=== PATIENT | male | born 1930 | race Caucasian/White ===

== ENCOUNTER 2017-03-29 06:06 | Inpatient (IN) | payer OTHER ==
[2017-03-29 06:13] VITALS: BMI 29.6
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
[2017-03-29 07:35] LABS: VENOUS BLOOD GAS HCO3 25.9 meq/L (19-25); VENOUS PH 7.4 (7.32-7.42)
[2017-03-29 07:39] LABS: EOSINOPHIL 1.1 % (0-4.5); MCH 30.5 pg (25.7-33.7); MCHC 31.9 g/dl (32.0-35.9); MEAN CELL VOLUME 95.6 fl (80-96); MEAN PLT VOLUME 8.5 fl (7.5-11.1); NEUTROPHILS 78.1 % (42.8-82.8); PLATELET COUNT 201 K/MM3 (134-434); RDW 16.5 % (11.9-15.9); WHITE BLOOD COUNT 11.8 K/mm3 (4.0-10.0)
--- NOTE | 2017-03-29 07:44 | PDOC ---
*Physical Exam - Vital Signs Patient's care signed out to me at the beginning of my shift. Patient is an 86 YOM with h/o a-fib on Eliquis, DM, HTN, HLD, and CKD who presented with chest and abdominal pain since 3 am which migrated to the neck and shoulders now. Had two cups of coffee this AM and has not taken his morning medications yet. Concern for aortic dissection; will get chest abdomen pelvis CTA r/o AD. Last Vital Signs Temp Pulse Resp BP Pulse Ox 99.0 F 83 14 145/61 99 03/29/17 06:16 03/29/17 06:11 03/29/17 06:11 03/29/17 06:11 03/29/17 06:11 ED Treatment Course - LABORATORY CBC & Chemistry Diagram: 03/31/17 05:05 03/31/17 05:05 - ADDITIONAL ORDERS Additional order review: Laboratory Results 03/29/17 06:30 VBG pH 7.40 POC VBG pCO2 42.8 POC VBG pO2 28.9 Mixed VBG HCO3 25.9 H - RADIOLOGY Radiology Studies Ordered: Category Date Time Status ABDOMEN/PELVIS CTA W/WO CONTR [CT] Stat CT Scan 03/29/17 07:36 Ordered CHEST CTA [CT] Stat CT Scan 03/29/17 07:36 Ordered Medical Decision Making - Medical Decision Making 86 YO high-risk male p/w signs and symptoms concerning for aortic dissection. Chest pain, abdominal pain, migrating to neck and shoulders. On exam he is in A-fib without RVR, no distress currently, vitals wnl. Sheet Manager for Pt is Dr. Flynn. 03/29/17 08:33 Patient anemic to Hgb of 9.0, has been anemic on [facility] from 10/2016 but this was not as profound as today. Patient is on Eliquis but denies any significant bleeding (no black or bloody stool, no hematuria, no other bleeding). Denies SOB, generalized weakness, dizziness, etc. Cr is 1.3 and Radiology is called, states they can take the patient for scan in 5 minutes. 03/29/17 10:00 No e/o aortic dissection, some liver lesions concerning for hepatocellular disease, also cholelithiasis. Patient's rectal temperature is 100.3 and ordered is BNP, troponin 4 hours after initial. Patient given 4 mg SQ insulin and repeat blood glucose is ordered. He is given 1000cc IVF bolus and repeat lactate is drawn. 03/29/17 11:39 Our protocols note that as of last update, Dr. Jaime admits to hospitalist. Symphony microblogged. 03/29/17 12:25 Patient admitted to Tele. *DC/Admit/Observation/Transfer Diagnosis at time of Disposition: Chest wall pain - Discharge Dispostion Condition at time of disposition: Guarded Admit: Yes - Referrals - Patient Instructions - Post Discharge Activity
[2017-03-29 08:00] LABS: ALBUMIN 3.3 g/dl (3.4-5.0); ANION GAP 9 (8-16); CALCIUM 8.3 mg/dL (8.5-10.1); CO2 24 mmol/L (21-32); CREATININE 1.3 mg/dL (0.7-1.3); SGOT/AST 32 U/L (15-37); SGPT/ALT 34 U/L (12-78)
[2017-03-29 08:01] LABS: BILIRUBIN,TOTAL 0.8 mg/dL (0.2-1.0); TOT PROT 7.4 g/dl (6.4-8.2)
[2017-03-29 08:04] LABS: INR 1.61 (0.82-1.09); PROTHROMBIN TIME (PATIENT) 18.2 SEC (9.98-11.88)
[2017-03-29 08:06] LABS: ACTIVATED PTT 33.2 SECONDS (26.9-34.4)
[2017-03-29 08:09] LABS: ALK PHOS 113 U/L (45-117); CPK 117 IU/L (39-308); MAGNESIUM 1.8 mg/dL (1.8-2.4); PHOSPHOROUS 2.5 mg/dL (2.5-4.9); TROPONIN I < 0.02 ng/ml (0.00-0.05)
[2017-03-29 08:13] LABS: GLUCOSE,RANDOM 302 mg/dL (74-106)
[2017-03-29 09:15] LABS: URINE APPEARANCE CLEAR; URINE BILIRUBIN NEGATIVE (NEGATIVE); URINE BLOOD NEGATIVE (NEGATIVE); URINE COLOR YELLOW; URINE GLUCOSE (UA) 3+ (NEGATIVE); URINE KETONE TRACE (NEGATIVE); URINE NITRITE NEGATIVE (NEGATIVE); URINE PROTEIN NEGATIVE (NEGATIVE); URINE UROBILINOGEN NEGATIVE mg/dL (0.2-1.0)
[2017-03-29] MEDS ORDERED: SODIUM CHLORIDE 500 ML IV STA (09:42)
[2017-03-29] MEDS ORDERED: INSULIN REGULAR HUMAN 100 UNITS/ML *VIAL SQ ONE (09:43)
[2017-03-29] MEDS ORDERED: INSULIN REGULAR HUMAN 100 UNITS/ML *VIAL ONE (09:47)
--- NOTE | 2017-03-29 10:03 | EKG ---
Test Reason : Blood Pressure : / mmHG Vent. Rate : 080 BPM Atrial Rate : 080 BPM P-R Int : 174 ms QRS Dur : 126 ms QT Int : 402 ms P-R-T Axes : 035 -20 026 degrees QTc Int : 463 ms NORMAL SINUS RHYTHM RIGHT BUNDLE BRANCH BLOCK ABNORMAL ECG WHEN COMPARED WITH ECG OF 29-MAR-2017 06:09, PREMATURE SUPRAVENTRICULAR COMPLEXES ARE NO LONGER PRESENT MI INTERVAL HAS INCREASED Confirmed by IVAN PALACIOS MD ([id number]) on 03/29/2017 10:03:11 AM Referred By: Confirmed By:IVAN PALACIOS MD
[2017-03-29 11:43] LABS: TROPONIN I < 0.02 ng/ml (0.00-0.05)
[2017-03-29 12:26] LABS: URINE LEUK ESTERASE Negative (NEGATIVE)
[2017-03-29] MEDS ORDERED: SODIUM CHLORIDE 1,000 ML IV SCH ×2 (13:00→17:26)
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
[2017-03-29] MEDS ORDERED: PATIENT'S OWN MEDICATION (NON-FORMULARY) (Telmisartan [Micardis] 20 MG) PO SCH (14:00)
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
[2017-03-29] MEDS: INSULIN SLIDING SCALE (NOVOLOG) 1 VIAL SQ SCH ×3 (16:36→22:14)
[2017-03-29] MEDS: METOPROLOL SUCCINATE 100 MG TAB.SR.24H (FP) PO SCH (16:38)
[2017-03-29] MEDS: GABAPENTIN 300 MG CAPSULE (FP) PO SCH ×2 (16:38→22:14)
[2017-03-29] MEDS: VALSARTAN 80 MG TABLET (UD) PO SCH (16:38)
[2017-03-29] MEDS: amLODIPine BESYLATE 5 MG TABLET (FP) PO SCH (16:39)
[2017-03-29] MEDS: CEFTRIAXONE 1 G/50 ML PREMIX 50 ML IVPB SCH (16:39)
[2017-03-29] MEDS: METRONIDAZOLE PREMIXED IVPB 250 MG/50 ML MG IVPB SCH (17:52)
[2017-03-29 18:00] LABS: BASOPHIL 0.6 % (0-2.0); EOSINOPHIL 0.5 % (0-4.5); MCH 31.2 pg (25.7-33.7); MCHC 33.2 g/dl (32.0-35.9); MEAN CELL VOLUME 93.9 fl (80-96); MEAN PLT VOLUME 8.4 fl (7.5-11.1); NEUTROPHILS 66.7 % (42.8-82.8); PLATELET COUNT 192 K/MM3 (134-434); RDW 16.4 % (11.9-15.9); WHITE BLOOD COUNT 10.7 K/mm3 (4.0-10.0)
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
[2017-03-29 20:17] LABS: CPK 103 IU/L (39-308); TROPONIN I < 0.02 ng/ml (0.00-0.05)
[2017-03-29] MEDS ORDERED: PATIENT'S OWN MEDICATION (NON-FORMULARY) (Pravastatin Sodium 20 MG) PO SCH (22:00)
[2017-03-29] MEDS: HEPARIN NA (PORCINE) 5,000 UNITS/ML 1ML VIAL SQ SCH (22:00)
--- NOTE | 2017-03-29 22:05 | HOSP ---
Subjective - Review of Symptoms Events since last encounter: Received call from RN who states the patient fell while getting ultrasound. The patient states he was sitting on the left side of the bed voiding. He tried to adjust his body to the left to get better flow when he fell off the end of the bed and struck his face on the floor. He denies LOC. HEENT: Yes: Head Aches Pulmonary: Yes: Dyspnea Cardiovascular: Yes: Chest Pain Gastrointestinal: Yes: Nausea, Vomiting Physical Examination Vital Signs: Vital Signs Temperature 98.8 F 03/29/17 17:00 Pulse Rate 85 03/29/17 17:00 Respiratory Rate 18 03/29/17 17:00 Blood Pressure 140/66 03/29/17 17:00 O2 Sat by Pulse Oximetry (%) 97 03/29/17 13:11 Constitutional: Yes: No Distress, Calm Eyes: Yes: EOM Intact HENT: Yes: WNL Neck: Yes: WNL, Other ([place] c-spine rule low risk- deferred c-spine imaging. ) Cardiovascular: Yes: WNL Respiratory: Yes: WNL Gastrointestinal: Yes: WNL ...Rectal Exam: Yes: Deferred Neurological: Yes: Alert, Oriented, Cran Nerves II-XII Intact. No: Ataxia, Confusion, Facial Droop, Loss of Sensation, Numbness, Paresthesia, Seizure, Tingling ...Motor Strength: WNL Labs: CBC, BMP 03/29/17 17:15 03/29/17 11:10 Hospitalist Encounter Assessment: 86 yo man on Eliquis with fall from standing height. Dried blood from abrasion noted to left temporal region. P: I will obtain CTH. I will give Boostrix 0.5cc IM now. I will hold Eliquis until final results of head CT are returned. I will repeat head CT in 6 hours. Outcome: CT HEAD WITHOUT CONTRAST. INDICATION: Status post fall with head trauma. On Eliquis. TECHNIQUE: Axial noncontrast head CT with coronal and sagittal reformations. COMPARISON: 08/28/[address] FINDINGS: There is no acute intracranial hemorrhage or focal extra-axial collection. There is a chronic infarct in the posterior left cerebellum, unchanged. There is no compelling evidence of acute, territorial transcortical infarct at this time. MRI is much more sensitive in detecting acute infarction. There is generalized, age appropriate volume loss with secondary prominence of the CSF spaces, similar to the prior head CT. There is no mass effect, midline shift or hydrocephalus. There is confluent hypoattenuation in the periventricular white matter, similar to the prior head CT , most likely reflecting microvascular ischemic changes. There is dense calcific atherosclerosis along the intradural right vertebral artery and bilateral internal carotid artery siphons. Status post cataract surgery. The calvarium is intact. The visualized paranasal sinuses and mastoid air cells are clear. IMPRESSION: 1. No significant interval change from [address] No acute intracranial hemorrhage, mass effects or hydrocephalus. No evidence of acute skull fracture. 2. Generalized, age-related volume loss, chronic left cerebellar infarct and mild microvascular ischemic changes appear similar to 08/28/[address] Reported By: Abigail Price DO 03/29/17 [id number]
[2017-03-29] MEDS ORDERED: DIPHTH,PERTUSS(ACELL),TET 0.5 ML DISP.SYRIN IM ONE (22:06)
[2017-03-29] MEDS: ATORVASTATIN CA 10 MG TABLET (FP) PO SCH (22:14)
[2017-03-29] MEDS: APIXABAN 5 MG TABLET PO SCH (23:43)
[2017-03-30] MEDS ORDERED: PT OWN MED DRAWER 7, Y5N ONE (01:31)
[2017-03-30] MEDS: METRONIDAZOLE PREMIXED IVPB 250 MG/50 ML MG IVPB SCH ×2 (01:32→17:14)
[2017-03-30] MEDS: INSULIN SLIDING SCALE (NOVOLOG) 1 VIAL SQ SCH ×4 (06:37→22:03)
[2017-03-30 07:25] LABS: ALBUMIN 2.9 g/dl (3.4-5.0); ALK PHOS 91 U/L (45-117); ANION GAP 7 (8-16); BILIRUBIN,TOTAL 1.1 mg/dL (0.2-1.0); CALCIUM 7.5 mg/dL (8.5-10.1); CO2 24 mmol/L (21-32); CREATININE 1.2 mg/dL (0.7-1.3); GLUCOSE,RANDOM 207 mg/dL (74-106); MAGNESIUM 1.9 mg/dL (1.8-2.4); PHOSPHOROUS 2.1 mg/dL (2.5-4.9); SGOT/AST 14 U/L (15-37); SGPT/ALT 24 U/L (12-78); TOT PROT 6.3 g/dl (6.4-8.2)
[2017-03-30] MEDS: APIXABAN 5 MG TABLET PO SCH ×2 (09:40→22:06)
[2017-03-30] MEDS: amLODIPine BESYLATE 5 MG TABLET (FP) PO SCH (09:40)
[2017-03-30] MEDS: VALSARTAN 80 MG TABLET (UD) PO SCH (09:40)
[2017-03-30] MEDS: GABAPENTIN 300 MG CAPSULE (FP) PO SCH ×2 (09:40→22:06)
[2017-03-30] MEDS: METOPROLOL SUCCINATE 100 MG TAB.SR.24H (FP) PO SCH (09:40)
[2017-03-30] MEDS: HEPARIN NA (PORCINE) 5,000 UNITS/ML 1ML VIAL SQ SCH (09:41)
[2017-03-30] MEDS: CEFTRIAXONE 1 G/50 ML PREMIX 50 ML IVPB SCH (09:41)
[2017-03-30] MEDS ORDERED: NAPH,MB-DB/K PH,MBDB POWDER PACKET PO ONE (10:24)
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
[2017-03-30] MEDS: CALCIUM (OYSTER SHELL) 500 MG TABLET (FP) PO SCH (10:49)
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
--- NOTE | 2017-03-30 13:53 | PN ---
Progress Note, Physician History of Present Illness: S/p fall last night head CT x 2 negative. Pt is comfortable, not in distress, in chair watching TV. No abdominal pain, nausea, vomiting. Reports normal stool this am. Tolerating diet. - Current Medication List Current Medications: Active Medications Amlodipine Besylate (Norvasc -) 5 mg PO DAILY [facility] Last Admin: 03/30/17 09:40 Dose: 5 mg Apixaban (Eliquis -) 5 mg PO BID [facility] Last Admin: 03/30/17 09:40 Dose: 5 mg Atorvastatin Calcium (Lipitor -) 10 mg PO HS [facility] Last Admin: 03/29/17 22:14 Dose: 10 mg Calcium Carbonate (Os-Lorenzo 500mg -) 500 mg PO DAILY [facility] Last Admin: 03/30/17 10:49 Dose: 500 mg Gabapentin (Neurontin -) 300 mg PO BID [facility] Last Admin: 03/30/17 09:40 Dose: 300 mg Insulin Aspart (Novolog Vial Sliding Scale -) 1 vial SQ ACHS [facility] PRN Reason: Protocol Last Admin: 03/30/17 11:26 Dose: 6 units Metoprolol Succinate (Toprol Xl -) 100 mg PO DAILY [facility] Last Admin: 03/30/17 09:40 Dose: 100 mg Valsartan (Diovan -) 80 mg PO DAILY [facility] Last Admin: 03/30/17 09:40 Dose: 80 mg - Objective Vital Signs: Vital Signs Temperature 98 F 03/30/17 09:00 Pulse Rate 78 03/30/17 09:00 Respiratory Rate 18 03/30/17 09:00 Blood Pressure 128/68 03/30/17 09:00 O2 Sat by Pulse Oximetry (%) 98 03/30/17 09:00 Neurological: Yes: Alert, Oriented Labs: CBC, BMP 03/29/17 17:15 03/30/17 05:05 INR, PTT INR 1.61 (0.82-1.09) H 03/29/17 06:45 Laboratory Results - last 24 hr 03/29/17 03/29/17 03/29/17 16:36 17:15 17:45 WBC 10.7 H RBC 2.77 L Hgb 8.6 L Hct 26.0 L MCV 93.9 MCH 31.2 MCHC 33.2 RDW 16.4 H Plt Count 192 MPV 8.4 Neutrophils % 66.7 Lymphocytes % 23.3 D Monocytes % 8.9 Eosinophils % 0.5 Basophils % 0.6 Sodium Potassium Chloride Carbon Dioxide Anion Gap BUN Creatinine Creat Clearance w eGFR POC Glucometer 296 Random Glucose Lactic Acid Calcium Phosphorus Magnesium Total Bilirubin AST ALT Alkaline Phosphatase Creatine Kinase 103 Troponin I < 0.02 Total Protein Albumin 03/29/17 03/30/17 03/30/17 22:10 05:05 05:05 WBC RBC Hgb Hct MCV MCH MCHC RDW Plt Count MPV Neutrophils % Lymphocytes % Monocytes % Eosinophils % Basophils % Sodium 138 Potassium 3.7 D Chloride 107 Carbon Dioxide 24 Anion Gap 7 L BUN 21 H Creatinine 1.2 Creat Clearance w eGFR 57.41 POC Glucometer 248 Random Glucose 207 H D Lactic Acid 1.2 Calcium 7.5 L Phosphorus 2.1 L Magnesium 1.9 Total Bilirubin 1.1 H D AST 14 L D ALT 24 D Alkaline Phosphatase 91 Creatine Kinase Troponin I Total Protein 6.3 L Albumin 2.9 L 03/30/17 03/30/17 06:18 11:24 WBC RBC Hgb Hct MCV MCH MCHC RDW Plt Count MPV Neutrophils % Lymphocytes % Monocytes % Eosinophils % Basophils % Sodium Potassium Chloride Carbon Dioxide Anion Gap BUN Creatinine Creat Clearance w eGFR POC Glucometer 229 290 Random Glucose Lactic Acid Calcium Phosphorus Magnesium Total Bilirubin AST ALT Alkaline Phosphatase Creatine Kinase Troponin I Total Protein Albumin Problem List - Problems (1) Anemia Code(s): D64.9 - ANEMIA, UNSPECIFIED Qualifiers: Anemia type: unspecified type Qualified Code(s): D64.9 - Anemia, unspecified (2) Abdominal pain Code(s): R10.9 - UNSPECIFIED ABDOMINAL PAIN (3) Lactic acid acidosis Code(s): E87.2 - ACIDOSIS (4) Leukocytosis Code(s): D72.829 - ELEVATED WHITE BLOOD CELL COUNT, UNSPECIFIED Assessment/Plan Diet as tolerated OK to D/C from GI point of view Colonoscopy for anemia as an outpatient Discussed with the patient
[2017-03-30] MEDS: ATORVASTATIN CA 10 MG TABLET (FP) PO SCH (22:06)
[2017-03-31] MEDS ORDERED: POTASSIUM CHLORIDE TABS 20 MEQ TABLET.ER (FP) PO ONE (03:47)
[2017-03-31] MEDS: METOPROLOL SUCCINATE 100 MG TAB.SR.24H (FP) PO SCH ×2 (05:46→09:25)
[2017-03-31 06:56] LABS: MCHC 32.8 g/dl (32.0-35.9); MEAN CELL VOLUME 94.5 fl (80-96); MEAN PLT VOLUME 8.2 fl (7.5-11.1); PLATELET COUNT 181 K/MM3 (134-434); RDW 16.2 % (11.9-15.9)
[2017-03-31 07:04] LABS: INR 1.67 (0.82-1.09); PROTHROMBIN TIME (PATIENT) 18.9 SEC (9.98-11.88)
[2017-03-31] MEDS: INSULIN SLIDING SCALE (NOVOLOG) 1 VIAL SQ SCH ×3 (07:06→16:47)
[2017-03-31 07:20] LABS: ALBUMIN 2.9 g/dl (3.4-5.0); ANION GAP 9 (8-16); CALCIUM 7.9 mg/dL (8.5-10.1); CO2 24 mmol/L (21-32); CREATININE 1.2 mg/dL (0.7-1.3); GLUCOSE,RANDOM 190 mg/dL (74-106); PHOSPHOROUS 2.2 mg/dL (2.5-4.9); SGOT/AST 18 U/L (15-37); SGPT/ALT 24 U/L (12-78)
[2017-03-31 07:22] LABS: ALK PHOS 96 U/L (45-117); BILIRUBIN,TOTAL 1.1 mg/dL (0.2-1.0); TOT PROT 6.3 g/dl (6.4-8.2)
[2017-03-31] MEDS: GABAPENTIN 300 MG CAPSULE (FP) PO SCH (09:24)
[2017-03-31] MEDS: amLODIPine BESYLATE 5 MG TABLET (FP) PO SCH (09:25)
[2017-03-31] MEDS: CALCIUM (OYSTER SHELL) 500 MG TABLET (FP) PO SCH (09:25)
[2017-03-31] MEDS: APIXABAN 5 MG TABLET PO SCH (09:25)
[2017-03-31] MEDS: VALSARTAN 80 MG TABLET (UD) PO SCH (09:25)
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
--- NOTE | 2017-03-31 11:46 | PN ---
Progress Note (short form) - Note Progress Note: RENAL Pt is awake and alert denies complaints Last Vital Signs Temp Pulse Resp BP Pulse Ox 98 F 110 H 20 114/70 97 03/31/17 10:00 03/31/17 10:00 03/31/17 10:00 03/31/17 10:00 03/31/17 09:00 lungs clear [id number] irregularly irregular abd soft ext trace edema, DP pulses palpable neuro a+Ox3 CBC, BMP 03/31/17 05:05 03/31/17 05:05 Current Medications Generic Name Dose Route Start Last Admin Trade Name Francisco PRN Reason Stop Dose Admin Amlodipine Besylate 5 mg 03/29/17 14:00 03/31/17 09:25 Norvasc - PO 5 mg DAILY SARAH Administration Apixaban 5 mg 03/29/17 22:00 03/31/17 09:25 Eliquis - PO 5 mg BID SARAH Administration Atorvastatin Calcium 10 mg 03/29/17 22:00 03/30/17 22:06 Lipitor - PO 10 mg HS SARAH Administration Calcium Carbonate 500 mg 03/30/17 10:30 03/31/17 09:25 Os-Lorenzo 500mg - PO 500 mg DAILY SARAH Administration Gabapentin 300 mg 03/29/17 13:50 03/31/17 09:24 Neurontin - PO 300 mg BID SARAH Administration Insulin Aspart 1 vial 03/29/17 14:00 03/31/17 07:06 Novolog Vial Sliding Scale - SQ 4 units ACHS SARAH Administration Protocol Metoprolol Succinate 100 mg 03/29/17 14:00 03/31/17 09:25 Toprol Xl - PO Not Given DAILY SARAH Valsartan 80 mg 03/29/17 16:00 03/31/17 09:25 Diovan - PO 80 mg DAILY SARAH Administration IMPRESSION 1. CKD with ahigh PVR on songram 2. lactic acidosis- normalized 3. fever 4. abdominal pain 5. HTN 6. hx of polyclonal gammopathy 7. DM 8. Hyperlipidemia 9. CAD?afib on eliquis Plan - can stay off fluids now - would repat BMP as outpatient - can restart metformin - consider flomax given high PVR. Today he had a normal BM so his UO should be better MV
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
[2017-03-31] MEDS ORDERED: NAPH,MB-DB/K PH,MBDB POWDER PACKET PO ONE (12:58)
[2017-03-31] MEDS ORDERED: FUROSEMIDE 40 MG TABLET (FP) PO SCH ×2 (13:00→14:00)
--- NOTE | 2017-03-31 14:33 | DS ---
Physical Exam: SUBJECTIVE: Patient seen and examined OBJECTIVE: Vital Signs Period Temp Pulse Resp BP Sys/Shaw Pulse Ox Last 24 Hr 98 F-99.3 F 73-120 18-20 114-128/54-83 96-97 PHYSICAL EXAM GENERAL: The patient is awake, alert, and fully oriented, in no acute distress. HEAD: Normal with no signs of trauma. EYES: PERRL, extraocular movements intact, sclera anicteric, conjunctiva clear. ENT: Ears normal, nares patent, oropharynx clear without exudates, moist mucous membranes. NECK: Trachea midline, full range of motion, supple. LUNGS: Breath sounds equal, clear to auscultation bilaterally, no wheezes, no crackles, no accessory muscle use. HEART: Regular rate and rhythm, S1, S2 without murmur, rub or gallop. ABDOMEN: Soft, nontender, nondistended, normoactive bowel sounds, no guarding, no rebound, no hepatosplenomegaly, no masses. EXTREMITIES: 2+ pulses, warm, well-perfused, no edema. NEUROLOGICAL: Cranial nerves II through XII grossly intact. Normal speech, gait not observed. PSYCH: Normal mood, normal affect. SKIN: Warm, dry, normal turgor, no rashes or lesions noted. LABS Laboratory Results - last 24 hr 03/30/17 03/30/17 03/31/17 16:56 21:59 05:05 WBC 8.0 RBC 2.71 L Hgb 8.4 L Hct 25.6 L MCV 94.5 MCH 31.0 MCHC 32.8 RDW 16.2 H Plt Count 181 MPV 8.2 PT with INR INR Sodium Potassium Chloride Carbon Dioxide Anion Gap BUN Creatinine Creat Clearance w eGFR POC Glucometer 242 222 Random Glucose Calcium Phosphorus Total Bilirubin AST ALT Alkaline Phosphatase Total Protein Albumin 03/31/17 03/31/17 03/31/17 05:05 05:05 07:01 WBC RBC Hgb Hct MCV MCH MCHC RDW Plt Count MPV PT with INR 18.90 H INR 1.67 H Sodium 140 Potassium 4.1 Chloride 107 Carbon Dioxide 24 Anion Gap 9 BUN 23 H Creatinine 1.2 Creat Clearance w eGFR 57.41 POC Glucometer 207 Random Glucose 190 H Calcium 7.9 L Phosphorus 2.2 L Total Bilirubin 1.1 H AST 18 D ALT 24 Alkaline Phosphatase 96 Total Protein 6.3 L Albumin 2.9 L 03/31/17 11:58 WBC RBC Hgb Hct MCV MCH MCHC RDW Plt Count MPV PT with INR INR Sodium Potassium Chloride Carbon Dioxide Anion Gap BUN Creatinine Creat Clearance w eGFR POC Glucometer 239 Random Glucose Calcium Phosphorus Total Bilirubin AST ALT Alkaline Phosphatase Total Protein Albumin HOSPITAL COURSE: Date of Admission:03/29/17 Date of Discharge: 03/31/17 Discharge Summary Reason For Visit: ANEMIA,CHEST PAIN,LACTIC ACIDOSIS Current Active Problems Abdominal pain (Acute) Anemia (Acute) CKD (chronic kidney disease) stage 3, GFR 30-59 ml/min (Acute) Chest pain (Acute) Chest wall pain (Acute) Fever (Acute) Lactic acid acidosis (Acute) Leukocytosis (Acute) Condition: Stable - Instructions Diet, Activity, Other Instructions: Please return to the ED for any new, persistent or worsening symptoms. Follow up with your PCP in 1 week Resume home medications as directed, lasix now 40mg BID Ambulate daily with cane or walker Referrals made for ortho and urology Follow up with Dr. Flynn in 1 -2 weeks for lasix evaluation Referrals: Mireille Jaime MD [Primary Care Provider] - Jin Martines MD [Staff Physician] - Davis Hartley MD [Staff Physician] - Ap Alicea MD [Staff Physician] - Disposition: VNS/HOME HEALTH CARE - Home Medications Comprehensive Discharge Medication List: Ambulatory Orders Amlodipine Besylate [Norvasc -] 5 mg PO DAILY 03/29/17 Apixaban [Eliquis] 5 mg PO BID 03/29/17 Gabapentin [Neurontin] 300 mg PO BID 03/29/17 Metoprolol Succinate [Toprol Xl] 100 mg PO DAILY 03/29/17 Pravastatin Sodium [Pravachol -] 20 mg PO HS 03/29/17 Sitagliptin Phos/Metformin HCl [Janumet 50-1,000 mg Tablet] 1 each PO BID Telmisartan [Micardis] 20 mg PO DAILY 03/29/17 Furosemide [Lasix -] 40 mg PO BID@0600,1400 #60 tablet 03/31/17 Problem List - Problems (1) Abdominal pain Code(s): R10.9 - UNSPECIFIED ABDOMINAL PAIN (2) Fever Code(s): R50.9 - FEVER, UNSPECIFIED (3) Lactic acid acidosis Code(s): E87.2 - ACIDOSIS (4) Leukocytosis Code(s): D72.829 - ELEVATED WHITE BLOOD CELL COUNT, UNSPECIFIED
[2017-03-31 14:43] VITALS: BP 127/67; PULSE 120; TEMP 98.8
== END 2017-03-31 18:04 | disposition home health service (06) | DRG 640 ==
LOC: JER 06:06 → JERBED 12:31 → J4W 13:40
PROVIDERS: ADMIT Internal Medicine; ATTEND Nurse Practitioner Acute Care
DX: E87.2 Acidosis (principal); I50.33 Acute on chronic diastolic (congestive) heart failure; I13.0 Hypertensive heart and chronic kidney disease with heart failure and stage 1 through stage 4 chronic kidney disease, or unspecified chronic kidney disease; D62 Acute posthemorrhagic anemia; E78.00 Pure hypercholesterolemia, unspecified; Z79.01 Long term (current) use of anticoagulants; E11.22 Type 2 diabetes mellitus with diabetic chronic kidney disease; I45.10 Unspecified right bundle-branch block; I25.2 Old myocardial infarction; E11.42 Type 2 diabetes mellitus with diabetic polyneuropathy; I25.10 Atherosclerotic heart disease of native coronary artery without angina pectoris; Z95.1 Presence of aortocoronary bypass graft; I48.0 Paroxysmal atrial fibrillation; D64.9 Anemia, unspecified; N18.3 Chronic kidney disease, stage 3 (moderate); R50.9 Fever, unspecified; D72.829 Elevated white blood cell count, unspecified; R10.9 Unspecified abdominal pain; E83.51 Hypocalcemia; E83.39 Other disorders of phosphorus metabolism; S00.81XA Abrasion of other part of head, initial encounter; W06.XXXA Fall from bed, initial encounter; Y93.89 Activity, other specified; Y92.238 Other place in hospital as the place of occurrence of the external cause; Y99.8 Other external cause status
CPT/HCPCS: 36415; 70450-TC; 71010-TC; 71275-TC; 74174-TC; 76775-TC; 76856-TC; 80053; 81003; 82550; 82803; 82947; 83605; 83735; 83880; 84100; 84484; 85025; 85027; 85610; 85730; 86850; 86900; 86901; 87040; 87086; 87804; 90715; 93005; 93010; 93306-TC; 97161-GP; 99285-25; J1644

== ENCOUNTER 2018-02-17 17:57 | Emergency (ER) | payer OTHER ==
[2018-02-17 18:13] VITALS: BP 108/55; PULSE 68; TEMP 98.1; BMI 29.1
--- NOTE | 2018-02-17 18:14 | PDOC ---
Rapid Medical Evaluation Time Seen by Provider: 02/17/18 18:11 Medical Evaluation: Allergies Allergy/AdvReac Type Severity Reaction Status Date / Time No Known Allergies Allergy Verified 03/29/17 06:13 02/17/18 18:12 I have performed a brief in-person evaluation of this patient. The patient presents with a chief complaint of: Head injury s/p fall yesterday. States he has neuropathy of legs 2/2 DM wnd while placing cane in car yesterday , lost his balance and fell. Might have hit his head but no LOC, SANTANA, dizziness or visual changes. No CP or dizziness prior to fall. Denies any other injuries and ambulatory since fall Pertinent physical exam findings:Unremarkable I have ordered the following:CT head The patient will proceed to the ED for further evaluation. Discharge Disposition - Diagnosis Fall Qualifiers: Encounter type: initial encounter Qualified Code(s): W19.XXXA - Unspecified fall, initial encounter - Referrals Referrals: Jonas Flynn MD [Primary Care Provider] - - Patient Instructions - Post Discharge Activity
--- NOTE | 2018-02-17 19:04 | PDOC ---
History of Present Illness - General Chief Complaint: Injury Stated Complaint: HEAD INJURY, FALL Time Seen by Provider: 02/17/18 18:11 - History of Present Illness Initial Comments: 02/17/18 19:02 A 87-year-old male with multiple comorbidities including peripheral neuropathy and coronary artery disease he takes Eliquist, lost his balance yesterday will walking and struck his head on the pavement. He had no postinjury headache visual changes nausea or vomiting. He reports to the ER today for further evaluation Past History - Past Medical History Allergies/Adverse Reactions: Allergies Allergy/AdvReac Type Severity Reaction Status Date / Time No Known Allergies Allergy Verified 02/17/18 18:12 Home Medications: Ambulatory Orders Amlodipine Besylate [Norvasc -] 5 mg PO DAILY 03/29/17 Apixaban [Eliquis] 5 mg PO BID 03/29/17 Gabapentin [Neurontin] 300 mg PO BID 03/29/17 Metoprolol Succinate [Toprol Xl] 100 mg PO DAILY 03/29/17 Pravastatin Sodium [Pravachol -] 20 mg PO HS 03/29/17 Sitagliptin Phos/Metformin HCl [Janumet 50-1,000 mg Tablet] 1 each PO BID Furosemide [Lasix -] 80 mg PO BID@0600,1400 02/17/18 Losartan Potassium [Cozaar -] 25 mg PO DAILY 02/17/18 Cardiac Disorders: Yes (cardiac cath [id number] ago) COPD: No CHF: Yes Diabetes: Yes HTN: Yes - Surgical History Cardiac Surgery: Yes (Bypass x6) Orthopedic Surgery: Yes (Right knee replacement) - Suicide/Smoking/Psychosocial Hx Smoking History: Never smoked Have you smoked in the past 12 months: No Hx Alcohol Use: No Drug/Substance Use Hx: No Substance Use Type: None Hx Substance Use Treatment: No Review of Systems - Review of Systems All Other Systems: Reviewed and Negative *Physical Exam - Vital Signs Last Vital Signs Temp Pulse Resp BP Pulse Ox 98.1 F 68 18 108/55 L 100 02/17/18 18:12 02/17/18 18:12 02/17/18 18:12 02/17/18 18:12 02/17/18 18:12 - Physical Exam Comments: 02/17/18 19:03 HEAD: NC/ there is a superficial area of ecchymosis about a centimeter in diameter on the left parietal scalp posterior aspect EYES: Conjuntiva clear EOMI PERRL Ears: Canals and TM's normal NOSE: No d/c THROAT: Moist mucous membrances, oral pharanx clear, uvula midline NECK: Supple without adenopathy CARDIAC: S1 S2 LUNGS: CTA Full and Equal breath sounds ABDOMEN: Soft NT ND MS: Full ROM in all joints without edema NEUROLOGIC: No gross sensory or motor deficits, NVID SKIN: Normal color and temperature no lesions or rashes Medical Decision Making - Medical Decision Making 02/17/18 19:59 CT neagtive, no indication of closed head injury *DC/Admit/Observation/Transfer Diagnosis at time of Disposition: Fall Qualifiers: Encounter type: initial encounter Qualified Code(s): W19.XXXA - Unspecified fall, initial encounter - Discharge Dispostion Disposition: HOME Condition at time of disposition: Stable Decision to Admit order: No - Referrals Referrals: Jonas Flynn MD [Primary Care Provider] - - Patient Instructions Printed Discharge Instructions: DI for Abrasion Additional Instructions: Keep the area of the abrasion on his scalp clean with soap and water and left open to air. Return to the emergency room should he develop any headache nausea vomiting or visual changes otherwise follow-up your primary care physician once 2 days further evaluation and treatment options. Her CAT scan today was negative. - Post Discharge Activity
== END 2018-02-17 20:22 | disposition home or self-care (01) ==
LOC: JERFT 17:57
DX: S00.03XA Contusion of scalp, initial encounter (principal); V48.4XXA Person boarding or alighting a car injured in noncollision transport accident, initial encounter; Y92.488 Other paved roadways as the place of occurrence of the external cause; Y93.89 Activity, other specified; Y99.8 Other external cause status; I25.10 Atherosclerotic heart disease of native coronary artery without angina pectoris; I11.0 Hypertensive heart disease with heart failure; Z95.5 Presence of coronary angioplasty implant and graft; Z79.01 Long term (current) use of anticoagulants; E11.42 Type 2 diabetes mellitus with diabetic polyneuropathy; Z79.84 Long term (current) use of oral hypoglycemic drugs; R26.89 Other abnormalities of gait and mobility; Z99.89 Dependence on other enabling machines and devices
CPT/HCPCS: 70450-TC; 99281-25

== ENCOUNTER 2018-03-08 16:28 | Inpatient (IN) | payer OTHER ==
--- NOTE | 2018-03-08 17:22 | PDOC ---
Attending Attestation - HPI HPI: 03/08/18 19:45 The patient is a 87 year old male, with a significant PMH of myocardial infarction s/p CABG, type 2 diabetes mellitus, hypertension, hypercholesterolemia, CKD, and atrial fibrillation (on eliquis) who presents to the emergency department for evaluation s/p syncopal episode. The patient endorses bowel and bladder incontinence s/p syncopal episode. The patient also reports a cough for approx 10 days. The patient denies chest pain, shortness of breath, headache and dizziness. Denies fever, chills, nausea, vomit, diarrhea and constipation. Denies dysuria, frequency, urgency and hematuria. Allergies: NKA Documentation prepared by Ming De Dios, acting as medical collections specialist for Armani Self MD. <Ming De Dios - Last Filed: 03/08/18 20:24> - Resident Resident Name: Erick Cash - ED Attending Attestation I have performed the following: I have examined & evaluated the patient, The case was reviewed & discussed with the resident, I agree w/resident's findings & plan, Exceptions are as noted - Physicial Exam PE: 03/08/18 21:53 Patient is awake and alert, Well-nourished, mildly tachycardic, in no distress Normocephalic, atraumatic PERRLA, EOMI, conjunctiva are pale No JVD Diffuse inspiratory/expiratory wheezing with intermittent rhonchi; RRR +2 pitting edema lower extremity is bilaterally - Medical Decision Making 03/08/18 21:53 87-year-old male with multiple comorbidities presents to the ER after a syncopal episode with loss bowel/bladder. In the ER, patient is mildly tachycardic with oxygen saturation 100% on room air. 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 Chest x- ray reveals borderline cardiomegaly with a linear opacity to the right upper lobe. We'll obtain CBC/CMP/cardiac profile/lower extremity Doppler ultrasound. Will also obtain CT of head to rule out intracranial pathology. We'll obtain d- dimer given the patient's well score at this time is 2. Will reassess. likely admission. 03/08/18 22:55 Patient reassessed. Patient resting comfortably without evidence of acute pulmonary edema after administration of the initial bolus of normal saline. Will administer additional bolus of 500 mL. Lower extremity Doppler ultrasound shows no evidence of DVT. CT of head shows no evidence of acute intracranial pathology. Left cerebellar infarct is noted which was noted on previous CAT scan. Atrophy and small vessel ischemic disease is also noted. CT of chest reveals bilateral pleural effusions (right greater than left) with subsegmental atelectasis which is more pronounced on the right. I suspect pleural effusions related to acute infectious process. Will cover with ceftriaxone and Zithromax. We'll administer unit of packed cells given anemia in the setting of syncope. Will admit to telemetry for further evaluation and treatment. <Armani Self - Last Filed: 03/08/18 22:57>
[2018-03-08] MEDS ORDERED: ALBUTEROL SO4 2.5/IPRATROPIUM 0.5 INH SOL 3 ML VIAL.NEB. NEB ONE ×2 (17:24→17:28)
--- NOTE | 2018-03-08 17:33 | PDOC ---
History of Present Illness - General Stated Complaint: FALL/RESPIRATORY Time Seen by Provider: 03/08/18 17:00 History Source: Patient Exam Limitations: No Limitations - History of Present Illness Initial Comments: 03/08/18 17:31 The patient is an 87M with a PMH of HI s/p CABG, T2DM, HTN and hypercholesterolemia, CKD, and A-fib (on eliquis) who presents to the ER after having a syncopal episode. The patient states that he was in his normal state of health this morning when he went back to his room for a cup of water. As he was walking back into his room, he syncopized. He has never syncopized in the past. He denies CP, SOB, fevers, chills, lightheadedness, palpitations, numbness , tingling, or weakness before, during, or after the syncopal episode. He states that when he came to, he noticed that he lost bowel and bladder function and had urine and feces on him. He washed himself up and called his daughter who advised him to come to the ER. His only current complaint is swelling in his LE and a cough that he's had for 10 days. Past History - Past Medical History Allergies/Adverse Reactions: Allergies Allergy/AdvReac Type Severity Reaction Status Date / Time No Known Allergies Allergy Verified 03/08/18 16:56 Home Medications: Ambulatory Orders Amoxicillin/Potassium Clav [Amox-Clav 500-125 mg Tablet] 1 each PO DAILY Apixaban [Eliquis] 5 mg PO DAILY 03/08/18 Diltiazem [Cardizem -] 60 mg PO BID 03/08/18 Folic Acid - 800 mcg PO DAILY 03/08/18 Furosemide [Lasix] 40 mg PO DAILY 03/08/18 Gabapentin [Neurontin -] 300 mg PO BID 03/08/18 Losartan Potassium 12.5 mg PO DAILY 03/08/18 Metoprolol Succinate [K[place]sp[place] Sprinkle] 50 mg PO DAILY 03/08/18 Pravastatin Sodium [Pravachol (Nf)] 20 mg PO HS 03/08/18 Promethazine/Dextromethorphan [Promethazine-Dm Syrup] 120 ml PO BID 03/08/18 Sitagliptin Phos/Metformin HCl [Janumet 50-1,000 mg Tablet] 1 each PO DAILY 02/13 Cardiac Disorders: Yes (cardiac cath [id number] ago) COPD: No CHF: Yes Diabetes: Yes HTN: Yes - Surgical History Cardiac Surgery: Yes (Bypass x6) Orthopedic Surgery: Yes (Right knee replacement) - Suicide/Smoking/Psychosocial Hx Smoking History: Never smoked Have you smoked in the past 12 months: No Information on smoking cessation initiated: No Hx Alcohol Use: No Drug/Substance Use Hx: No Substance Use Type: None Hx Substance Use Treatment: No Review of Systems - Review of Systems Able to Perform ROS?: Yes Comments:: 03/08/18 20:08 GENERAL/CONSTITUTIONAL: No fever or chills. No weakness. HEAD, EYES, EARS, NOSE AND THROAT: No change in vision. No ear pain or discharge. No sore throat. CARDIOVASCULAR: No chest pain, palpitations, or lightheadedness. RESPIRATORY: Positive for cough. No wheezing, shortness of breath, or hemoptysis. GASTROINTESTINAL: No nausea, vomiting, diarrhea, constipation, or abdominal pain. GENITOURINARY: No dysuria, frequency, hematuria, or change in urination. MUSCULOSKELETAL: No joint or muscle swelling or pain. No neck or back pain. SKIN: No rash or lesions. NEUROLOGIC: Positive for LOC. No headache, numbness, tingling, focal weakness, or change in strength/sensation. Is the patient limited Mongolian proficient: No *Physical Exam - Vital Signs Last Vital Signs Temp Pulse Resp BP Pulse Ox 98.7 F 100 H 18 134/89 99 03/08/18 16:48 03/08/18 16:48 03/08/18 16:48 03/08/18 16:48 03/08/18 16:48 - Physical Exam Comments: 03/08/18 20:09 GENERAL: Well developed, well nourished. Awake and alert. No acute distress. HEENT: Normocephalic, atraumatic. Hearing grossly normal. Moist mucous membranes. PERRLA, EOMI. No conjunctival pallor. Sclera are non-icteric. NECK: Supple. Full ROM. CARDIOVASCULAR: Regular rate and rhythm. No murmurs, rubs, or gallops. PULMONARY: No evidence of respiratory distress. Diffuse expiratory wheezing in all lung schwartz. ABDOMINAL: Soft. Non-tender. Non-distended. No rebound or guarding. GENITOURINARY: No CVA tenderness bilaterally. RECTAL: Normal rectal tone. Yellow stool noted. MUSCULOSKELETAL: Normal range of motion at all joints. No bony deformities or tenderness. EXTREMITIES: No cyanosis. No clubbing. No edema. No calf tenderness or swelling. SKIN: Warm and dry. Normal capillary refill. No rashes. No jaundice. NEUROLOGICAL: Alert, awake, appropriate. Cranial nerves 2-12 intact. No deficits to light touch and temperature in face, upper extremities and lower extremities. 5/5 strength in deltoids, biceps, triceps, quadriceps, hamstrings, and gastrocnemius. Normoreflexic in the upper and lower extremities. Normal speech. Gait is normal without ataxia. PSYCHIATRIC: Cooperative. Good eye contact. Appropriate mood and affect. ED Treatment Course - LABORATORY CBC & Chemistry Diagram: 03/08/18 17:28 03/08/18 17:28 - RADIOLOGY Radiology Studies Ordered: Category Date Time Status HEAD CT WITHOUT CONTRAST [CT] Stat CT Scan 03/08/18 17:08 Ordered CHEST X-RAY PORTABLE* [RAD] Stat Radiology 03/08/18 17:08 Ordered Medical Decision Making - Medical Decision Making 03/08/18 20:10 The patient is an 87M with an extensive PMH who presents to the ER with cough x 10 days, lower extremity edema, and a syncopal episode, concerning for ACS, PE, symptomatic anemia, TIA, CHF exacerbation, symptomatic aortic stenosis. Pt is on eliquis making PE less likely. However, due to tachycardia and syncope, will image lower extremities. EKG showing T wave inversions. CBC notable for anemia. Stool occult negative. No WBC. Cr 1.4. Lactate of 4.4 - giving hydration gently as patient is in CHF exacerbation with BNP of 1400. Pending CTH and duplex. 03/08/18 22:52 CTH negative for acute pathology. Duplex negative for DVT. Chest CT shows subsegmental atelectasis with moderate R pleural effusion and small L pleural effusions. Will give Abx and admit to hospital. Will order PRBC. 03/08/18 23:46 I have endorsed the patient to Dr. Castillo for admission. *DC/Admit/Observation/Transfer Diagnosis at time of Disposition: Syncope and collapse - Discharge Dispostion Condition at time of disposition: Guarded Decision to Admit order: Yes - Referrals Referrals: Jonas Flynn MD [Primary Care Provider] - - Patient Instructions - Post Discharge Activity
[2018-03-08 17:39] LABS: BASO % 0.8 % (0-2.0); EOS % 0.4 % (0-4.5); HEMOGLOBIN 7.7 GM/dL (11.7-16.9); LYMPH % 13.1 % (8-40); MCH 26.4 pg (25.7-33.7); MCHC 31.8 g/dl (32.0-35.9); MEAN CELL VOLUME 82.7 fl (80-96); MEAN PLT VOLUME 7.1 fl (7.5-11.1); MONO % 11.3 % (3.8-10.2); NEUT % 74.4 % (42.8-82.8); PLATELET COUNT 306 K/MM3 (134-434); RBC 2.91 M/mm3 (4.00-5.60); RDW 18.3 % (11.9-15.9); WHITE BLOOD COUNT 7.3 K/mm3 (4.0-10.0)
[2018-03-08 17:54] LABS: VENOUS PC02 45.5 mmHg (38-52); VENOUS PH 7.36 (7.32-7.42)
[2018-03-08 18:03] LABS: ALBUMIN 3.6 g/dl (3.4-5.0); ALK PHOS 105 U/L (45-117); ANION GAP 9 MMOL/L (8-16); BILIRUBIN,TOTAL 0.9 mg/dL (0.2-1); BLOOD UREA NITROGEN 25 mg/dL (7-18); CALCIUM 8.7 mg/dL (8.5-10.1); CHLORIDE 105 mmol/L (98-107); CO2 26 mmol/L (21-32); CREATININE 1.4 mg/dL (0.55-1.3); GLUCOSE,RANDOM 219 mg/dL (74-106); MAGNESIUM 1.9 mg/dL (1.8-2.4); POTASSIUM 4.5 mmol/L (3.5-5.1); SGOT/AST 23 U/L (15-37); SGPT/ALT 21 U/L (13-61); SODIUM 140 mmol/L (136-145); TOT PROT 7.8 g/dl (6.4-8.2)
[2018-03-08 18:09] LABS: INR 3.05 (0.83-1.09); PROTHROMBIN TIME (PATIENT) 36.4 SEC (9.7-13.0)
[2018-03-08] MEDS ORDERED: SODIUM CHLORIDE 1,000 ML IV SCH (18:45)
[2018-03-08] MEDS ORDERED: AZITHROMYCIN IVPB 500 MG in DEXTROSE 5%-WATER - 250 ML IVPB ONE (22:34)
[2018-03-08] MEDS ORDERED: CEFTRIAXONE 1,000 MG in DEXTROSE 5%-WATER - 50 ML IVPB ONE (22:34)
[2018-03-08] MEDS ORDERED: AZITHROMYCIN IVPB 500 MG/250 ML BAG IVPB ONE (22:49)
[2018-03-08] MEDS ORDERED: CEFTRIAXONE 1 GM/50 ML BAG ONE (22:49)
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
[2018-03-09 00:22] LABS: URINE APPEARANCE CLEAR; URINE BILIRUBIN NEGATIVE (<2.0 mg/dL); URINE COLOR YELLOW; URINE GLUCOSE (UA) 2+ (NEGATIVE); URINE KETONE TRACE (NEGATIVE); URINE LEUK ESTERASE NEGATIVE (NEGATIVE); URINE NITRITE NEGATIVE (NEGATIVE); URINE PROTEIN 1+ (NEGATIVE); URINE UROBILINOGEN NEGATIVE mg/dL (0.2-1.0)
[2018-03-09 00:26] LABS: URINE BACTERIA RARE /hpf (NONE SEEN); URINE HYALINE CAST 1 /lpf; URINE MUCUS RARE
[2018-03-09] MEDS ORDERED: SODIUM CHLORIDE 1,000 ML IV SCH ×2 (00:45→13:42)
[2018-03-09] MEDS: guaiFENesin 600 MG TABLET.ER (FP) PO SCH ×3 (02:30→21:03)
[2018-03-09 05:43] VITALS: BMI 29.7
[2018-03-09] MEDS: INSULIN SLIDING SCALE (NOVOLOG) 1 VIAL SQ SCH ×4 (06:06→21:03)
[2018-03-09 06:47] LABS: BASO % 0.6 % (0-2.0); EOS % 0.5 % (0-4.5); HEMATOCRIT 23.9 % (35.4-49); HEMOGLOBIN 7.5 GM/dL (11.7-16.9); LYMPH % 24.5 % (8-40); MCH 25.6 pg (25.7-33.7); MCHC 31.3 g/dl (32.0-35.9); MEAN CELL VOLUME 81.7 fl (80-96); MEAN PLT VOLUME 6.8 fl (7.5-11.1); NEUT % 62.4 % (42.8-82.8); PLATELET COUNT 246 K/MM3 (134-434); RBC 2.92 M/mm3 (4.00-5.60); WHITE BLOOD COUNT 7.4 K/mm3 (4.0-10.0)
[2018-03-09 07:05] LABS: INR 1.99 (0.83-1.09); PROTHROMBIN TIME (PATIENT) 23.7 SEC (9.7-13.0)
[2018-03-09 08:13] LABS: ALBUMIN 3.3 g/dl (3.4-5.0); ALK PHOS 95 U/L (45-117); ANION GAP 7 MMOL/L (8-16); BILIRUBIN,TOTAL 1.3 mg/dL (0.2-1); BLOOD UREA NITROGEN 21 mg/dL (7-18); CALCIUM 8.2 mg/dL (8.5-10.1); CHLORIDE 107 mmol/L (98-107); CHOLESTEROL 66 mg/dL (50-200); CO2 26 mmol/L (21-32); CREATININE 1.2 mg/dL (0.55-1.3); GLUCOSE,RANDOM 164 mg/dL (74-106); HDL CHOLESTEROL 30 mg/dL (40-60); N-TERMINAL BNP 1265.8 pg/ml (5-450); PHOSPHOROUS 2.2 mg/dL (2.5-4.9); POTASSIUM 4.5 mmol/L (3.5-5.1); SGOT/AST 22 U/L (15-37); SGPT/ALT 19 U/L (13-61); SODIUM 141 mmol/L (136-145); TOT PROT 7.3 g/dl (6.4-8.2); TRIGLYCERIDES 69 mg/dL (0-150)
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
[2018-03-09] MEDS ORDERED: ENOXAPARIN NA (PORCINE) 40 MG/0.4 ML DISP.SYRIN SQ SCH (10:00)
[2018-03-09] MEDS: FOLIC ACID 1 MG TABLET (FP) PO SCH (10:28)
[2018-03-09] MEDS: LOSARTAN POTASSIUM 25 MG TABLET PO SCH (10:28)
[2018-03-09] MEDS: dilTIAZem HCL 60 MG TABLET (FP) PO SCH ×2 (10:28→21:30)
[2018-03-09] MEDS: DEXTROMETHORPHAN/PROMETHAZINE 15 MG/6.25 MG/5 ML SYRUP PO SCH ×2 (10:29→21:04)
[2018-03-09] MEDS: GABAPENTIN 300 MG CAPSULE (FP) PO SCH ×2 (10:29→21:03)
[2018-03-09] MEDS ORDERED: METOPROLOL TARTRATE 5 MG/5 ML VIAL IVPUSH PRN (11:58)
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
--- NOTE | 2018-03-09 13:41 | EKG ---
Test Reason : Blood Pressure : / mmHG Vent. Rate : 153 BPM Atrial Rate : 079 BPM P-R Int : 000 ms QRS Dur : 132 ms QT Int : 338 ms P-R-T Axes : 000 -51 -56 degrees QTc Int : 539 ms ATRIAL FIBRILLATION WITH RAPID VENTRICULAR RESPONSE LEFT AXIS DEVIATION RIGHT BUNDLE BRANCH BLOCK ABNORMAL ECG WHEN COMPARED WITH ECG OF 08-MAR-2018 17:01, ATRIAL FIBRILLATION HAS REPLACED SINUS RHYTHM VENT. RATE HAS INCREASED Confirmed by KAMALJIT RODRIGUEZ, ANAI ([id number]) on 03/09/2018 1:41:16 PM Referred By: Ruth COSME Confirmed By:ANAI MARI MD
[2018-03-09] MEDS: APIXABAN 5 MG TABLET PO SCH ×2 (15:46→21:03)
--- NOTE | 2018-03-09 19:01 | EKG ---
Test Reason : Blood Pressure : / mmHG Vent. Rate : 107 BPM Atrial Rate : 107 BPM P-R Int : 144 ms QRS Dur : 140 ms QT Int : 378 ms P-R-T Axes : 055 -47 250 degrees QTc Int : 504 ms SINUS TACHYCARDIA RIGHT BUNDLE BRANCH BLOCK LEFT ANTERIOR FASCICULAR BLOCK BIFASCICULAR BLOCK T WAVE ABNORMALITY, CONSIDER LATERAL ISCHEMIA ABNORMAL ECG WHEN COMPARED WITH ECG OF 29-MAR-2017 06:10, VENT. RATE HAS INCREASED Confirmed by ANAI MARI MD ([id number]) on 03/09/2018 7:01:13 PM Referred By: Confirmed By:ANAI MARI MD
[2018-03-09] MEDS ORDERED: PT OWN MED DRAWER 7, Y5N ONE (19:48)
[2018-03-09] MEDS ORDERED: INSULIN (NOVOLOG) ASPART 100 UNITS/ML 10ML VIAL ONE (19:50)
[2018-03-09] MEDS: ATORVASTATIN CA 10 MG TABLET (FP) PO SCH (21:30)
[2018-03-10] MEDS: INSULIN SLIDING SCALE (NOVOLOG) 1 VIAL SQ SCH ×4 (06:03→22:23)
[2018-03-10 06:56] LABS: CREATININE 0.9 mg/dL (0.55-1.3)
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
[2018-03-10] MEDS: LOSARTAN POTASSIUM 25 MG TABLET PO SCH (09:26)
[2018-03-10] MEDS: dilTIAZem HCL 60 MG TABLET (FP) PO SCH ×2 (09:26→22:08)
[2018-03-10] MEDS: guaiFENesin 600 MG TABLET.ER (FP) PO SCH ×2 (09:27→22:08)
[2018-03-10] MEDS: FOLIC ACID 1 MG TABLET (FP) PO SCH (09:27)
[2018-03-10] MEDS: GABAPENTIN 300 MG CAPSULE (FP) PO SCH ×2 (09:27→22:07)
[2018-03-10] MEDS: DEXTROMETHORPHAN/PROMETHAZINE 15 MG/6.25 MG/5 ML SYRUP PO SCH ×2 (09:28→22:07)
[2018-03-10] MEDS: APIXABAN 5 MG TABLET PO SCH ×2 (09:30→22:08)
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
[2018-03-10 10:27] LABS: HEMATOCRIT 25.1 % (35.4-49); MCH 26.2 pg (25.7-33.7); MEAN CELL VOLUME 81.9 fl (80-96); MEAN PLT VOLUME 7.2 fl (7.5-11.1); PLATELET COUNT 267 K/MM3 (134-434); RBC 3.06 M/mm3 (4.00-5.60); RDW 17.8 % (11.9-15.9)
[2018-03-10 10:30] LABS: ANION GAP 8 MMOL/L (8-16); BLOOD UREA NITROGEN 17 mg/dL (7-18); CALCIUM 7.9 mg/dL (8.5-10.1); CHLORIDE 108 mmol/L (98-107); CO2 23 mmol/L (21-32); GLUCOSE,RANDOM 147 mg/dL (74-106); SODIUM 140 mmol/L (136-145)
--- NOTE | 2018-03-10 10:43 | EKG ---
Test Reason : Blood Pressure : / mmHG Vent. Rate : 115 BPM Atrial Rate : 115 BPM P-R Int : 000 ms QRS Dur : 130 ms QT Int : 362 ms P-R-T Axes : 000 -44 265 degrees QTc Int : 500 ms SINUS TACHYCARDIA VS. ATRIAL FLUTTER WITH RAPID VENTRICULAR RESPONSE LEFT AXIS DEVIATION RIGHT BUNDLE BRANCH BLOCK T WAVE ABNORMALITY, CONSIDER LATERAL ISCHEMIA ABNORMAL ECG WHEN COMPARED WITH ECG OF 09-MAR-2018 09:46, POSSIBLE RHYTHM CHANGE Confirmed by KAMALJIT RODRIGUEZ, ANAI ([id number]) on 03/10/2018 10:42:57 AM Referred By: Confirmed By:ANAI MARI MD
--- NOTE | 2018-03-10 12:39 | ECHO ---
Name: CATHERINE PABLO Exam:Adult Echocardiogram Study Date: 03/10/2018 11:36 AM Age: 87 yrs Reason For Study: SYNCOPE ATRIAL FIBRILLATION Height: 65 in Weight: 160 lb BSA: 1.8 m2 MMode/2D Measurements & Calculations IVSd: 0.93 cm Ao root diam: 3.2 cm LVIDd: 4.7 cm LA dimension: 4.0 cm LVIDs: 3.0 cm LVPWd: 0.88 cm EDV(Teich): 104.9 ml TAPSE: 1.8 cm ESV(Teich): 35.3 ml RV S Jose G: 8.1 cm/sec Doppler Measurements & Calculations MV E max jose g: 83.9 cm/sec MR max jose g: 295.7 cm/sec MV A max jose g: 22.2 cm/sec MR max P.0 mmHg MV E/A: 3.8 MV dec time: 0.15 sec TR max jose g: 207.2 cm/sec PI end-d jose g: 118.1 cm/sec TR max P.2 mmHg Med Peak E' Jose G: 9.0 cm/sec Med E/e': 9.4 Lat Peak E' Jose G: 13.5 cm/sec Lat E/e': 6.2 Procedure The study was technically adequate with some images being suboptimal in quality. Left Ventricle The left ventricular size, thickness and function are normal. Ejection Fraction = 60-65%. Right Ventricle The right ventricle is mildly dilated. The right ventricular systolic function is grossly normal. Atria The left atrium is mildly dilated. A dilated inferior vena cava suggests increased right atrial press ure. Mitral Valve The mitral valve is grossly normal. There is mild mitral regurgitation. Tricuspid Valve The tricuspid valve is not well visualized. There is Trace to mild tricuspid regurgitation. There was insufficient TR detected to calculate RV systolic pressure. Aortic Valve There is moderate aortic sclerosis.;. Trace aortic regurgitation. Pulmonic Valve The pulmonic valve is not well visualized. Trace pulmonic valvular regurgitation. Great Vessels The aortic root is normal size. Interpretation Summary Compared to the prior echo report on October 2016, there is no significant change. Trace aortic regurgit ation. The left atrium is mildly dilated. The left ventricular size, thickness and function are normal Ejection Fraction = 60-65%. Trace pulmonic valvular regurgitation. There is mild mitral regurgitation. The right ventricle is mildly dilated. The right ventricular systolic function is grossly normal. A dilated inferior vena cava suggests increased right atrial pressure. There is Trace to mild tricuspid regurgitation. Erick Soler MD 03/10/2018 12:38 PM
[2018-03-10] MEDS: FUROSEMIDE 40 MG/4 ML INJECTABLE VIAL IVPUSH SCH (13:09)
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
[2018-03-10] MEDS: LACTOBACILLUS ACIDOPHILUS 1 TABLET PO SCH (16:30)
[2018-03-10] MEDS: BANATROL PLUS POWDER PACKET PO SCH ×2 (17:13→22:08)
[2018-03-10] MEDS ORDERED: PT OWN MED DRAWER 7, Y5N ONE (22:03)
[2018-03-10] MEDS: ATORVASTATIN CA 10 MG TABLET (FP) PO SCH (22:08)
[2018-03-10] MEDS ORDERED: INSULIN (NOVOLOG) ASPART 100 UNITS/ML 10ML VIAL ONE (22:22)
[2018-03-11 06:05] LABS: SERUM IRON SATURATION 16 % (15-55); TOTAL IRON BINDING CAPACITY 429 ug/dL (250-450); UIBC 361 ug/dL (111-343)
[2018-03-11] MEDS: BANATROL PLUS POWDER PACKET PO SCH ×3 (06:38→22:06)
[2018-03-11] MEDS: INSULIN SLIDING SCALE (NOVOLOG) 1 VIAL SQ SCH ×4 (06:38→22:02)
[2018-03-11 06:58] LABS: ANION GAP 6 MMOL/L (8-16); BLOOD UREA NITROGEN 14 mg/dL (7-18); CALCIUM 8.2 mg/dL (8.5-10.1); CHLORIDE 107 mmol/L (98-107); CO2 28 mmol/L (21-32); CREATININE 0.9 mg/dL (0.55-1.3); GLUCOSE,RANDOM 132 mg/dL (74-106); POTASSIUM 3.7 mmol/L (3.5-5.1); SODIUM 141 mmol/L (136-145)
[2018-03-11] MEDS ORDERED: PT OWN MED DRAWER 7, Y5N ONE (08:58)
[2018-03-11] MEDS: FOLIC ACID 1 MG TABLET (FP) PO SCH (09:49)
[2018-03-11] MEDS: LACTOBACILLUS ACIDOPHILUS 1 TABLET PO SCH (09:49)
[2018-03-11] MEDS: guaiFENesin 600 MG TABLET.ER (FP) PO SCH ×2 (09:49→22:06)
[2018-03-11] MEDS: LOSARTAN POTASSIUM 25 MG TABLET PO SCH (09:49)
[2018-03-11] MEDS: GABAPENTIN 300 MG CAPSULE (FP) PO SCH ×2 (09:49→22:05)
[2018-03-11] MEDS: APIXABAN 5 MG TABLET PO SCH ×2 (09:49→22:06)
[2018-03-11] MEDS: FUROSEMIDE 40 MG/4 ML INJECTABLE VIAL IVPUSH SCH (09:50)
[2018-03-11] MEDS: dilTIAZem HCL 60 MG TABLET (FP) PO SCH ×2 (09:50→22:05)
[2018-03-11] MEDS: DEXTROMETHORPHAN/PROMETHAZINE 15 MG/6.25 MG/5 ML SYRUP PO SCH ×2 (09:50→22:00)
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
[2018-03-11] MEDS: ALBUTEROL SO4 2.5/IPRATROPIUM 0.5 INH SOL 3 ML VIAL.NEB. NEB PRN (13:40)
[2018-03-11] MEDS: ATORVASTATIN CA 10 MG TABLET (FP) PO SCH (22:06)
[2018-03-12] MEDS: BANATROL PLUS POWDER PACKET PO SCH ×3 (06:23→22:39)
[2018-03-12] MEDS: INSULIN SLIDING SCALE (NOVOLOG) 1 VIAL SQ SCH ×4 (06:27→22:49)
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
[2018-03-12 08:39] LABS: ANION GAP 9 MMOL/L (8-16); BLOOD UREA NITROGEN 13 mg/dL (7-18); CHLORIDE 105 mmol/L (98-107); CO2 27 mmol/L (21-32); CREATININE 0.8 mg/dL (0.55-1.3); GLUCOSE,RANDOM 133 mg/dL (74-106); POTASSIUM 4.1 mmol/L (3.5-5.1); SODIUM 141 mmol/L (136-145)
[2018-03-12] MEDS ORDERED: PT OWN MED DRAWER 7, Y5N ONE ×3 (09:38→15:39)
[2018-03-12] MEDS: FOLIC ACID 1 MG TABLET (FP) PO SCH (09:44)
[2018-03-12] MEDS: dilTIAZem HCL 60 MG TABLET (FP) PO SCH ×2 (09:44→22:44)
[2018-03-12] MEDS: GABAPENTIN 300 MG CAPSULE (FP) PO SCH ×2 (09:44→22:45)
[2018-03-12] MEDS: guaiFENesin 600 MG TABLET.ER (FP) PO SCH ×2 (09:44→22:45)
[2018-03-12] MEDS: LACTOBACILLUS ACIDOPHILUS 1 TABLET PO SCH (09:44)
[2018-03-12] MEDS: APIXABAN 5 MG TABLET PO SCH ×2 (09:44→22:44)
[2018-03-12] MEDS: LOSARTAN POTASSIUM 25 MG TABLET PO SCH (09:45)
[2018-03-12] MEDS: FUROSEMIDE 40 MG/4 ML INJECTABLE VIAL IVPUSH SCH (09:45)
[2018-03-12] MEDS: DEXTROMETHORPHAN/PROMETHAZINE 15 MG/6.25 MG/5 ML SYRUP PO SCH ×2 (09:46→22:49)
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
[2018-03-12] MEDS: ACETAMINOPHEN 325 MG TABLET (FP) PO PRN ×2 (10:49→19:47)
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
[2018-03-12] MEDS: ALBUTEROL SO4 2.5/IPRATROPIUM 0.5 INH SOL 3 ML VIAL.NEB. NEB PRN (21:49)
[2018-03-12] MEDS: ATORVASTATIN CA 10 MG TABLET (FP) PO SCH (22:44)
[2018-03-13] MEDS: BANATROL PLUS POWDER PACKET PO SCH ×3 (07:00→22:26)
[2018-03-13] MEDS ORDERED: INSULIN (NOVOLOG) ASPART 100 UNITS/ML 10ML VIAL ONE (07:02)
[2018-03-13] MEDS: INSULIN SLIDING SCALE (NOVOLOG) 1 VIAL SQ SCH ×4 (07:06→22:36)
[2018-03-13 08:22] LABS: ANION GAP 8 MMOL/L (8-16); BLOOD UREA NITROGEN 13 mg/dL (7-18); CALCIUM 8.2 mg/dL (8.5-10.1); CHLORIDE 102 mmol/L (98-107); CO2 27 mmol/L (21-32); CREATININE 0.8 mg/dL (0.55-1.3); GLUCOSE,RANDOM 164 mg/dL (74-106); POTASSIUM 3.7 mmol/L (3.5-5.1); SODIUM 137 mmol/L (136-145)
[2018-03-13] MEDS: LACTOBACILLUS ACIDOPHILUS 1 TABLET PO SCH (09:29)
[2018-03-13] MEDS: FOLIC ACID 1 MG TABLET (FP) PO SCH (09:29)
[2018-03-13] MEDS: GABAPENTIN 300 MG CAPSULE (FP) PO SCH ×2 (09:29→22:31)
[2018-03-13] MEDS: FUROSEMIDE 40 MG/4 ML INJECTABLE VIAL IVPUSH SCH (09:29)
[2018-03-13] MEDS: APIXABAN 5 MG TABLET PO SCH ×2 (09:29→22:31)
[2018-03-13] MEDS: LOSARTAN POTASSIUM 25 MG TABLET PO SCH (09:29)
[2018-03-13] MEDS: dilTIAZem HCL 60 MG TABLET (FP) PO SCH ×2 (09:29→22:31)
[2018-03-13] MEDS: guaiFENesin 600 MG TABLET.ER (FP) PO SCH ×2 (09:29→22:31)
[2018-03-13] MEDS ORDERED: FUROSEMIDE 40 MG TABLET (FP) PO SCH (10:00)
[2018-03-13] MEDS: DEXTROMETHORPHAN/PROMETHAZINE 15 MG/6.25 MG/5 ML SYRUP PO SCH ×3 (10:22→23:45)
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
[2018-03-13] MEDS: ALBUTEROL SO4 2.5/IPRATROPIUM 0.5 INH SOL 3 ML VIAL.NEB. NEB PRN (12:05)
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
[2018-03-13] MEDS: ACETAMINOPHEN 325 MG TABLET (FP) PO PRN (17:41)
[2018-03-13 21:05] LABS: URINE APPEARANCE CLEAR; URINE BILIRUBIN NEGATIVE (<2.0 mg/dL); URINE COLOR YELLOW; URINE GLUCOSE (UA) 2+ (NEGATIVE); URINE KETONE NEGATIVE (NEGATIVE); URINE LEUK ESTERASE NEGATIVE (NEGATIVE); URINE NITRITE NEGATIVE (NEGATIVE); URINE PROTEIN NEGATIVE (NEGATIVE)
[2018-03-13] MEDS ORDERED: PT OWN MED DRAWER 7, Y5N ONE (22:29)
[2018-03-13] MEDS: ATORVASTATIN CA 10 MG TABLET (FP) PO SCH (22:31)
[2018-03-14] MEDS: BANATROL PLUS POWDER PACKET PO SCH ×3 (06:27→21:10)
[2018-03-14] MEDS: INSULIN SLIDING SCALE (NOVOLOG) 1 VIAL SQ SCH ×4 (06:34→21:16)
[2018-03-14 07:01] LABS: HEMATOCRIT 26.8 % (35.4-49); HEMOGLOBIN 8.2 GM/dL (11.7-16.9); MCH 25.1 pg (25.7-33.7); MCHC 30.4 g/dl (32.0-35.9); MEAN CELL VOLUME 82.5 fl (80-96); MEAN PLT VOLUME 7.2 fl (7.5-11.1); PLATELET COUNT 264 K/MM3 (134-434); RBC 3.25 M/mm3 (4.00-5.60); RDW 18.1 % (11.9-15.9); WHITE BLOOD COUNT 6.6 K/mm3 (4.0-10.0)
[2018-03-14 07:29] LABS: ANION GAP 7 MMOL/L (8-16); BLOOD UREA NITROGEN 12 mg/dL (7-18); CALCIUM 8.2 mg/dL (8.5-10.1); CHLORIDE 103 mmol/L (98-107); CO2 27 mmol/L (21-32); CREATININE 0.9 mg/dL (0.55-1.3); GLUCOSE,RANDOM 186 mg/dL (74-106); POTASSIUM 3.8 mmol/L (3.5-5.1); SODIUM 138 mmol/L (136-145)
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
[2018-03-14] MEDS: FUROSEMIDE 40 MG/4 ML INJECTABLE VIAL IVPUSH SCH (10:02)
[2018-03-14] MEDS: GABAPENTIN 300 MG CAPSULE (FP) PO SCH ×2 (10:02→21:11)
[2018-03-14] MEDS: LOSARTAN POTASSIUM 25 MG TABLET PO SCH (10:02)
[2018-03-14] MEDS: DEXTROMETHORPHAN/PROMETHAZINE 15 MG/6.25 MG/5 ML SYRUP PO SCH ×2 (10:03→21:19)
[2018-03-14] MEDS: FOLIC ACID 1 MG TABLET (FP) PO SCH (10:03)
[2018-03-14] MEDS: guaiFENesin 600 MG TABLET.ER (FP) PO SCH ×2 (10:03→21:11)
[2018-03-14] MEDS: dilTIAZem HCL 60 MG TABLET (FP) PO SCH ×2 (10:03→21:10)
[2018-03-14] MEDS: LACTOBACILLUS ACIDOPHILUS 1 TABLET PO SCH (10:03)
[2018-03-14] MEDS: APIXABAN 5 MG TABLET PO SCH ×2 (10:03→21:10)
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
[2018-03-14] MEDS: ACETAMINOPHEN 325 MG TABLET (FP) PO PRN (16:19)
[2018-03-14] MEDS: ATORVASTATIN CA 10 MG TABLET (FP) PO SCH (21:10)
[2018-03-15] MEDS: BANATROL PLUS POWDER PACKET PO SCH (06:26)
[2018-03-15] MEDS: INSULIN SLIDING SCALE (NOVOLOG) 1 VIAL SQ SCH ×4 (06:27→22:36)
[2018-03-15 07:48] LABS: ANION GAP 7 MMOL/L (8-16); BLOOD UREA NITROGEN 12 mg/dL (7-18); CALCIUM 8.3 mg/dL (8.5-10.1); CHLORIDE 104 mmol/L (98-107); CO2 27 mmol/L (21-32); CREATININE 0.9 mg/dL (0.55-1.3); GLUCOSE,RANDOM 176 mg/dL (74-106); POTASSIUM 3.9 mmol/L (3.5-5.1); SODIUM 138 mmol/L (136-145)
[2018-03-15] MEDS: dilTIAZem HCL 60 MG TABLET (FP) PO SCH ×2 (09:31→22:35)
[2018-03-15] MEDS: LOSARTAN POTASSIUM 25 MG TABLET PO SCH (09:31)
[2018-03-15] MEDS: APIXABAN 5 MG TABLET PO SCH ×2 (09:33→22:35)
[2018-03-15] MEDS: GABAPENTIN 300 MG CAPSULE (FP) PO SCH ×2 (09:38→22:35)
[2018-03-15] MEDS: guaiFENesin 600 MG TABLET.ER (FP) PO SCH ×2 (09:38→22:35)
[2018-03-15] MEDS: LACTOBACILLUS ACIDOPHILUS 1 TABLET PO SCH (09:38)
[2018-03-15] MEDS: FOLIC ACID 1 MG TABLET (FP) PO SCH (09:38)
[2018-03-15] MEDS: FUROSEMIDE 40 MG/4 ML INJECTABLE VIAL IVPUSH SCH (10:08)
[2018-03-15] MEDS: DEXTROMETHORPHAN/PROMETHAZINE 15 MG/6.25 MG/5 ML SYRUP PO SCH ×2 (10:09→22:36)
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
[2018-03-15] MEDS: ATORVASTATIN CA 10 MG TABLET (FP) PO SCH (22:35)
[2018-03-16] MEDS: INSULIN SLIDING SCALE (NOVOLOG) 1 VIAL SQ SCH ×3 (06:44→16:28)
[2018-03-16 07:42] LABS: ANION GAP 6 MMOL/L (8-16); BLOOD UREA NITROGEN 12 mg/dL (7-18); CALCIUM 8.4 mg/dL (8.5-10.1); CHLORIDE 104 mmol/L (98-107); CO2 29 mmol/L (21-32); CREATININE 0.8 mg/dL (0.55-1.3); GLUCOSE,RANDOM 155 mg/dL (74-106); POTASSIUM 3.8 mmol/L (3.5-5.1); SODIUM 139 mmol/L (136-145)
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
[2018-03-16] MEDS ORDERED: PT OWN MED DRAWER 7, Y5N ONE (09:04)
[2018-03-16] MEDS: LOSARTAN POTASSIUM 25 MG TABLET PO SCH (09:16)
[2018-03-16] MEDS: dilTIAZem HCL 60 MG TABLET (FP) PO SCH (09:16)
[2018-03-16] MEDS: LACTOBACILLUS ACIDOPHILUS 1 TABLET PO SCH (09:16)
[2018-03-16] MEDS: guaiFENesin 600 MG TABLET.ER (FP) PO SCH (09:17)
[2018-03-16] MEDS: FUROSEMIDE 40 MG/4 ML INJECTABLE VIAL IVPUSH SCH (09:17)
[2018-03-16] MEDS: FOLIC ACID 1 MG TABLET (FP) PO SCH (09:17)
[2018-03-16] MEDS: GABAPENTIN 300 MG CAPSULE (FP) PO SCH (09:17)
[2018-03-16] MEDS: APIXABAN 5 MG TABLET PO SCH (09:17)
[2018-03-16] MEDS: DEXTROMETHORPHAN/PROMETHAZINE 15 MG/6.25 MG/5 ML SYRUP PO SCH (09:17)
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
[2018-03-16 20:22] VITALS: BP 135/72; PULSE 90; TEMP 97.4
== END 2018-03-16 20:26 | disposition home health service (06) | DRG 291 ==
LOC: JER 16:28 → JERBED 18:58 → J4W 03-09 03:12
PROVIDERS: ADMIT Internal Medicine; ATTEND Internal Medicine
DX: I13.0 Hypertensive heart and chronic kidney disease with heart failure and stage 1 through stage 4 chronic kidney disease, or unspecified chronic kidney disease (principal); I50.33 Acute on chronic diastolic (congestive) heart failure; J96.01 Acute respiratory failure with hypoxia; I45.2 Bifascicular block; N17.9 Acute kidney failure, unspecified; E87.2 Acidosis; I48.1 Persistent atrial fibrillation; J98.11 Atelectasis; D62 Acute posthemorrhagic anemia; E11.22 Type 2 diabetes mellitus with diabetic chronic kidney disease; N18.9 Chronic kidney disease, unspecified; E86.0 Dehydration; I25.10 Atherosclerotic heart disease of native coronary artery without angina pectoris; J20.9 Acute bronchitis, unspecified; I25.2 Old myocardial infarction; Z95.1 Presence of aortocoronary bypass graft; E78.00 Pure hypercholesterolemia, unspecified; Z79.01 Long term (current) use of anticoagulants; Z96.651 Presence of right artificial knee joint; I45.81 Long QT syndrome; E11.42 Type 2 diabetes mellitus with diabetic polyneuropathy; I95.1 Orthostatic hypotension; R19.7 Diarrhea, unspecified
CPT/HCPCS: 36415; 36430; 70450-TC; 71045-TC-FY; 71046-TC-FY; 71250-TC; 74230-TC-FY; 80048; 80053; 80061; 81003; 81015; 82272; 82550; 82553; 82570; 82607; 82728; 82746; 82803; 82962; 83036; 83540; 83550; 83605; 83721; 83735; 83880; 84100; 84300; 84443; 84484; 84540; 85025; 85027; 85044; 85379; 85610; 85651; 85730; 86850; 86900; 86901; 86922; 87040; 87177; 87209; 87324; 87449; 92611-GN; 93005; 93010; 93306-TC; 93880-TC; 93970-TC; 94010; 94640; 94761; 97116-GP; 97161-GP; 99285-25; J7030; P9038; P9058

== ENCOUNTER 2018-07-14 18:03 | Inpatient (IN) | payer OTHER ==
--- NOTE | 2018-07-14 18:13 | PDOC ---
Rapid Medical Evaluation Time Seen by Provider: 07/14/18 18:09 Medical Evaluation: Allergies Allergy/AdvReac Type Severity Reaction Status Date / Time No Known Allergies Allergy Verified 07/14/18 18:09 07/14/18 18:09 I have performed a brief in-person evaluation of this patient. The patient presents with chief complaint of slurred speech this am, seen without slurred speech at 8pm yesterday. Patient also fell twice, once last night and once today. Patient states weakness worse since yesterday in both legs and both hands. Pertinent physical exam findings NAD clear lungs bilaterally heart s1s2 alert and oriented x 3, slurred speech I have ordered the following ekg, labs, iv access ordered The patient will proceed to the Ed for further evaluation Discharge Disposition - Diagnosis Slurred speech - Referrals - Patient Instructions - Post Discharge Activity
--- NOTE | 2018-07-14 18:38 | PDOC ---
Attending Attestation - HPI HPI: 07/14/18 19:48 The patient is a 88 year old male, with a significant PMH of cardiac cath ( 10years ago, [place], CABG), cerebellar infarct, CHF, DM, and HTN who presents to the emergency department with slurred speech. As per family, the patient was at baseline at 8pm yesterday, and was found today with changes to his speech. The patient reports he fell in his bedroom on the way to the bathroom, was able to crawl to the bathroom and get up. The patient denies LOC. As per family, they deny any facial droop, arm or leg weakness, and aphasia. The patient denies chest pain, shortness of breath, headache, dizziness, fever , chills, nausea, vomit, diarrhea or constipation. Allergies: NKDA Past surgical history: Bypass x6, Right knee replacement Social history: None reported PCP: Mireille Donahue Dr. was paged at 12:17am and spoke to him. Dr. Carvalho wanted an MRI of the brain without contrast, urine, and carotid doppler. - Physicial Exam PE: 07/14/18 19:49 GENERAL: Awake, alert, and fully oriented, in no acute distress HEAD: normocephalic, atraumatic, no scalp lacerations or forehead hematomas noted EYES: PERRLA, EOMI, sclera anicteric, conjunctiva clear ENT: Auricles normal inspection, hearing grossly normal, nares patent, oropharynx clear without exudates. Moist mucosa NECK: Normal ROM, supple, no lymphadenopathy, JVD, or masses. no midline cervical vertebral tenderness LUNGS: Breath sounds equal, clear to auscultation bilaterally. No wheezes, and no crackles HEART: (+) irregularly irregular rhythm. no murmurs, rubs or gallops ABDOMEN: Soft, nontender, normoactive bowel sounds. No guarding, no rebound. No masses EXTREMITIES:(+) +1 pitting edema. Normal range of motion. No clubbing or cyanosis. No cords, erythema, or tenderness NEUROLOGICAL:(+) alert and oriented 3. (+)motor strength 5 over 5 bilaterally, slurred speech and a very mild flattening of the nasolabial fold SKIN: Warm, Dry, normal turgor, no rashes or lesions noted. <Corraj,Xhesika - Last Filed: 07/15/18 00:45> - Resident Resident Name: Davis Reyna - ED Attending Attestation I have performed the following: I have examined & evaluated the patient, The case was reviewed & discussed with the resident, I agree w/resident's findings & plan, Exceptions are as noted - HPI HPI: 07/14/18 19:26 This 88-year-old male presents with mild slurred speech and reports falling this morning and having difficulty opening his pill bottles. He said after he fell he had to crawl to the bathroom and it took some 20 minutes to go 10 feet. His daughter reports he was last seen at baseline Saturday evening at 8pm Patient reports chills, tremulous hands and slurred speech. He does have a history of frequent falls according to his daughter because of his peripheral neuropathies. His history of diabetes 07/14/18 19:33 - Physicial Exam PE: 07/14/18 19:27 Well-nourished, well-developed 88-year-old male in no acute distress. Head normocephalic, atraumatic, no scalp lacerations or forehead hematomas noted. Neck no midline cervical vertebral tenderness Lungs clear to auscultation bilaterally CVS irregularly irregular rhythm. Abdomen soft, nontender, no guarding. Extremities +1 pitting edema. Skin warm and dry. no cva tenderness Neuro alert and oriented 3, motor strength 5 over 5 bilaterally, slurred speech and a very mild flattening of the nasolabial fold - Medical Decision Making 07/14/18 19:38 IMP: CVA, he is out to the window for tpa and also he is already on eliquis for afib, NIHSS =2,stable VS 07/15/18 00:23 ct scan head : chronic left cerebellar infarct posteriorly cr=1.8,bun=32 glucose 235 07/16/18 02:54 pt admitted ,cva <Dianna Cannon - Last Filed: 07/16/18 02:54> Attestations - Attestations 07/14/18 19:50 Documentation prepared by Dulce Miller, acting as medical billing and coding specialist for Dianna Cannon MD <Dulce Miller - Last Filed: 07/15/18 00:45>
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
[2018-07-14 19:09] LABS: BASO % 1.2 % (0-2.0); EOS % 7.3 % (0-4.5); HEMATOCRIT 29.2 % (35.4-49); HEMOGLOBIN 9.7 GM/dL (11.7-16.9); LYMPH % 29.5 % (8-40); MCH 29.7 pg (25.7-33.7); MCHC 33.4 g/dl (32.0-35.9); MEAN CELL VOLUME 88.9 fl (80-96); MONO % 6.2 % (3.8-10.2); NEUT % 55.8 % (42.8-82.8); PLATELET COUNT 282 K/MM3 (134-434); RBC 3.28 M/mm3 (4.00-5.60); RDW 18.3 % (11.9-15.9); WHITE BLOOD COUNT 7.9 K/mm3 (4.0-10.0)
[2018-07-14 19:10] LABS: VENOUS PC02 41.7 mmHg (41-51); VENOUS PH 7.46 (7.31-7.41); VENOUS PO2 35.1 mmHg (30-40)
[2018-07-14 19:34] LABS: ALBUMIN 3.5 g/dl (3.4-5.0); ALK PHOS 124 U/L (45-117); ANION GAP 11 MMOL/L (8-16); BILIRUBIN,TOTAL 0.7 mg/dL (0.2-1); BLOOD UREA NITROGEN 32 mg/dL (7-18); CALCIUM 8.6 mg/dL (8.5-10.1); CHLORIDE 101 mmol/L (98-107); CO2 28 mmol/L (21-32); CREATININE 1.8 mg/dL (0.55-1.3); GLUCOSE,RANDOM 247 mg/dL (74-106); POTASSIUM 4.1 mmol/L (3.5-5.1); SGOT/AST 36 U/L (15-37); SGPT/ALT 27 U/L (13-61); SODIUM 141 mmol/L (136-145)
[2018-07-14] MEDS ORDERED: SODIUM CHLORIDE 1,000 ML IV STA (19:36)
[2018-07-14] MEDS ORDERED: ASPIRIN 81 MG CHEWABLE TABLETS PO ONE (22:01)
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
[2018-07-14] MEDS ORDERED: ASPIRIN 81 MG CHEWABLE TABLETS ONE (23:17)
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
[2018-07-15] MEDS ORDERED: SODIUM CHLORIDE 1,000 ML IV SCH ×3 (00:15→05:19)
[2018-07-15 02:44] LABS: URINE APPEARANCE CLEAR; URINE BILIRUBIN NEGATIVE (<2.0 mg/dL); URINE COLOR LTYELLOW; URINE GLUCOSE (UA) 2+ (NEGATIVE); URINE KETONE NEGATIVE (NEGATIVE); URINE LEUK ESTERASE NEGATIVE (NEGATIVE); URINE NITRITE NEGATIVE (NEGATIVE); URINE PROTEIN NEGATIVE (NEGATIVE); URINE UROBILINOGEN NEGATIVE mg/dL (0.2-1.0)
[2018-07-15 05:13] LABS: INR 1.64 (0.83-1.09); PROTHROMBIN TIME (PATIENT) 19.4 SEC (9.7-13.0)
[2018-07-15] MEDS: INSULIN SLIDING SCALE (NOVOLOG) 1 VIAL SQ SCH ×4 (06:18→21:37)
[2018-07-15 07:45] LABS: BASO % 0.7 % (0-2.0); EOS % 8.3 % (0-4.5); HEMATOCRIT 24.8 % (35.4-49); HEMOGLOBIN 8.3 GM/dL (11.7-16.9); LYMPH % 30.2 % (8-40); MCH 29.8 pg (25.7-33.7); MCHC 33.6 g/dl (32.0-35.9); MEAN CELL VOLUME 88.7 fl (80-96); MEAN PLT VOLUME 6.9 fl (7.5-11.1); MONO % 8.4 % (3.8-10.2); NEUT % 52.4 % (42.8-82.8); PLATELET COUNT 197 K/MM3 (134-434); WHITE BLOOD COUNT 5.7 K/mm3 (4.0-10.0)
[2018-07-15 09:11] LABS: ALBUMIN 2.9 g/dl (3.4-5.0); ALK PHOS 97 U/L (45-117); ANION GAP 7 MMOL/L (8-16); BILIRUBIN,TOTAL 0.7 mg/dL (0.2-1); BLOOD UREA NITROGEN 25 mg/dL (7-18); CALCIUM 7.8 mg/dL (8.5-10.1); CHLORIDE 107 mmol/L (98-107); CHOLESTEROL 90 mg/dL (50-200); CO2 30 mmol/L (21-32); CREATININE 1.2 mg/dL (0.55-1.3); GLUCOSE,RANDOM 195 mg/dL (74-106); HDL CHOLESTEROL 39 mg/dL (40-60); MAGNESIUM 1.3 mg/dL (1.8-2.4); PHOSPHOROUS 2.4 mg/dL (2.5-4.9); POTASSIUM 3.1 mmol/L (3.5-5.1); SGOT/AST 17 U/L (15-37); SGPT/ALT 21 U/L (13-61); SODIUM 143 mmol/L (136-145); TOT PROT 6.5 g/dl (6.4-8.2); TRIGLYCERIDES 58 mg/dL (0-150)
[2018-07-15 09:13] LABS: ACTIVATED PTT 30.4 SECONDS (25.2-36.5)
[2018-07-15] MEDS: GABAPENTIN 300 MG CAPSULE (FP) PO SCH ×2 (09:13→21:35)
[2018-07-15] MEDS: ASPIRIN COATED 81 MG TABLET.EC PO SCH (09:13)
[2018-07-15] MEDS: APIXABAN 5 MG TABLET PO SCH ×2 (09:13→21:35)
[2018-07-15] MEDS ORDERED: dilTIAZem HCL 60 MG TABLET (FP) PO SCH (10:00)
[2018-07-15] MEDS ORDERED: FUROSEMIDE 40 MG TABLET (FP) PO SCH (10:00)
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
[2018-07-15] MEDS ORDERED: MAGNESIUM SULF 50% (8.12 MEQ/2 ML-1 GM VIAL) IVPB ONE (10:35)
[2018-07-15] MEDS ORDERED: POTASSIUM CHLORIDE TABS 20 MEQ TABLET.ER (FP) PO ONE (10:35)
--- NOTE | 2018-07-15 10:42 | EKG ---
Test Reason : Blood Pressure : / mmHG Vent. Rate : 107 BPM Atrial Rate : 107 BPM P-R Int : 000 ms QRS Dur : 148 ms QT Int : 386 ms P-R-T Axes : 000 -30 -41 degrees QTc Int : 515 ms SINUS TACHYCARDIA LEFT AXIS DEVIATION RIGHT BUNDLE BRANCH BLOCK ABNORMAL ECG Confirmed by Javy Byrne MD ([id number]) on 07/15/2018 10:41:55 AM Referred By: Confirmed By:Javy Byrne MD
[2018-07-15] MEDS: KCL 10 MEQ IVPB 10 MEQ/100 ML INFUS.BAG IVPB SCH ×2 (11:52→14:58)
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
--- NOTE | 2018-07-15 13:34 | EKG ---
Test Reason : Blood Pressure : / mmHG Vent. Rate : 107 BPM Atrial Rate : 108 BPM P-R Int : 000 ms QRS Dur : 152 ms QT Int : 382 ms P-R-T Axes : 000 -26 -37 degrees QTc Int : 509 ms ATRIAL FIBRILLATION WITH RAPID VENTRICULAR RESPONSE RIGHT BUNDLE BRANCH BLOCK ABNORMAL ECG Confirmed by Javy Byrne MD ([id number]) on 07/15/2018 1:34:22 PM Referred By: Confirmed By:Javy Byrne MD
[2018-07-15] MEDS ORDERED: LOSARTAN POTASSIUM 25 MG TABLET PO SCH (13:45)
--- NOTE | 2018-07-15 13:57 | CONSULT ---
Consult - text type - Consultation Consultation Note: NEUROLOGY CONSULT APPRECIATED: Events reviewed and discussed with staff. This 88 yo RH male is a retired [employer] with pmhx HTN, HLD, CAD s/p stents, DM x 8 years, A. fib and former ETOH abuse who lives alone. Maintained on apixaban, diltiazem, furosemide, gabapentin, metoprolol, pravastatin, sitagliptin/metformin. He receives Meals on Wheels 5 days/week. He is s/p known cerebella CVA about 3 years ago with residual gait dysfunction requiring use of walker especially within the past 3 months with increasing falls. He reports he can no longer participate in bowling or tennis like he used to. He reports multiple falls starting on 07/13/18 x 2 despite use of walker, falling forward hitting his chest and elbow and increasing "wobbling of knees." He denies prodromal symptoms, head trauma, or LOC. PSHx: R TRK 2001, Anterior discetomy C spine 2004 after "tingling" down the arm Brain MRI 06/21/17 (reviewed): mild atrophy, chronic microvascular changes, Old L cerebellar hemispheric CVA and a new right brainstem lacunar infarct. Head CT (reviewed): chronic L cerebellar infarct MRAngio show Left CVA and Right M2 (MCA) stenoses which would not be involved in the pontine lacunar infarct. H/H 8.3/24.8 MCV 88 Mg 1.3 K 3.2 Albumin 2.9 B12 295 TSH 0.76 UA neg. DILLON: BP 150/90 without orthostatic changes. Cor reg. No bruit. Well healed ACD. S/P R TKR. No evidence of head trauma. Scattered keratoses to trunk. NEURO: Mentation/Speech: sl dysarthric. OX [facility]. July 15, 2018. TRUMP -> PMURT 2/3 recall at 3. CNII-CNXII: EOM intact with full schwartz appreciated. Reduced rapid tongue. Gag ok. No facial. Motor: Nild left drift. Myoclonis/asterixis Strength nl. Reduced SARATH' s L>R. Reflexes brisk. Toes downgoing. Coordination: No FTN dystaxia Sensation: Decreased vibration up to shins B/L. Romberg +/- Gait: Flexed, wide-based, shuffling. Retropulsive. Impression: 1. 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 Old left cerebellar CVA 3. 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 4.. Myoclonic jerks/asterixis (R/O occult infection vs. nutritional) 5.. Peripheral Neuropathy (c/w diabetes) Suggest: Order Iron studies, Ammonia level Monitor lytes including Magnesium, Potassium and supplement as needed Dual antiplatelet Rx with Clopidogrel and ASA (81). Await carotid duplex doppler PT evaluation and out patient Rx PT may require higher level of care (home health services) Neuro f/u as outpatient. Thank you very much, Jin Carvalho MD
[2018-07-15 13:58] VITALS: BMI 28.3
--- NOTE | 2018-07-15 14:54 | ECHO ---
Name: CATHERINE PABLO Exam:Adult Echocardiogram Study Date: 07/15/2018 11:58 AM Age: 88 yrs Reason For Study: afib frequent stroke Height: 65 in Weight: 170 lb BSA: 1.8 m2 MMode/2D Measurements & Calculations IVSd: 1.0 cm Ao root diam: 3.8 cm LVIDd: 4.6 cm LA dimension: 5.1 cm LVIDs: 3.2 cm ACS: 1.5 cm LVPWd: 0.91 cm IVSs: 1.2 cm LVPWs: 1.1 cm EDV(Teich): 98.1 ml ESV(Teich): 40.4 ml Doppler Measurements & Calculations Ao V2 max: 149.9 cm/sec MR max jose g: 475.6 cm/sec Ao max P.0 mmHg MR max P.5 mmHg Ao V2 mean: 114.0 cm/sec Ao mean P.6 mmHg Ao V2 VTI: 29.7 cm TR max jose g: 223.4 cm/sec Med Peak E' Jose G: 7.1 cm/sec TR max P.0 mmHg Lat Peak E' Jose G: 11.0 cm/sec Procedure A complete two-dimensional transthoracic echocardiogram was performed (2D, M-mode, Doppler and color flow Doppler). Left Ventricle The left ventricular size, thickness and function are normal. Ejection Fraction = 60%. The transmitra l spectral Doppler flow pattern is suggestive of impaired LV relaxation. The left ventricular wall eloina on is normal. Right Ventricle The right ventricle is normal in size and function. Atria The left atrium is moderately dilated. Right atrial size is normal. Mitral Valve The mitral valve is normal in structure and function. There is mild mitral regurgitation. Tricuspid Valve The tricuspid valve is normal in structure and function. There is trace tricuspid regurgitation. Righ t ventricular systolic pressure is 25 mmhg. Aortic Valve There is mild to moderate aortic valve thickening. Trace to mild aortic regurgitation. Pulmonic Valve The pulmonic valve is not well visualized. Great Vessels The aortic root is normal size. Pericardium/Pleura There is no pericardial effusion. There is no pleural effusion. Interpretation Summary Compared to the prior echo report on 03/10/18, there is no significant change. The left ventricular s ize, thickness and function are normal Ejection Fraction = 60%. The left ventricular wall motion is normal. The right ventricle is normal in size and function. The left atrium is moderately dilated. There is mild mitral regurgitation. Trace to mild aortic regurgitation. There is trace tricuspid regurgitation. Right ventricular systolic pressure is 25 mmhg. MD Javy Byrne 07/15/2018 02:53 PM
--- NOTE | 2018-07-15 15:27 | PN ---
Teaching Attending Note Name of Resident: Hardy Bolaños ATTENDING PHYSICIAN STATEMENT I saw and evaluated the patient. I reviewed the resident's note and discussed the case with the resident. I agree with the resident's findings and plan as documented. SUBJECTIVE: Still has left facial droop and slurred speech. No SANTANA/visual disturbance/new limb numbness/weakness. OBJECTIVE: Afebrile, Hemodynamically Stable. Last Vital Signs Temp Pulse Resp BP Pulse Ox 97.8 F 78 18 151/99 96 07/15/18 10:00 07/15/18 10:00 07/15/18 10:00 07/15/18 10:00 07/15/18 07:40 HEENT - Left facial droop, slurred speech, atraumtic, no pharyngeal erythema/ exudate Heart - S1, S2, irregular Lungs - clear to auscultation Abdomen - soft, non-tender. Bowel Sounds normal. Extremities - no calf swelling/tenderness. Neuro - AAO x 3. Mild decrease in Tone/Power LUE. L facial droop. Laboratory Results - last 24 hr 07/14/18 07/14/18 07/14/18 18:42 18:42 18:46 WBC 7.9 RBC 3.28 L Hgb 9.7 L Hct 29.2 L MCV 88.9 MCH 29.7 D MCHC 33.4 RDW 18.3 H Plt Count 282 MPV 8.0 D Absolute Neuts (auto) 4.4 Neutrophils % 55.8 Lymphocytes % 29.5 D Monocytes % 6.2 Eosinophils % 7.3 H D Basophils % 1.2 Nucleated RBC % 0 PT with INR Cancelled INR Cancelled PTT (Actin FS) VBG pH POC VBG pCO2 POC VBG pO2 VBG HCO3 VBG O2 Sat (Binh) VBG Base Excess Sodium Potassium Chloride Carbon Dioxide Anion Gap BUN Creatinine Creat Clearance w eGFR POC Glucometer 235 Random Glucose Lactic Acid Calcium Phosphorus Magnesium Total Bilirubin AST ALT Alkaline Phosphatase Creatine Kinase Troponin I Total Protein Albumin Triglycerides Cholesterol Total LDL Cholesterol HDL Cholesterol Vitamin B12 TSH Urine Color Urine Appearance Urine pH Ur Specific [place] Urine Protein Urine Glucose (UA) Urine Ketones Urine Blood Urine Nitrite Urine Bilirubin Urine Urobilinogen Ur Leukocyte Esterase 07/14/18 07/14/18 07/15/18 19:00 19:00 02:35 WBC RBC Hgb Hct MCV MCH MCHC RDW Plt Count MPV Absolute Neuts (auto) Neutrophils % Lymphocytes % Monocytes % Eosinophils % Basophils % Nucleated RBC % PT with INR INR PTT (Actin FS) VBG pH 7.46 H POC VBG pCO2 41.7 POC VBG pO2 35.1 VBG HCO3 29.5 H VBG O2 Sat (Binh) 60.6 L VBG Base Excess 5.6 H Sodium 141 Potassium 4.1 Chloride 101 Carbon Dioxide 28 Anion Gap 11 BUN 32 H Creatinine 1.8 H Creat Clearance w eGFR 35.79 POC Glucometer Random Glucose 247 H Lactic Acid Calcium 8.6 Phosphorus Magnesium Total Bilirubin 0.7 AST 36 ALT 27 Alkaline Phosphatase 124 H Creatine Kinase Troponin I 0.03 Total Protein 8.0 Albumin 3.5 Triglycerides Cholesterol Total LDL Cholesterol HDL Cholesterol Vitamin B12 TSH Urine Color Ltyellow Urine Appearance Clear Urine pH 6.0 Ur Specific [place] 1.011 Urine Protein Negative Urine Glucose (UA) 2+ H Urine Ketones Negative Urine Blood Negative Urine Nitrite Negative Urine Bilirubin Negative Urine Urobilinogen Negative Ur Leukocyte Esterase Negative 07/15/18 07/15/18 07/15/18 04:50 06:10 07:25 WBC RBC Hgb Hct MCV MCH MCHC RDW Plt Count MPV Absolute Neuts (auto) Neutrophils % Lymphocytes % Monocytes % Eosinophils % Basophils % Nucleated RBC % PT with INR 19.40 H INR 1.64 H PTT (Actin FS) 30.4 VBG pH POC VBG pCO2 POC VBG pO2 VBG HCO3 VBG O2 Sat (Binh) VBG Base Excess Sodium 143 Potassium 3.1 L Chloride 107 Carbon Dioxide 30 Anion Gap 7 L BUN 25 H Creatinine 1.2 Creat Clearance w eGFR 57.14 POC Glucometer 192 Random Glucose 195 H Lactic Acid Calcium 7.8 L Phosphorus 2.4 L Magnesium 1.3 L Total Bilirubin 0.7 AST 17 ALT 21 Alkaline Phosphatase 97 Creatine Kinase 98 Troponin I < 0.02 Total Protein 6.5 Albumin 2.9 L Triglycerides 58 Cholesterol 90 Total LDL Cholesterol 47 HDL Cholesterol 39 L Vitamin B12 295 TSH 0.76 D Urine Color Urine Appearance Urine pH Ur Specific [place] Urine Protein Urine Glucose (UA) Urine Ketones Urine Blood Urine Nitrite Urine Bilirubin Urine Urobilinogen Ur Leukocyte Esterase 07/15/18 07/15/18 07/15/18 07:25 07:25 11:36 WBC 5.7 RBC 2.80 L Hgb 8.3 L Hct 24.8 L D MCV 88.7 MCH 29.8 MCHC 33.6 RDW 18.0 H Plt Count 197 D MPV 6.9 L D Absolute Neuts (auto) 3.0 Neutrophils % 52.4 Lymphocytes % 30.2 Monocytes % 8.4 Eosinophils % 8.3 H Basophils % 0.7 Nucleated RBC % 0 PT with INR INR PTT (Actin FS) VBG pH POC VBG pCO2 POC VBG pO2 VBG HCO3 VBG O2 Sat (Binh) VBG Base Excess Sodium Potassium Chloride Carbon Dioxide Anion Gap BUN Creatinine Creat Clearance w eGFR POC Glucometer 248 Random Glucose Lactic Acid 1.2 Calcium Phosphorus Magnesium Total Bilirubin AST ALT Alkaline Phosphatase Creatine Kinase Troponin I Total Protein Albumin Triglycerides Cholesterol Total LDL Cholesterol HDL Cholesterol Vitamin B12 TSH Urine Color Urine Appearance Urine pH Ur Specific [place] Urine Protein Urine Glucose (UA) Urine Ketones Urine Blood Urine Nitrite Urine Bilirubin Urine Urobilinogen Ur Leukocyte Esterase Current Medications Generic Name Dose Route Start Last Admin Trade Name Freq PRN Reason Stop Dose Admin Apixaban 5 mg 07/15/18 10:00 07/15/18 09:13 Eliquis - PO 5 mg BID SARAH Administration Aspirin 81 mg 07/15/18 10:00 07/15/18 09:13 Ecotrin - PO 81 mg DAILY SARAH Administration Atorvastatin Calcium 80 mg 07/15/18 22:00 Lipitor - PO HS SARAH Gabapentin 300 mg 07/15/18 10:00 07/15/18 09:13 Neurontin - PO 300 mg BID SARAH Administration Sodium Chloride 1,000 mls @ 50 mls/hr 07/15/18 05:19 07/15/18 06:18 Normal Saline - IV 50 mls/hr ASDIR SARAH Administration Insulin Aspart 1 vial 07/15/18 07:00 07/15/18 11:48 Novolog Vial Sliding Scale - SQ 6 unit ACHS SARAH Administration Protocol Losartan Potassium 12.5 mg 07/15/18 13:45 Cozaar - PO DAILY SARAH Metoprolol Succinate 150 mg 07/15/18 13:33 Toprol Xl - PO DAILY [facility] Home Medications Medication Instructions Recorded Apixaban [Eliquis -] 5 mg PO BID 07/14/18 Diltiazem [Cardizem -] 150 mg PO DAILY 07/14/18 Furosemide [Lasix] 80 mg PO DAILY 07/14/18 Gabapentin [Neurontin -] 300 mg PO BID 07/14/18 Metoprolol Succinate [Toprol Xl] 150 mg PO DAILY 07/14/18 Pravastatin Sodium [Pravachol (Nf)] 20 mg PO HS 07/14/18 Sitagliptin Phos/Metformin HCl 1 each PO BID 07/14/18 [Janumet 50-1,000 mg Tablet] Losartan Potassium 12.5 mg PO DAILY 07/15/18 Torsemide 50 mg PO DAILY 07/15/18 ASSESSMENT AND PLAN: 87 year old male with history of CAD s/p [place] s/p CABG, DM 2 with peripheral neuropathy, HTN, HLD, CKD 3, Atrial Fibrillation (on Eliquis), presents with unsteady gait, fall, slurred speech, found to have left sided facial droop. No preceding chest pain/palpitations/lightheadedness. He denies HI or LOC. Head CT: no acute intracranial pathology, Chronic left cerebellar infarct. CXR no acute pathology 1. Acute CVA with L facial droop, dysarthria and LUE weakness CT Head negative MRI/MRA, Carotid Duplex and Echo requested. Neurochecks On Aspirin and Eliquis. Neuro consult pending PT 2. Atrial Fibrillation HR in 110s Continue Metoprolol and Diltiazem as well as Lasix and Torsemide. Continue AC with Eliquis 3. ANGELO on CKD - improved with hydration 4. Hypomagnesemia/Hypophosphatemia/Hypokalemia - repleted 5. Chronic Diastolic CHF - Stable. will resume Lasix and continue to hold Torsemide. Echo pending 6. ANGELO on CKD 3 - resolved with IV hydration. 7. Normocytic Anemia, likely secondary to Chronic Disease and B12 deficiency B12 level borderline at 295. Will send MMA and replete. 8. CAD s/p CABG x6 Echo requested Continue Aspirin, BB, ARB, Statin 9. HTN - Continue Metoprolol and Diltiazem 10. DM 2 with Neuropathy - normally on Janumet. Maintained on sliding scale during hospitalization. Continue Gabapentin DVT Px - on Eliquis.
[2018-07-15] MEDS ORDERED: POTASSIUM PHOSPHATE 15 MM in SODIUM CHLORIDE 250 ML IVPB ONE (15:35)
[2018-07-15] MEDS: CYANOCOBALAMIN 1,000 MCG TABLET (FP) PO SCH (16:36)
[2018-07-15] MEDS ORDERED: ATORVASTATIN CA 80 MG TABLET (FP) PO SCH (22:00)
[2018-07-16 06:31] LABS: EOS % 9.1 % (0-4.5); HEMOGLOBIN 8.2 GM/dL (11.7-16.9); LYMPH % 33.7 % (8-40); MCH 29.5 pg (25.7-33.7); MCHC 32.9 g/dl (32.0-35.9); MEAN CELL VOLUME 89.4 fl (80-96); MEAN PLT VOLUME 7.1 fl (7.5-11.1); MONO % 8.8 % (3.8-10.2); NEUT % 47.4 % (42.8-82.8); PLATELET COUNT 189 K/MM3 (134-434); RBC 2.79 M/mm3 (4.00-5.60); RDW 18.3 % (11.9-15.9)
[2018-07-16] MEDS: INSULIN SLIDING SCALE (NOVOLOG) 1 VIAL SQ SCH ×2 (06:33→11:17)
[2018-07-16 07:35] LABS: ANION GAP 5 MMOL/L (8-16); BLOOD UREA NITROGEN 17 mg/dL (7-18); CALCIUM 8.6 mg/dL (8.5-10.1); CHLORIDE 110 mmol/L (98-107); CO2 26 mmol/L (21-32); CREATININE 0.9 mg/dL (0.55-1.3); GLUCOSE,RANDOM 180 mg/dL (74-106); MAGNESIUM 2.2 mg/dL (1.8-2.4); PHOSPHOROUS 2.6 mg/dL (2.5-4.9); SODIUM 140 mmol/L (136-145)
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
[2018-07-16] MEDS: CYANOCOBALAMIN 1,000 MCG TABLET (FP) PO SCH (09:47)
[2018-07-16] MEDS: GABAPENTIN 300 MG CAPSULE (FP) PO SCH (09:48)
[2018-07-16] MEDS: ASPIRIN COATED 81 MG TABLET.EC PO SCH (09:48)
[2018-07-16] MEDS: APIXABAN 5 MG TABLET PO SCH (09:48)
[2018-07-16] MEDS ORDERED: dilTIAZem HCL 60 MG TABLET (FP) PO SCH ×2 (10:00)
[2018-07-16] MEDS ORDERED: FUROSEMIDE 40 MG TABLET (FP) PO SCH (10:00)
[2018-07-16] MEDS ORDERED: CLOPIDOGREL BISULFATE 75 MG TABLET (FP) PO SCH (10:30)
--- NOTE | 2018-07-16 11:14 | PN ---
Progress Note, TRANSFORMATION ARCHITECT - Note Progress Note: Selected Entries 07/15/18 07/15/18 07/15/18 04:31 05:00 10:00 Supper Temperature 97.2 F L 97.7 F 97.8 F 07/15/18 07/15/18 07/15/18 14:05 17:00 19:44 Supper 50% Temperature 98 F 97.7 F 07/15/18 07/15/18 07/16/18 22:00 22:54 06:00 Supper Temperature 97.8 F 97.7 F 97.5 F L Laboratory Tests 07/16/18 05:30 WBC 5.0 On dys whole diet/thin liquids. Tolerating diet well. MRI- Acute right Pontine infarct Speech more precise than during initial assessment and left facial improving.
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
--- NOTE | 2018-07-16 14:05 | PN ---
Teaching Attending Note Name of Resident: Hardy Bolaños ATTENDING PHYSICIAN STATEMENT I saw and evaluated the patient. I reviewed the resident's note and discussed the case with the resident. I agree with the resident's findings and plan as documented. SUBJECTIVE:asymptomatic. states hes feeling stronger today. denies CP, SOB, fever, chills, N/V/C/D OBJECTIVE: Last Vital Signs Temp Pulse Resp BP Pulse Ox 98.1 F 83 18 142/87 97 07/16/18 10:00 07/16/18 10:00 07/16/18 10:00 07/16/18 10:00 07/16/18 09:00 General NAD CV S1 S2 irregular Lungs CTA B/L no wheezing/rales/rhonchi Neuro slight facial asymmetry. strength and sensation grossly equal in all 4 extremities ASSESSMENT AND PLAN: 87 year old male with history of CAD s/p PR s/p CABG, DM 2 with peripheral neuropathy, HTN, HLD, CKD 3, Atrial Fibrillation (on Eliquis), presents with unsteady gait, fall, slurred speech, found to have left sided facial droop. No preceding chest pain/palpitations/lightheadedness. He denies HI or LOC. 1. Acute R pontine CVA- some facial droop but reports as improved. MRA showing R M2 segment of MCA and L P2 segment of PICA does not correlate with stroke. started on asa and plavix. pt is aware of increased risk of bleeding while being on NOAC. refusing JOSE at this time. agreeable to outpatient PT. statin increased to high intensity (lipitor 80mg). will need outpatient neuro f/u 2. Afib- rate uncontrolled. increase diltiazem to 90mg BID to optimize control. cont metoprolol. on eliquis. cardio on baord 3. Acute on CKD stage III- due to dehydration. now resolved 4. Hypomagnesemia- resolved 5. Hypokalemia- resolved 6. Chronic diastolic CHF- stable. will resume diuretics on discharge 7. Normocytic anemia- due to chronic disease. monitor hgb while on dual antiplatelet 8. CAD s/p CABG- on asa/statin/betablocker 9. DM- re-start medications on discharge 10. d/c home today with follow up. discuss with patient on medication changes and need for follow up. VNS on discharge.
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
[2018-07-16 15:49] VITALS: BP 148/67; PULSE 61; TEMP 97.9
[2018-07-17 04:15] LABS: SERUM IRON SATURATION 16 % (15-55); TOTAL IRON BINDING CAPACITY 370 ug/dL (250-450); UIBC 312 ug/dL (111-343)
[2018-07-17] MEDS ORDERED: LEVOTHYROXINE NA 25 MCG TABLET (FP) NGT SCH (07:00)
[2018-07-19 07:20] LABS: METHYLMALONIC ACID- 429 nmol/L (0-378)
== END 2018-07-16 15:54 | disposition home health service (06) | DRG 65 ==
LOC: SUPCPDRO 18:03 → JER 18:03 → JERBED 22:08 → J4W 07-15 05:06
PROVIDERS: ADMIT Internal Medicine; ATTEND Internal Medicine
DX: I63.89 Other cerebral infarction (principal); I13.0 Hypertensive heart and chronic kidney disease with heart failure and stage 1 through stage 4 chronic kidney disease, or unspecified chronic kidney disease; I50.32 Chronic diastolic (congestive) heart failure; N17.9 Acute kidney failure, unspecified; E11.22 Type 2 diabetes mellitus with diabetic chronic kidney disease; N18.3 Chronic kidney disease, stage 3 (moderate); E86.0 Dehydration; E83.42 Hypomagnesemia; E87.6 Hypokalemia; I48.0 Paroxysmal atrial fibrillation; E11.42 Type 2 diabetes mellitus with diabetic polyneuropathy; I25.2 Old myocardial infarction; R26.81 Unsteadiness on feet; D63.8 Anemia in other chronic diseases classified elsewhere; I45.10 Unspecified right bundle-branch block; I45.81 Long QT syndrome; R00.0 Tachycardia, unspecified; R62.7 Adult failure to thrive; Z68.28 Body mass index [BMI] 28.0-28.9, adult; I25.10 Atherosclerotic heart disease of native coronary artery without angina pectoris; E83.39 Other disorders of phosphorus metabolism; E53.8 Deficiency of other specified B group vitamins; R47.1 Dysarthria and anarthria; G83.24 Monoplegia of upper limb affecting left nondominant side; R29.702 NIHSS score 2; Z95.5 Presence of coronary angioplasty implant and graft; Z95.1 Presence of aortocoronary bypass graft; Z96.651 Presence of right artificial knee joint
CPT/HCPCS: 36415; 70450-TC; 70544-TC; 70551-TC; 71045-TC-FY; 80048; 80053; 80061; 81003; 82140; 82550; 82607; 82803; 82962; 83540; 83550; 83605; 83721; 83735; 83921; 84100; 84443; 84484; 85025; 85610; 85730; 93005; 93010; 93306-TC; 93880-TC; 97116-GP; 97161-GP; 99285-25; J7030

== ENCOUNTER 2018-09-01 15:45 | Inpatient (IN) | payer OTHER ==
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
--- NOTE | 2018-09-01 16:43 | PDOC ---
Documentation entered by Hardy Schuler SCRIBE, acting as scribe for Rachel Matos MD. Rachel Matos MD: This documentation has been prepared by the asimeGanga Daniel, SCRIBE, under my direction and personally reviewed by me in its entirety. I confirm that the documentation accurately reflects all work, treatment, procedures, and medical decision making performed by me. Attending Attestation - Resident Resident Name: ArianNadine - ED Attending Attestation I have performed the following: I have examined & evaluated the patient, The case was reviewed & discussed with the resident, I agree w/resident's findings & plan, Exceptions are as noted - HPI HPI: 09/01/18 16:16 The patient is a 88 year old male with a past medical history of diabetes, diabetic neuropathy, [place] s/p CABG, HTN, HLD, and afib (eliquis) here today for evaluation of falling. The patient reports that he has fallen 4 times. He reports that all [address] He was walking with his walker when he felt his knees give out and he fell backwards. He denies headstrike and loss of consciousness. Patient denies headache, lightheadedness. Denies fever, chills. Denies chest pain, shortness of breath. Denies nausea, vomiting, diarrhea, abdominal pain. Allergies: NKA PCP: Mireille Jaime Geothermal Operations Engineer: Jonas Flynn - Physicial Exam PE: GENERAL: Awake, alert, and fully oriented, in no acute distress HEAD: No signs of trauma EYES: PERRLA, EOMI, sclera anicteric, conjunctiva clear ENT: Auricles normal inspection, hearing grossly normal, nares patent, oropharynx clear without exudates. Moist mucosa NECK: Normal ROM, supple, no lymphadenopathy, JVD, or masses LUNGS: Breath sounds equal, clear to auscultation bilaterally. No wheezes, and no crackles HEART: Regular rate and rhythm, normal S1 and S2, no murmurs, rubs or gallops ABDOMEN: Soft, nontender, normoactive bowel sounds. No guarding, no rebound. No masses EXTREMITIES: Normal range of motion, 3+ pitting edema BLE to level of knees. No clubbing or cyanosis. No cords, erythema, or tenderness NEUROLOGICAL: Cranial nerves II through XII grossly intact. Normal speech. Motor and sensation intact SKIN: Warm, Dry, normal turgor, no rashes. Multiple lesions to the arms in various states of healing. - Medical Decision Making Pt presents s/p multiple falls at home. Unreliable historian, but as per the daughter, she is concerned he is falling more than he says he does. He has multiple skin abrasions in various states of healing on his arms. Also noted to have significant swelling in the lower legs. Will obtain CTH to r/o any recent strokes that may have led to the falls. Medical workup. Will require admission as it is unsafe to discharge him home.
[2018-09-01 17:52] LABS: BASO % 1.1 % (0-2.0); EOS % 3.4 % (0-4.5); HEMATOCRIT 18.6 % (35.4-49); LYMPH % 29.1 % (8-40); MCH 26.8 pg (25.7-33.7); MCHC 30.7 g/dl (32.0-35.9); MEAN CELL VOLUME 87.4 fl (80-96); MEAN PLT VOLUME 7.7 fl (7.5-11.1); MONO % 9.8 % (3.8-10.2); NEUT % 56.6 % (42.8-82.8); PLATELET COUNT 215 K/MM3 (134-434); RBC 2.13 M/mm3 (4.00-5.60); RDW 18.8 % (11.9-15.9); WHITE BLOOD COUNT 7.1 K/mm3 (4.0-10.0)
[2018-09-01 18:02] LABS: HEMOGLOBIN 5.7 GM/dL (11.7-16.9)
[2018-09-01 18:24] LABS: ALBUMIN 3.2 g/dl (3.4-5.0); ALK PHOS 92 U/L (45-117); ANION GAP 11 MMOL/L (8-16); BILIRUBIN,TOTAL 0.7 mg/dL (0.2-1); BLOOD UREA NITROGEN 39 mg/dL (7-18); CALCIUM 8.9 mg/dL (8.5-10.1); CHLORIDE 95 mmol/L (98-107); CO2 32 mmol/L (21-32); MAGNESIUM 1.8 mg/dL (1.8-2.4); PHOSPHOROUS 2.3 mg/dL (2.5-4.9); POTASSIUM 3.7 mmol/L (3.5-5.1); SGOT/AST 35 U/L (15-37); SGPT/ALT 26 U/L (13-61); SODIUM 137 mmol/L (136-145); TOT PROT 6.9 g/dl (6.4-8.2)
[2018-09-01 18:26] LABS: GLUCOSE,RANDOM 373 mg/dL (74-106)
[2018-09-01] MEDS ORDERED: SODIUM CHLORIDE 0.9% 500 ML INFUS.BAG IV ONE (18:51)
[2018-09-01 19:19] LABS: PH,URINE 5.5 (5.0-8.0); URINE APPEARANCE CLEAR; URINE BILIRUBIN NEGATIVE (NEGATIVE); URINE COLOR YELLOW; URINE GLUCOSE (UA) 3+ (NEGATIVE); URINE KETONE NEGATIVE (NEGATIVE); URINE LEUK ESTERASE NEGATIVE (NEGATIVE); URINE NITRITE NEGATIVE (NEGATIVE); URINE PROTEIN NEGATIVE (NEGATIVE); URINE UROBILINOGEN 0.2 mg/dL (0.2-1.0)
--- NOTE | 2018-09-01 21:06 | PN ---
Teaching Attending Note Name of Resident: Eduard Lo ATTENDING PHYSICIAN STATEMENT I saw and evaluated the patient. I reviewed the resident's note and discussed the case with the resident. I agree with the resident's findings and plan as documented. SUBJECTIVE: Seen and examined; please refer to resident note for further historical information. Briefly, this is a 88 y/o male with a PMH Presents after being sent in by his PCP for low blood counts and multiple mechanical falls; no complaints today. Orthostatic VS pending. Hemodynamically stable and afebrile. He denies melena, hematochezia, etc. He attributes his falls to his peripheral neuropathy. He is documented as being on eliquis, aspirin, and plavix though told me he was not on any blood thinners. . He has been on lasix and was also taking torsemide prior to his CVA. This was temporarily discontinued at his discharge home, but he reports that it was restarted as 1/2 pill per day and then increased to a whole pill daily. There has been no change in the edema. His marketing producer is Dr. Flynn. ER ordered 2 units PRBC so will monitor for fluid overload. Didn't take PM meds so will need his cardizem at least (mild tachy in ER) 10 sys ROS done and negative aside from HPI PMH, PSH, FH, SH reviewed Home Medications Medication Instructions Recorded Apixaban [Eliquis -] 5 mg PO BID 07/14/18 Furosemide [Lasix] 80 mg PO DAILY 07/14/18 Gabapentin [Neurontin -] 300 mg PO BID 07/14/18 Metoprolol Succinate [Toprol Xl] 150 mg PO DAILY 07/14/18 Sitagliptin Phos/Metformin HCl 1 each PO BID 07/14/18 [Janumet 50-1,000 mg Tablet] Losartan Potassium 12.5 mg PO DAILY 07/15/18 Aspirin Coated [Ecotrin -] 81 mg PO DAILY tablet.ec 07/16/18 Atorvastatin Ca [Lipitor] 80 mg PO HS #30 tablet 07/16/18 Clopidogrel Bisulfate [Plavix -] 75 mg PO DAILY #30 tablet 07/16/18 Diltiazem [Cardizem -] 90 mg PO BID #60 tablet 07/16/18 OBJECTIVE: VS, labs, imaging reviewed NAD, AAO, resting comfortably in bed NC AT EOMI PERRLA RRR s1/2 no mgr Lungs CTAB, w/ sym exp NT ND +BS CN2-12 wnl, no fnd Normal mood, appropriate behavior CT head reviewed; no acute disease and mild acute atrophy EKG reviewed ASSESSMENT AND PLAN Patient presents with multiple mechanical falls at home ('knees gave out') found to have Hb 5-range with no s/s active bleeding 1) Anemia -Prior to XF check iron studies, reticulocyte count, b12, folate -Check FOBT; he states he was scopd ~7 years ago but forgets what it showed -Will trend post transfusion; consider nonurgent hematology referral. 2) ANGELO on CKD-3 -Cr 2.0 now, 0.9 at DC. Has been taking home torsemide due to concerns for fluid overload. Likely is due to nephrotoxic agent. BNP is elevated likely due to this. Will get volume with the blood so will followup after transfusion and if worsens will consider renal consultation. 3) Falls -Appear to be mechanical relating to peripheral neuropathy; cannot rule out contribution from #1. -PT consult and fall precuations inpatient 4) Peripheral neuropathy -Increasing gabapentin to TID 5) Afib on eliquis -Continue home toprol xl, dilt, eliquis (providing no bleed); didn't get PM meds and slight tachy as day went on so will administer his dilt. Check OS VS and FOBT to ensure no active bleed 6) Hx CAD s/p CABG 7) DM with hyperglycemia -Give insulin now and recheck fsg; continue SSI. Hold PO antihyperglycemics. Checking A1c. 8) Hx CVA -See DCS from last admit; reviewed. Continuing home meds. 9) Hx HLD -Continue statin
[2018-09-01] MEDS ORDERED: LACTATED RINGERS SOLUTION 1,000 ML IV SCH (22:00)
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
[2018-09-01] MEDS ORDERED: dilTIAZem HCL 60 MG TABLET (FP) PO ONE (22:42)
[2018-09-01] MEDS ORDERED: INSULIN (NOVOLOG) ASPART 100 UNITS/ML 10ML VIAL ONE (22:43)
[2018-09-01] MEDS: INSULIN SLIDING SCALE (NOVOLOG) 1 VIAL SQ SCH (22:51)
[2018-09-02] MEDS ORDERED: dilTIAZem HCL 60 MG TABLET (FP) ONE (01:23)
[2018-09-02] MEDS: INSULIN SLIDING SCALE (NOVOLOG) 1 VIAL SQ SCH ×4 (06:33→21:49)
[2018-09-02 09:41] LABS: HEMATOCRIT 25.1 % (35.4-49); HEMOGLOBIN 8.1 GM/dL (11.7-16.9); MCH 27.5 pg (25.7-33.7); MCHC 32.3 g/dl (32.0-35.9); MEAN CELL VOLUME 85.1 fl (80-96); MEAN PLT VOLUME 7.5 fl (7.5-11.1); PLATELET COUNT 215 K/MM3 (134-434); RBC 2.94 M/mm3 (4.00-5.60); RDW 17.3 % (11.9-15.9); WHITE BLOOD COUNT 6.7 K/mm3 (4.0-10.0)
[2018-09-02] MEDS ORDERED: TORSEMIDE 100 MG TABLET PO SCH (10:00)
[2018-09-02] MEDS ORDERED: FUROSEMIDE 40 MG TABLET (FP) PO SCH (10:00)
[2018-09-02 10:02] LABS: INR 1.66 (0.83-1.09); PROTHROMBIN TIME (PATIENT) 19.7 SEC (9.7-13.0)
[2018-09-02 10:03] LABS: HEMATOCRIT 24.4 % (35.4-49); MCH 27.9 pg (25.7-33.7); MCHC 32.8 g/dl (32.0-35.9); MEAN CELL VOLUME 84.8 fl (80-96); MEAN PLT VOLUME 7.2 fl (7.5-11.1); PLATELET COUNT 204 K/MM3 (134-434); RBC 2.87 M/mm3 (4.00-5.60); RDW 17.1 % (11.9-15.9); WHITE BLOOD COUNT 6.4 K/mm3 (4.0-10.0)
[2018-09-02] MEDS: GABAPENTIN 300 MG CAPSULE (FP) PO SCH ×2 (10:04→21:35)
[2018-09-02 10:27] LABS: ANION GAP 8 MMOL/L (8-16); BLOOD UREA NITROGEN 30 mg/dL (7-18); CALCIUM 8.9 mg/dL (8.5-10.1); CHLORIDE 98 mmol/L (98-107); CO2 34 mmol/L (21-32); CREATININE 1.6 mg/dL (0.55-1.3); GLUCOSE,RANDOM 207 mg/dL (74-106); MAGNESIUM 1.7 mg/dL (1.8-2.4); PHOSPHOROUS 2.1 mg/dL (2.5-4.9); SODIUM 140 mmol/L (136-145)
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
[2018-09-02] MEDS ORDERED: NAPH,MB-DB/K PH,MBDB POWDER PACKET PO ONE (13:05)
[2018-09-02] MEDS ORDERED: PT OWN MED DRAWER 7, Y5N ONE ×2 (13:12→20:57)
[2018-09-02] MEDS: PANTOPRAZOLE 40 MG TABLET (FP) PO SCH (13:14)
[2018-09-02] MEDS: dilTIAZem HCL 60 MG TABLET (FP) PO SCH ×2 (13:14→21:32)
[2018-09-02] MEDS ORDERED: MAGNESIUM SULF 50% (8.12 MEQ/2 ML-1 GM VIAL) IVPB ONE (13:30)
[2018-09-02 13:57] LABS: HEMOGLOBIN 7.9 GM/dL (11.7-16.9); MCH 27.9 pg (25.7-33.7); MCHC 32.9 g/dl (32.0-35.9); MEAN CELL VOLUME 84.7 fl (80-96); MEAN PLT VOLUME 7.3 fl (7.5-11.1); PLATELET COUNT 207 K/MM3 (134-434); RBC 2.83 M/mm3 (4.00-5.60); RDW 17.4 % (11.9-15.9); WHITE BLOOD COUNT 6.1 K/mm3 (4.0-10.0)
[2018-09-02 14:07] LABS: LDH 193 U/L (87-246)
--- NOTE | 2018-09-02 15:12 | PN ---
Teaching Attending Note Name of Resident: José Antonio Stanley ATTENDING PHYSICIAN STATEMENT I saw and evaluated the patient. I reviewed the resident's note and discussed the case with the resident. I agree with the resident's findings and plan as documented. SUBJECTIVE: no fever or chills. denies any melena, or hematochezia. no SANTANA . no dizziness. no abd pain. denies constipation . last colo was > 10 yrs ago. No EGD in past. OBJECTIVE: NAD ,MMM CV: RRR, no MRG Lungs: CTAB Abd: soft , obese, NT, ND, NL BS Ext: no edema or erythema. ASSESSMENT AND PLAN: 88 y/o man with h/o Afib, recent stroke 07/15, Diastolic heart failure, CAD, neuropathy, CABG, HLP, and other medical problems who presented with frequent falls. he was found to have severe anemia 1- Worsening chronic normocytic anemia: not clear of source but suspect slow GI bleed in the setting of being on eliquis, asa, and plavix ( asa and plavix started in 07/15). rectal exam in ER with no bleeding and Neg OB. other possibility is BM disorder, MM, doubt hemolysis - GI consult - follow iron studies - check B12 - check UPEP and SPEP - PPI - hold eliquis, ASA ( plavix was d/c'd 3 weeks after ast discharge ) . patient is t high risk for a stroke without eliquis. He and his daughter understand this. - will try to resume eliquis as soon as possible. if EGD/Racine indicated, it depends on finding a lesion - retic count, hapro and LDH - repeat OB 2- ANGELO , ? CKD: suspect prerenal etiology - hold toresemide. - dc IVF . an monitor 3- Recurrent falls: mechanical. worse probably due to anemia . -HEad CT reviewed. - PT eval 4- Recent CVA : due to A fib. - Eliquis on hold. high risk for stroke , patient and family understand and agree 5- H/O Diastolic heart failure. looks a little volume depleted. - hold torsemide. monitor off IVF - was d/c on 80 mg of lasix in 07/15, now on torsemide 50 mg daily . 6- DVT PX : Scds.
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
[2018-09-02] MEDS ORDERED: POTASSIUM CHLORIDE TABS 20 MEQ TABLET.ER (FP) PO ONE (18:00)
[2018-09-02] MEDS ORDERED: INSULIN (NOVOLOG) ASPART 100 UNITS/ML 10ML VIAL ONE (19:05)
[2018-09-02] MEDS: ATORVASTATIN CA 80 MG TABLET (FP) PO SCH (21:35)
[2018-09-03 04:10] LABS: SERUM IRON SATURATION 14 % (15-55); TOTAL IRON BINDING CAPACITY 423 ug/dL (250-450); UIBC 365 ug/dL (111-343)
[2018-09-03] MEDS: INSULIN SLIDING SCALE (NOVOLOG) 1 VIAL SQ SCH ×4 (06:14→21:49)
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
[2018-09-03 08:27] LABS: HEMATOCRIT 25.9 % (35.4-49); HEMOGLOBIN 8.4 GM/dL (11.7-16.9); MCH 27.6 pg (25.7-33.7); MCHC 32.3 g/dl (32.0-35.9); MEAN CELL VOLUME 85.5 fl (80-96); MEAN PLT VOLUME 7.4 fl (7.5-11.1); PLATELET COUNT 241 K/MM3 (134-434); RBC 3.03 M/mm3 (4.00-5.60); RDW 17.4 % (11.9-15.9); WHITE BLOOD COUNT 7.7 K/mm3 (4.0-10.0)
[2018-09-03 08:59] LABS: CALCIUM 8.3 mg/dL (8.5-10.1); MAGNESIUM 2.4 mg/dL (1.8-2.4); PHOSPHOROUS 2.9 mg/dL (2.5-4.9); POTASSIUM 3.1 mmol/L (3.5-5.1)
--- NOTE | 2018-09-03 09:17 | PN ---
Teaching Attending Note Name of Resident: Matt Georges ATTENDING PHYSICIAN STATEMENT I saw and evaluated the patient. I reviewed the resident's note and discussed the case with the resident. I agree with the resident's findings and plan as documented. SUBJECTIVE: Patient is feeling better , no further bleed. OBJECTIVE: Vital Signs Temperature 98 F 09/03/18 06:38 Pulse Rate 83 09/03/18 06:38 Respiratory Rate 20 09/03/18 06:38 Blood Pressure 123/67 09/03/18 06:38 O2 Sat by Pulse Oximetry (%) 99 09/02/18 01:41 GENERAL: A&Ox3, no acute distress EYES: PERRLA, EOMI ENT: Moist mucus membranes NECK: No JVD, supple LUNGS: CTA, no wheezes HEART: Rate of 83, regular, S1S2 positive ABDOMEN: Soft, nontender, BS present MUSCULOSKELETAL: No CVA Tenderness EXTREMITIES: 2+ pulses, 2+ pitting edema noted bilaterally. NEUROLOGICAL: Cranial nerves II-XII intact. No focal deficits WBC 7.7 K/mm3 (4.0-10.0) 09/03/18 07:18 RBC 3.03 M/mm3 (4.00-5.60) L 09/03/18 07:18 Hgb 8.4 GM/dL (11.7-16.9) L 09/03/18 07:18 Hct 25.9 % (35.4-49) L 09/03/18 07:18 MCV 85.5 fl (80-96) 09/03/18 07:18 MCHC 32.3 g/dl (32.0-35.9) 09/03/18 07:18 RDW 17.4 % (11.9-15.9) H 09/03/18 07:18 Plt Count 241 K/MM3 (134-434) 09/03/18 07:18 MPV 7.4 fl (7.5-11.1) L 09/03/18 07:18 CMP Sodium 144 mmol/L (136-145) 09/03/18 07:18 Potassium 3.1 mmol/L (3.5-5.1) L 09/03/18 07:18 Chloride 105 mmol/L (98-107) 09/03/18 07:18 Carbon Dioxide 31 mmol/L (21-32) 09/03/18 07:18 Anion Gap 8 MMOL/L (8-16) 09/03/18 07:18 BUN 24 mg/dL (7-18) H 09/03/18 07:18 Creatinine 1.6 mg/dL (0.55-1.3) H 09/03/18 07:18 Creat Clearance w eGFR 41.00 (>60) 09/02/18 08:45 Random Glucose 170 mg/dL (74-106) H 09/03/18 07:18 Calcium 8.3 mg/dL (8.5-10.1) L 09/03/18 07:18 Total Bilirubin 0.7 mg/dL (0.2-1) 09/01/18 17:35 AST 35 U/L (15-37) 09/01/18 17:35 ALT 26 U/L (13-61) 09/01/18 17:35 Alkaline Phosphatase 92 U/L (45-117) 09/01/18 17:35 Total Protein 6.9 g/dl (6.4-8.2) 09/01/18 17:35 Albumin 3.2 g/dl (3.4-5.0) L 09/01/18 17:35 CARDIAC ENZYMES Creatine Kinase 259 U/L (26-308) 09/01/18 17:35 Troponin I 0.02 ng/ml (0.00-0.05) 09/01/18 17:35 Current Medications Generic Name Dose Route Start Last Admin Trade Name Freq PRN Reason Stop Dose Admin Atorvastatin Calcium 80 mg 09/02/18 22:00 09/02/18 21:35 Lipitor - PO 80 mg HS SARAH Administration Diltiazem HCl 60 mg 09/02/18 10:00 09/02/18 21:32 Cardizem - PO 60 mg BID ASRAH Administration Gabapentin 300 mg 09/02/18 10:00 09/02/18 21:35 Neurontin - PO 300 mg BID SARAH Administration Insulin Aspart 1 vial 09/01/18 22:00 09/03/18 06:14 Novolog Vial Sliding Scale - SQ 4 units ACHS SARAH Administration Protocol Metoprolol Succinate 100 mg 09/02/18 10:00 09/02/18 21:35 Toprol Xl - PO 100 mg BID SARAH Administration Pantoprazole Sodium 40 mg 09/02/18 13:15 09/02/18 13:14 Protonix - PO 40 mg DAILY SARAH Administration Potassium Chloride 40 meq 09/03/18 10:00 K-Dur - PO 09/03/18 22:01 BID SARAH Potassium Phos/Sodium Phos 1 packet 09/03/18 09:09 Phos-Nak Packet - PO 09/03/18 09:10 ONCE ONE Home Medications Medication Instructions Recorded Apixaban [Eliquis -] 5 mg PO BID 07/14/18 Gabapentin [Neurontin -] 300 mg PO BID 07/14/18 Sitagliptin Phos/Metformin HCl 1 each PO BID 07/14/18 [Janumet 50-1,000 mg Tablet] Atorvastatin Ca [Lipitor] 80 mg PO HS #30 tablet 07/16/18 Diltiazem [Cardizem -] 60 mg PO BID 09/01/18 Metoprolol Succinate 100 mg PO BID 09/01/18 Torsemide 50 mg PO DAILY 09/01/18 ASSESSMENT AND PLAN: Patient is a 88y/o man with PMHx of Afib, recent stroke 07/15, Diastolic heart failure, CAD, neuropathy, CABG, HLP, who presented with frequent falls. he was found to have severe anemia # Worsening of chronic normocytic anemia: source is unclear, most likely due to possible slow GI bleed since the patient is on eliquis, asa, and plavix ( asa and plavix started in 07/15). rectal exam in ER with no bleeding and Neg OB. GI is on the case, patient will go for further testing EGD/colonoscopy on Saturday, as per GI, requesting cardiac clearance. r/o GI malignancy , eliquis is on hold for now. follow iron studies, check B12 , check UPEP and SPEP, on PPI Hold eliquis, ASA ( plavix was d/c'd 3 weeks after the discharge ) . patient is at high risk for a stroke without eliquis. He and his daughter understand this. will try to resume eliquis as soon as possible, once cleared by Gi .retic count , hapro and LDH # ANGELO over CKD: suspect prerenal etiology , hold toresemide. s/p IVF, will trend. will hold metformin as well. Cardio Dr. cuba for am for cardiac clearance as per GI request. # Acute Hypokalemia will replete, will follow. # Recurrent falls: mechanical. worse probably due to anemia . s/p Head CT, PT eval # Recent CVA : due to A fib. on Eliquis on hold since presneted with low hemoglobin, patient is a high risk stroke patient , patient and family understand and agree to hold for now, until further evaluation by GI. # H/O Diastolic heart failure. hold torsemide. monitor off IVF was d/c on 80 mg of lasix in 07/15, now on torsemide 50 mg daily . DVT PX : Scds.
[2018-09-03] MEDS ORDERED: NAPH,MB-DB/K PH,MBDB POWDER PACKET PO ONE (09:30)
[2018-09-03] MEDS ORDERED: TORSEMIDE 20 MG TABLET (FP) PO SCH (10:00)
[2018-09-03 10:05] LABS: CREATININE 1.6 mg/dL (0.55-1.3)
[2018-09-03] MEDS ORDERED: PT OWN MED DRAWER 7, Y5N ONE ×2 (10:17→21:39)
[2018-09-03] MEDS: dilTIAZem HCL 60 MG TABLET (FP) PO SCH ×2 (10:19→21:47)
[2018-09-03] MEDS: POTASSIUM CHLORIDE TABS 20 MEQ TABLET.ER (FP) PO SCH ×2 (10:19→21:45)
[2018-09-03] MEDS: PANTOPRAZOLE 40 MG TABLET (FP) PO SCH (10:19)
[2018-09-03] MEDS: GABAPENTIN 300 MG CAPSULE (FP) PO SCH ×2 (10:19→21:45)
[2018-09-03] MEDS: KCL 10 MEQ IVPB 10 MEQ/100 ML INFUS.BAG IVPB SCH ×2 (12:10→13:18)
--- NOTE | 2018-09-03 15:00 | PN.GI ---
GI Progress Note Subjective: Pt seen/examined at bedside, feeling better, denies abdominal pain, n/v, melena or hematochezia. Denies chest pain, sob. Still tachycardic (A fib). - Objective Vital Signs: Vital Signs Temperature 97.8 F 09/03/18 10:00 Pulse Rate 105 H 09/03/18 10:00 Respiratory Rate 20 09/03/18 10:00 Blood Pressure 128/72 09/03/18 10:00 O2 Sat by Pulse Oximetry (%) 99 09/02/18 01:41 Constitutional: Well Nourished, No Distress, Calm Cardiovascular: Yes: WNL, Tachycardia, Pulse Irregular Respiratory: Yes: WNL, Regular, CTA Bilaterally Gastrointestinal Inspection: Yes: WNL ...Palpate: Yes: Other (Abd soft, nt, nd) Labs: CBC, BMP 09/03/18 07:18 09/03/18 07:18 INR, PTT INR 1.66 (0.83-1.09) H 09/02/18 08:45 Problem List - Problems (1) Anemia Assessment/Plan: 88yo male h/o CVA on eliquis presents with increased weakness and frequent falls. Normocytic anemia noted, though with component of iron deficiency ( ferritin 25). No overt GI bleeding though change in stool caliber reported. Remote prior colonoscopy (>10 years ago), no prior EGD. -Continue to monitor Hb trend -Would recommend EGD/colonoscopy for further evaluation particularly as pt is to resume antithrombotic therapy, once pt is further optimized from a cardiac standpoint -Please obtain cardiac evaluation/clearance -Continue to monitor and replete electrolytes (still hypokalemic today) -Pending above, would plan for EGD/colonoscopy accordingly, possibly Saturday. Discussed with medicine resident. Code(s): D64.9 - ANEMIA, UNSPECIFIED Qualifiers:
[2018-09-03] MEDS ORDERED: INSULIN (NOVOLOG) ASPART 100 UNITS/ML 10ML VIAL ONE (17:43)
[2018-09-03] MEDS: ATORVASTATIN CA 80 MG TABLET (FP) PO SCH (21:45)
[2018-09-04] MEDS: INSULIN SLIDING SCALE (NOVOLOG) 1 VIAL SQ SCH ×4 (06:46→21:05)
[2018-09-04] MEDS ORDERED: INSULIN (NOVOLOG) ASPART 100 UNITS/ML 10ML VIAL ONE ×3 (06:50→16:53)
[2018-09-04 08:21] LABS: HEMATOCRIT 24.5 % (35.4-49); HEMOGLOBIN 7.7 GM/dL (11.7-16.9); MCH 27.3 pg (25.7-33.7); MCHC 31.3 g/dl (32.0-35.9); MEAN CELL VOLUME 87.3 fl (80-96); MEAN PLT VOLUME 7.5 fl (7.5-11.1); PLATELET COUNT 186 K/MM3 (134-434); RDW 17.3 % (11.9-15.9); WHITE BLOOD COUNT 6.4 K/mm3 (4.0-10.0)
[2018-09-04 08:50] LABS: CALCIUM 8.7 mg/dL (8.5-10.1); CREATININE 1.2 mg/dL (0.55-1.3); MAGNESIUM 2.2 mg/dL (1.8-2.4); PHOSPHOROUS 2.7 mg/dL (2.5-4.9)
[2018-09-04] MEDS: GABAPENTIN 300 MG CAPSULE (FP) PO SCH ×2 (09:45→21:05)
[2018-09-04] MEDS: dilTIAZem HCL 60 MG TABLET (FP) PO SCH ×2 (09:45→21:05)
[2018-09-04] MEDS: PANTOPRAZOLE 40 MG TABLET (FP) PO SCH (09:45)
--- NOTE | 2018-09-04 13:03 | PN.GI ---
GI Progress Note Subjective: No acute events No overt bleeding Patient given breakfast and lunch today Awaiting cardiology input - Objective Vital Signs: Vital Signs Temperature 98.2 F 09/04/18 10:00 Pulse Rate 96 H 09/04/18 10:00 Respiratory Rate 18 09/04/18 10:00 Blood Pressure 114/65 09/04/18 10:00 O2 Sat by Pulse Oximetry (%) 99 09/04/18 09:00 Constitutional: Calm Eyes: No: Sclera Icterus Cardiovascular: Yes: Pulse Irregular (regular rate) Gastrointestinal Inspection: No: Distention ...Auscultate: Yes: Normoactive Bowel Sounds Edema: Yes Neurological: Yes: Alert Labs: CBC, BMP 09/04/18 07:40 09/04/18 07:40 INR, PTT INR 1.66 (0.83-1.09) H 09/02/18 08:45 Problem List - Problems (1) Anemia Assessment/Plan: No overt bleeding and guaic negative x 2. Plan was for possible EGD/ Colonoscopy tomorrow pending cardiology evluation however he ate both a full breakfast and lunch. Plan would be as follows: No objection to starting bridging anticoagulation if it is necessary at this point Cardiology Clear liquids on saturday for EGD/Colonoscopy on Saturday (prep and diet order placed) Discussed plan with primary team, patient and his daughter via telephone. Code(s): D64.9 - ANEMIA, UNSPECIFIED Qualifiers:
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
--- NOTE | 2018-09-04 18:40 | PN ---
Teaching Attending Note Name of Resident: Matt Georges ATTENDING PHYSICIAN STATEMENT I saw and evaluated the patient. I reviewed the resident's note and discussed the case with the resident. I agree with the resident's findings and plan as documented. SUBJECTIVE: Patient has no new complains. No further bleed. OBJECTIVE: Vital Signs Temperature 98.6 F 09/04/18 14:58 Pulse Rate 75 09/04/18 14:58 Respiratory Rate 18 09/04/18 14:58 Blood Pressure 92/53 L 09/04/18 14:58 O2 Sat by Pulse Oximetry (%) 99 09/04/18 09:00 GENERAL: A&Ox3, no acute distress EYES: PERRLA, EOMI ENT: Moist mucus membranes NECK: No JVD, supple LUNGS: CTA, no wheezes HEART: Rate of 83, regular, S1S2 positive ABDOMEN: Soft, nontender, BS present MUSCULOSKELETAL: No CVA Tenderness EXTREMITIES: 2+ pulses, 2+ pitting edema noted bilaterally. NEUROLOGICAL: Cranial nerves II-XII intact. No focal deficits CBCD WBC 6.4 K/mm3 (4.0-10.0) 09/04/18 07:40 RBC 2.80 M/mm3 (4.00-5.60) L 09/04/18 07:40 Hgb 7.7 GM/dL (11.7-16.9) L 09/04/18 07:40 Hct 24.5 % (35.4-49) L 09/04/18 07:40 MCV 87.3 fl (80-96) 09/04/18 07:40 MCHC 31.3 g/dl (32.0-35.9) L 09/04/18 07:40 RDW 17.3 % (11.9-15.9) H 09/04/18 07:40 Plt Count 186 K/MM3 (134-434) D 09/04/18 07:40 MPV 7.5 fl (7.5-11.1) 09/04/18 07:40 CMP Sodium 140 mmol/L (136-145) 09/04/18 07:40 Potassium 4.0 mmol/L (3.5-5.1) 09/04/18 07:40 Chloride 108 mmol/L (98-107) H 09/04/18 07:40 Carbon Dioxide 28 mmol/L (21-32) 09/04/18 07:40 Anion Gap 4 MMOL/L (8-16) L 09/04/18 07:40 BUN 21 mg/dL (7-18) H 09/04/18 07:40 Creatinine 1.2 mg/dL (0.55-1.3) 09/04/18 07:40 Creat Clearance w eGFR 41.00 (>60) 09/02/18 08:45 Random Glucose 188 mg/dL (74-106) H 09/04/18 07:40 Calcium 8.7 mg/dL (8.5-10.1) 09/04/18 07:40 Total Bilirubin 0.7 mg/dL (0.2-1) 09/01/18 17:35 AST 35 U/L (15-37) 09/01/18 17:35 ALT 26 U/L (13-61) 09/01/18 17:35 Alkaline Phosphatase 92 U/L (45-117) 09/01/18 17:35 Total Protein 6.9 g/dl (6.4-8.2) 09/01/18 17:35 Albumin 3.2 g/dl (3.4-5.0) L 09/01/18 17:35 CARDIAC ENZYMES Creatine Kinase 259 U/L (26-308) 09/01/18 17:35 Troponin I 0.02 ng/ml (0.00-0.05) 09/01/18 17:35 Current Medications Generic Name Dose Route Start Last Admin Trade Name Freq PRN Reason Stop Dose Admin Atorvastatin Calcium 80 mg 09/02/18 22:00 09/03/18 21:45 Lipitor - PO 80 mg HS SARAH Administration Bisacodyl 20 mg 09/07/18 12:00 Dulcolax - PO 09/07/18 12:01 ONCE ONE Diltiazem HCl 60 mg 09/02/18 10:00 09/04/18 09:45 Cardizem - PO 60 mg BID SARAH Administration Gabapentin 300 mg 09/02/18 10:00 09/04/18 09:45 Neurontin - PO 300 mg BID SARAH Administration Insulin Aspart 1 vial 09/01/18 22:00 09/04/18 16:58 Novolog Vial Sliding Scale - SQ 6 units ACHS SARAH Administration Protocol Metoprolol Succinate 100 mg 09/02/18 10:00 09/04/18 09:45 Toprol Xl - PO 100 mg BID SARAH Administration Pantoprazole Sodium 40 mg 09/02/18 13:15 09/04/18 09:45 Protonix - PO 40 mg DAILY SARAH Administration Polyethylene Glycol/Electrolytes 4,000 ml 09/07/18 13:10 Golytely Solution - PO 09/07/18 13:11 ONCE ONE Torsemide 100 mg 09/05/18 10:00 Demadex - PO DAILY [facility] Home Medications Medication Instructions Recorded Apixaban [Eliquis -] 5 mg PO BID 07/14/18 Gabapentin [Neurontin -] 300 mg PO BID 07/14/18 Sitagliptin Phos/Metformin HCl 1 each PO BID 07/14/18 [Janumet 50-1,000 mg Tablet] Atorvastatin Ca [Lipitor] 80 mg PO HS #30 tablet 07/16/18 Diltiazem [Cardizem -] 60 mg PO BID 09/01/18 Metoprolol Succinate 100 mg PO BID 09/01/18 Torsemide 50 mg PO DAILY 09/01/18 ASSESSMENT AND PLAN: Patient is a 88y/o man with PMHx of Afib, recent stroke 07/15, Diastolic heart failure, CAD, neuropathy, CABG, HLP, who presented with frequent falls. he was found to have severe anemia # Acute chronic normocytic anemia: source is unclear, most likely due to possible slow GI bleed since the patient is on eliquis, asa, and plavix ( asa and plavix started in 07/15). rectal exam in ER with no bleeding and Neg OB. continue clear liquid, EGD/Colonoscopy on Saturday npo after midnight on saturday night (prep and diet order placed), GI consult appreciated. # ANGELO over CKD: suspect prerenal etiology , hold toresemide. s/p IVF, will trend. will hold metformin as well. Cardio Dr. cuba for am for cardiac clearance as per GI request. As per Dr. Polo; cardio, can hold off on ac by heparin since patient is a high risk for bleed until EGD/Colonoscopy is done. # Acute Hypokalemia repleted, will follow. # Recurrent falls: mechanical. worse probably due to anemia . s/p Head CT, PT eval # Recent CVA : due to A fib. on Eliquis on hold since presented with low hemoglobin, patient is a high risk stroke patient , patient and family understand and agree to hold for now, until further evaluation by GI. # H/O Diastolic heart failure. hold torsemide. monitor off IVF was d/c on 80 mg of lasix in 07/15, now on torsemide 50 mg daily . DVT PX : Scds. per cardio. to continue to hold off on AC; heparin drip.for now, since patient has low hemoglobin.
[2018-09-04] MEDS ORDERED: LACTATED RINGERS SOLUTION 1,000 ML/1,000 ML INFUS.BAG IV SCH (19:00)
[2018-09-04] MEDS ORDERED: PT OWN MED DRAWER 7, Y5N ONE ×2 (20:25→20:26)
[2018-09-04] MEDS: ATORVASTATIN CA 80 MG TABLET (FP) PO SCH (21:05)
[2018-09-05] MEDS: INSULIN SLIDING SCALE (NOVOLOG) 1 VIAL SQ SCH ×4 (06:10→21:53)
[2018-09-05 06:43] LABS: HEMATOCRIT 24.4 % (35.4-49); HEMOGLOBIN 7.7 GM/dL (11.7-16.9); MCH 27.6 pg (25.7-33.7); MCHC 31.5 g/dl (32.0-35.9); MEAN CELL VOLUME 87.6 fl (80-96); MEAN PLT VOLUME 7.6 fl (7.5-11.1); PLATELET COUNT 182 K/MM3 (134-434); RBC 2.78 M/mm3 (4.00-5.60); RDW 17.8 % (11.9-15.9); WHITE BLOOD COUNT 6.8 K/mm3 (4.0-10.0)
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
[2018-09-05 07:27] LABS: CALCIUM 8.4 mg/dL (8.5-10.1); CREATININE 1.2 mg/dL (0.55-1.3); PHOSPHOROUS 2.9 mg/dL (2.5-4.9); POTASSIUM 4.6 mmol/L (3.5-5.1)
[2018-09-05] MEDS ORDERED: PT OWN MED DRAWER 7, Y5N ONE ×5 (09:44→10:35)
[2018-09-05] MEDS: dilTIAZem HCL 60 MG TABLET (FP) PO SCH ×2 (09:46→21:37)
[2018-09-05] MEDS: GABAPENTIN 300 MG CAPSULE (FP) PO SCH ×2 (09:46→21:37)
[2018-09-05] MEDS: PANTOPRAZOLE 40 MG TABLET (FP) PO SCH (09:47)
[2018-09-05] MEDS: TORSEMIDE 100 MG TABLET PO SCH (10:37)
[2018-09-05] MEDS ORDERED: INSULIN (NOVOLOG) ASPART 100 UNITS/ML 10ML VIAL ONE ×2 (11:51→20:50)
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
--- NOTE | 2018-09-05 16:08 | PN ---
Teaching Attending Note Name of Resident: Matt Georges ATTENDING PHYSICIAN STATEMENT I saw and evaluated the patient. I reviewed the resident's note and discussed the case with the resident. I agree with the resident's findings and plan as documented. SUBJECTIVE: Patient is comfortable with no acute distress. OBJECTIVE: Vital Signs Temperature 98.1 F 09/05/18 14:23 Pulse Rate 70 09/05/18 14:23 Respiratory Rate 18 09/05/18 14:23 Blood Pressure 105/57 L 09/05/18 14:23 O2 Sat by Pulse Oximetry (%) 96 09/05/18 09:00 GENERAL: A&Ox3, no acute distress EYES: PERRLA, EOMI ENT: Moist mucus membranes NECK: No JVD, supple LUNGS: CTA, no wheezes HEART: Rate of 83, regular, S1S2 positive ABDOMEN: Soft, nontender, BS present MUSCULOSKELETAL: No CVA Tenderness EXTREMITIES: 2+ pulses, 2+ pitting edema noted bilaterally. NEUROLOGICAL: Cranial nerves II-XII intact. No focal deficits CBCD WBC 6.8 K/mm3 (4.0-10.0) 09/05/18 05:30 RBC 2.78 M/mm3 (4.00-5.60) L 09/05/18 05:30 Hgb 7.7 GM/dL (11.7-16.9) L 09/05/18 05:30 Hct 24.4 % (35.4-49) L 09/05/18 05:30 MCV 87.6 fl (80-96) 09/05/18 05:30 MCHC 31.5 g/dl (32.0-35.9) L 09/05/18 05:30 RDW 17.8 % (11.9-15.9) H 09/05/18 05:30 Plt Count 182 K/MM3 (134-434) 09/05/18 05:30 MPV 7.6 fl (7.5-11.1) 09/05/18 05:30 CMP Sodium 142 mmol/L (136-145) 09/05/18 05:30 Potassium 4.6 mmol/L (3.5-5.1) 09/05/18 05:30 Chloride 110 mmol/L (98-107) H 09/05/18 05:30 Carbon Dioxide 26 mmol/L (21-32) 09/05/18 05:30 Anion Gap 5 MMOL/L (8-16) L 09/05/18 05:30 BUN 21 mg/dL (7-18) H 09/05/18 05:30 Creatinine 1.2 mg/dL (0.55-1.3) 09/05/18 05:30 Creat Clearance w eGFR 41.00 (>60) 09/02/18 08:45 Random Glucose 171 mg/dL (74-106) H 09/05/18 05:30 Calcium 8.4 mg/dL (8.5-10.1) L 09/05/18 05:30 Total Bilirubin 0.7 mg/dL (0.2-1) 09/01/18 17:35 AST 35 U/L (15-37) 09/01/18 17:35 ALT 26 U/L (13-61) 09/01/18 17:35 Alkaline Phosphatase 92 U/L (45-117) 09/01/18 17:35 Total Protein 6.9 g/dl (6.4-8.2) 09/01/18 17:35 Albumin 3.2 g/dl (3.4-5.0) L 09/01/18 17:35 CARDIAC ENZYMES Creatine Kinase 259 U/L (26-308) 09/01/18 17:35 Troponin I 0.02 ng/ml (0.00-0.05) 09/01/18 17:35 Current Medications Generic Name Dose Route Start Last Admin Trade Name Freq PRN Reason Stop Dose Admin Atorvastatin Calcium 80 mg 09/02/18 22:00 09/04/18 21:05 Lipitor - PO 80 mg HS SARAH Administration Bisacodyl 20 mg 09/07/18 12:00 Dulcolax - PO 09/07/18 12:01 ONCE ONE Diltiazem HCl 60 mg 09/02/18 10:00 09/05/18 09:46 Cardizem - PO 60 mg BID SARAH Administration Gabapentin 300 mg 09/02/18 10:00 09/05/18 09:46 Neurontin - PO 300 mg BID SARAH Administration Insulin Aspart 1 vial 09/01/18 22:00 09/05/18 11:47 Novolog Vial Sliding Scale - SQ 4 units ACHS SARAH Administration Protocol Metoprolol Succinate 100 mg 09/02/18 10:00 09/05/18 09:47 Toprol Xl - PO 100 mg BID SARAH Administration Pantoprazole Sodium 40 mg 09/02/18 13:15 09/05/18 09:47 Protonix - PO 40 mg DAILY SARAH Administration Polyethylene Glycol/Electrolytes 4,000 ml 09/07/18 13:10 Golytely Solution - PO 09/07/18 13:11 ONCE ONE Torsemide 100 mg 09/05/18 10:00 09/05/18 10:37 Demadex - PO 100 mg DAILY SARAH Administration Home Medications Medication Instructions Recorded Apixaban [Eliquis -] 5 mg PO BID 07/14/18 Gabapentin [Neurontin -] 300 mg PO BID 07/14/18 Sitagliptin Phos/Metformin HCl 1 each PO BID 07/14/18 [Janumet 50-1,000 mg Tablet] Atorvastatin Ca [Lipitor] 80 mg PO HS #30 tablet 07/16/18 Diltiazem [Cardizem -] 60 mg PO BID 09/01/18 Metoprolol Succinate 100 mg PO BID 09/01/18 Torsemide 50 mg PO DAILY 09/01/18 ASSESSMENT AND PLAN: Patient is a 88y/o man with PMHx of Afib, recent stroke 07/15, Diastolic heart failure, CAD, neuropathy, CABG, HLP, who presented with frequent falls. he was found to have severe anemia No new events noted. continue the current care. # Acute chronic normocytic anemia: source is unclear, most likely due to possible slow GI bleed since the patient is on eliquis, asa, and plavix ( asa and plavix started in 07/15). rectal exam in ER with no bleeding and Neg OB. continue clear liquid, EGD/Colonoscopy on Saturday npo after midnight on saturday night (prep and diet order placed), GI consult appreciated. # ANGELO over CKD: suspect prerenal etiology , hold toresemide. s/p IVF, will trend. will hold metformin as well. cardiac clearance as per GI request. As per Dr. Polo; cardio, can hold off on ac since patient is a high risk for bleed until EGD/Colonoscopy is done. # Acute Hypokalemia repleted, will follow. # Recurrent falls: mechanical. worse probably due to anemia . s/p Head CT, PT eval # Recent CVA : due to A fib. on Eliquis on hold since presented with low hemoglobin, patient is a high risk stroke patient , patient and family understand and agree to hold for now, until further evaluation by GI. # H/O Diastolic heart failure. monitor off IVF , lasix 80 mg discontinued on , now on torsemide 50 mg increased to 100mg daily . DVT PX : Scds. per cardio. to continue to hold off on AC; heparin drip.for now, since patient has low hemoglobin.
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
--- NOTE | 2018-09-05 17:55 | PN ---
Teaching Attending Note Name of Resident: Ivy Vega ATTENDING PHYSICIAN STATEMENT I saw and evaluated the patient. I reviewed the resident's note and discussed the case with the resident. I agree with the resident's findings and plan as documented. SUBJECTIVE: Patient seen and examined 88 year old with chronic anemia and recent fall in HB/Hct over last 5 weeks. Normal haptoglobin and low retic count against hemolysis , such that blood loss anemia likeliest etiology. Last Vital Signs Temp Pulse Resp BP Pulse Ox 98.1 F 70 18 105/57 L 96 09/05/18 14:23 09/05/18 14:23 09/05/18 14:23 09/05/18 14:23 09/05/18 09:00 HEENT: HALLIE, EOM Intact Oropharynx: No thrush, No mucositis Neck: Supple Cor: RSR, No murmurs, No gallops Lungs: Clear to P&A Abd: Soft, Normal bowel sounds, No organomegaly Ttestes descended, uncircumcised Ext:No significant edema Skin: No rashes, Integument intact Current Medications Generic Name Dose Route Start Last Admin Trade Name Freq PRN Reason Stop Dose Admin Atorvastatin Calcium 80 mg 09/02/18 22:00 09/04/18 21:05 Lipitor - PO 80 mg HS SARAH Administration Bisacodyl 20 mg 09/07/18 12:00 Dulcolax - PO 09/07/18 12:01 ONCE ONE Diltiazem HCl 60 mg 09/02/18 10:00 09/05/18 09:46 Cardizem - PO 60 mg BID SARAH Administration Gabapentin 300 mg 09/02/18 10:00 09/05/18 09:46 Neurontin - PO 300 mg BID SARAH Administration Insulin Aspart 1 vial 09/01/18 22:00 09/05/18 11:47 Novolog Vial Sliding Scale - SQ 4 units ACHS SARAH Administration Protocol Metoprolol Succinate 100 mg 09/02/18 10:00 09/05/18 09:47 Toprol Xl - PO 100 mg BID SARAH Administration Pantoprazole Sodium 40 mg 09/02/18 13:15 09/05/18 09:47 Protonix - PO 40 mg DAILY SARAH Administration Polyethylene Glycol/Electrolytes 4,000 ml 09/07/18 13:10 Golytely Solution - PO 09/07/18 13:11 ONCE ONE Torsemide 100 mg 09/05/18 10:00 09/05/18 10:37 Demadex - PO 100 mg DAILY SARAH Administration OBJECTIVE: Impression: Chronic anemia superimposed on acute fall in Hb/Hct without evidence of hemolysis suggestive of blood loss picture. GI work up planned. Etiology of chronic anemia unclear with normal B-12 TFT's, and no "M" component. Will need flow cytometry. Sono of liver /spleen. To follow up. ASSESSMENT AND PLAN:
[2018-09-05] MEDS: ATORVASTATIN CA 80 MG TABLET (FP) PO SCH (21:37)
[2018-09-06] MEDS: INSULIN SLIDING SCALE (NOVOLOG) 1 VIAL SQ SCH ×4 (06:20→22:20)
[2018-09-06 08:18] LABS: HEMATOCRIT 24.3 % (35.4-49); HEMOGLOBIN 7.9 GM/dL (11.7-16.9); MCH 27.8 pg (25.7-33.7); MCHC 32.5 g/dl (32.0-35.9); MEAN CELL VOLUME 85.3 fl (80-96); MEAN PLT VOLUME 7.4 fl (7.5-11.1); PLATELET COUNT 194 K/MM3 (134-434); RBC 2.85 M/mm3 (4.00-5.60); RDW 16.9 % (11.9-15.9); WHITE BLOOD COUNT 8.1 K/mm3 (4.0-10.0)
--- NOTE | 2018-09-06 08:44 | PN ---
Progress Note (short form) - Note Progress Note: Patient has no new complain but abdomen is slightly distended. Vital Signs Temperature 98.1 F 09/06/18 06:16 Pulse Rate 106 H 09/06/18 06:16 Respiratory Rate 20 09/06/18 06:16 Blood Pressure 116/63 09/06/18 06:16 O2 Sat by Pulse Oximetry (%) 96 09/05/18 09:00 Initial Vital Signs Temp Pulse Resp BP Pulse Ox 97.6 F 99 H 16 115/76 100 09/01/18 15:46 09/01/18 15:46 09/01/18 15:46 09/01/18 15:46 09/01/18 15:46 GENERAL: A&Ox3, no acute distress EYES: PERRLA, EOMI ENT: Moist mucus membranes NECK: No JVD, supple LUNGS: CTA, no wheezes HEART: Rate of 83, regular, S1S2 positive ABDOMEN: Soft, nontender, BS present MUSCULOSKELETAL: No CVA Tenderness EXTREMITIES: 2+ pulses, 2+ pitting edema noted bilaterally. NEUROLOGICAL: Cranial nerves II-XII intact. No focal deficits : distended lower abdomen, bladder scan: 600ml CBCD WBC 8.1 K/mm3 (4.0-10.0) 09/06/18 07:15 RBC 2.85 M/mm3 (4.00-5.60) L 09/06/18 07:15 Hgb 7.9 GM/dL (11.7-16.9) L 09/06/18 07:15 Hct 24.3 % (35.4-49) L 09/06/18 07:15 MCV 85.3 fl (80-96) 09/06/18 07:15 MCHC 32.5 g/dl (32.0-35.9) 09/06/18 07:15 RDW 16.9 % (11.9-15.9) H 09/06/18 07:15 Plt Count 194 K/MM3 (134-434) 09/06/18 07:15 MPV 7.4 fl (7.5-11.1) L 09/06/18 07:15 CMP Sodium 142 mmol/L (136-145) 09/05/18 05:30 Potassium 4.6 mmol/L (3.5-5.1) 09/05/18 05:30 Chloride 110 mmol/L (98-107) H 09/05/18 05:30 Carbon Dioxide 26 mmol/L (21-32) 09/05/18 05:30 Anion Gap 5 MMOL/L (8-16) L 09/05/18 05:30 BUN 21 mg/dL (7-18) H 09/05/18 05:30 Creatinine 1.2 mg/dL (0.55-1.3) 09/05/18 05:30 Creat Clearance w eGFR 41.00 (>60) 09/02/18 08:45 Random Glucose 171 mg/dL (74-106) H 09/05/18 05:30 Calcium 8.4 mg/dL (8.5-10.1) L 09/05/18 05:30 Total Bilirubin 0.7 mg/dL (0.2-1) 09/01/18 17:35 AST 35 U/L (15-37) 09/01/18 17:35 ALT 26 U/L (13-61) 09/01/18 17:35 Alkaline Phosphatase 92 U/L (45-117) 09/01/18 17:35 Total Protein 6.9 g/dl (6.4-8.2) 09/01/18 17:35 Albumin 3.2 g/dl (3.4-5.0) L 09/01/18 17:35 CARDIAC ENZYMES Creatine Kinase 259 U/L (26-308) 09/01/18 17:35 Troponin I 0.02 ng/ml (0.00-0.05) 09/01/18 17:35 Current Medications Generic Name Dose Route Start Last Admin Trade Name Francisco PRN Reason Stop Dose Admin Atorvastatin Calcium 80 mg 09/02/18 22:00 09/05/18 21:37 Lipitor - PO 80 mg HS SARAH Administration Bisacodyl 20 mg 09/07/18 12:00 Dulcolax - PO 09/07/18 12:01 ONCE ONE Diltiazem HCl 60 mg 09/02/18 10:00 09/05/18 21:37 Cardizem - PO 60 mg BID SARAH Administration Gabapentin 300 mg 09/02/18 10:00 09/05/18 21:37 Neurontin - PO 300 mg BID SARAH Administration Insulin Aspart 1 vial 09/01/18 22:00 09/06/18 06:20 Novolog Vial Sliding Scale - SQ 2 units ACHS SARAH Administration Protocol Metoprolol Succinate 100 mg 09/02/18 10:00 09/05/18 21:38 Toprol Xl - PO 100 mg BID SARAH Administration Pantoprazole Sodium 40 mg 09/02/18 13:15 09/05/18 09:47 Protonix - PO 40 mg DAILY SARAH Administration Polyethylene Glycol/Electrolytes 4,000 ml 09/07/18 13:10 Golytely Solution - PO 09/07/18 13:11 ONCE ONE Torsemide 100 mg 09/05/18 10:00 09/05/18 10:37 Demadex - PO 100 mg DAILY SARAH Administration Home Medications Medication Instructions Recorded Apixaban [Eliquis -] 5 mg PO BID 07/14/18 Gabapentin [Neurontin -] 300 mg PO BID 07/14/18 Sitagliptin Phos/Metformin HCl 1 each PO BID 07/14/18 [Janumet 50-1,000 mg Tablet] Atorvastatin Ca [Lipitor] 80 mg PO HS #30 tablet 07/16/18 Diltiazem [Cardizem -] 60 mg PO BID 09/01/18 Metoprolol Succinate 100 mg PO BID 09/01/18 Torsemide 50 mg PO DAILY 09/01/18 US of abdomen and pelvis: S/ABDOMEN US HISTORY PROVIDED: Rule out malignancy. Real time examination of the abdomen demonstrates the following: The study is limited. There is a trace amount of left pleural effusion. The gallbladder is poorly visualized. No calculi are identified. There is no evidence of intra or extrahepatic biliary duct dilatation. The liver is normal in size. It is heterogeneous in texture suspicious for advanced hepatocellular disease. Clinical correlation is recommended. No discrete intrahepatic masses are identified. The pancreas is normal in size and texture with no pancreatic masses identified. The spleen is not enlarged. There is no evidence of right- sided hydronephrosis or acute renal abnormalities. There is the suggestion of a solid mass adjacent to the right kidney. This could represent bowel loops. A follow- up CT scan may be warranted. There is a mild degree of left-sided hydronephrosis and a distal obstruction cannot be excluded. Again, CT follow-up is recommended. There is no evidence of AAA. The IVC is patent. IMPRESSION: 1. Trace left pleural effusion. 2. Heterogeneous liver suspicious for advanced hepatocellular disease. 3. Possible right perinephric mass. 4. Mild left hydronephrosis. Clinical correlation and CT follow-up recommended. Please see above discussion. Reported By: Marky Floyd MD 09/06/18950 Technologist: Kathryn Dickerson Transcribed Date/Time: 09/06/18950 Zinc Plate Grainer: Marky Floyd Assessment/plan: Patient is a 88y/o man with PMHx of Afib, recent stroke 07/15, Diastolic heart failure, CAD, neuropathy, CABG, HLP, who presented with frequent falls. he was found to have severe anemia # Acute chronic normocytic anemia: source is unclear, Us of abdomen ordered the result as above ; possible, advanced hepatocellular dz, on Hold eliquis, asa, and plavix ( asa and plavix started in 07/15). EGD/Colonoscopy on Saturday npo after midnight on saturday night (prep and diet order placed), GI consult appreciated. # ANGELO over CKD: suspect prerenal etiology , will place foly catheter since patient is retaining urine 600ml per urinary bladder scan . metformin is on hold. cardiac clearance as per GI request. As per Dr. Polo; cardio, can hold off on ac since patient is a high risk for bleed until EGD/Colonoscopy is done. #Possible right perinephric mass on US with Mild left hydronephrosis ; most likely due to urinary retention, willget nephro and urology involve. # Acute Hypokalemia repleted, will follow. # Recurrent falls: mechanical. worse probably due to anemia . s/p Head CT, PT eval # Recent CVA : due to A fib. on Eliquis on hold since presented with low hemoglobin, patient is a high risk stroke patient , patient and family understand and agree to hold for now, until further evaluation by GI. # H/O Diastolic heart failure. On 100mg torsemide now, was d/c on 80 mg of lasix in 07/15, now on torsemide 50 mg daily . DVT PX : Scds. As per cardio. to continue to hold off on AC; heparin drip.for now, since patient has low hemoglobin. Visit type - Emergency Visit Emergency Visit: Yes ED Registration Date: 09/01/18 Care time: The patient presented to the Emergency Department on the above date and was hospitalized for further evaluation of their emergent condition. - New Patient This patient is new to me today: No - Critical Care Critical Care patient: No - Discharge Referral Referred to [facility] No
[2018-09-06 08:50] LABS: CALCIUM 7.6 mg/dL (8.5-10.1); CREATININE 1.3 mg/dL (0.55-1.3); MAGNESIUM 1.9 mg/dL (1.8-2.4); PHOSPHOROUS 2.5 mg/dL (2.5-4.9); POTASSIUM 3.2 mmol/L (3.5-5.1)
[2018-09-06] MEDS ORDERED: PT OWN MED DRAWER 7, Y5N ONE (09:34)
[2018-09-06] MEDS: dilTIAZem HCL 60 MG TABLET (FP) PO SCH ×2 (09:52→22:20)
[2018-09-06] MEDS: GABAPENTIN 300 MG CAPSULE (FP) PO SCH ×2 (09:53→22:19)
[2018-09-06] MEDS: TORSEMIDE 100 MG TABLET PO SCH (09:53)
[2018-09-06] MEDS: PANTOPRAZOLE 40 MG TABLET (FP) PO SCH (09:53)
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
--- NOTE | 2018-09-06 12:23 | PN ---
Progress Note (short form) - Note Progress Note: Pt denies any abdominal pain at this time. On exam his bladder appears markedly distended. This may be a cause of the hydronephrosis seen on today's sono. Will discuss with Dr Peng.
[2018-09-06] MEDS: ATORVASTATIN CA 80 MG TABLET (FP) PO SCH (22:19)
[2018-09-07] MEDS: INSULIN SLIDING SCALE (NOVOLOG) 1 VIAL SQ SCH ×4 (06:30→21:30)
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
[2018-09-07] MEDS ORDERED: PT OWN MED DRAWER 7, Y5N ONE (09:16)
[2018-09-07] MEDS: TORSEMIDE 100 MG TABLET PO SCH (09:22)
[2018-09-07] MEDS: dilTIAZem HCL 60 MG TABLET (FP) PO SCH ×2 (09:22→21:30)
[2018-09-07] MEDS: GABAPENTIN 300 MG CAPSULE (FP) PO SCH ×2 (09:23→21:30)
[2018-09-07] MEDS: PANTOPRAZOLE 40 MG TABLET (FP) PO SCH (09:23)
[2018-09-07 09:38] LABS: BASO % 0.5 % (0-2.0); EOS % 3.6 % (0-4.5); HEMATOCRIT 25.4 % (35.4-49); HEMOGLOBIN 8.2 GM/dL (11.7-16.9); MCHC 32.4 g/dl (32.0-35.9); MEAN CELL VOLUME 86.6 fl (80-96); MEAN PLT VOLUME 7.4 fl (7.5-11.1); MONO % 9.8 % (3.8-10.2); NEUT % 64.1 % (42.8-82.8); PLATELET COUNT 198 K/MM3 (134-434); RBC 2.94 M/mm3 (4.00-5.60); RDW 17.2 % (11.9-15.9); WHITE BLOOD COUNT 8.6 K/mm3 (4.0-10.0)
[2018-09-07 09:57] LABS: CALCIUM 8.2 mg/dL (8.5-10.1); CREATININE 1.3 mg/dL (0.55-1.3); MAGNESIUM 2.1 mg/dL (1.8-2.4); PHOSPHOROUS 2.3 mg/dL (2.5-4.9); POTASSIUM 3.5 mmol/L (3.5-5.1)
[2018-09-07] MEDS ORDERED: NAPH,MB-DB/K PH,MBDB POWDER PACKET PO ONE (10:15)
[2018-09-07] MEDS ORDERED: POTASSIUM CHLORIDE TABS 20 MEQ TABLET.ER (FP) PO ONE (10:16)
--- NOTE | 2018-09-07 10:16 | PN ---
Teaching Attending Note Name of Resident: Marlon Chaney ATTENDING PHYSICIAN STATEMENT I saw and evaluated the patient. I reviewed the resident's note and discussed the case with the resident. I agree with the resident's findings and plan as documented. SUBJECTIVE: Patient is comfortable with no acute distress, no fever or chills, no shortness of breath. OBJECTIVE: Vital Signs Temperature 100.1 F H 09/07/18 06:41 Pulse Rate 104 H 09/07/18 06:41 Respiratory Rate 20 09/07/18 06:41 Blood Pressure 114/65 09/07/18 06:41 O2 Sat by Pulse Oximetry (%) 96 09/05/18 09:00 GENERAL: A&Ox3, no acute distress EYES: PERRLA, EOMI ENT: Moist mucus membranes NECK: No JVD, supple LUNGS: CTA, no wheezes HEART: Rate of 83, regular, S1S2 positive ABDOMEN: Soft, nontender, BS present MUSCULOSKELETAL: No CVA Tenderness EXTREMITIES: 2+ pulses, 2+ pitting edema noted bilaterally. NEUROLOGICAL: Cranial nerves II-XII intact. No focal deficits : mayers in place for distended abdomen (placed 09/06/2018) SINCE bladder scan: 600ml CBCD WBC 8.6 K/mm3 (4.0-10.0) 09/07/18 08:28 RBC 2.94 M/mm3 (4.00-5.60) L 09/07/18 08:28 Hgb 8.2 GM/dL (11.7-16.9) L 09/07/18 08:28 Hct 25.4 % (35.4-49) L 09/07/18 08:28 MCV 86.6 fl (80-96) 09/07/18 08:28 MCHC 32.4 g/dl (32.0-35.9) 09/07/18 08:28 RDW 17.2 % (11.9-15.9) H 09/07/18 08:28 Plt Count 198 K/MM3 (134-434) 09/07/18 08:28 MPV 7.4 fl (7.5-11.1) L 09/07/18 08:28 CMP Sodium 140 mmol/L (136-145) 09/07/18 08:28 Potassium 3.5 mmol/L (3.5-5.1) 09/07/18 08:28 Chloride 103 mmol/L (98-107) 09/07/18 08:28 Carbon Dioxide 32 mmol/L (21-32) 09/07/18 08:28 Anion Gap 4 MMOL/L (8-16) L 09/07/18 08:28 BUN 19 mg/dL (7-18) H 09/07/18 08:28 Creatinine 1.3 mg/dL (0.55-1.3) 09/07/18 08:28 Creat Clearance w eGFR 41.00 (>60) 09/02/18 08:45 Random Glucose 174 mg/dL (74-106) H 09/07/18 08:28 Calcium 8.2 mg/dL (8.5-10.1) L 09/07/18 08:28 Total Bilirubin 0.7 mg/dL (0.2-1) 09/01/18 17:35 AST 35 U/L (15-37) 09/01/18 17:35 ALT 26 U/L (13-61) 09/01/18 17:35 Alkaline Phosphatase 92 U/L (45-117) 09/01/18 17:35 Total Protein 6.9 g/dl (6.4-8.2) 09/01/18 17:35 Albumin 3.2 g/dl (3.4-5.0) L 09/01/18 17:35 CARDIAC ENZYMES Creatine Kinase 259 U/L (26-308) 09/01/18 17:35 Troponin I 0.02 ng/ml (0.00-0.05) 09/01/18 17:35 Current Medications Generic Name Dose Route Start Last Admin Trade Name Francisco PRN Reason Stop Dose Admin Atorvastatin Calcium 80 mg 09/02/18 22:00 09/06/18 22:19 Lipitor - PO 80 mg HS SARAH Administration Bisacodyl 20 mg 09/07/18 12:00 Dulcolax - PO 09/07/18 12:01 ONCE ONE Diltiazem HCl 60 mg 09/02/18 10:00 09/07/18 09:22 Cardizem - PO 60 mg BID SARAH Administration Gabapentin 300 mg 09/02/18 10:00 09/07/18 09:23 Neurontin - PO 300 mg BID SARAH Administration Insulin Aspart 1 vial 09/01/18 22:00 09/07/18 06:30 Novolog Vial Sliding Scale - SQ 4 units ACHS SARAH Administration Protocol Metoprolol Succinate 100 mg 09/02/18 10:00 09/07/18 09:23 Toprol Xl - PO 100 mg BID SARAH Administration Pantoprazole Sodium 40 mg 09/02/18 13:15 09/07/18 09:23 Protonix - PO 40 mg DAILY SARAH Administration Polyethylene Glycol/Electrolytes 4,000 ml 09/07/18 13:10 Golytely Solution - PO 09/07/18 13:11 ONCE ONE Torsemide 100 mg 09/05/18 10:00 09/07/18 09:22 Demadex - PO 100 mg DAILY SARAH Administration Home Medications Medication Instructions Recorded Apixaban [Eliquis -] 5 mg PO BID 07/14/18 Gabapentin [Neurontin -] 300 mg PO BID 07/14/18 Sitagliptin Phos/Metformin HCl 1 each PO BID 07/14/18 [Janumet 50-1,000 mg Tablet] Atorvastatin Ca [Lipitor] 80 mg PO HS #30 tablet 07/16/18 Diltiazem [Cardizem -] 60 mg PO BID 09/01/18 Metoprolol Succinate 100 mg PO BID 09/01/18 Torsemide 50 mg PO DAILY 09/01/18 US of abdomen and pelvis: Rule out malignancy. Real time examination of the abdomen demonstrates the following: The study is limited. There is a trace amount of left pleural effusion. The gallbladder is poorly visualized. No calculi are identified. There is no evidence of intra or extrahepatic biliary duct dilatation. The liver is normal in size. It is heterogeneous in texture suspicious for advanced hepatocellular disease. Clinical correlation is recommended. No discrete intrahepatic masses are identified. The pancreas is normal in size and texture with no pancreatic masses identified. The spleen is not enlarged. There is no evidence of right-sided hydronephrosis or acute renal abnormalities. There is the suggestion of a solid mass adjacent to the right kidney. This could represent bowel loops. A follow- up CT scan may be warranted. There is a mild degree of left-sided hydronephrosis and a distal obstruction cannot be excluded. Again, CT follow-up is recommended. There is no evidence of AAA. The IVC is patent. IMPRESSION: 1. Trace left pleural effusion. 2. Heterogeneous liver suspicious for advanced hepatocellular disease. 3. Possible right perinephric mass. 4. Mild left hydronephrosis. Clinical correlation and CT follow-up recommended. Please see above discussion. Reported By: Marky Floyd MD 09/06/18950 Technologist: Kathryn Dickerson Transcribed Date/Time: 09/06/18950 Operator Command Support Systems: Marky Floyd Assessment/plan: Patient is a 88y/o man with PMHx of Afib, recent stroke 07/15, Diastolic heart failure, CAD, neuropathy, CABG, HLP, who presented with frequent falls. he was found to have severe anemia. # Acute chronic normocytic anemia: US of abdomen: advanced hepatocellular dz, on Hold eliquis, asa, and plavix ( asa and plavix started in 07/15). going for EGD/Colonoscopy in am, npo after midnight on saturday night (prep and diet order placed), GI consult appreciated. # ANGELO over CKD: suspect prerenal etiology ,foly in place draining well. metformin is on hold. cardiac clearance as per GI request. As per Dr. Polo; cardio, can hold off on ac since patient is a high risk for bleed until EGD/ Colonoscopy is done. #Possible right perinephric mass on US with Mild left hydronephrosis ; most likely due to urinary retention, appreciate nephro consult, also uro is consulted. # Acute Hypokalemia repleted, will follow. # Recurrent falls: mechanical. worse probably due to anemia . PT eval , head CT : moderate atrophy , no bleed # Recent CVA : due to A fib. on Eliquis on hold since presented with low hemoglobin, patient is a high risk stroke patient , patient and family understand and agree to hold for now, until further evaluation by GI. As per cardio. to continue to hold off on AC; heparin drip.for now, since patient has low hemoglobin. # H/O Diastolic heart failure. On 100mg torsemide now, was d/c on 80 mg of lasix in 07/15, was on torsemide 50 mg daily . DVT PX : Scds. going for EGD/colonoscopy in am
[2018-09-07] MEDS ORDERED: INSULIN (NOVOLOG) ASPART 100 UNITS/ML 10ML VIAL ONE ×2 (11:26→21:27)
[2018-09-07] MEDS ORDERED: BISACODYL 5 MG TABLET.DR (FP) PO ONE (12:00)
[2018-09-07] MEDS ORDERED: PEG 3350/NA SULF BICARB CL/KCL 4000 ML SOLN.RECON PO ONE (13:10)
--- NOTE | 2018-09-07 16:02 | PN ---
Teaching Attending Note Name of Resident: Marlon Chaney ATTENDING PHYSICIAN STATEMENT I saw and evaluated the patient. I reviewed the resident's note and discussed the case with the resident. I agree with the resident's findings and plan as documented. SUBJECTIVE: OBJECTIVE: Vital Signs Temperature 97.8 F 09/07/18 14:54 Pulse Rate 81 09/07/18 14:54 Respiratory Rate 18 09/07/18 14:54 Blood Pressure 107/54 L 09/07/18 14:54 O2 Sat by Pulse Oximetry (%) 96 09/05/18 09:00 CBCD WBC 8.6 K/mm3 (4.0-10.0) 09/07/18 08:28 RBC 2.94 M/mm3 (4.00-5.60) L 09/07/18 08:28 Hgb 8.2 GM/dL (11.7-16.9) L 09/07/18 08:28 Hct 25.4 % (35.4-49) L 09/07/18 08:28 MCV 86.6 fl (80-96) 09/07/18 08:28 MCHC 32.4 g/dl (32.0-35.9) 09/07/18 08:28 RDW 17.2 % (11.9-15.9) H 09/07/18 08:28 Plt Count 198 K/MM3 (134-434) 09/07/18 08:28 MPV 7.4 fl (7.5-11.1) L 09/07/18 08:28 CMP Sodium 140 mmol/L (136-145) 09/07/18 08:28 Potassium 3.5 mmol/L (3.5-5.1) 09/07/18 08:28 Chloride 103 mmol/L (98-107) 09/07/18 08:28 Carbon Dioxide 32 mmol/L (21-32) 09/07/18 08:28 Anion Gap 4 MMOL/L (8-16) L 09/07/18 08:28 BUN 19 mg/dL (7-18) H 09/07/18 08:28 Creatinine 1.3 mg/dL (0.55-1.3) 09/07/18 08:28 Creat Clearance w eGFR 41.00 (>60) 09/02/18 08:45 Random Glucose 174 mg/dL (74-106) H 09/07/18 08:28 Calcium 8.2 mg/dL (8.5-10.1) L 09/07/18 08:28 Total Bilirubin 0.7 mg/dL (0.2-1) 09/01/18 17:35 AST 35 U/L (15-37) 09/01/18 17:35 ALT 26 U/L (13-61) 09/01/18 17:35 Alkaline Phosphatase 92 U/L (45-117) 09/01/18 17:35 Total Protein 6.9 g/dl (6.4-8.2) 09/01/18 17:35 Albumin 3.2 g/dl (3.4-5.0) L 09/01/18 17:35 CARDIAC ENZYMES Creatine Kinase 259 U/L (26-308) 09/01/18 17:35 Troponin I 0.02 ng/ml (0.00-0.05) 09/01/18 17:35 Current Medications Generic Name Dose Route Start Last Admin Trade Name Francisco PRN Reason Stop Dose Admin Atorvastatin Calcium 80 mg 09/02/18 22:00 09/06/18 22:19 Lipitor - PO 80 mg HS SARAH Administration Diltiazem HCl 60 mg 09/02/18 10:00 09/07/18 09:22 Cardizem - PO 60 mg BID SARAH Administration Gabapentin 300 mg 09/02/18 10:00 09/07/18 09:23 Neurontin - PO 300 mg BID SARAH Administration Insulin Aspart 1 vial 09/01/18 22:00 09/07/18 11:37 Novolog Vial Sliding Scale - SQ 8 units ACHS SARAH Administration Protocol Metoprolol Succinate 100 mg 09/02/18 10:00 09/07/18 09:23 Toprol Xl - PO 100 mg BID SARAH Administration Pantoprazole Sodium 40 mg 09/02/18 13:15 09/07/18 09:23 Protonix - PO 40 mg DAILY SARAH Administration Torsemide 100 mg 09/05/18 10:00 09/07/18 09:22 Demadex - PO 100 mg DAILY SARAH Administration Home Medications Medication Instructions Recorded Apixaban [Eliquis -] 5 mg PO BID 07/14/18 Gabapentin [Neurontin -] 300 mg PO BID 07/14/18 Sitagliptin Phos/Metformin HCl 1 each PO BID 07/14/18 [Janumet 50-1,000 mg Tablet] Atorvastatin Ca [Lipitor] 80 mg PO HS #30 tablet 07/16/18 Diltiazem [Cardizem -] 60 mg PO BID 09/01/18 Metoprolol Succinate 100 mg PO BID 09/01/18 Torsemide 50 mg PO DAILY 09/01/18 ASSESSMENT AND PLAN:
[2018-09-07] MEDS: ATORVASTATIN CA 80 MG TABLET (FP) PO SCH (21:30)
[2018-09-08 06:43] LABS: BASO % 0.9 % (0-2.0); EOS % 3.5 % (0-4.5); HEMATOCRIT 29.3 % (35.4-49); HEMOGLOBIN 9.4 GM/dL (11.7-16.9); LYMPH % 20.8 % (8-40); MCH 27.8 pg (25.7-33.7); MCHC 32.1 g/dl (32.0-35.9); MEAN CELL VOLUME 86.5 fl (80-96); MEAN PLT VOLUME 7.3 fl (7.5-11.1); MONO % 11.7 % (3.8-10.2); NEUT % 63.1 % (42.8-82.8); PLATELET COUNT 238 K/MM3 (134-434); RBC 3.39 M/mm3 (4.00-5.60); RDW 17.7 % (11.9-15.9)
[2018-09-08] MEDS: INSULIN SLIDING SCALE (NOVOLOG) 1 VIAL SQ SCH ×4 (06:51→21:33)
[2018-09-08 07:27] LABS: INR 1.29 (0.83-1.09); PROTHROMBIN TIME (PATIENT) 15.3 SEC (9.7-13.0)
[2018-09-08 08:36] LABS: BILIRUBIN,TOTAL 1.6 mg/dL (0.2-1); CALCIUM 8.7 mg/dL (8.5-10.1); CREATININE 1.2 mg/dL (0.55-1.3); MAGNESIUM 2.1 mg/dL (1.8-2.4); PHOSPHOROUS 2.6 mg/dL (2.5-4.9); POTASSIUM 3.5 mmol/L (3.5-5.1)
[2018-09-08] MEDS: TORSEMIDE 100 MG TABLET PO SCH (09:35)
[2018-09-08] MEDS: dilTIAZem HCL 60 MG TABLET (FP) PO SCH ×2 (09:35→21:29)
[2018-09-08] MEDS: PANTOPRAZOLE 40 MG TABLET (FP) PO SCH (09:35)
[2018-09-08] MEDS: GABAPENTIN 300 MG CAPSULE (FP) PO SCH ×2 (09:35→21:29)
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
--- NOTE | 2018-09-08 13:39 | PN ---
Progress Note, Physician History of Present Illness: Pt seen and examined at bedside. He is awake and alert. He denies shortness of breath. - Current Medication List Current Medications: Active Medications Atorvastatin Calcium (Lipitor -) 80 mg PO HS [facility] Last Admin: 09/07/18 21:30 Dose: 80 mg Diltiazem HCl (Cardizem -) 60 mg PO BID [facility] Last Admin: 09/08/18 09:35 Dose: 60 mg Gabapentin (Neurontin -) 300 mg PO BID [facility] Last Admin: 09/08/18 09:35 Dose: 300 mg Insulin Aspart (Novolog Vial Sliding Scale -) 1 vial SQ ACHS [facility]; Protocol Last Admin: 09/08/18 11:26 Dose: Not Given Metoprolol Succinate (Toprol Xl -) 100 mg PO BID [facility] Last Admin: 09/08/18 09:36 Dose: 100 mg Pantoprazole Sodium (Protonix -) 40 mg PO DAILY [facility] Last Admin: 09/08/18 09:35 Dose: 40 mg Torsemide (Demadex -) 100 mg PO DAILY [facility] Last Admin: 09/08/18 09:35 Dose: 100 mg - Objective Vital Signs: Vital Signs Temperature 98.8 F 09/08/18 08:55 Pulse Rate 110 H 09/08/18 08:55 Respiratory Rate 18 09/08/18 08:55 Blood Pressure 130/78 09/08/18 08:55 O2 Sat by Pulse Oximetry (%) 97 09/07/18 21:00 Constitutional: Yes: Calm Eyes: Yes: Conjunctiva Clear HENT: Yes: Atraumatic Neck: Yes: Supple Cardiovascular: Yes: S1, S2 Respiratory: Yes: CTA Bilaterally Gastrointestinal: Yes: WNL Genitourinary: Yes: WNL Musculoskeletal: Yes: WNL Edema: No Neurological: Yes: Oriented Psychiatric: Yes: Oriented Labs: CBC, BMP 09/08/18 05:30 09/08/18 05:30 INR, PTT INR 1.29 (0.83-1.09) H 09/08/18 05:30 Assessment/Plan Current Medications Generic Name Dose Route Start Last Admin Trade Name Freq PRN Reason Stop Dose Admin Atorvastatin Calcium 80 mg 09/02/18 22:00 09/07/18 21:30 Lipitor - PO 80 mg HS [facility] Administration Diltiazem HCl 60 mg 09/02/18 10:00 09/08/18 09:35 Cardizem - PO 60 mg BID SARAH Administration Gabapentin 300 mg 09/02/18 10:00 09/08/18 09:35 Neurontin - PO 300 mg BID [facility] Administration Insulin Aspart 1 vial 09/01/18 22:00 09/08/18 11:26 Novolog Vial Sliding Scale - SQ Not Given ACHS [facility] Protocol Metoprolol Succinate 100 mg 09/02/18 10:00 09/08/18 09:36 Toprol Xl - PO 100 mg BID [facility]AH Administration Pantoprazole Sodium 40 mg 09/02/18 13:15 09/08/18 09:35 Protonix - PO 40 mg DAILY [facility] Administration Torsemide 100 mg 09/05/18 10:00 09/08/18 09:35 Demadex - PO 100 mg DAILY [facility] Administration Laboratory Tests 09/01/18 09/01/18 09/02/18 17:35 18:30 08:45 Hgb Creatinine 2.0 H 1.6 H Urine Protein Negative Urine Blood Negative Urine Total Protein Urine PEP Interpret YULIYA M-Bimal 09/02/18 09/02/18 09/03/18 13:57 13:57 07:18 Hgb Creatinine 1.6 H Urine Protein Urine Blood Urine Total Protein Pending Urine PEP Interpret Pending YULIYA M-Bimal Not observed 09/06/18 09/07/18 09/08/18 07:15 08:28 05:30 Hgb 9.4 L Creatinine 1.3 1.3 Urine Protein Urine Blood Urine Total Protein Urine PEP Interpret YULIYA M-Bimal 09/08/18 05:30 Hgb Creatinine 1.2 Urine Protein Urine Blood Urine Total Protein Urine PEP Interpret YULIYA M-Bimal Impression 1. ANGELO 2. left hydro 3. perinephric mass 4. anemia Plan - renal function is improving - possible renal mass, will need more imaging once mroe stable - follow upep - ua reviewed
--- NOTE | 2018-09-08 15:51 | PN ---
Teaching Attending Note Name of Resident: Matt Georges ATTENDING PHYSICIAN STATEMENT I saw and evaluated the patient. I reviewed the resident's note and discussed the case with the resident. I agree with the resident's findings and plan as documented. SUBJECTIVE: Patient went for colonoscopy but bowel was not prep'd completely. otherwise has no new complains. OBJECTIVE: Vital Signs Temperature 97.8 F 09/08/18 14:57 Pulse Rate 102 H 09/08/18 14:57 Respiratory Rate 18 09/08/18 14:57 Blood Pressure 135/78 09/08/18 14:57 O2 Sat by Pulse Oximetry (%) 98 09/08/18 14:57 GENERAL: A&Ox3, no acute distress EYES: PERRLA, EOMI ENT: Moist mucus membranes NECK: No JVD, supple LUNGS: CTA, no wheezes HEART: RRR, , S1S2 positive ABDOMEN: Soft, nontender, BS present MUSCULOSKELETAL: No CVA Tenderness EXTREMITIES: 2+ pulses, 2+ pitting edema noted bilaterally. NEUROLOGICAL: Cranial nerves II-XII intact. No focal deficits : mayers in place for distended abdomen (placed 09/06/2018) CBCD WBC 9.0 K/mm3 (4.0-10.0) 09/08/18 05:30 RBC 3.39 M/mm3 (4.00-5.60) L 09/08/18 05:30 Hgb 9.4 GM/dL (11.7-16.9) L 09/08/18 05:30 Hct 29.3 % (35.4-49) L D 09/08/18 05:30 MCV 86.5 fl (80-96) 09/08/18 05:30 MCHC 32.1 g/dl (32.0-35.9) 09/08/18 05:30 RDW 17.7 % (11.9-15.9) H 09/08/18 05:30 Plt Count 238 K/MM3 (134-434) D 09/08/18 05:30 MPV 7.3 fl (7.5-11.1) L 09/08/18 05:30 CMP Sodium 140 mmol/L (136-145) 09/08/18 05:30 Potassium 3.5 mmol/L (3.5-5.1) 09/08/18 05:30 Chloride 101 mmol/L (98-107) 09/08/18 05:30 Carbon Dioxide 32 mmol/L (21-32) 09/08/18 05:30 Anion Gap 7 MMOL/L (8-16) L 09/08/18 05:30 BUN 14 mg/dL (7-18) 09/08/18 05:30 Creatinine 1.2 mg/dL (0.55-1.3) 09/08/18 05:30 Creat Clearance w eGFR 41.00 (>60) 09/02/18 08:45 Random Glucose 187 mg/dL (74-106) H 09/08/18 05:30 Calcium 8.7 mg/dL (8.5-10.1) 09/08/18 05:30 Total Bilirubin 1.6 mg/dL (0.2-1) H 09/08/18 05:30 AST 20 U/L (15-37) 09/08/18 05:30 ALT 20 U/L (13-61) 09/08/18 05:30 Alkaline Phosphatase 123 U/L (45-117) H 09/08/18 05:30 Total Protein 7.0 g/dl (6.4-8.2) 09/08/18 05:30 Albumin 3.0 g/dl (3.4-5.0) L 09/08/18 05:30 CARDIAC ENZYMES Creatine Kinase 259 U/L (26-308) 09/01/18 17:35 Troponin I 0.02 ng/ml (0.00-0.05) 09/01/18 17:35 Current Medications Generic Name Dose Route Start Last Admin Trade Name Francisco PRN Reason Stop Dose Admin Atorvastatin Calcium 80 mg 09/02/18 22:00 09/07/18 21:30 Lipitor - PO 80 mg HS [facility] Administration Diltiazem HCl 60 mg 09/02/18 10:00 09/08/18 09:35 Cardizem - PO 60 mg BID [facility] Administration Gabapentin 300 mg 09/02/18 10:00 09/08/18 09:35 Neurontin - PO 300 mg BID [facility] Administration Insulin Aspart 1 vial 09/01/18 22:00 09/08/18 11:26 Novolog Vial Sliding Scale - SQ Not Given ACHS [facility] Protocol Metoprolol Succinate 100 mg 09/02/18 10:00 09/08/18 09:36 Toprol Xl - PO 100 mg BID [facility] Administration Pantoprazole Sodium 40 mg 09/02/18 13:15 09/08/18 09:35 Protonix - PO 40 mg DAILY [facility] Administration Torsemide 100 mg 09/05/18 10:00 09/08/18 09:35 Demadex - PO 100 mg DAILY [facility] Administration Home Medications Medication Instructions Recorded Apixaban [Eliquis -] 5 mg PO BID 07/14/18 Gabapentin [Neurontin -] 300 mg PO BID 07/14/18 Sitagliptin Phos/Metformin HCl 1 each PO BID 07/14/18 [Janumet 50-1,000 mg Tablet] Atorvastatin Ca [Lipitor] 80 mg PO HS #30 tablet 07/16/18 Diltiazem [Cardizem -] 60 mg PO BID 09/01/18 Metoprolol Succinate 100 mg PO BID 09/01/18 Torsemide 50 mg PO DAILY 09/01/18 US of abdomen and pelvis: Rule out malignancy. Real time examination of the abdomen demonstrates the following: The study is limited. There is a trace amount of left pleural effusion. The gallbladder is poorly visualized. No calculi are identified. There is no evidence of intra or extrahepatic biliary duct dilatation. The liver is normal in size. It is heterogeneous in texture suspicious for advanced hepatocellular disease. Clinical correlation is recommended. No discrete intrahepatic masses are identified. The pancreas is normal in size and texture with no pancreatic masses identified. The spleen is not enlarged. There is no evidence of right-sided hydronephrosis or acute renal abnormalities. There is the suggestion of a solid mass adjacent to the right kidney. This could represent bowel loops. A follow- up CT scan may be warranted. There is a mild degree of left-sided hydronephrosis and a distal obstruction cannot be excluded. Again, CT follow-up is recommended. There is no evidence of AAA. The IVC is patent. IMPRESSION: 1. Trace left pleural effusion. 2. Heterogeneous liver suspicious for advanced hepatocellular disease. 3. Possible right perinephric mass. 4. Mild left hydronephrosis. Clinical correlation and CT follow-up recommended. Please see above discussion. Reported By: Marky Floyd MD 09/06/18950 Technologist: Kathryn Dickerson Transcribed Date/Time: 09/06/18950 [employer] Attendant: Marky Floyd Assessment/plan: Patient is a 88y/o man with PMHx of Afib, recent stroke 07/15, Diastolic heart failure, CAD, neuropathy, CABG, HLP, who presented with frequent falls. he was found to have severe anemia. # Acute chronic normocytic anemia: US of abdomen: advanced hepatocellular dz, on Hold eliquis, asa, and plavix ( asa and plavix started in 07/15). going for EGD/Colonoscopy to be repeated on Saturday, npo after midnight, GI on the case. # ANGELO over CKD: suspect prerenal etiology ,foly in place draining well. metformin is on hold. As per Dr. Pool; cardio, can hold off on ac since patient is a high risk for bleed until EGD/Colonoscopy is done. #Possible right perinephric mass on US with Mild left hydronephrosis ; most likely due to urinary retention, appreciate nephro consult, also uro is consulted. # Acute Hypokalemia repleted, will follow. # Recurrent falls: mechanical. worse probably due to anemia . PT eval , head CT : moderate atrophy , no bleed # Recent CVA : due to A fib. on Eliquis on hold since presented with low hemoglobin, patient is a high risk stroke patient , patient and family understand and agree to hold AC for now, until further evaluation by GI. As per cardio. to continue to hold off on AC; heparin drip.for now, since patient has low hemoglobin. # H/O Diastolic heart failure. On 100mg torsemide now, was on 80 mg of lasix in 07/15 snd was discontinued, on torsemide 50 mg daily now. DVT PX : Scds. going for EGD/colonoscopy on Saturday
--- NOTE | 2018-09-08 15:53 | PN ---
Progress Note (short form) - Note Progress Note: Brief colonoscopy report - poor prep Patient refused to re-prep for tomorrow, tentatively agreed to prep Saturday and Saturday for colonoscopy on Would keep on clears tomorrow () and readdress with patient if he is ok with the above plan
--- NOTE | 2018-09-08 16:54 | PN ---
Progress Note (short form) - Note Progress Note: spoke with Mr. kilgore's nurse. Agreeable to reprep tomorrow for colonoscopy wed 5/ Problem List - Problems (1) Anemia Code(s): D64.9 - ANEMIA, UNSPECIFIED Qualifiers:
[2018-09-08] MEDS ORDERED: PEG 3350/NA SULF BICARB CL/KCL 4000 ML SOLN.RECON PO ONE (17:00)
[2018-09-08] MEDS ORDERED: INSULIN (NOVOLOG) ASPART 100 UNITS/ML 10ML VIAL ONE (17:33)
[2018-09-08] MEDS: ATORVASTATIN CA 80 MG TABLET (FP) PO SCH (21:29)
[2018-09-09] MEDS: INSULIN SLIDING SCALE (NOVOLOG) 1 VIAL SQ SCH ×4 (06:14→22:12)
[2018-09-09 06:23] LABS: HEMATOCRIT 26.4 % (35.4-49); HEMOGLOBIN 8.6 GM/dL (11.7-16.9); MCH 28.1 pg (25.7-33.7); MCHC 32.8 g/dl (32.0-35.9); MEAN CELL VOLUME 85.6 fl (80-96); MEAN PLT VOLUME 7.4 fl (7.5-11.1); PLATELET COUNT 220 K/MM3 (134-434); RBC 3.08 M/mm3 (4.00-5.60); RDW 17.7 % (11.9-15.9); WHITE BLOOD COUNT 8.3 K/mm3 (4.0-10.0)
[2018-09-09 07:05] LABS: CALCIUM 7.7 mg/dL (8.5-10.1); CREATININE 1.4 mg/dL (0.55-1.3); MAGNESIUM 2.1 mg/dL (1.8-2.4)
[2018-09-09 07:26] LABS: POTASSIUM 2.8 mmol/L (3.5-5.1)
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
[2018-09-09] MEDS: KCL 10 MEQ IVPB 10 MEQ/100 ML INFUS.BAG IVPB SCH ×2 (08:22→09:20)
[2018-09-09] MEDS: POTASSIUM CHLORIDE TABS 20 MEQ TABLET.ER (FP) PO SCH ×2 (09:20→22:11)
[2018-09-09] MEDS: GABAPENTIN 300 MG CAPSULE (FP) PO SCH ×2 (09:21→22:11)
[2018-09-09] MEDS: TORSEMIDE 100 MG TABLET PO SCH (09:21)
[2018-09-09] MEDS: dilTIAZem HCL 60 MG TABLET (FP) PO SCH ×2 (09:21→22:11)
[2018-09-09] MEDS: PANTOPRAZOLE 40 MG TABLET (FP) PO SCH (09:21)
[2018-09-09] MEDS ORDERED: POTASSIUM CHLORIDE ORAL LIQUID 20 MEQ/15 ML PO ONE (10:44)
[2018-09-09] MEDS ORDERED: PEG 3350/NA SULF BICARB CL/KCL 4000 ML SOLN.RECON PO ONE ×2 (13:00→13:45)
[2018-09-09 13:06] LABS: CALCIUM 8.1 mg/dL (8.5-10.1); CREATININE 1.4 mg/dL (0.55-1.3); POTASSIUM 3.8 mmol/L (3.5-5.1)
--- NOTE | 2018-09-09 14:15 | PN ---
Progress Note, Physician History of Present Illness: Pt seen and examined at bedside. He is awake and alert. He denies shortness of breath. - Current Medication List Current Medications: Active Medications Atorvastatin Calcium (Lipitor -) 80 mg PO HS [facility] Last Admin: 09/08/18 21:29 Dose: 80 mg Diltiazem HCl (Cardizem -) 60 mg PO BID [facility] Last Admin: 09/09/18 09:21 Dose: 60 mg Gabapentin (Neurontin -) 300 mg PO BID [facility] Last Admin: 09/09/18 09:21 Dose: 300 mg Insulin Aspart (Novolog Vial Sliding Scale -) 1 vial SQ ACHS [facility]; Protocol Last Admin: 09/09/18 11:29 Dose: 6 units Metoprolol Succinate (Toprol Xl -) 100 mg PO BID [facility] Last Admin: 09/09/18 09:20 Dose: 100 mg Pantoprazole Sodium (Protonix -) 40 mg PO DAILY [facility] Last Admin: 09/09/18 09:21 Dose: 40 mg Potassium Chloride (K-Dur -) 40 meq PO BID [facility] Stop: 09/09/18 22:01 Last Admin: 09/09/18 09:20 Dose: 40 meq Torsemide (Demadex -) 100 mg PO DAILY [facility] Last Admin: 09/09/18 09:21 Dose: 100 mg - Objective Vital Signs: Vital Signs Temperature 98.5 F 09/09/18 08:28 Pulse Rate 104 H 09/09/18 08:28 Respiratory Rate 18 09/09/18 08:28 Blood Pressure 113/65 09/09/18 08:28 O2 Sat by Pulse Oximetry (%) 96 09/08/18 21:00 Constitutional: Yes: Calm Eyes: Yes: Conjunctiva Clear HENT: Yes: Atraumatic Cardiovascular: Yes: S1, S2 Respiratory: Yes: CTA Bilaterally Gastrointestinal: Yes: Soft Genitourinary: Yes: WNL Musculoskeletal: Yes: WNL Edema: Yes Edema: LLE: Trace, RLE: Trace Neurological: Yes: Oriented Psychiatric: Yes: Oriented Labs: CBC, BMP 09/09/18 05:20 09/09/18 12:03 INR, PTT INR 1.29 (0.83-1.09) H 09/08/18 05:30 Assessment/Plan Current Medications Generic Name Dose Route Start Last Admin Trade Name Freq PRN Reason Stop Dose Admin Atorvastatin Calcium 80 mg 09/02/18 22:00 09/08/18 21:29 Lipitor - PO 80 mg HS [facility] Administration Diltiazem HCl 60 mg 09/02/18 10:00 09/09/18 09:21 Cardizem - PO 60 mg BID [facility]AH Administration Gabapentin 300 mg 09/02/18 10:00 09/09/18 09:21 Neurontin - PO 300 mg BID [facility]AH Administration Insulin Aspart 1 vial 09/01/18 22:00 09/09/18 11:29 Novolog Vial Sliding Scale - SQ 6 units ACHS [facility]AH Administration Protocol Metoprolol Succinate 100 mg 09/02/18 10:00 09/09/18 09:20 Toprol Xl - PO 100 mg BID [facility]AH Administration Pantoprazole Sodium 40 mg 09/02/18 13:15 09/09/18 09:21 Protonix - PO 40 mg DAILY [facility] Administration Potassium Chloride 40 meq 09/09/18 10:00 09/09/18 09:20 K-Dur - PO 09/09/18 22:01 40 meq BID SARAH Administration Torsemide 100 mg 09/05/18 10:00 09/09/18 09:21 Demadex - PO 100 mg DAILY [facility]AH Administration Impression 1. ANGELO 2. left hydro 3. perinephric mass 4. anemia Plan - cont to monitor renal function - may need a lower dose of demadex - check mag level - replace potassium - possible renal mass, will need more imaging once mroe stable - follow upep
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
--- NOTE | 2018-09-09 15:24 | PN ---
Teaching Attending Note Name of Resident: Matt Georges ATTENDING PHYSICIAN STATEMENT I saw and evaluated the patient. I reviewed the resident's note and discussed the case with the resident. I agree with the resident's findings and plan as documented. SUBJECTIVE: Patient is feeling better with no acute distress. OBJECTIVE: Vital Signs Temperature 98.5 F 09/09/18 08:28 Pulse Rate 104 H 09/09/18 08:28 Respiratory Rate 18 09/09/18 08:28 Blood Pressure 113/65 09/09/18 08:28 O2 Sat by Pulse Oximetry (%) 96 09/08/18 21:00 GENERAL: A&Ox3, no acute distress EYES: PERRLA, EOMI, ENT: Moist mucus membranes NECK: No JVD, supple, LUNGS: CTA, no wheezes HEART: mild tachycardia, S1S2 positive ABDOMEN: Soft, nontender, BS present MUSCULOSKELETAL: No CVA Tenderness EXTREMITIES: 2+ pulses, 2+ pitting edema noted bilaterally. NEUROLOGICAL: Cranial nerves II-XII intact. No focal deficits : mayers in place for distended abdomen (placed 09/06/2018) CBCD WBC 8.3 K/mm3 (4.0-10.0) 09/09/18 05:20 RBC 3.08 M/mm3 (4.00-5.60) L 09/09/18 05:20 Hgb 8.6 GM/dL (11.7-16.9) L 09/09/18 05:20 Hct 26.4 % (35.4-49) L 09/09/18 05:20 MCV 85.6 fl (80-96) 09/09/18 05:20 MCHC 32.8 g/dl (32.0-35.9) 09/09/18 05:20 RDW 17.7 % (11.9-15.9) H 09/09/18 05:20 Plt Count 220 K/MM3 (134-434) 09/09/18 05:20 MPV 7.4 fl (7.5-11.1) L 09/09/18 05:20 CMP Sodium 134 mmol/L (136-145) L 09/09/18 12:03 Potassium 3.8 mmol/L (3.5-5.1) 09/09/18 12:03 Chloride 98 mmol/L (98-107) 09/09/18 12:03 Carbon Dioxide 32 mmol/L (21-32) 09/09/18 12:03 Anion Gap 4 MMOL/L (8-16) L 09/09/18 12:03 BUN 20 mg/dL (7-18) H 09/09/18 12:03 Creatinine 1.4 mg/dL (0.55-1.3) H 09/09/18 12:03 Creat Clearance w eGFR 41.00 (>60) 09/02/18 08:45 Random Glucose 248 mg/dL (74-106) H 09/09/18 12:03 Calcium 8.1 mg/dL (8.5-10.1) L 09/09/18 12:03 Total Bilirubin 1.6 mg/dL (0.2-1) H 09/08/18 05:30 AST 20 U/L (15-37) 09/08/18 05:30 ALT 20 U/L (13-61) 09/08/18 05:30 Alkaline Phosphatase 123 U/L (45-117) H 09/08/18 05:30 Total Protein 7.0 g/dl (6.4-8.2) 09/08/18 05:30 Albumin 3.0 g/dl (3.4-5.0) L 09/08/18 05:30 CARDIAC ENZYMES Creatine Kinase 259 U/L (26-308) 09/01/18 17:35 Troponin I 0.02 ng/ml (0.00-0.05) 09/01/18 17:35 Current Medications Generic Name Dose Route Start Last Admin Trade Name Freq PRN Reason Stop Dose Admin Atorvastatin Calcium 80 mg 09/02/18 22:00 09/08/18 21:29 Lipitor - PO 80 mg HS SARAH Administration Diltiazem HCl 60 mg 09/02/18 10:00 09/09/18 09:21 Cardizem - PO 60 mg BID SARAH Administration Gabapentin 300 mg 09/02/18 10:00 09/09/18 09:21 Neurontin - PO 300 mg BID SARAH Administration Insulin Aspart 1 vial 09/01/18 22:00 09/09/18 11:29 Novolog Vial Sliding Scale - SQ 6 units ACHS SARAH Administration Protocol Metoprolol Succinate 100 mg 09/02/18 10:00 09/09/18 09:20 Toprol Xl - PO 100 mg BID SARAH Administration Pantoprazole Sodium 40 mg 09/02/18 13:15 09/09/18 09:21 Protonix - PO 40 mg DAILY SARAH Administration Potassium Chloride 40 meq 09/09/18 10:00 09/09/18 09:20 K-Dur - PO 09/09/18 22:01 40 meq BID SARAH Administration Torsemide 100 mg 09/05/18 10:00 09/09/18 09:21 Demadex - PO 100 mg DAILY SARAH Administration Home Medications Medication Instructions Recorded Apixaban [Eliquis -] 5 mg PO BID 07/14/18 Gabapentin [Neurontin -] 300 mg PO BID 07/14/18 Sitagliptin Phos/Metformin HCl 1 each PO BID 07/14/18 [Janumet 50-1,000 mg Tablet] Atorvastatin Ca [Lipitor] 80 mg PO HS #30 tablet 07/16/18 Diltiazem [Cardizem -] 60 mg PO BID 09/01/18 Metoprolol Succinate 100 mg PO BID 09/01/18 Torsemide 50 mg PO DAILY 09/01/18 US of abdomen and pelvis: Rule out malignancy. Real time examination of the abdomen demonstrates the following: The study is limited. There is a trace amount of left pleural effusion. The gallbladder is poorly visualized. No calculi are identified. There is no evidence of intra or extrahepatic biliary duct dilatation. The liver is normal in size. It is heterogeneous in texture suspicious for advanced hepatocellular disease. Clinical correlation is recommended. No discrete intrahepatic masses are identified. The pancreas is normal in size and texture with no pancreatic masses identified. The spleen is not enlarged. There is no evidence of right-sided hydronephrosis or acute renal abnormalities. There is the suggestion of a solid mass adjacent to the right kidney. This could represent bowel loops. A follow- up CT scan may be warranted. There is a mild degree of left-sided hydronephrosis and a distal obstruction cannot be excluded. Again, CT follow-up is recommended. There is no evidence of AAA. The IVC is patent. IMPRESSION: 1. Trace left pleural effusion. 2. Heterogeneous liver suspicious for advanced hepatocellular disease. 3. Possible right perinephric mass. 4. Mild left hydronephrosis. Clinical correlation and CT follow-up recommended. Please see above discussion. Reported By: Marky Floyd MD 09/06/18 0951 Technologist: Kathryn Dickerson Transcribed Date/Time: 09/06/18 [id number] Loan Associate: Marky Floyd Assessment/plan: Patient is a 88y/o man with PMHx of Afib, recent stroke 07/15, Diastolic heart failure, CAD, neuropathy, CABG, HLP, who presented with frequent falls. he was found to have severe anemia. # Acute chronic normocytic anemia: US of abdomen: advanced hepatocellular dz, on Hold eliquis, asa, and plavix ( asa and plavix started in 07/15). going for EGD/Colonoscopy in am since was not successful yesterday . npo after midnight, GI on the case. # ANGELO over CKD: suspect prerenal etiology ,foly in place draining well. metformin is on hold. As per Dr. Polo; cardio, can hold off on ac since patient is a high risk for bleed until EGD/Colonoscopy is done. #Possible right perinephric mass , once stable will need further w/u to r/o kidney mass. mild hydro due to urinary retention ( mayers in place now) , appreciate nephro consult, also uro is consulted. # Acute Hypokalemia repleted, on Kdur monitor. # Recurrent falls: mechanical. worse probably due to anemia . PT eval , head CT : moderate atrophy , no bleed # Recent CVA : due to A fib. on Eliquis on hold since presented with low hemoglobin, patient is a high risk stroke patient , patient and family understand and agree to hold AC for now, until further evaluation by GI. As per cardio. to continue to hold off on AC; heparin drip.for now, since patient has low hemoglobin. # H/O Diastolic heart failure. On 100mg torsemide now, was on 80 mg of lasix in 07/15 snd was discontinued, on torsemide 50 mg daily now. DVT PX : Scds. going for EGD/colonoscopy in am , getting prep'd now.
[2018-09-09] MEDS ORDERED: INSULIN (NOVOLOG) ASPART 100 UNITS/ML 10ML VIAL ONE ×2 (18:11→21:21)
[2018-09-09] MEDS: ATORVASTATIN CA 80 MG TABLET (FP) PO SCH (22:11)
[2018-09-09 23:55] VITALS: BMI 24.1
[2018-09-10] MEDS: INSULIN SLIDING SCALE (NOVOLOG) 1 VIAL SQ SCH ×4 (06:47→21:46)
[2018-09-10 06:54] LABS: BASO % 0.8 % (0-2.0); EOS % 2.7 % (0-4.5); HEMOGLOBIN 8.8 GM/dL (11.7-16.9); LYMPH % 31.5 % (8-40); MCH 28.1 pg (25.7-33.7); MCHC 32.6 g/dl (32.0-35.9); MEAN CELL VOLUME 86.1 fl (80-96); MEAN PLT VOLUME 7.3 fl (7.5-11.1); PLATELET COUNT 225 K/MM3 (134-434); RBC 3.14 M/mm3 (4.00-5.60); RDW 17.8 % (11.9-15.9)
[2018-09-10 07:24] LABS: CALCIUM 8.1 mg/dL (8.5-10.1); CREATININE 1.3 mg/dL (0.55-1.3); MAGNESIUM 2.2 mg/dL (1.8-2.4); PHOSPHOROUS 2.2 mg/dL (2.5-4.9); POTASSIUM 3.5 mmol/L (3.5-5.1)
[2018-09-10] MEDS ORDERED: POTASSIUM PHOSPHATE 30 MM in SODIUM CHLORIDE 500 ML IVPB ONE (08:36)
[2018-09-10] MEDS: dilTIAZem HCL 60 MG TABLET (FP) PO SCH ×2 (09:39→21:40)
[2018-09-10] MEDS: TORSEMIDE 100 MG TABLET PO SCH (09:39)
[2018-09-10] MEDS: GABAPENTIN 300 MG CAPSULE (FP) PO SCH ×2 (09:39→21:40)
[2018-09-10] MEDS: PANTOPRAZOLE 40 MG TABLET (FP) PO SCH (09:39)
[2018-09-10] MEDS ORDERED: PT OWN MED DRAWER 7, Y5N ONE (10:09)
--- NOTE | 2018-09-10 12:21 | PN ---
Progress Note, Physician History of Present Illness: Pt seen and examined at bedside. He is awake and alert. He denies shortness of breath. He denies edema. - Current Medication List Current Medications: Active Medications Atorvastatin Calcium (Lipitor -) 80 mg PO HS [facility] Last Admin: 09/09/18 22:11 Dose: 80 mg Diltiazem HCl (Cardizem -) 60 mg PO BID [facility] Last Admin: 09/10/18 09:39 Dose: 60 mg Gabapentin (Neurontin -) 300 mg PO BID [facility] Last Admin: 09/10/18 09:39 Dose: 300 mg Potassium Phosphate 30 mm/ (Sodium Chloride) 510 mls @ 62.5 mls/hr IVPB ONCE ONE Stop: 09/10/18 16:45 Last Admin: 09/10/18 10:12 Dose: 62.5 mls/hr Insulin Aspart (Novolog Vial Sliding Scale -) 1 vial SQ ACHS [facility]; Protocol Last Admin: 09/10/18 06:47 Dose: Not Given Metoprolol Succinate (Toprol Xl -) 100 mg PO BID [facility] Last Admin: 09/10/18 09:39 Dose: 100 mg Pantoprazole Sodium (Protonix -) 40 mg PO DAILY [facility] Last Admin: 09/10/18 09:39 Dose: 40 mg Torsemide (Demadex -) 100 mg PO DAILY [facility] Last Admin: 09/10/18 09:39 Dose: 100 mg - Objective Vital Signs: Vital Signs Temperature 98.7 F 09/10/18 06:00 Pulse Rate 106 H 09/10/18 06:00 Respiratory Rate 18 09/10/18 06:00 Blood Pressure 107/68 09/10/18 06:00 O2 Sat by Pulse Oximetry (%) 95 09/09/18 21:00 Constitutional: Yes: Calm Eyes: Yes: Conjunctiva Clear HENT: Yes: Atraumatic Neck: Yes: Supple Cardiovascular: Yes: S1, S2 Respiratory: Yes: CTA Bilaterally Gastrointestinal: Yes: Normal Bowel Sounds, Soft Genitourinary: Yes: WNL Musculoskeletal: Yes: WNL Edema: No Neurological: Yes: Oriented Psychiatric: Yes: Oriented Labs: CBC, BMP 09/10/18 06:00 09/10/18 06:00 INR, PTT INR 1.29 (0.83-1.09) H 09/08/18 05:30 Assessment/Plan Current Medications Generic Name Dose Route Start Last Admin Trade Name Francisco PRN Reason Stop Dose Admin Atorvastatin Calcium 80 mg 09/02/18 22:00 09/09/18 22:11 Lipitor - PO 80 mg HS SARAH Administration Diltiazem HCl 60 mg 09/02/18 10:00 09/10/18 09:39 Cardizem - PO 60 mg BID SARAH Administration Gabapentin 300 mg 09/02/18 10:00 09/10/18 09:39 Neurontin - PO 300 mg BID SARAH Administration Potassium Phosphate 30 mm/ 510 mls @ 62.5 mls/hr 09/10/18 08:36 09/10/18 10: 12 Sodium Chloride IVPB 09/10/18 16:45 62.5 mls/hr ONCE ONE Administration Insulin Aspart 1 vial 09/01/18 22:00 09/10/18 06:47 Novolog Vial Sliding Scale - SQ Not Given ACHS [facility] Protocol Metoprolol Succinate 100 mg 09/02/18 10:00 09/10/18 09:39 Toprol Xl - PO 100 mg BID SARAH Administration Pantoprazole Sodium 40 mg 09/02/18 13:15 09/10/18 09:39 Protonix - PO 40 mg DAILY SARAH Administration Torsemide 100 mg 09/05/18 10:00 09/10/18 09:39 Demadex - PO 100 mg DAILY SARAH Administration Impression 1. ANGELO 2. left hydro 3. perinephric mass 4. anemia Plan - decrease dose of torsemide - monitor volume status - GI follow up - monitor lytes - possible renal mass, will need more imaging once mroe stable - follow upep
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
[2018-09-10] MEDS ORDERED: INSULIN (NOVOLOG) ASPART 100 UNITS/ML 10ML VIAL ONE (17:47)
--- NOTE | 2018-09-10 18:02 | PN ---
Progress Note (short form) - Note Progress Note: EGD performed today revealing gastric erythema and few diminutive gastric polyps (likely fundic gland), biopsied. Colonoscopy revealing multiple diminutive colon polyps. No mass lesions seen. No evidence of bleeding. See scanned endoscopy report for complete details. Recommendations: -Continue to monitor Hb -PPI daily -Follow up endoscopy pathology results -No obvious contraindication to resume eliquis from GI standpoint based on endoscopic findings, could be restarted tomorrow if deemed necessary from a cardiac standpoint -In setting of iron deficiency (ferritin 25), capsule endoscopy could be considered for complete evaluation pending path results and clinical course, and based on discussion with pt/pts family at that time. Will require outpt follow up. Problem List - Problems (1) Anemia Code(s): D64.9 - ANEMIA, UNSPECIFIED Qualifiers:
--- NOTE | 2018-09-10 19:07 | PN ---
Teaching Attending Note Name of Resident: José Antonio Stanley ATTENDING PHYSICIAN STATEMENT I saw and evaluated the patient. I reviewed the resident's note and discussed the case with the resident. I agree with the resident's findings and plan as documented. SUBJECTIVE: no pain, no fever . OBJECTIVE: NAD ,MMM CV: RRR, no MRG Lungs: CTAB Abd: soft , obese, NT, ND, NL BS Ext: no edema or erythema. ASSESSMENT AND PLAN: 88 y/o man with h/o Afib, recent stroke 07/15, Diastolic heart failure, CAD, neuropathy, CABG, HLP, and other medical problems who presented with frequent falls. he was found to have severe anemia 1- Worsening chronic anemia: Iron def anemia. - EGD and colo reports reviewed. GI Rec appreciated - will need capsule endoscopy as out p t - will resume eliquis tomorrow - star iron supplements . iron studies reviwed. - Po PPI 2- ANGELO ,resolved 3- H/O Diastolic heart failure. -cont torsemide 4- Recent CVA : due to A fib. - resume Eliquis 5-CAD : stable - will d/w card , resuming asa . 6- DM : cont SSI 6- DVT PX : Scds. add eliquis
[2018-09-10] MEDS: ATORVASTATIN CA 80 MG TABLET (FP) PO SCH (21:40)
[2018-09-11] MEDS: INSULIN SLIDING SCALE (NOVOLOG) 1 VIAL SQ SCH ×4 (07:18→21:21)
[2018-09-11 07:47] LABS: HEMATOCRIT 27.7 % (35.4-49); HEMOGLOBIN 8.8 GM/dL (11.7-16.9); MCH 27.4 pg (25.7-33.7); MCHC 31.8 g/dl (32.0-35.9); MEAN CELL VOLUME 86.4 fl (80-96); MEAN PLT VOLUME 7.4 fl (7.5-11.1); PLATELET COUNT 236 K/MM3 (134-434); RBC 3.21 M/mm3 (4.00-5.60); RDW 17.6 % (11.9-15.9); WHITE BLOOD COUNT 7.2 K/mm3 (4.0-10.0)
[2018-09-11 08:41] LABS: CALCIUM 8.3 mg/dL (8.5-10.1); CREATININE 1.3 mg/dL (0.55-1.3); PHOSPHOROUS 3.5 mg/dL (2.5-4.9); POTASSIUM 3.5 mmol/L (3.5-5.1)
[2018-09-11] MEDS: FERROUS SO4 325 MG TABLET (FP) PO SCH ×2 (09:37→17:22)
[2018-09-11] MEDS: GABAPENTIN 300 MG CAPSULE (FP) PO SCH ×2 (09:38→21:20)
[2018-09-11] MEDS: PANTOPRAZOLE 40 MG TABLET (FP) PO SCH (09:39)
[2018-09-11] MEDS: TORSEMIDE 100 MG TABLET PO SCH (09:39)
[2018-09-11] MEDS: dilTIAZem HCL 60 MG TABLET (FP) PO SCH ×2 (09:39→21:20)
[2018-09-11] MEDS: APIXABAN 5 MG TABLET PO SCH ×2 (09:41→21:20)
[2018-09-11] MEDS: TAMSULOSIN HCL 0.4 MG CAP PO SCH (09:52)
--- NOTE | 2018-09-11 10:26 | PN.GI ---
GI Progress Note Subjective: No acute events No abdominal pain No overt bleeding S/P EGD/Colonoscopy with findings as outlined in [facility] 09/11 - Objective Vital Signs: Vital Signs Temperature 98.5 F 09/11/18 06:34 Pulse Rate 103 H 09/11/18 06:34 Respiratory Rate 20 09/11/18 06:34 Blood Pressure 104/62 09/11/18 06:34 O2 Sat by Pulse Oximetry (%) 100 09/10/18 21:00 Constitutional: Calm Eyes: No: Sclera Icterus Cardiovascular: Yes: Tachycardia, Pulse Irregular Respiratory: Yes: CTA Bilaterally Gastrointestinal Inspection: No: Distention ...Auscultate: Yes: Normoactive Bowel Sounds ...Palpate: Yes: Soft. No: Hepatomegaly, Splenomegaly, Tenderness Edema: No (No LE edema) Neurological: Yes: Alert Labs: CBC, BMP 09/11/18 07:00 09/11/18 07:00 INR, PTT INR 1.29 (0.83-1.09) H 09/08/18 05:30 Hepatic Panel Total Bilirubin 1.6 mg/dL (0.2-1) H 09/08/18 05:30 AST 20 U/L (15-37) 09/08/18 05:30 ALT 20 U/L (13-61) 09/08/18 05:30 Alkaline Phosphatase 123 U/L (45-117) H 09/08/18 05:30 Albumin 3.0 g/dl (3.4-5.0) L 09/08/18 05:30 Problem List - Problems (1) Anemia Assessment/Plan: Component of iron deficiency Iron supplementation Capsule endoscopy as outpatient Hematology evaluation to exclude contomitant etiologies of anemia Code(s): D64.9 - ANEMIA, UNSPECIFIED Qualifiers: (2) Abnormal liver function tests Assessment/Plan: US describes changes c/w advanced hepatocellular disease. No varices noted on EGD. Advise Q 6 month hepatic US to screen for HCC Screening hepatitis serologies Code(s): R94.5 - ABNORMAL RESULTS OF LIVER FUNCTION STUDIES
--- NOTE | 2018-09-11 13:01 | PN ---
Teaching Attending Note Name of Resident: Matt Georges ATTENDING PHYSICIAN STATEMENT I saw and evaluated the patient. I reviewed the resident's note and discussed the case with the resident. I agree with the resident's findings and plan as documented. SUBJECTIVE: No fever or chills. No SANTANA . No cp or SOB. No abd pain. OBJECTIVE: NAD ,MMM CV: RRR, no MRG Lungs: CTAB Abd: soft, obese, NT, ND, NL BS Ext: no edema or erythema. ASSESSMENT AND PLAN: 88 y/o man with h/o Afib, recent stroke 07/15, Diastolic heart failure, CAD, neuropathy, CABG, HLP, and other medical problems who presented with frequent falls. he was found to have severe anemia 1- Worsening chronic anemia: Iron def anemia. - cont iron supplementation - will refer to GI for capsule endoscopy - CBC in 1 week - po PPI as out pt 2- ANGELO ,resolved 3- H/O Diastolic heart failure. -cont torsemide at 50 mg daily 4- Recent CVA : due to A fib. - cont Eliquis 5-CAD s/p CABG: stable - will d/w card the need for Aspirin and resume if strongly indicated 6- DM : cont oral agents at dc 7- abnormal liver echo-texture: Hepatitis serology sent by GI. f/u as out pt with q 6 months imaging 8- R perinephric mass, and L hydro seen on US o n 09/06. urinary retention was treated with mayers. cont flomax. will need out pt follow up with urology and with CT of abd/pelvis to further identify mass and confirm resolution of L hydro Possible dc today . pending PT Recs
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
--- NOTE | 2018-09-11 17:09 | PN ---
Progress Note, Physician History of Present Illness: Pt seen and examined at bedside. He is awake and alert. - Current Medication List Current Medications: Active Medications Apixaban (Eliquis -) 5 mg PO BID [facility] Last Admin: 09/11/18 09:41 Dose: 5 mg Atorvastatin Calcium (Lipitor -) 80 mg PO HS [facility] Last Admin: 09/10/18 21:40 Dose: 80 mg Diltiazem HCl (Cardizem -) 60 mg PO BID [facility] Last Admin: 09/11/18 09:39 Dose: 60 mg Ferrous Sulfate (Feosol -) 325 mg PO BIDWM [facility] Last Admin: 09/11/18 09:37 Dose: 325 mg Gabapentin (Neurontin -) 300 mg PO BID [facility] Last Admin: 09/11/18 09:38 Dose: 300 mg Insulin Aspart (Novolog Vial Sliding Scale -) 1 vial SQ [facility]; Protocol Last Admin: 09/11/18 11:41 Dose: 4 units Metoprolol Succinate (Toprol Xl -) 100 mg PO BID [facility] Last Admin: 09/11/18 09:39 Dose: 100 mg Pantoprazole Sodium (Protonix -) 40 mg PO DAILY [facility] Last Admin: 09/11/18 09:39 Dose: 40 mg Tamsulosin HCl (Flomax -) 0.4 mg PO DAILY@0830 [facility] Last Admin: 09/11/18 09:52 Dose: 0.4 mg Torsemide (Demadex -) 50 mg PO DAILY [facility] Last Admin: 09/11/18 09:39 Dose: 50 mg - Objective Vital Signs: Vital Signs Temperature 98.7 F 09/11/18 15:00 Pulse Rate 80 09/11/18 15:00 Respiratory Rate 18 09/11/18 15:00 Blood Pressure 102/59 L 09/11/18 15:00 O2 Sat by Pulse Oximetry (%) 100 09/10/18 21:00 Constitutional: Yes: Calm Eyes: Yes: Conjunctiva Clear HENT: Yes: Atraumatic Cardiovascular: Yes: S1, S2 Respiratory: Yes: CTA Bilaterally Gastrointestinal: Yes: Soft Genitourinary: Yes: WNL Musculoskeletal: Yes: WNL Edema: No Neurological: Yes: Oriented Psychiatric: Yes: Oriented Labs: CBC, BMP 09/11/18 07:00 09/11/18 07:00 INR, PTT INR 1.29 (0.83-1.09) H 09/08/18 05:30 Assessment/Plan Current Medications Generic Name Dose Route Start Last Admin Trade Name Francisco PRN Reason Stop Dose Admin Apixaban 5 mg 09/11/18 10:00 09/11/18 09:41 Eliquis - PO 5 mg BID SARAH Administration Atorvastatin Calcium 80 mg 09/02/18 22:00 09/10/18 21:40 Lipitor - PO 80 mg HS SARAH Administration Diltiazem HCl 60 mg 09/02/18 10:00 09/11/18 09:39 Cardizem - PO 60 mg BID SARAH Administration Ferrous Sulfate 325 mg 09/11/18 08:00 09/11/18 09:37 Feosol - PO 325 mg BIDWM SARAH Administration Gabapentin 300 mg 09/02/18 10:00 09/11/18 09:38 Neurontin - PO 300 mg BID SARAH Administration Insulin Aspart 1 vial 09/01/18 22:00 09/11/18 11:41 Novolog Vial Sliding Scale - SQ 4 units ACHS SARAH Administration Protocol Metoprolol Succinate 100 mg 09/02/18 10:00 09/11/18 09:39 Toprol Xl - PO 100 mg BID SARAH Administration Pantoprazole Sodium 40 mg 09/02/18 13:15 09/11/18 09:39 Protonix - PO 40 mg DAILY SARAH Administration Tamsulosin HCl 0.4 mg 09/11/18 08:30 09/11/18 09:52 Flomax - PO 0.4 mg DAILY@0830 SARAH Administration Torsemide 50 mg 09/10/18 12:21 09/11/18 09:39 Demadex - PO 50 mg DAILY SARAH Administration Impression 1. ANGELO 2. left hydro 3. perinephric mass 4. anemia Plan - cont to monitor renal function - monitor volume status on torsemide 50 mg - possible renal mass, will need further imaging and urology eval - follow upep
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
[2018-09-11] MEDS: ATORVASTATIN CA 80 MG TABLET (FP) PO SCH (21:20)
[2018-09-12] MEDS: INSULIN SLIDING SCALE (NOVOLOG) 1 VIAL SQ SCH ×3 (07:25→16:10)
[2018-09-12] MEDS: FERROUS SO4 325 MG TABLET (FP) PO SCH ×2 (08:45→17:00)
[2018-09-12] MEDS: TAMSULOSIN HCL 0.4 MG CAP PO SCH (08:45)
[2018-09-12] MEDS ORDERED: PT OWN MED DRAWER 7, Y5N ONE (09:41)
[2018-09-12] MEDS: TORSEMIDE 100 MG TABLET PO SCH (09:47)
[2018-09-12] MEDS: dilTIAZem HCL 60 MG TABLET (FP) PO SCH (09:47)
[2018-09-12] MEDS: GABAPENTIN 300 MG CAPSULE (FP) PO SCH (09:48)
[2018-09-12] MEDS: APIXABAN 5 MG TABLET PO SCH (09:48)
[2018-09-12] MEDS: PANTOPRAZOLE 40 MG TABLET (FP) PO SCH (09:49)
[2018-09-12] MEDS ORDERED: INSULIN (NOVOLOG) ASPART 100 UNITS/ML 10ML VIAL ONE (11:48)
[2018-09-12] MEDS ORDERED: TAMSULOSIN HCL 0.4 MG CAP PO ONE (12:36)
[2018-09-12] MEDS ORDERED: TAMSULOSIN HCL 0.4 MG CAP PO SCH (12:36)
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
--- NOTE | 2018-09-12 14:05 | PATH ---
Surgical Pathology Report Patient Name: CATHERINE PABLO [facility]. Rec. #: [id number] /Age/Gender: 1930 (Age: 88) / M Account: [id number] Location: [facility] MED/SURG Taken: 09/10/2018 Received: 09/11/2018 Reported: 09/12/2018 Physicians: MD Madyson Arango M.D. Specimen(s) Received A: SMALL BOWEL, BIOPSY B: ANTRUM C: GASTRIC POLYP D: CECUM E: ILEOCECAL VALVE F: RIGHT COLON G: LEFT COLON Clinical History Anemia Postoperative diagnosis: Gastric polyp, gastritis, colon, polyps, diverticulosis Final Diagnosis A. SMALL BOWEL, BIOPSY: SMALL INTESTINAL MUCOSA WITH NO SIGNIFICANT PATHOLOGIC CHANGE. NO HISTOLOGIC EVIDENCE OF INTRAEPITHELIAL LYMPHOCYTOSIS. B. ANTRUM, BIOPSY: GASTRIC MUCOSA WITH CHRONIC GASTRITIS. REACTIVE GASTROPATHY PRESENT. IMMUNOSTAIN FOR H. PYLORI IS NEGATIVE. NEGATIVE FOR INTESTINAL METAPLASIA. C. GASTRIC POLYP, BIOPSY: GASTRIC MUCOSA WITH MILD ACTIVE CHRONIC GASTRITIS, REACTIVE LYMPHOID AGGREGATE, AND INTESTINAL METAPLASIA. IMMUNOSTAIN FOR H. PYLORI IS NEGATIVE. D. CECUM POLYPS X 4, POLYPECTOMY: TUBULAR ADENOMA, MULTIPLE FRAGMENTS. SEPARATE ONE FRAGMENT OF HYPERPLASTIC POLYP. E. ILEOCECAL VALVE POLYP, POLYPECTOMY: TUBULAR ADENOMA. F. RIGHT COLON POLYP, POLYPECTOMY: TUBULAR ADENOMA. G. LEFT COLON POLYPS X 2, POLYPECTOMY: TUBULAR ADENOMA, MULTIPLE FRAGMENTS. Electronically Signed Clover Frias M.D. Gross Description A. Received in formalin, labeled "small bowel" are two pieces of johnson tissue each up to 0.3 cm in greatest dimension. Entirely submitted in one cassette. B. Received in formalin, labeled "antrum" are two pieces of johnson tissue each up to 0.2 cm in greatest dimension. Entirely submitted in one cassette. C. Received in formalin, labeled, "polyp gastric" are two pieces of johnson tissue each up to 0.3 cm in greatest dimension. Entirely submitted in one cassette. D. Residual formalin, labeled, "polyps cecum x4" are five pieces of johnson tissue ranging from 0.2-0.3 cm in dimension. Entirely submitted in one cassette. E. Received in formalin, labeled, "polyp ileocecal valve" is one piece of johnson tissue measuring 0.3 cm in greatest dimension. Entirely submitted in one cassette. F. Received in formalin, labeled, "polyp right colon"" is one piece of johnson tissue measuring 0.3 cm in greatest dimension. Entirely submitted in one cassette. G. Received in formalin, labeled, "polyps left colon x2" are five pieces of johnson tissue ranging from 0.2-0.3 cm in dimension. Entirely submitted in one cassette. AE/09/11/2018 ebram/09/11/2018
[2018-09-12 14:15] VITALS: BP 104/52; PULSE 78; TEMP 97.9
--- NOTE | 2018-09-12 14:56 | PN ---
Teaching Attending Note Name of Resident: José Antonio Stanley ATTENDING PHYSICIAN STATEMENT I saw and evaluated the patient. I reviewed the resident's note and discussed the case with the resident. I agree with the resident's findings and plan as documented. SUBJECTIVE: No fever or chills . No abd pain , no SOB. OBJECTIVE: NAD, MMM CV: RRR, no MRG Lungs: CTAB Abd: soft, obese, NT, ND, NL BS Ext: no edema or erythema. ASSESSMENT AND PLAN: 88 y/o man with h/o Afib, recent stroke 07/15, Diastolic heart failure, CAD, neuropathy, CABG, HLP, and other medical problems who presented with frequent falls. he was found to have severe anemia 1- Worsening chronic anemia: Iron def anemia. - cont iron supplementation - will refer to GI for capsule endoscopy - CBC in 1 week - po PPI as out pt 2- ANGELO ,resolved 3- H/O Diastolic heart failure. -cont torsemide at 50 mg daily 4- Recent CVA : due to A fib. - cont Eliquis 5-CAD s/p CABG: stable - cont ASA 6- DM : cont oral agents at dc 7- abnormal liver echo-texture: Hepatitis serology sent by GI. f/u as out pt with q 6 months imaging 8- CT scan with no renal mass. 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 patient informed of need for out pt repeat imaging every 6 months 9- urinary retention . Ct reviewed. Bladder scan showed PVR of 600. reinsert mayers and f/u with uro in 1 week. he and his family understand dispo : dc to rehab today
--- NOTE | 2018-09-12 15:10 | PN ---
Progress Note, Physician History of Present Illness: Pt seen and examined at bedside. He had a mayers placed for retention. - Current Medication List Current Medications: Active Medications Apixaban (Eliquis -) 5 mg PO BID [facility] Last Admin: 09/12/18 09:48 Dose: 5 mg Atorvastatin Calcium (Lipitor -) 80 mg PO HS [facility] Last Admin: 09/11/18 21:20 Dose: 80 mg Diltiazem HCl (Cardizem -) 60 mg PO BID [facility] Last Admin: 09/12/18 09:47 Dose: 60 mg Ferrous Sulfate (Feosol -) 325 mg PO BIDWM [facility] Last Admin: 09/12/18 08:45 Dose: 325 mg Gabapentin (Neurontin -) 300 mg PO BID [facility] Last Admin: 09/12/18 09:48 Dose: 300 mg Insulin Aspart (Novolog Vial Sliding Scale -) 1 vial SQ [facility]; Protocol Last Admin: 09/12/18 12:05 Dose: 6 units Metoprolol Succinate (Toprol Xl -) 100 mg PO BID [facility] Last Admin: 09/12/18 09:49 Dose: 100 mg Pantoprazole Sodium (Protonix -) 40 mg PO DAILY [facility] Last Admin: 09/12/18 09:49 Dose: 40 mg Tamsulosin HCl (Flomax -) 0.8 mg PO DAILY@0830 [facility] Torsemide (Demadex -) 50 mg PO DAILY [facility] Last Admin: 09/12/18 09:47 Dose: 50 mg - Objective Vital Signs: Vital Signs Temperature 97.9 F 09/12/18 14:14 Pulse Rate 78 09/12/18 14:14 Respiratory Rate 20 09/12/18 14:14 Blood Pressure 104/52 L 09/12/18 14:14 O2 Sat by Pulse Oximetry (%) 100 09/11/18 21:00 Constitutional: Yes: Calm Eyes: Yes: Conjunctiva Clear HENT: Yes: Atraumatic Neck: Yes: Supple Cardiovascular: Yes: S1, S2 Respiratory: Yes: CTA Bilaterally Gastrointestinal: Yes: Normal Bowel Sounds, Soft Genitourinary: Yes: Mayers Present Musculoskeletal: Yes: WNL Edema: No Neurological: Yes: Oriented Psychiatric: Yes: Oriented Labs: CBC, BMP 09/11/18 07:00 09/11/18 07:00 INR, PTT INR 1.29 (0.83-1.09) H 09/08/18 05:30 Assessment/Plan Current Medications Generic Name Dose Route Start Last Admin Trade Name Francisco PRN Reason Stop Dose Admin Apixaban 5 mg 09/11/18 10:00 09/12/18 09:48 Eliquis - PO 5 mg BID SARAH Administration Atorvastatin Calcium 80 mg 09/02/18 22:00 09/11/18 21:20 Lipitor - PO 80 mg HS SARAH Administration Diltiazem HCl 60 mg 09/02/18 10:00 09/12/18 09:47 Cardizem - PO 60 mg BID SARAH Administration Ferrous Sulfate 325 mg 09/11/18 08:00 09/12/18 08:45 Feosol - PO 325 mg BIDWM SARAH Administration Gabapentin 300 mg 09/02/18 10:00 09/12/18 09:48 Neurontin - PO 300 mg BID SARAH Administration Insulin Aspart 1 vial 09/01/18 22:00 09/12/18 12:05 Novolog Vial Sliding Scale - SQ 6 units ACHS SARAH Administration Protocol Metoprolol Succinate 100 mg 09/02/18 10:00 09/12/18 09:49 Toprol Xl - PO 100 mg BID SARAH Administration Pantoprazole Sodium 40 mg 09/02/18 13:15 09/12/18 09:49 Protonix - PO 40 mg DAILY SARAH Administration Tamsulosin HCl 0.8 mg 09/12/18 12:36 Flomax - PO DAILY@0830 SARAH Torsemide 50 mg 09/10/18 12:21 09/12/18 09:47 Demadex - PO 50 mg DAILY SARAH Administration Laboratory Tests 09/02/18 13:57 Urine Total Protein Pending Urine PEP Interpret Pending Impression 1. ANGELO 2. left hydro 3. perinephric mass 4. anemia Plan - volume status stable with 50 of torsemide - will need to monitor volume status in [place] - possible renal mass, will need further imaging and urology eval - plan explained to his son - follow upep
[2018-09-13 11:13] LABS: HBSAG SCREEN Negative (Negative); HEP A AB, IGM Negative (Negative); HEP B CORE AB, TOT Negative (Negative)
== END 2018-09-12 18:41 | disposition home or self-care (01) | DRG 988 ==
LOC: JER 15:45 → JERBED 20:37 → J8W 09-02 02:40
PROVIDERS: ADMIT Internal Medicine; ATTEND Internal Medicine
PROC: 30233N1 Transfusion of Nonautologous Red Blood Cells into Peripheral Vein, Percutaneous Approach (ICD-10-PCS; 2018-09-01)
PROC: 0DJD8ZZ Inspection of Lower Intestinal Tract, Via Natural or Artificial Opening Endoscopic (ICD-10-PCS; 2018-09-08)
PROC: 0DB88ZX Excision of Small Intestine, Via Natural or Artificial Opening Endoscopic, Diagnostic (ICD-10-PCS; 2018-09-10)
PROC: 0DBH8ZZ Excision of Cecum, Via Natural or Artificial Opening Endoscopic (ICD-10-PCS; 2018-09-10)
PROC: 0DBE8ZZ Excision of Large Intestine, Via Natural or Artificial Opening Endoscopic (ICD-10-PCS; 2018-09-10)
PROC: 0DB68ZX Excision of Stomach, Via Natural or Artificial Opening Endoscopic, Diagnostic (ICD-10-PCS; 2018-09-10)
PROC: 0DBC8ZZ Excision of Ileocecal Valve, Via Natural or Artificial Opening Endoscopic (ICD-10-PCS; principal; 2018-09-10 12:00)
DX: D50.9 Iron deficiency anemia, unspecified (principal); N17.9 Acute kidney failure, unspecified; I50.32 Chronic diastolic (congestive) heart failure; I13.0 Hypertensive heart and chronic kidney disease with heart failure and stage 1 through stage 4 chronic kidney disease, or unspecified chronic kidney disease; N13.30 Unspecified hydronephrosis; I25.10 Atherosclerotic heart disease of native coronary artery without angina pectoris; Z95.1 Presence of aortocoronary bypass graft; E78.5 Hyperlipidemia, unspecified; N18.3 Chronic kidney disease, stage 3 (moderate); R33.9 Retention of urine, unspecified; I48.0 Paroxysmal atrial fibrillation; E11.22 Type 2 diabetes mellitus with diabetic chronic kidney disease; E87.6 Hypokalemia; K29.50 Unspecified chronic gastritis without bleeding; D12.0 Benign neoplasm of cecum; E11.42 Type 2 diabetes mellitus with diabetic polyneuropathy
CPT/HCPCS: 36415; 36430; 70450-TC; 71045-TC-FY; 74176-TC; 76700-TC; 80048; 80053; 81003; 82272; 82550; 82553; 82607; 82728; 82746; 82962; 83010; 83036; 83540; 83550; 83615; 83735; 83880; 84100; 84155; 84156; 84157; 84165; 84443; 84466; 84484; 85025; 85027; 85044; 85610; 86704; 86706; 86708; 86803; 86850; 86900; 86901; 86922; 87340; 88305-TC; 97116-GP; 97162-GP; 99285-25; P9038; P9058

== ENCOUNTER 2018-09-14 12:37 | Emergency (ER) | payer OTHER ==
[2018-09-14 12:42] VITALS: BMI 25.0
--- NOTE | 2018-09-14 12:45 | PDOC ---
History of Present Illness - General Chief Complaint: Seizure Stated Complaint: seizure Time Seen by Provider: 09/14/18 12:44 - History of Present Illness Initial Comments: 09/14/18 13:14 The patient is an 88 year old male with a history of HTN, DM, CAD, PA, CVA who presents for evaluation of shaking. Per the patient's residential, the patient had a witnessed episode of shaking lasting 5 minutes earlier this morning when getting ready for breakfast. He was noted to be alert and interactive through the whole episode and there was no reported LOC, tongue, biting, or incontinence. The patient denied any complaints at that time besides some weakness. He states on arrival to the ED that he is asymptomatic and denies any symptoms currently. He states that he did not lose consciousness. He otherwise denies fevers, chills, SOB, headache, chest pain, nausea, vomiting, abdominal pain, numbness, tingling, weakness, or changes with urination or bowel movements. Past History - Past Medical History Allergies/Adverse Reactions: Allergies Allergy/AdvReac Type Severity Reaction Status Date / Time No Known Allergies Allergy Verified 09/14/18 12:37 Home Medications: Ambulatory Orders Apixaban [Eliquis -] 5 mg PO BID 07/14/18 Gabapentin [Neurontin -] 300 mg PO BID 07/14/18 Sitagliptin Phos/Metformin HCl [Janumet 50-1,000 mg Tablet] 1 each PO BID Atorvastatin Ca [Lipitor] 80 mg PO HS #30 tablet 07/16/18 Diltiazem [Cardizem -] 60 mg PO BID 09/01/18 Metoprolol Succinate 100 mg PO BID 09/01/18 Aspirin [ASA -] 81 mg PO DAILY 09/11/18 Docusate Sodium [Colace -] 100 mg PO BID #60 capsule 09/11/18 Ferrous Sulfate [Feosol] 325 mg PO BIDWM ud 09/11/18 Pantoprazole Sodium [Protonix -] 40 mg PO DAILY tablet.ec 09/11/18 Torsemide [Demadex -] 50 mg PO DAILY tablet 09/11/18 Tamsulosin HCl [Flomax] 0.8 mg PO DAILY #60 capsule 09/12/18 Acetaminophen [Tylenol] 325 mg PO Q6H PRN 09/14/18 Cardiac Disorders: Yes (cardiac cath [id number] ago, PA, CABG) CVA: Yes (cerebellar infarct) COPD: No CHF: Yes Diabetes: Yes HTN: Yes - Surgical History Cardiac Surgery: Yes (Bypass x6) Orthopedic Surgery: Yes (Right knee replacement) - Immunization History Immunization Up to Date: Yes - Suicide/Smoking/Psychosocial Hx Smoking History: Former smoker Have you smoked in the past 12 months: No Information on smoking cessation initiated: No Hx Alcohol Use: No Drug/Substance Use Hx: No Substance Use Type: None Hx Substance Use Treatment: No Review of Systems - Review of Systems Comments:: 09/14/18 13:20 Constitutional: Generalized weakness. No fevers, chills, malaise HEENT: No Rhinorrhea, nasal congestion, visual changes Cardiovascular: No chest pain, syncope, palpitations, lightheadedness Respiratory: No Cough, SOB, Hemoptysis, Gastrointestinal: No Abdominal pain, Nausea, Vomiting, Constipation, Diarrhea, Melena Genitourinary: No Dysuria, Frequency, Urgency, Hesitancy, Hematuria, Flank pain Musculoskeletal: No Myalgia, arthralgia Skin: No rashes, itching, bruising, pallor Neurologic: Tremors. No Headache, Dizziness, Numbness, or Tingling Psychiatric: No Hallucinations. No SI or HI *Physical Exam - Vital Signs Last Vital Signs Temp Pulse Resp BP Pulse Ox 97.4 F L 109 H 18 122/80 100 09/14/18 12:38 09/14/18 12:38 09/14/18 12:38 09/14/18 12:38 09/14/18 12:38 - Physical Exam Comments: 09/14/18 13:20 General Appearance: Nourished. No Apparent Distress HEENT: EOMI, YASMIN. No Pharyngeal Erythema, Tonsillar Exudate, Tonsillar Erythema Neck: No Cervical Lymphadenopathy Respiratory/Chest: Lungs Clear, Normal Breath Sounds. No Crackles, Rales, Rhonchi, Wheezing Cardiovascular: Regular Rhythm, Tachycardic Rate. No Murmur, Gallops, Rubs Gastrointestinal/Abdominal: Normal Bowel Sounds, Soft. No Guarding, Rebound, Tenderness Musculoskeletal: No CVA Tenderness Extremity: Normal Capillary Refill Integumentary: Normal Color, Dry, Warm Neurologic: evp II-XII NML intact, Fully Oriented, Alert, Normal Mood/Affect, Normal Response, Motor Strength 5/5. Normal Finger to Nose and Heel to Rosen Heart Score/ECG Review #1 ECG reviewed & interpreted by me at: 13:21 09/14/18 13:21 Sinus Tachycardic Right Bundle Branch Block Left Anterior Fascicular Block No Acute ST Changes HR 110 QRS 146 QTc 557 ED Treatment Course - LABORATORY CBC & Chemistry Diagram: 09/14/18 12:57 09/14/18 12:57 Medical Decision Making - Medical Decision Making 09/14/18 13:22 The patient is an 88 year old male with a history of HTN, DM, CAD, PA, CVA who presents for evaluation of shaking. Given the patient's history and physical exam, it does not appear that the patient had seizure activity with this episode this morning. However, we will obtain a cbc, cmp, troponin, ua, ekg, chest plain film to evaluate further. We will continue to monitor and reassess while here in the ED. 09/14/18 14:09 CBC is unremarkable. UA is unremarkable. Troponin is unremarkable. CMP demonstrates a sodium of 134, potassium 3.2, glucose of 362, creatinine of 1.6. Chest plain film is unremarkable as read by our radiologist. We will treat with iv fluids and K-dur. 09/14/18 14:41 The patient was reassessed and reports improvement in their symptoms. We are comfortable discharging the patient home in stable condition. Patient and family made aware of impression and plan, return precautions discussed including but not limited to worsening pain or symptoms, fevers, or signs of infection, chest pain, respiratory distress, inability to tolerate oral intake, dehydration, syncope, or neurologic changes. The patient is to follow up with PMD as recommended within 1 week, follow up information provided and the patient will call for an appointment. The patient is to take medications as instructed for duration of time and continue with supportive care, avoid triggers and precipitants. Patient is safe for outpatient follow-up. *DC/Admit/Observation/Transfer Diagnosis at time of Disposition: Weakness - Discharge Dispostion Disposition: HOME Condition at time of disposition: Stable - Referrals Referrals: Mireille Jaime MD [Primary Care Provider] - - Patient Instructions Printed Discharge Instructions: DI for Muscle Weakness Additional Instructions: 1) Please follow-up with your primary care doctor in the next 2-3 days. Please call tomorrow to schedule a follow up appointment. If you cannot follow up with your doctor within 1 week please return to the Emergency Department for any urgent issues. 2) Your laboratory / imaging results were normal here in the ER. 3) If you have any worsening of symptoms or any other concerns please return to the ER immediately. Return if worsening symptoms including fevers, headache, vomiting, visual or hearing disturbances, abdominal pain, chest pain, shortness of breath, syncope, dehydration, inability to take things by mouth/vomiting, altered mental status, or worsening concerning symptoms. 4) Please continue taking your home medications as directed. Side effects may include upset stomach, abdominal pain, vomiting, or diarrhea. - Post Discharge Activity
[2018-09-14 13:36] LABS: BASO % 0.7 % (0-2.0); EOS % 0.6 % (0-4.5); HEMATOCRIT 28.1 % (35.4-49); LYMPH % 24.7 % (8-40); MCH 27.9 pg (25.7-33.7); MEAN CELL VOLUME 87.1 fl (80-96); MEAN PLT VOLUME 7.5 fl (7.5-11.1); PLATELET COUNT 279 K/MM3 (134-434); RBC 3.23 M/mm3 (4.00-5.60); RDW 18.1 % (11.9-15.9); WHITE BLOOD COUNT 5.2 K/mm3 (4.0-10.0)
[2018-09-14 13:46] LABS: EPI CELLS 0.1 /HPF (0-5/HPF); URINE APPEARANCE CLEAR; URINE BACTERIA 0.5 /hpf (NEGATIVE); URINE BILIRUBIN NEGATIVE (NEGATIVE); URINE CASTS 2 /lpf (0-8); URINE COLOR YELLOW; URINE GLUCOSE (UA) 2+ (NEGATIVE); URINE KETONE NEGATIVE (NEGATIVE); URINE LEUK ESTERASE TRACE (NEGATIVE); URINE NITRITE NEGATIVE (NEGATIVE); URINE PROTEIN NEGATIVE (NEGATIVE); URINE RBC 2 /hpf (0-4); URINE UROBILINOGEN 0.2 mg/dL (0.2-1.0); URINE WBC 2 /hpf (0-5)
[2018-09-14 13:58] LABS: ALBUMIN 2.8 g/dl (3.4-5.0); ALK PHOS 176 U/L (45-117); ANION GAP 9 MMOL/L (8-16); BILIRUBIN,TOTAL 0.8 mg/dL (0.2-1); BLOOD UREA NITROGEN 18 mg/dL (7-18); CALCIUM 8.1 mg/dL (8.5-10.1); CHLORIDE 94 mmol/L (98-107); CO2 31 mmol/L (21-32); CREATININE 1.6 mg/dL (0.55-1.3); POTASSIUM 3.2 mmol/L (3.5-5.1); SGOT/AST 24 U/L (15-37); SGPT/ALT 23 U/L (13-61); SODIUM 134 mmol/L (136-145); TOT PROT 7.2 g/dl (6.4-8.2)
--- NOTE | 2018-09-14 13:59 | PDOC ---
Documentation entered by Hardy Schuler SCRIBE, acting as scribe for Amber Rizvi MD. Amber Rizvi MD: This documentation has been prepared by the Ganga vaca Daniel, SCRIBE, under my direction and personally reviewed by me in its entirety. I confirm that the documentation accurately reflects all work, treatment, procedures, and medical decision making performed by me. Attending Attestation - Resident Resident Name: Hardy Gardiner - HPI HPI: 09/14/18 13:09 The patient is an 88 year old male with a past medical history of diabetes, diabetic neuropathy, [place] s/p CABG, HTN, HLD, and afib (eliquis) here today from [place] for evaluation of tremors. As per the [facility] staff, the SILVERER was getting the patient ready for breakfast when she noticed him having tremors but states that the patient was alert the whole. Staff reports this happened 2 times in 5 minute episodes. Patient currently denies any complaints and states that he feels fine. Patient denies headache, lightheadedness. Denies fever, chills. Denies chest pain, shortness of breath. Denies nausea, vomiting, diarrhea, abdominal pain. Allergies: NKA PCP: Mireille Jaime - Physicial Exam PE: 09/14/18 13:40 Pt presents to the ED after sent in from [facility] for "shaking episode". Patient was alert and awake during the entire episode--no suspicion for seizure. Will check basic labs and discharge back to [facility] if labs are within normal limits.
[2018-09-14 14:00] LABS: GLUCOSE,RANDOM 362 mg/dL (74-106)
[2018-09-14] MEDS ORDERED: SODIUM CHLORIDE 1,000 ML IV STA (14:05)
[2018-09-14] MEDS ORDERED: POTASSIUM CHLORIDE TABS 20 MEQ TABLET.ER (FP) PO ONE (14:05)
[2018-09-14] MEDS ORDERED: POTASSIUM CHLORIDE ORAL LIQUID 20 MEQ/15 ML ONE (14:08)
[2018-09-14 14:41] VITALS: BP 134/86; PULSE 108; TEMP 98
--- NOTE | 2018-09-15 11:04 | EKG ---
Test Reason : Blood Pressure : / mmHG Vent. Rate : 110 BPM Atrial Rate : 110 BPM P-R Int : 128 ms QRS Dur : 146 ms QT Int : 412 ms P-R-T Axes : 078 -48 -34 degrees QTc Int : 557 ms SINUS TACHYCARDIA RIGHT BUNDLE BRANCH BLOCK LEFT ANTERIOR FASCICULAR BLOCK BIFASCICULAR BLOCK CANNOT RULE OUT INFERIOR INFARCT (MASKED BY FASCICULAR BLOCK?) , AGE UNDETERMINED ABNORMAL ECG WHEN COMPARED WITH ECG OF 01-SEP-2018 16:40, NO SIGNIFICANT CHANGE WAS FOUND Confirmed by KAMALJIT RODRIGUEZ, ANAI ([id number]) on 09/15/2018 11:04:07 AM Referred By: Confirmed By:ANAI MARI MD
== END 2018-09-14 15:51 | disposition home or self-care (01) ==
LOC: JER 12:37
PROC: 3E0337Z Introduction of Electrolytic and Water Balance Substance into Peripheral Vein, Percutaneous Approach (ICD-10-PCS; principal; 2018-09-14)
DX: R53.1 Weakness (principal); I25.10 Atherosclerotic heart disease of native coronary artery without angina pectoris; I48.91 Unspecified atrial fibrillation; Z79.01 Long term (current) use of anticoagulants; I11.0 Hypertensive heart disease with heart failure; Z95.1 Presence of aortocoronary bypass graft; Z95.5 Presence of coronary angioplasty implant and graft; I50.9 Heart failure, unspecified; E11.40 Type 2 diabetes mellitus with diabetic neuropathy, unspecified; Z79.84 Long term (current) use of oral hypoglycemic drugs; Z86.73 Personal history of transient ischemic attack (TIA), and cerebral infarction without residual deficits
CPT/HCPCS: 36415; 71045-TC-FY; 80053; 81003; 82550; 84484; 85025; 87086; 93005; 93010; 96360; 99284-25; J7030

== ENCOUNTER 2018-10-14 15:50 | Inpatient (IN) | payer OTHER ==
[2018-10-14 16:25] VITALS: BMI 24.1
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
[2018-10-14 18:02] LABS: BASO % 0.4 % (0-2.0); EOS % 0.2 % (0-4.5); HEMATOCRIT 31.9 % (35.4-49); HEMOGLOBIN 10.4 GM/dL (11.7-16.9); LYMPH % 12.8 % (8-40); MCH 30.5 pg (25.7-33.7); MCHC 32.7 g/dl (32.0-35.9); MEAN CELL VOLUME 93.2 fl (80-96); MEAN PLT VOLUME 7.1 fl (7.5-11.1); MONO % 6.9 % (3.8-10.2); NEUT % 79.7 % (42.8-82.8); PLATELET COUNT 283 K/MM3 (134-434); RBC 3.43 M/mm3 (4.00-5.60); RDW 24.1 % (11.9-15.9); WHITE BLOOD COUNT 11.5 K/mm3 (4.0-10.0)
[2018-10-14 18:31] LABS: ALBUMIN 3.1 g/dl (3.4-5.0); BILIRUBIN,TOTAL 0.6 mg/dL (0.2-1); BLOOD UREA NITROGEN 22.6 mg/dL (7-18); CALCIUM 9.1 mg/dL (8.5-10.1); CREATININE 1.6 mg/dL (0.55-1.3); TOT PROT 7.8 g/dl (6.4-8.2)
[2018-10-14 19:40] LABS: ANISOCYTOSIS 2+
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
[2018-10-14] MEDS ORDERED: ACETAMINOPHEN 325 MG TABLET (FP) PO ONE (21:52)
[2018-10-14] MEDS ORDERED: ACETAMINOPHEN 325 MG TABLET (FP) ONE (22:01)
[2018-10-14] MEDS ORDERED: ACETAMINOPHEN 325 MG TABLET (FP) PO PRN (22:16)
[2018-10-14] MEDS ORDERED: morphine CARPU-JECT 2 MG/1 ML DISP.SYRIN IVPUSH ONE (22:26)
[2018-10-14] MEDS ORDERED: MORPHINE SULFATE 2 MG/ML VIAL IVPUSH ONE (22:26)
[2018-10-14] MEDS ORDERED: MORPHINE SULFATE 2 MG/ML VIAL ONE (22:30)
[2018-10-14] MEDS: INSULIN SLIDING SCALE (NOVOLOG) 1 VIAL SQ SCH (23:51)
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
[2018-10-15] MEDS ORDERED: HEPARIN NA (PORCINE) 5,000 UNITS/ML 1ML VIAL SQ SCH (06:00)
[2018-10-15] MEDS ORDERED: INSULIN (LEVEMIR) 100 UNITS/ML UNITS SQ SCH ×2 (07:00)
[2018-10-15] MEDS: INSULIN SLIDING SCALE (NOVOLOG) 1 VIAL SQ SCH ×3 (07:12→10:25)
[2018-10-15 07:13] VITALS: BP 115/71; PULSE 88; TEMP 98
[2018-10-15] MEDS ORDERED: INSULIN (LEVEMIR) 100 UNITS/ML UNITS SQ ONE (07:32)
--- NOTE | 2018-10-15 08:07 | EKG ---
Test Reason : Blood Pressure : / mmHG Vent. Rate : 116 BPM Atrial Rate : 111 BPM P-R Int : 000 ms QRS Dur : 144 ms QT Int : 368 ms P-R-T Axes : 000 -27 010 degrees QTc Int : 511 ms UNDETERMINED RHYTHM RIGHT BUNDLE BRANCH BLOCK ABNORMAL ECG WHEN COMPARED WITH ECG OF 14-SEP-2018 12:41, CURRENT UNDETERMINED RHYTHM PRECLUDES RHYTHM COMPARISON, NEEDS REVIEW Confirmed by ESTER ARAUJO MD ([id number]) on 10/15/2018 8:06:47 AM Referred By: Confirmed By:ESTER ARAUJO MD
[2018-10-15 08:23] LABS: BASO % 0.8 % (0-2.0); HEMATOCRIT 31.6 % (35.4-49); HEMOGLOBIN 10.7 GM/dL (11.7-16.9); LYMPH % 27.4 % (8-40); MCH 31.4 pg (25.7-33.7); MEAN CELL VOLUME 92.4 fl (80-96); MEAN PLT VOLUME 7.2 fl (7.5-11.1); MONO % 8.9 % (3.8-10.2); NEUT % 60.9 % (42.8-82.8); PLATELET COUNT 238 K/MM3 (134-434); RBC 3.42 M/mm3 (4.00-5.60); RDW 24.3 % (11.9-15.9); WHITE BLOOD COUNT 6.8 K/mm3 (4.0-10.0)
[2018-10-15 08:28] LABS: INR 1.25 (0.83-1.09); PROTHROMBIN TIME (PATIENT) 14.8 SEC (9.7-13.0)
[2018-10-15] MEDS ORDERED: TAMSULOSIN HCL 0.4 MG CAP PO SCH (08:30)
[2018-10-15 08:31] LABS: ACTIVATED PTT 34.4 SECONDS (25.2-36.5)
[2018-10-15 08:46] LABS: BILIRUBIN,TOTAL 1.2 mg/dL (0.2-1); BLOOD UREA NITROGEN 24.7 mg/dL (7-18); CALCIUM 8.8 mg/dL (8.5-10.1); CREATININE 1.5 mg/dL (0.55-1.3); MAGNESIUM 2.1 mg/dL (1.8-2.4); PHOSPHOROUS 4.1 mg/dL (2.5-4.9); POTASSIUM 3.6 mmol/L (3.5-5.1); TOT PROT 7.3 g/dl (6.4-8.2)
[2018-10-15] MEDS ORDERED: TORSEMIDE 100 MG TABLET PO SCH (10:00)
[2018-10-15] MEDS ORDERED: FERROUS SO4 325 MG TABLET (FP) PO SCH (10:00)
[2018-10-15] MEDS ORDERED: PANTOPRAZOLE 40 MG TABLET (FP) PO SCH (10:00)
[2018-10-15] MEDS ORDERED: INSULIN SLIDING SCALE (NOVOLOG) 1 VIAL SQ SCH (11:00)
--- NOTE | 2018-10-15 11:16 | EKG ---
Test Reason : Blood Pressure : / mmHG Vent. Rate : 095 BPM Atrial Rate : 095 BPM P-R Int : 168 ms QRS Dur : 142 ms QT Int : 452 ms P-R-T Axes : 063 -24 023 degrees QTc Int : 568 ms SINUS RHYTHM WITH PREMATURE SUPRAVENTRICULAR COMPLEXES AND WITH OCCASIONAL PREMATURE VENTRICULAR COMPLEXES RIGHT BUNDLE BRANCH BLOCK ABNORMAL ECG WHEN COMPARED WITH ECG OF 14-OCT-2018 15:56, PREVIOUS ECG HAS UNDETERMINED RHYTHM, NEEDS REVIEW NONSPECIFIC T WAVE ABNORMALITY HAS REPLACED INVERTED T WAVES IN INFERIOR LEADS Confirmed by VAN RODRIGUEZ, ESTER ([id number]) on 10/15/2018 11:16:03 AM Referred By: Confirmed By:ESTER ARAUJO MD
--- NOTE | 2018-10-15 12:35 | DS ---
Physical Examination Vital Signs: Vital Signs Temperature 36.7 C 10/15/18 07:00 Pulse Rate 88 10/15/18 07:00 Respiratory Rate 16 10/15/18 07:00 Blood Pressure 115/71 10/15/18 07:00 O2 Sat by Pulse Oximetry (%) 99 10/15/18 07:00 Constitutional: Yes: Well Nourished, No Distress, Calm Cardiovascular: Yes: Pulse Irregular. No: Tachycardia, Gallop, Murmur, Rub Respiratory: Yes: Regular, CTA Bilaterally. No: Rales, Rhonchi, Wheezes Gastrointestinal: Yes: Normal Bowel Sounds, Soft. No: Distention, Tenderness Extremities: Yes: WNL Edema: No Labs: CBC, BMP 10/15/18 07:58 10/15/18 07:58 Discharge Summary Reason For Visit: FALL IN ELDERLY PATIENT,SYNCOPE Current Active Problems Anticoagulated by anticoagulation treatment (Acute) Facial abrasion (Acute) Fall in elderly patient (Acute) Leg abrasion (Acute) Syncope (Acute) Hospital Course: Mr Buck is a pleasant 88 year old male who comes in with a mechanical fall. He was recently discharged from rehabilitation and while at home tripped and fell. He did not hit his head, he did not have lightheadedness or pass out, he did not seize. He was adamant that this was mechanical. He had a head CT which was unchanged. Hip x-ray was negative. He was seen by PT and ambulated with a walker. He states that he will not consider returning to rehab at this time. He will be discharged home with home VNS/PT. He will need to follow up with his PCP about medication clarification. 32 minutes spent in preparation for this discharge Condition: Stable - Instructions Diet, Activity, Other Instructions: Walk with rolling walker. Resume previous diet. Continue home medication regimen without change. Follow up with your PCP about further medication clarification. Referrals: Jonas Flynn MD [Staff Physician] - Disposition: VNS/HOME HEALTH CARE - Home Medications Comprehensive Discharge Medication List: Ambulatory Orders Apixaban [Eliquis -] 5 mg PO BID 07/14/18 Gabapentin [Neurontin -] 300 mg PO BID 07/14/18 Sitagliptin Phos/Metformin HCl [Janumet 50-1,000 mg Tablet] 1 each PO BID Atorvastatin Ca [Lipitor] 80 mg PO HS #30 tablet 07/16/18 Diltiazem [Cardizem -] 60 mg PO BID 09/01/18 Metoprolol Succinate 100 mg PO BID 09/01/18 Aspirin [ASA -] 81 mg PO DAILY 09/11/18 Docusate Sodium [Colace -] 100 mg PO BID #60 capsule 09/11/18 Pantoprazole Sodium [Protonix -] 40 mg PO DAILY tablet.ec 09/11/18 Torsemide [Demadex -] 50 mg PO DAILY tablet 09/11/18 Tamsulosin HCl [Flomax -] 0.8 mg PO DAILY #60 capsule 09/12/18 Acetaminophen [Tylenol] 650 mg PO Q6H PRN 09/14/18 Ferrous Sulfate [Feosol] 325 mg PO BID 10/14/18
[2018-10-16 04:09] LABS: HEP.C VIRUS AB <0.1 s/co ratio (0.0-0.9)
== END 2018-10-15 13:45 | disposition home or self-care (01) | DRG 91 ==
LOC: JER 15:50 → SUPCPDRO 15:50 → JERBED 20:51 → OBSVTOIN 22:01
PROVIDERS: ADMIT Internal Medicine; ATTEND Internal Medicine
DX: R29.6 Repeated falls (principal); I63.89 Other cerebral infarction; I50.32 Chronic diastolic (congestive) heart failure; K50.90 Crohn's disease, unspecified, without complications; R55 Syncope and collapse; I48.91 Unspecified atrial fibrillation; I25.10 Atherosclerotic heart disease of native coronary artery without angina pectoris; D89.0 Polyclonal hypergammaglobulinemia; I11.0 Hypertensive heart disease with heart failure; E11.40 Type 2 diabetes mellitus with diabetic neuropathy, unspecified; S00.81XA Abrasion of other part of head, initial encounter; S80.812A Abrasion, left lower leg, initial encounter; S50.312A Abrasion of left elbow, initial encounter; S00.31XA Abrasion of nose, initial encounter; N28.9 Disorder of kidney and ureter, unspecified; I45.81 Long QT syndrome; D72.829 Elevated white blood cell count, unspecified; D64.9 Anemia, unspecified; R00.0 Tachycardia, unspecified; K76.0 Fatty (change of) liver, not elsewhere classified; Z87.891 Personal history of nicotine dependence; Z95.1 Presence of aortocoronary bypass graft; Z96.651 Presence of right artificial knee joint; Y92.098 Other place in other non-institutional residence as the place of occurrence of the external cause; W01.0XXA Fall on same level from slipping, tripping and stumbling without subsequent striking against object, initial encounter
CPT/HCPCS: 36415; 70450-TC; 71045-TC-FY; 72125-TC; 73523-TC-FY; 76705-TC; 80053; 80074; 82550; 82553; 82962; 82977; 83735; 84100; 84484; 85025; 85610; 85730; 93005; 93010; 97116-GP; 97161-GP; 99285-25; G0378; J1644

== ENCOUNTER 2018-12-09 10:43 | Inpatient (IN) | payer OTHER, BC ==
[2018-12-09] MEDS ORDERED: PANTOPRAZOLE SODIUM 40 MG VIAL IVPUSH ONE (11:14)
[2018-12-09] MEDS ORDERED: PANTOPRAZOLE SODIUM 40 MG VIAL ONE (11:35)
[2018-12-09 11:42] LABS: BASO % 0.8 % (0-2.0); EOS % 3.9 % (0-4.5); HEMATOCRIT 30.3 % (35.4-49); HEMOGLOBIN 10.4 GM/dL (11.7-16.9); LYMPH % 25.6 % (8-40); MCH 35.4 pg (25.7-33.7); MCHC 34.5 g/dl (32.0-35.9); MEAN CELL VOLUME 102.8 fl (80-96); MONO % 9.3 % (3.8-10.2); NEUT % 60.4 % (42.8-82.8); PLATELET COUNT 260 K/MM3 (134-434); RBC 2.95 M/mm3 (4.00-5.60); RDW 15.3 % (11.9-15.9); WHITE BLOOD COUNT 8.7 K/mm3 (4.0-10.0)
[2018-12-09 11:56] LABS: INR 1.58 (0.83-1.09); PROTHROMBIN TIME (PATIENT) 18.7 SEC (9.7-13.0)
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
[2018-12-09 12:07] LABS: ALBUMIN 3.1 g/dl (3.4-5.0); BILIRUBIN,TOTAL 0.5 mg/dL (0.2-1); BLOOD UREA NITROGEN 22.7 mg/dL (7-18); CALCIUM 9.4 mg/dL (8.5-10.1); CREATININE 1.3 mg/dL (0.55-1.3); POTASSIUM 4.2 mmol/L (3.5-5.1); TOT PROT 7.7 g/dl (6.4-8.2)
--- NOTE | 2018-12-09 12:55 | EKG ---
Test Reason : Blood Pressure : / mmHG Vent. Rate : 064 BPM Atrial Rate : 064 BPM P-R Int : 170 ms QRS Dur : 142 ms QT Int : 458 ms P-R-T Axes : -11 -27 -09 degrees QTc Int : 472 ms SINUS RHYTHM WITH PREMATURE ATRIAL COMPLEXES RIGHT BUNDLE BRANCH BLOCK ABNORMAL ECG NONSPECIFIC T WAVE ABNORMALITY WHEN COMPARED WITH ECG OF 15-OCT-2018 03:00, PREMATURE VENTRICULAR COMPLEXES ARE NO LONGER PRESENT VENT. RATE HAS DECREASED BY 31 BPM Confirmed by MD Jose, Ford ([id number]) on 12/09/2018 12:54:58 PM Referred By: Confirmed By:Ford Garcia MD
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
--- NOTE | 2018-12-09 14:43 | CON.CARD ---
Consult Consult Specialty:: Cardiology Referred by:: Dr. Cooley Reason for Consultation:: AF/ CAD - History of Present Illness Chief Complaint: Advised to come to ER for GI bleed History of Present Illness: 88M with complex PMH includes: CAD s/p CABG 2002 at [facility] [place] H/o CVA HTN CKD DM w/ neuropathy Anemia with occult GI bleeding He was instructed to come to ER by GI at [facility] Dr. Garcia after capsule study showed bleeding in duodenum and gastric AVM. Patient has had multiple prior strokes including earlier this year on eliquis, ASA was then added. Currently not on ASA as this occult GIB was being evaluated and Eliquis was reduced to 2.5mg BID H/H has remained stable. He was seen and examine in ER, alert. Denies CP, SOB, palps, PND, orthopnea. Denies melena. Was also seen by GI and reccs were noted. - History Source History Provided By: Patient, Medical Record - Past Medical History Cardio/Vascular: Yes: AFIB, CAD (6 vessel CABG 05/2002), CHF (diastolic), HTN Gastrointestinal: Yes: Crohn's Disease, GI Bleed Renal/: Yes: Renal Inusuff, Other (polyclonal gammopathy) Heme/Onc: Yes: Anemia Infectious Disease: No: AIDS, C-Diff, Herpes Zoster, HIV, MRSA, STD's, Tuberculosis, VREF, Other Psych: No: Addictions, Anxiety, Bipolar, Depression, Panic, Psychosis, Schizophrenia, Other Musculoskeletal: No: Bursitis, Chronic low back pain, Hemiparesis, Hemiplegia, Osteoarthritis, Paraplegia, Other Rheumatology: No: Fibromyalgia, Gout, Lupus, Rheumatoid Arthritis, Sarcoidosis, Vasculitis, Other ENT: No: Allergic Rhinitis, Sinusitis, Other Endocrine: Yes: Diabetes Mellitus - Past Surgical History Past Surgical History: Yes: CABG (x6), Joint Replacement ( R knee replacement 2004) - Alcohol/Substance Use Hx Alcohol Use: No History of Substance Use: reports: None - Smoking History Smoking history: Never smoked Have you smoked in the past 12 months: No - Social History Usual Living Arrangement: Alone () ADL: Support Services (Daughter visits daily) History of Recent Travel: No Home Medications - Allergies Allergies/Adverse Reactions: Allergies Allergy/AdvReac Type Severity Reaction Status Date / Time No Known Allergies Allergy Verified 12/09/18 10:48 - Home Medications Home Medications: Ambulatory Orders Apixaban [Eliquis -] 5 mg PO BID 07/14/18 Gabapentin [Neurontin -] 300 mg PO BID 07/14/18 Sitagliptin Phos/Metformin HCl [Janumet 50-1,000 mg Tablet] 1 each PO BID Atorvastatin Ca [Lipitor] 80 mg PO HS #30 tablet 07/16/18 Diltiazem [Cardizem -] 60 mg PO BID 09/01/18 Metoprolol Succinate 100 mg PO BID 09/01/18 Aspirin [ASA -] 81 mg PO DAILY 09/11/18 Docusate Sodium [Colace -] 100 mg PO BID #60 capsule 09/11/18 Pantoprazole Sodium [Protonix -] 40 mg PO DAILY tablet.ec 09/11/18 Torsemide [Demadex -] 50 mg PO DAILY tablet 09/11/18 Tamsulosin HCl [Flomax -] 0.8 mg PO DAILY #60 capsule 09/12/18 Acetaminophen [Tylenol] 650 mg PO Q6H PRN 09/14/18 Ferrous Sulfate [Feosol] 325 mg PO BID 10/14/18 Family Disease History - Family Disease History Family Disease History: Other: Father (: 74: liver cancer: heavy drinker), Mother (: 70's: complications of hepatitis s/p transfusion), Sister (2, 1 of lung cancer), Son (1, healthy), Daughter (1 : CHF, 1 healthy) Other Family History: No family history of colorectal cancer Review of Systems Findings/Remarks: see HPI - Review of Systems Constitutional: reports: No Symptoms Eyes: reports: No Symptoms HENT: reports: No Symptoms Neck: reports: No Symptoms Cardiovascular: reports: No Symptoms Respiratory: reports: No Symptoms Gastrointestinal: reports: No Symptoms Genitourinary: reports: No Symptoms Breasts: reports: No Symptoms Reported Musculoskeletal: reports: No Symptoms Integumentary: reports: No Symptoms Neurological: reports: No Symptoms Endocrine: reports: No Symptoms Hematology/Lymphatic: reports: No Symptoms Psychiatric: reports: No Symptoms - Risk Factors Known Risk Factors: Yes: Other (Known CAD) Vital Signs: Vital Signs Temperature 97.9 F 12/09/18 10:44 Pulse Rate 83 12/09/18 14:36 Respiratory Rate 18 12/09/18 14:36 Blood Pressure 112/62 12/09/18 14:36 O2 Sat by Pulse Oximetry (%) 98 12/09/18 14:36 Constitutional: Yes: No Distress, Calm Eyes: Yes: Conjunctiva Clear, EOM Intact Respiratory: Yes: CTA Bilaterally Gastrointestinal: Yes: Soft (NT, no rebound or guarding) Cardiovascular: Yes: Regular Rate and Rhythm JVD: No Carotid Bruit: No Heart Sounds: Yes: S1, S2 (RRR, no M/R/G) Edema: No Peripheral Pulses WNL: Yes Neurological: Yes: Alert ...Motor Strength: WNL - Other Data Labs, Other Data: CBC, BMP 12/09/18 11:10 12/09/18 11:10 INR, PTT INR 1.58 (0.83-1.09) H 12/09/18 11:10 Laboratory Tests 12/09/18 12/09/18 12/09/18 11:10 11:10 11:10 WBC 8.7 Hgb 10.4 L Plt Count 260 INR 1.58 H Sodium 140 Potassium 4.2 Creatinine 1.3 Calcium 9.4 Total Bilirubin 0.5 AST 32 ALT 31 Stool Occult Blood 12/09/18 11:17 WBC Hgb Plt Count INR Sodium Potassium Creatinine Calcium Total Bilirubin AST ALT Stool Occult Blood Positive NSR 64bpm, APC, RBBB Echo: Report Reviewed (Echo 06/2018: Nl LV/RV, mod LAE, mild MR, AI, no PHTN) Stress Echo: Other (MPI: 11/2015: No ischemic ST changes. Small region ischemia inferoseptum, apical inferolateral wall, no TID, Normal EF) Imaging - Results X-ray: Report Reviewed, Image Reviewed EKG: Image Reviewed Assessment/Plan IMP: 1. Anemia secondary to occult GI bleed due to gastric AVM with duodenal blood on capsule study 2. PAF, with prior strokes, on low dose Eliquis (last dose this AM per patient) 3. CAD s/p CABG w/ normal LVEF 4. Chronic diastolic CHF, now euvolemic 5. CKD w/ baseline creat around 1.5 REC: 1. Follow H/H, GI following. Cont PPI. 2. In this setting, no choice but to hold Eliquis until EGD can be done to better visualize and address source bleeding. Last dose of Eliquis this AM, will now be held. Given h/o of prior CVAs on AC, he is at high risk for recurrent stroke/ embolization. If Eliquis needs to be held for > 24 hours, then would strongly consider bridge w/ UFH gtts (without bolusing) and targeting PTT 50-60 until endoscopy. 3. Continue home rate control meds: last outpatient note by Dr. Flynn has him on Cardizem 60mg BID and Toprol XL 50mg daily. 4. Too high risk to continue ASA, has been discontinued. 5. Continue home dose Torsemide: 50mg daily. Daily BMP to follow renal fx. Euvolemic now. Will follow.
[2018-12-09] MEDS: SODIUM CHLORIDE 1,000 ML IV SCH (16:49)
[2018-12-09 17:13] VITALS: BMI 25.4
[2018-12-09] MEDS: INSULIN SLIDING SCALE (NOVOLOG) 1 VIAL SQ SCH ×2 (17:34→21:43)
[2018-12-09] MEDS: ACETAMINOPHEN 325 MG TABLET (FP) PO PRN (19:10)
--- NOTE | 2018-12-09 19:56 | PN ---
Progress Note (short form) - Note Progress Note: Patient seen and examined Consult dictated Multiple medical problems CAD- s/p CABG x 6, CHF, PAF,H/O CVA, DM, Neuropathy, ANEMIA with recent capsule endoscopy revealing gastric AVM and bleeding presumably in duodenum. Previously on ASA and eliquis. Reduced dose of eliquis taken last today --12/09. ASA has been discontinued. History of GI bleeding in past and has required transfusion in past. Review reveals that patient has had elevated PT/INR dating back to 2010. At that time mixing PT studies were performed, but no patient PT in chart recorded , so they are not interpretable. Continues to have elevated PT/INR. Some component may be related to eliquis, ? component of CHF or ? circulating inhibitor of lupus anticoagulant . Recent macrocytosis noted . Prior lab values all NC/NC. Will do usual screening for megalobastosis, , check reticulocyte count. 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 Records currently date back several years when patient had polyclonal gammopathy , , normal immunofixation. Currently no "M" spike reported . Plan Initial screening tests. Hold on mixing studies as patient has eliquis on board.
--- NOTE | 2018-12-09 20:05 | CONS ---
DATE OF CONSULTATION: 12/09/2018 HISTORY OF PRESENT ILLNESS: This is an 88-year-old who is being evaluated for anemia. Patient has an anemia dating back several years at least. He has undergone GI workup in the past. He is admitted now for capsule endoscopy which revealed fresh blood in the duodenum as well as a gastric AVN. The patient has been on previously aspirin, Plavix, and Eliquis. Aspirin has been discontinued due to recent bleeding. Eliquis, the patient last took on the day of admission. Plavix likewise has been discontinued in view of Hematest positive stools. PAST MEDICAL HISTORY: Includes hypertension, CHF, paroxysmal atrial fibrillation. Patient has a history of a polyclonal gammopathy which dates back several years. Patient has history of diabetes with right knee replacement. Patient has a history of a coronary artery bypass graft with 6-vessel disease. PAST SURGICAL HISTORY: CABG x6. SOCIAL HISTORY: The patient is , nonsmoker. 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 No industrial exposures or intoxicants. Patient has 3 siblings, all of whom have of lung cancer, all of whom were smokers. ALLERGIES: There are no known allergies. HOME MEDICATIONS: Included Eliquis, Neurontin, metformin, sitagliptin, atorvastatin, Cardizem, metoprolol, aspirin, Colace, Protonix, Demadex, Flomax, Tylenol, and iron. FAMILY HISTORY: In addition to 3 siblings, who of lung cancer, all of whom were smokers, father of a liver cancer, and mother of complications of hepatitis. REVIEW OF SYSTEMS: No headaches, no diplopia, no epistaxis. Occasional cough, sputum production clear. No chest pain, palpitations. No nausea, vomiting, diarrhea, constipation. No dysuria, hematuria, nocturia x3. Some lower extremity numbness. CURRENT PHYSICAL EXAMINATION: VITAL SIGNS: Blood pressure 143/66, pulse 62 regular, respiratory rate 18, temperature 98.4. HEENT: HALLIE, EOM intact. Tongue papillated. NECK: No cervical supraclavicular nodes. LUNGS: Clear. CARDIAC: RSR. ABDOMEN: Soft. EXTREMITIES: No significant edema. LABORATORY: WBC 8.7, hematocrit 40.3, MCV 102.8, platelets 260, 60.4 polycytes , 25.6 lymphocytes, 9.3 monocytes, 4 eosinophils. INR 1.58. Chemistries: 140 sodium, potassium 4.2, chloride 100, CO2 of 34, BUN 22, creatinine 1.3, calcium 9.4, bilirubin 0.5, AST 32, ALT 31, alkaline phosphatase 232, protein 7.7, albumin 3.1. Stool reported Hemoccult positive. IMPRESSION: Anemia, component of blood loss anemia. Current macrocytosis needs to be evaluated. Routine screening test with B12 ,folate, reticulocyte count will be obtained. Alkaline phosphatase will be evaluated with GGTP. Coagulopathy dates back to 2010 when mixing study was done, but no baseline PT was obtained at the time of the mixing study. Currently on Eliquis, at which time mixing studies cannot be performed. May have an underlying inhibitor or circulating __ ___ anticoagulant. Will do initial screening tests and comment further. MADELINE JACINTO M.D. GENTRY/[id number] MTDD
[2018-12-09] MEDS ORDERED: INSULIN (NOVOLOG) ASPART 100 UNITS/ML 10ML VIAL ONE (21:32)
[2018-12-09] MEDS: FERROUS SO4 325 MG TABLET (FP) PO SCH (21:42)
[2018-12-09] MEDS: ATORVASTATIN CA 80 MG TABLET (FP) PO SCH (21:42)
[2018-12-09] MEDS: HEPARIN NA (PORCINE) 5,000 UNITS/ML 1ML VIAL SQ SCH (21:42)
[2018-12-09] MEDS: GABAPENTIN 300 MG CAPSULE (FP) PO SCH (21:42)
[2018-12-09] MEDS: dilTIAZem HCL 60 MG TABLET (FP) PO SCH (21:42)
[2018-12-10 03:29] LABS: EPI CELLS 0.6 /HPF (0-5/HPF); HYALINE CASTS 44 /lpf (0-8); URINE APPEARANCE TURBID; URINE BACTERIA 730.5 /hpf (NEGATIVE); URINE BILIRUBIN NEGATIVE (NEGATIVE); URINE COLOR YELLOW; URINE GLUCOSE (UA) NEGATIVE (NEGATIVE); URINE KETONE NEGATIVE (NEGATIVE); URINE LEUK ESTERASE 3+ (NEGATIVE); URINE NITRITE NEGATIVE (NEGATIVE); URINE PROTEIN NEGATIVE (NEGATIVE); URINE RBC 8 /hpf (0-4); URINE WBC 974 /hpf (0-5)
[2018-12-10] MEDS: INSULIN SLIDING SCALE (NOVOLOG) 1 VIAL SQ SCH ×4 (06:52→21:47)
[2018-12-10 07:24] LABS: BASO % 0.7 % (0-2.0); EOS % 4.6 % (0-4.5); HEMATOCRIT 29.1 % (35.4-49); HEMOGLOBIN 10.1 GM/dL (11.7-16.9); LYMPH % 36.2 % (8-40); MCH 35.7 pg (25.7-33.7); MCHC 34.6 g/dl (32.0-35.9); MEAN CELL VOLUME 102.9 fl (80-96); MONO % 7.2 % (3.8-10.2); NEUT % 51.3 % (42.8-82.8); PLATELET COUNT 241 K/MM3 (134-434); RBC 2.83 M/mm3 (4.00-5.60); RDW 15.2 % (11.9-15.9); WHITE BLOOD COUNT 8.7 K/mm3 (4.0-10.0)
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
[2018-12-10 08:26] LABS: INR 1.27 (0.83-1.09)
[2018-12-10 08:44] LABS: ALBUMIN 2.8 g/dl (3.4-5.0); BILIRUBIN,TOTAL 0.6 mg/dL (0.2-1); BLOOD UREA NITROGEN 19.2 mg/dL (7-18); CALCIUM 8.9 mg/dL (8.5-10.1); CREATININE 1.3 mg/dL (0.55-1.3); MAGNESIUM 2.3 mg/dL (1.8-2.4); POTASSIUM 3.8 mmol/L (3.5-5.1)
[2018-12-10] MEDS: FERROUS SO4 325 MG TABLET (FP) PO SCH ×2 (09:12→21:42)
[2018-12-10] MEDS: PANTOPRAZOLE 40 MG TABLET (FP) PO SCH (09:13)
[2018-12-10] MEDS: dilTIAZem HCL 60 MG TABLET (FP) PO SCH ×2 (09:13→21:42)
[2018-12-10] MEDS: GABAPENTIN 300 MG CAPSULE (FP) PO SCH ×2 (09:13→21:42)
[2018-12-10] MEDS: TAMSULOSIN HCL 0.4 MG CAP PO SCH (09:16)
[2018-12-10] MEDS: TORSEMIDE 100 MG TABLET PO SCH (09:16)
[2018-12-10] MEDS: HEPARIN NA (PORCINE) 5,000 UNITS/ML 1ML VIAL SQ SCH ×3 (09:17→21:43)
--- NOTE | 2018-12-10 11:45 | PN ---
Progress Note (short form) - Note Progress Note: no chest pain, palps, dizziness, dyspnea Current Medications Acetaminophen (Tylenol -) 650 mg PO Q6H PRN PRN Reason: Fever Or Pain Last Admin: 12/09/18 19:10 Dose: 650 mg Atorvastatin Calcium (Lipitor -) 80 mg PO HS [facility] Last Admin: 12/09/18 21:42 Dose: 80 mg Diltiazem HCl (Cardizem -) 60 mg PO BID [facility] Last Admin: 12/10/18 09:13 Dose: 60 mg Ferrous Sulfate (Feosol -) 325 mg PO BID [facility] Last Admin: 12/10/18 09:12 Dose: 325 mg Gabapentin (Neurontin -) 300 mg PO BID [facility] Last Admin: 12/10/18 09:13 Dose: 300 mg Heparin Sodium (Porcine) (Heparin -) 5,000 unit SQ BID [facility] Last Admin: 12/10/18 09:24 Dose: Not Given Sodium Chloride (Normal Saline -) 1,000 mls @ 42 mls/hr IV ASDIR [facility] Last Admin: 12/09/18 16:49 Dose: 42 mls/hr Insulin Aspart (Novolog Vial Sliding Scale -) 1 vial SQ [facility]; Protocol Last Admin: 12/10/18 11:22 Dose: 4 units Metoprolol Succinate (Toprol Xl -) 50 mg PO DAILY [facility] Last Admin: 12/10/18 09:13 Dose: 50 mg Pantoprazole Sodium (Protonix -) 40 mg PO DAILY [facility] Last Admin: 12/10/18 09:13 Dose: 40 mg Tamsulosin HCl (Flomax -) 0.8 mg PO DAILY@0830 [facility] Last Admin: 12/10/18 09:16 Dose: 0.8 mg Torsemide (Demadex -) 50 mg PO DAILY [facility] Last Admin: 12/10/18 09:16 Dose: 50 mg Vital Signs Period Temp Pulse Resp BP Sys/Shaw Pulse Ox Last 24 Hr 97.6 F-98.4 F 60-83 17-65 112-144/57-66 98-100 Constitutional: Yes: No Distress, Calm Eyes: Yes: Conjunctiva Clear, EOM Intact Respiratory: Yes: CTA Bilaterally Gastrointestinal: Yes: Soft (NT, no rebound or guarding) Cardiovascular: Yes: Regular Rate and Rhythm JVD: No Carotid Bruit: No Heart Sounds: Yes: S1, S2 (RRR, no M/R/G) Edema: No Peripheral Pulses WNL: Yes Neurological: Yes: Alert no jaundice, diaphoresis no edema NSR 64bpm, APC, RBBB Echo: Report Reviewed (Echo 06/2018: Nl LV/RV, mod LAE, mild MR, AI, no PHTN) Stress Echo: Other (MPI: 11/2015: No ischemic ST changes. Small region ischemia inferoseptum, apical inferolateral wall, no TID, Normal EF) Imaging - Results X-ray: Report Reviewed, Image Reviewed EKG: Image Reviewed Assessment/Plan IMP: 1. Anemia secondary to occult GI bleed due to gastric AVM with duodenal blood on capsule study 2. PAF, with prior strokes, on low dose Eliquis (last dose this AM per patient) 3. CAD s/p CABG w/ normal LVEF 4. Chronic diastolic CHF, now euvolemic 5. CKD w/ baseline creat around 1.5 REC: 1. Follow H/H, GI following. Cont PPI. 2. Hold eliquis prior to EGD - planned for tomorrow If Eliquis needs to be held for > 24 hours, then would consider bridge w/ UFH gtts (without bolusing) and targeting PTT 50-60 until endoscopy. 3. Continue home rate control meds, cardizem 60 mg BID and toprol xl 50 mg daily 4. Too high risk to continue ASA, has been discontinued. 5. Continue home dose Torsemide: 50mg daily. Daily BMP to follow renal fx. Euvolemic now. 6. No cardiac contraindication to EGD
[2018-12-10] MEDS: SODIUM CHLORIDE 1,000 ML IV SCH (16:57)
--- NOTE | 2018-12-10 18:11 | PN ---
Progress Note (short form) - Note Progress Note: Pt seen/examined, denies abdominal pain, n/v. Tolerated diet today. Brown bm today per nursing staff. On examination: Pt sitting up, appears comfortable Abd soft, nt, nd Labs reviewed. CBC, BMP 12/10/18 06:50 12/10/18 06:50 Assessment/plan: 88yo male with anemia, likely multifactorial without obvious etiology on recent EGD though recent capsule endoscopy revealing blood in the proximal duodenum at outside facility. No overt bleeding and Hb stable. Cardiology evaluation noted. Eliquis on hold, heparin not started per primary team. Keep NPOpMN for EGD with possible push enteroscopy tomorrow.
[2018-12-10] MEDS: ATORVASTATIN CA 80 MG TABLET (FP) PO SCH (21:42)
[2018-12-11] MEDS: INSULIN SLIDING SCALE (NOVOLOG) 1 VIAL SQ SCH ×4 (06:42→21:55)
[2018-12-11 08:03] LABS: BASO % 0.8 % (0-2.0); EOS % 4.2 % (0-4.5); HEMATOCRIT 30.2 % (35.4-49); HEMOGLOBIN 10.4 GM/dL (11.7-16.9); LYMPH % 29.7 % (8-40); MCH 35.8 pg (25.7-33.7); MCHC 34.6 g/dl (32.0-35.9); MEAN CELL VOLUME 103.4 fl (80-96); MEAN PLT VOLUME 7.4 fl (7.5-11.1); MONO % 6.7 % (3.8-10.2); NEUT % 58.6 % (42.8-82.8); PLATELET COUNT 203 K/MM3 (134-434); RBC 2.91 M/mm3 (4.00-5.60); RDW 15.4 % (11.9-15.9); WHITE BLOOD COUNT 7.4 K/mm3 (4.0-10.0)
[2018-12-11 08:30] LABS: ALBUMIN 2.8 g/dl (3.4-5.0); BILIRUBIN,TOTAL 0.6 mg/dL (0.2-1); BLOOD UREA NITROGEN 16.6 mg/dL (7-18); CALCIUM 8.6 mg/dL (8.5-10.1); CREATININE 1.3 mg/dL (0.55-1.3); MAGNESIUM 2.2 mg/dL (1.8-2.4); POTASSIUM 3.4 mmol/L (3.5-5.1); TOT PROT 6.6 g/dl (6.4-8.2)
[2018-12-11] MEDS ORDERED: POTASSIUM CHLORIDE 10 MEQ PREMIX IVPB (POTASSIUM RIDER) IVPB SCH (08:33)
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
[2018-12-11] MEDS: KCL 10 MEQ IVPB 10 MEQ/100 ML INFUS.BAG IVPB SCH ×2 (09:03→10:26)
[2018-12-11] MEDS: TAMSULOSIN HCL 0.4 MG CAP PO SCH (09:05)
[2018-12-11] MEDS: dilTIAZem HCL 60 MG TABLET (FP) PO SCH ×3 (09:43→21:58)
[2018-12-11] MEDS: FERROUS SO4 325 MG TABLET (FP) PO SCH ×2 (09:43→21:58)
[2018-12-11] MEDS: GABAPENTIN 300 MG CAPSULE (FP) PO SCH ×2 (09:43→21:58)
[2018-12-11] MEDS: TORSEMIDE 100 MG TABLET PO SCH (09:43)
[2018-12-11] MEDS: HEPARIN NA (PORCINE) 5,000 UNITS/ML 1ML VIAL SQ SCH ×2 (09:43→21:56)
[2018-12-11] MEDS: PANTOPRAZOLE 40 MG TABLET (FP) PO SCH (09:44)
--- NOTE | 2018-12-11 11:55 | PN ---
Progress Note, Physician Chief Complaint: seen and examined No CP or SOB - Current Medication List Current Medications: Active Medications Acetaminophen (Tylenol -) 650 mg PO Q6H PRN PRN Reason: Fever Or Pain Last Admin: 12/09/18 19:10 Dose: 650 mg Atorvastatin Calcium (Lipitor -) 80 mg PO HS [facility] Last Admin: 12/10/18 21:42 Dose: 80 mg Diltiazem HCl (Cardizem -) 60 mg PO BID [facility] Last Admin: 12/11/18 11:11 Dose: 60 mg Ferrous Sulfate (Feosol -) 325 mg PO BID [facility] Last Admin: 12/11/18 09:43 Dose: Not Given Gabapentin (Neurontin -) 300 mg PO BID [facility] Last Admin: 12/11/18 09:43 Dose: Not Given Heparin Sodium (Porcine) (Heparin -) 5,000 unit SQ BID [facility] Last Admin: 12/11/18 09:43 Dose: Not Given Sodium Chloride (Normal Saline -) 1,000 mls @ 42 mls/hr IV ASDIR [facility] Last Admin: 12/10/18 16:57 Dose: 42 mls/hr Insulin Aspart (Novolog Vial Sliding Scale -) 1 vial SQ [facility]; Protocol Last Admin: 12/11/18 11:10 Dose: Not Given Metoprolol Succinate (Toprol Xl -) 50 mg PO DAILY [facility] Last Admin: 12/11/18 11:11 Dose: 50 mg Pantoprazole Sodium (Protonix -) 40 mg PO DAILY [facility] Last Admin: 12/11/18 09:44 Dose: Not Given Tamsulosin HCl (Flomax -) 0.8 mg PO DAILY@0830 [facility] Last Admin: 12/11/18 09:05 Dose: Not Given Torsemide (Demadex -) 50 mg PO DAILY [facility] Last Admin: 12/11/18 09:43 Dose: Not Given - Objective Vital Signs: Vital Signs Temperature 98.2 F 12/11/18 07:53 Pulse Rate 62 12/11/18 07:53 Respiratory Rate 18 12/11/18 09:00 Blood Pressure 135/88 12/11/18 07:53 O2 Sat by Pulse Oximetry (%) 98 12/11/18 09:00 Constitutional: Yes: No Distress Cardiovascular: Yes: Pulse Irregular Respiratory: Yes: CTA Bilaterally (no wheezing or rales) Gastrointestinal: Yes: Soft Edema: No Neurological: Yes: Alert, Oriented Labs: CBC, BMP 12/11/18 06:46 12/11/18 06:46 INR, PTT INR 1.27 (0.83-1.09) H 12/10/18 06:50 Assessment/Plan IMP: 1. Anemia secondary to occult GI bleed due to gastric AVM with duodenal blood on capsule study 2. PAF, with prior strokes, on low dose Eliquis (last dose this AM per patient) 3. CAD s/p CABG w/ normal LVEF 4. Chronic diastolic CHF, now euvolemic 5. CKD w/ baseline creat around 1.5 REC: 1. Follow H/H, GI following. Cont PPI. 2. Hold eliquis prior to EGD - planned for today If Eliquis needs to be held for > 24 hours, then would consider bridge w/ UFH gtts (without bolusing) and targeting PTT 50-60 until endoscopy. 3. Continue home rate control meds, cardizem 60 mg BID and toprol xl 50 mg daily 4. Too high risk to continue ASA, has been discontinued. 5. Continue home dose Torsemide: 50mg daily. Daily BMP to follow renal fx. Euvolemic now. 6. No cardiac contraindication to EGD
[2018-12-11] MEDS ORDERED: EPINEPHrine 1:10,000 (P-F SYR) 1 MG/10 ML DISP.SYRIN SQ ONE (14:04)
--- NOTE | 2018-12-11 14:23 | PN ---
Progress Note (short form) - Note Progress Note: EGD complete. Report left in procedural section of physical chart and will be scanned into [employer]. Problem List - Problems (1) Anemia Code(s): D64.9 - ANEMIA, UNSPECIFIED Qualifiers: Anemia type: unspecified type Qualified Code(s): D64.9 - Anemia, unspecified
[2018-12-11] MEDS ORDERED: EPINEPHrine 1:10,000 (P-F SYR) 1 MG/10 ML DISP.SYRIN ONE (14:34)
[2018-12-11] MEDS: SODIUM CHLORIDE 1,000 ML IV SCH (16:07)
[2018-12-11] MEDS ORDERED: INSULIN (NOVOLOG) ASPART 100 UNITS/ML 10ML VIAL ONE (21:44)
[2018-12-11] MEDS: ATORVASTATIN CA 80 MG TABLET (FP) PO SCH (21:58)
[2018-12-12 05:08] LABS: FREE KAP CHN UR 15.2 mg/L (1.35-24.19); KAPPA LAMBDA RATIO URIN 11.88 (2.04-10.37)
[2018-12-12] MEDS: INSULIN SLIDING SCALE (NOVOLOG) 1 VIAL SQ SCH ×4 (06:19→21:43)
[2018-12-12 07:43] LABS: BASO % 0.7 % (0-2.0); EOS % 3.2 % (0-4.5); HEMATOCRIT 28.1 % (35.4-49); HEMOGLOBIN 9.8 GM/dL (11.7-16.9); LYMPH % 26.1 % (8-40); MCHC 34.8 g/dl (32.0-35.9); MEAN CELL VOLUME 103.5 fl (80-96); MONO % 6.8 % (3.8-10.2); NEUT % 63.2 % (42.8-82.8); PLATELET COUNT 192 K/MM3 (134-434); RBC 2.72 M/mm3 (4.00-5.60); RDW 15.7 % (11.9-15.9); WHITE BLOOD COUNT 8.5 K/mm3 (4.0-10.0)
[2018-12-12 07:50] LABS: INR 1.22 (0.83-1.09); PROTHROMBIN TIME (PATIENT) 14.4 SEC (9.7-13.0)
[2018-12-12 07:57] LABS: ALBUMIN 2.6 g/dl (3.4-5.0); BILIRUBIN,TOTAL 0.9 mg/dL (0.2-1); BLOOD UREA NITROGEN 14.2 mg/dL (7-18); CALCIUM 8.6 mg/dL (8.5-10.1); CREATININE 1.1 mg/dL (0.55-1.3); TOT PROT 6.5 g/dl (6.4-8.2)
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
[2018-12-12] MEDS ORDERED: APIXABAN 5 MG TABLET PO SCH (10:00)
[2018-12-12] MEDS: TAMSULOSIN HCL 0.4 MG CAP PO SCH (10:47)
[2018-12-12] MEDS: TORSEMIDE 100 MG TABLET PO SCH (10:47)
[2018-12-12] MEDS: PANTOPRAZOLE 40 MG TABLET (FP) PO SCH (10:48)
[2018-12-12] MEDS: GABAPENTIN 300 MG CAPSULE (FP) PO SCH ×2 (10:48→21:43)
[2018-12-12] MEDS: dilTIAZem HCL 60 MG TABLET (FP) PO SCH ×2 (10:48→21:43)
[2018-12-12] MEDS: FERROUS SO4 325 MG TABLET (FP) PO SCH ×2 (10:48→21:43)
--- NOTE | 2018-12-12 10:54 | PN ---
Progress Note, Physician Chief Complaint: s/p EGD w/ cautery Denies CP, SOB History of Present Illness: Wants to eat - Current Medication List Current Medications: Active Medications Acetaminophen (Tylenol -) 650 mg PO Q6H PRN PRN Reason: Fever Or Pain Last Admin: 12/09/18 19:10 Dose: 650 mg Apixaban (Eliquis -) 5 mg PO BID [facility] Last Admin: 12/12/18 10:48 Dose: 5 mg Atorvastatin Calcium (Lipitor -) 80 mg PO HS [facility] Last Admin: 12/11/18 21:58 Dose: 80 mg Diltiazem HCl (Cardizem -) 60 mg PO BID [facility] Last Admin: 12/12/18 10:48 Dose: 60 mg Ferrous Sulfate (Feosol -) 325 mg PO BID [facility] Last Admin: 12/12/18 10:48 Dose: 325 mg Gabapentin (Neurontin -) 300 mg PO BID [facility] Last Admin: 12/12/18 10:48 Dose: 300 mg Sodium Chloride (Normal Saline -) 1,000 mls @ 42 mls/hr IV ASDIR [facility] Last Admin: 12/11/18 16:07 Dose: 42 mls/hr Insulin Aspart (Novolog Vial Sliding Scale -) 1 vial SQ [facility]; Protocol Last Admin: 12/12/18 06:19 Dose: 2 units Metoprolol Succinate (Toprol Xl -) 50 mg PO DAILY [facility] Last Admin: 12/12/18 10:48 Dose: 50 mg Pantoprazole Sodium (Protonix -) 40 mg PO DAILY [facility] Last Admin: 12/12/18 10:48 Dose: 40 mg Tamsulosin HCl (Flomax -) 0.8 mg PO DAILY@0830 [facility] Last Admin: 12/12/18 10:47 Dose: 0.8 mg Torsemide (Demadex -) 50 mg PO DAILY [facility] Last Admin: 12/12/18 10:47 Dose: 50 mg - Objective Vital Signs: Vital Signs Temperature 98.1 F 12/12/18 04:54 Pulse Rate 68 12/12/18 04:54 Respiratory Rate 17 12/12/18 04:54 Blood Pressure 103/50 L 12/12/18 04:54 O2 Sat by Pulse Oximetry (%) 100 12/11/18 21:00 Constitutional: Yes: No Distress Cardiovascular: Yes: Pulse Irregular Respiratory: Yes: CTA Bilaterally (clear) Gastrointestinal: Yes: Soft Edema: No Neurological: Yes: Alert Labs: CBC, BMP 12/12/18 07:04 12/12/18 07:04 INR, PTT INR 1.22 (0.83-1.09) H 12/12/18 07:04 Laboratory Tests 12/12/18 12/12/18 12/12/18 07:04 07:04 07:04 WBC 8.5 Hgb 9.8 L Plt Count 192 INR 1.22 H Sodium 143 Potassium 4.0 Creatinine 1.1 AST 23 ALT 22 Assessment/Plan IMP: 1. Anemia secondary to occult GI bleed due to gastric AVM with duodenal blood on capsule study, s/p EGD and cautery 12/11 2. PAF, with prior strokes, on low dose Eliquis (last dose this AM per patient) 3. CAD s/p CABG w/ normal LVEF 4. Chronic diastolic CHF, now euvolemic 5. CKD w/ baseline creat around 1.5 REC: 1. Follow H/H, GI following. Cont PPI. 2. Resume Eliquis when ok by GI 3. Continue home rate control meds, cardizem 60 mg BID and toprol xl 50 mg daily 4. Too high risk to continue ASA, has been discontinued. 5. Continue home dose Torsemide: 50mg daily. Daily BMP to follow renal fx. Euvolemic now.
[2018-12-12] MEDS ORDERED: SULFAMETHOXAZOLE/TRIMETHOPRIM 800MG/160MG D.S. TABLET PO SCH (13:30)
--- NOTE | 2018-12-12 14:41 | PN ---
Progress Note (short form) - Note Progress Note: Patient seen and examined No specific complaints Last Vital Signs Temp Pulse Resp BP Pulse Ox 97.4 F L 60 20 104/51 L 98 12/12/18 13:46 12/12/18 13:46 12/12/18 13:46 12/12/18 13:46 12/12/18 09:00 Mild left ptosis Tongue papillated Lungs relatively clear Cor - seems regular Abd- soft Ext- no edema CBC, BMP 12/12/18 07:04 12/12/18 07:04 INR, PTT INR 1.22 (0.83-1.09) H 12/12/18 07:04 Current Medications Generic Name Dose Route Start Last Admin Trade Name Freq PRN Reason Stop Dose Admin Acetaminophen 650 mg 12/09/18 18:53 12/09/18 19:10 Tylenol - PO 650 mg Q6H PRN Administration Fever Or Pain Apixaban 5 mg 12/12/18 22:00 Eliquis - PO BID SARAH Atorvastatin Calcium 80 mg 12/09/18 22:00 12/11/18 21:58 Lipitor - PO 80 mg HS SARAH Administration Diltiazem HCl 60 mg 12/09/18 22:00 12/12/18 10:48 Cardizem - PO 60 mg BID SARAH Administration Ferrous Sulfate 325 mg 12/09/18 22:00 12/12/18 10:48 Feosol - PO 325 mg BID SARAH Administration Gabapentin 300 mg 12/09/18 22:00 12/12/18 10:48 Neurontin - PO 300 mg BID SARAH Administration Sodium Chloride 1,000 mls @ 42 mls/hr 12/09/18 14:45 12/11/18 16:07 Normal Saline - IV 42 mls/hr ASDIR SARAH Administration Insulin Aspart 1 vial 12/10/18 17:23 12/12/18 12:13 Novolog Vial Sliding Scale - SQ 6 units ACHS SARAH Administration Protocol Metoprolol Succinate 50 mg 12/10/18 10:00 12/12/18 10:48 Toprol Xl - PO 50 mg DAILY SARAH Administration Pantoprazole Sodium 40 mg 12/10/18 10:00 12/12/18 10:48 Protonix - PO 40 mg DAILY SARAH Administration Tamsulosin HCl 0.8 mg 12/10/18 08:30 12/12/18 10:47 Flomax - PO 0.8 mg DAILY@0830 SARAH Administration Torsemide 50 mg 12/10/18 10:00 12/12/18 10:47 Demadex - PO 50 mg DAILY SARAH Administration Trimethoprim/Sulfamethoxazole 1 each 12/12/18 13:30 Bactrim Ds - PO 12/19/18 13:29 DAILY SARAH Impression: Anemia - positive duodenal site for bleeding on capsule endoscopy Macrocytosis- normal B-12, folate, Retic, LFT's. TSH-- for Flow cytometry for MDS Prolonged PT/PTT of several years duration--->eliquis resumed - Mixing studies cannot be performed Obtain Lupus anticoagulant
--- NOTE | 2018-12-12 14:44 | PN.GI ---
GI Progress Note Subjective: No acute events No melena/rectal bleeding States that he had a large formed bowel movements yesterday - Objective Vital Signs: Vital Signs Temperature 97.4 F L 12/12/18 13:46 Pulse Rate 60 12/12/18 13:46 Respiratory Rate 20 12/12/18 13:46 Blood Pressure 104/51 L 12/12/18 13:46 O2 Sat by Pulse Oximetry (%) 98 12/12/18 09:00 Constitutional: Calm Eyes: No: Sclera Icterus Cardiovascular: Yes: Regular Rate and Rhythm Respiratory: Yes: CTA Bilaterally Gastrointestinal Inspection: No: Distention ...Auscultate: Yes: Normoactive Bowel Sounds ...Palpate: Yes: Soft. No: Hepatomegaly, Splenomegaly, Tenderness Edema: No (No LE edema) Neurological: Yes: Alert Labs: CBC, BMP 12/12/18 07:04 12/12/18 07:04 INR, PTT INR 1.22 (0.83-1.09) H 12/12/18 07:04 Hepatic Panel Total Bilirubin 0.9 mg/dL (0.2-1) 12/12/18 07:04 AST 23 U/L (15-37) 12/12/18 07:04 ALT 22 U/L (13-61) 12/12/18 07:04 Alkaline Phosphatase 193 U/L (45-117) H 12/12/18 07:04 Albumin 2.6 g/dl (3.4-5.0) L 12/12/18 07:04 Problem List - Problems (1) Anemia Assessment/Plan: Multifactorial: being evaluated for MDS Gastric ectasia noted s/p APC therapy Advance diet to chopped Monitor H/H with Elquis having been restarted Correct coagulopathy Protonix 40mg daily Code(s): D64.9 - ANEMIA, UNSPECIFIED Qualifiers: Qualified Code(s): D64.9 - Anemia, unspecified
[2018-12-12] MEDS: SODIUM CHLORIDE 1,000 ML IV SCH (14:48)
[2018-12-12 19:59] LABS: HEMATOCRIT 28.4 % (35.4-49); HEMOGLOBIN 9.6 GM/dL (11.7-16.9); MCH 35.7 pg (25.7-33.7); MEAN CELL VOLUME 105.1 fl (80-96); MEAN PLT VOLUME 7.3 fl (7.5-11.1); PLATELET COUNT 175 K/MM3 (134-434); RDW 15.3 % (11.9-15.9); WHITE BLOOD COUNT 7.1 K/mm3 (4.0-10.0)
[2018-12-12] MEDS: INSULIN (LEVEMIR) 100 UNITS/ML UNITS SQ SCH (21:43)
[2018-12-12] MEDS: ATORVASTATIN CA 80 MG TABLET (FP) PO SCH (21:43)
[2018-12-13] MEDS: INSULIN SLIDING SCALE (NOVOLOG) 1 VIAL SQ SCH ×4 (06:50→21:20)
--- NOTE | 2018-12-13 07:42 | PN.GI ---
GI Progress Note Subjective: NO NEW COMPLAINTS STATES HE IS DOING BETTER DENIES MELENA/ BRBR / ABDOMINAL PAIN / N/V - Objective Vital Signs: Vital Signs Temperature 98.3 F 12/13/18 06:00 Pulse Rate 69 12/13/18 06:00 Respiratory Rate 18 12/13/18 06:00 Blood Pressure 111/61 12/13/18 06:00 O2 Sat by Pulse Oximetry (%) 96 12/12/18 21:00 Constitutional: Well Nourished, No Distress, Calm Eyes: Yes: WNL HENT: Yes: WNL Neck: Yes: WNL Cardiovascular: Yes: WNL Respiratory: Yes: Regular, CTA Bilaterally Gastrointestinal Inspection: Yes: WNL ...Auscultate: Yes: Normoactive Bowel Sounds Musculoskeletal: Yes: WNL Extremities: Yes: WNL Edema: No Labs: CBC, BMP 12/12/18 19:00 12/12/18 07:04 INR, PTT INR 1.22 (0.83-1.09) H 12/12/18 07:04 Problem List - Problems (1) UGIB (upper gastrointestinal bleed) Assessment/Plan: H/H STABLE CONTINUE TO MONITOR QD WHILE HOSPITALIZED DIET TOLERATED C/W A/C PPI THERAPY Code(s): K92.2 - GASTROINTESTINAL HEMORRHAGE, UNSPECIFIED
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
[2018-12-13] MEDS: TAMSULOSIN HCL 0.4 MG CAP PO SCH (08:30)
[2018-12-13] MEDS: dilTIAZem HCL 60 MG TABLET (FP) PO SCH ×2 (09:30→21:19)
[2018-12-13] MEDS: TORSEMIDE 100 MG TABLET PO SCH (09:30)
[2018-12-13] MEDS: GABAPENTIN 300 MG CAPSULE (FP) PO SCH ×2 (09:31→21:19)
[2018-12-13] MEDS: PANTOPRAZOLE 40 MG TABLET (FP) PO SCH (09:33)
[2018-12-13] MEDS: APIXABAN 5 MG TABLET PO SCH ×2 (09:33→21:19)
[2018-12-13] MEDS: FERROUS SO4 325 MG TABLET (FP) PO SCH ×2 (10:00→21:19)
--- NOTE | 2018-12-13 13:05 | PN ---
Progress Note, Physician Chief Complaint: GIB History of Present Illness: BM yest formed and soft mixed--no melena. no blood. denies sob, orthopnea. no cp, palpit - Current Medication List Current Medications: Active Medications Acetaminophen (Tylenol -) 650 mg PO Q6H PRN PRN Reason: Fever Or Pain Last Admin: 12/09/18 19:10 Dose: 650 mg Apixaban (Eliquis -) 5 mg PO BID [facility] Last Admin: 12/13/18 09:33 Dose: 5 mg Atorvastatin Calcium (Lipitor -) 80 mg PO HS [facility] Last Admin: 12/12/18 21:43 Dose: 80 mg Diltiazem HCl (Cardizem -) 60 mg PO BID [facility] Last Admin: 12/13/18 09:30 Dose: 60 mg Ferrous Sulfate (Feosol -) 325 mg PO BID [facility] Last Admin: 12/13/18 10:00 Dose: 325 mg Gabapentin (Neurontin -) 300 mg PO BID [facility] Last Admin: 12/13/18 09:31 Dose: 300 mg Sodium Chloride (Normal Saline -) 1,000 mls @ 42 mls/hr IV ASDIR [facility] Last Admin: 12/12/18 14:48 Dose: 42 mls/hr Insulin Aspart (Novolog Vial Sliding Scale -) 1 vial SQ [facility]; Protocol Last Admin: 12/13/18 11:22 Dose: 8 units Insulin Detemir (Levemir Vial) 10 units SQ [facility] Last Admin: 12/12/18 21:43 Dose: 10 units Metoprolol Succinate (Toprol Xl -) 50 mg PO DAILY [facility] Last Admin: 12/13/18 09:31 Dose: 50 mg Pantoprazole Sodium (Protonix -) 40 mg PO DAILY [facility] Last Admin: 12/13/18 09:33 Dose: 40 mg Tamsulosin HCl (Flomax -) 0.8 mg PO DAILY@0830 [facility] Last Admin: 12/13/18 08:30 Dose: 0.8 mg Torsemide (Demadex -) 50 mg PO DAILY [facility] Last Admin: 12/13/18 09:30 Dose: 50 mg - Objective Vital Signs: Vital Signs Temperature 98.1 F 12/13/18 10:00 Pulse Rate 67 12/13/18 10:00 Respiratory Rate 18 12/13/18 10:00 Blood Pressure 116/64 12/13/18 10:00 O2 Sat by Pulse Oximetry (%) 97 12/13/18 09:00 Constitutional: Yes: Well Nourished, No Distress, Calm Cardiovascular: Yes: Pulse Irregular, JVD (6 cm). No: Gallop, Murmur Respiratory: Yes: Regular, CTA Bilaterally, Accessory Muscle Use. No: Rales, Wheezes Extremities: No: Cold Edema: No Neurological: Yes: Alert, Oriented Psychiatric: No: Agitated Labs: CBC, BMP 12/12/18 19:00 12/12/18 07:04 INR, PTT INR 1.22 (0.83-1.09) H 12/12/18 07:04 Assessment/Plan IMP: 1. Anemia secondary to occult GI bleed due to gastric AVM with duodenal blood on capsule study, s/p EGD and cautery 12/11. Small intestine was normal with no AVMs on capsule study. 2. 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 3. CAD s/p CABG w/ normal LVEF--no angina. 4. Chronic diastolic CHF, with chronic JVD despite no sx's. Cardiac TTR amyloid w/u deferred as outpt due to mult intercurrent medical problems. 5. CKD w/ baseline creat around 1.5 REC: 1. resumed Eliquis 2.5 bid (started few weeks ago as outpt) per GI--H/H stable, no melena. continue same, with plans to increase to 5 bid (if creat remains <1.6 ) if no bleeding. 2. consider add back ASA later if no bleeding for 3-6 months (prior breakthrough CVA/TIA on Eliquis 5 bid) 3. AF rates good--cont home meds meds, cardizem 60 mg BID and toprol xl 50 mg daily 4. HF is well compensated with persistent JVD at his baseline--cont torsemide 50 qd ok for d/c from cv point of view
[2018-12-13] MEDS: SODIUM CHLORIDE 1,000 ML IV SCH (16:39)
--- NOTE | 2018-12-13 19:34 | PN ---
Progress Note (short form) - Note Progress Note: Immunofixation pending IgG and IgM both increased; IgA -normal Serum and urine free kappa/ free lambda light chain ratio - both increased Progress Note (short form) - Note Progress Note: Patient seen and examined No specific complaints Last Vital Signs Temp Pulse Resp BP Pulse Ox 98.4 F 63 18 109/51 L 97 12/13/18 14:03 12/13/18 14:03 12/13/18 14:03 12/13/18 14:03 12/13/18 09:00 Mild left ptosis Tongue papillated Lungs relatively clear Cor - seems regular Abd- soft Ext- no edema Laboratory Last Values WBC 7.1 K/mm3 (4.0-10.0) 12/12/18 19:00 RBC 2.70 M/mm3 (4.00-5.60) L 12/12/18 19:00 Hgb 9.6 GM/dL (11.7-16.9) L 12/12/18 19:00 Hct 28.4 % (35.4-49) L 12/12/18 19:00 MCV 105.1 fl (80-96) H 12/12/18 19:00 MCH 35.7 pg (25.7-33.7) H 12/12/18 19:00 MCHC 34.0 g/dl (32.0-35.9) 12/12/18 19:00 RDW 15.3 % (11.9-15.9) 12/12/18 19:00 Plt Count 175 K/MM3 (134-434) 12/12/18 19:00 MPV 7.3 fl (7.5-11.1) L 12/12/18 19:00 Absolute Neuts (auto) 5.4 K/mm3 (1.5-8.0) 12/12/18 07:04 Neutrophils % 63.2 % (42.8-82.8) 12/12/18 07:04 Lymphocytes % 26.1 % (8-40) 12/12/18 07:04 Monocytes % 6.8 % (3.8-10.2) 12/12/18 07:04 Eosinophils % 3.2 % (0-4.5) 12/12/18 07:04 Basophils % 0.7 % (0-2.0) 12/12/18 07:04 Nucleated RBC % 0 % (0-0) 12/12/18 07:04 Retic Count 1.59 % (0.5-1.5) H 12/10/18 06:50 PT with INR 14.40 SEC (9.7-13.0) H 12/12/18 07:04 INR 1.22 (0.83-1.09) H 12/12/18 07:04 Sodium 143 mmol/L (136-145) 12/12/18 07:04 Potassium 4.0 mmol/L (3.5-5.1) 12/12/18 07:04 Chloride 110 mmol/L (98-107) H 12/12/18 07:04 Carbon Dioxide 28 mmol/L (21-32) 12/12/18 07:04 Anion Gap 5 MMOL/L (8-16) L 12/12/18 07:04 BUN 14.2 mg/dL (7-18) 12/12/18 07:04 Creatinine 1.1 mg/dL (0.55-1.3) 12/12/18 07:04 Est GFR (CKD-EPI)AfAm 69.10 12/12/18 07:04 Est GFR (CKD-EPI)NonAf 59.62 12/12/18 07:04 POC Glucometer 233 UNITS (80-120) 12/13/18 16:35 Random Glucose 145 mg/dL (74-106) H 12/12/18 07:04 Hemoglobin A1c % 8.5 % (4.2-6.3) H 12/10/18 06:50 Calcium 8.6 mg/dL (8.5-10.1) 12/12/18 07:04 Magnesium 2.0 mg/dL (1.8-2.4) 12/12/18 07:04 Total Bilirubin 0.9 mg/dL (0.2-1) 12/12/18 07:04 AST 23 U/L (15-37) 12/12/18 07:04 ALT 22 U/L (13-61) 12/12/18 07:04 Alkaline Phosphatase 193 U/L (45-117) H 12/12/18 07:04 LD Total 140 U/L (87-246) 12/10/18 06:50 Total Protein 6.5 g/dl (6.4-8.2) 12/12/18 07:04 Albumin 2.6 g/dl (3.4-5.0) L 12/12/18 07:04 Vitamin B12 490 pg/ml (193-986) 12/10/18 06:50 Serum Folate 22 ng/mL (3.1-17.5) H 12/10/18 06:50 TSH 2.07 uIU/ml (0.358-3.74) D 12/10/18 06:50 Urine Color Yellow 12/10/18 02:40 Urine Appearance Turbid 12/10/18 02:40 Urine pH 7.0 (5.0-8.0) 12/10/18 02:40 Ur Specific [place] 1.014 (1.010-1.035) 12/10/18 02:40 Urine Protein Negative (NEGATIVE) 12/10/18 02:40 Urine Glucose (UA) Negative (NEGATIVE) 12/10/18 02:40 Urine Ketones Negative (NEGATIVE) 12/10/18 02:40 Urine Blood 1+ (NEGATIVE) H 12/10/18 02:40 Urine Nitrite Negative (NEGATIVE) 12/10/18 02:40 Urine Bilirubin Negative (NEGATIVE) 12/10/18 02:40 Urine Urobilinogen 1.0 mg/dL (0.2-1.0) 12/10/18 02:40 Ur Leukocyte Esterase 3+ (NEGATIVE) H 12/10/18 02:40 Urine WBC (Auto) 974 /hpf (0-5) 12/10/18 02:40 Urine RBC (Auto) 8 /hpf (0-4) 12/10/18 02:40 Urine Casts (Auto) 44 /lpf (0-8) 12/10/18 02:40 U Pathogenic Cast Auto None /lpf (NEGATIVE) 12/10/18 02:40 U Epithel Cells (Auto) 0.6 /HPF (0-5/HPF) 12/10/18 02:40 Urine Bacteria (Auto) 730.5 /hpf (NEGATIVE) 12/10/18 02:40 U Free [place] Light Ch 15.20 mg/L (1.35-24.19) 12/10/18 02:40 U Free Lambda Light Ch 1.28 mg/L (0.24-6.66) 12/10/18 02:40 U Free [place]/Lambda 24 11.88 (2.04-10.37) H 12/10/18 02:40 Stool Occult Blood Positive (NEGATIVE) 12/09/18 11:17 Serum YULIYA Interpret (.) 12/09/18 20:55 IEP IgG 1836 mg/dL (700-1600) H 12/09/18 20:55 IEP IgA 425 mg/dL (61-437) 12/09/18 20:55 IEP IgM 194 mg/dL (15-143) H 12/09/18 20:55 Free [place] LC, Quant 74.0 mg/L (3.3-19.4) H 12/10/18 06:50 Free Lambda LC, Quant 38.1 mg/L (5.7-26.3) H 12/10/18 06:50 Free [place]/Lambda Ratio 1.94 (0.26-1.65) H 12/10/18 06:50 Blood Type A POSITIVE 12/09/18 11:10 Antibody Screen Negative 12/09/18 11:10 Current Medications Acetaminophen (Tylenol -) 650 mg PO Q6H PRN PRN Reason: Fever Or Pain Last Admin: 12/09/18 19:10 Dose: 650 mg Apixaban (Eliquis -) 5 mg PO BID [facility] Last Admin: 12/13/18 09:33 Dose: 5 mg Atorvastatin Calcium (Lipitor -) 80 mg PO [facility] Last Admin: 12/12/18 21:43 Dose: 80 mg Diltiazem HCl (Cardizem -) 60 mg PO BID [facility] Last Admin: 12/13/18 09:30 Dose: 60 mg Ferrous Sulfate (Feosol -) 325 mg PO BID [facility] Last Admin: 12/13/18 10:00 Dose: 325 mg Gabapentin (Neurontin -) 300 mg PO BID [facility] Last Admin: 12/13/18 09:31 Dose: 300 mg Sodium Chloride (Normal Saline -) 1,000 mls @ 42 mls/hr IV ASDIR [facility] Last Admin: 12/13/18 16:39 Dose: 42 mls/hr Insulin Aspart (Novolog Vial Sliding Scale -) 1 vial SQ [facility]; Protocol Last Admin: 12/13/18 16:37 Dose: 6 units Insulin Detemir (Levemir Vial) 10 units SQ [facility] Last Admin: 12/12/18 21:43 Dose: 10 units Metoprolol Succinate (Toprol Xl -) 50 mg PO DAILY [facility] Last Admin: 12/13/18 09:31 Dose: 50 mg Pantoprazole Sodium (Protonix -) 40 mg PO DAILY [facility] Last Admin: 12/13/18 09:33 Dose: 40 mg Tamsulosin HCl (Flomax -) 0.8 mg PO DAILY@0830 [facility] Last Admin: 12/13/18 08:30 Dose: 0.8 mg Torsemide (Demadex -) 50 mg PO DAILY [facility] Last Admin: 12/13/18 09:30 Dose: 50 mg Impression: Anemia - positive duodenal site for bleeding on capsule endoscopy Macrocytosis- normal B-12, folate, Retic, LFT's. TSH-- for Flow cytometry for MDS Prolonged PT/PTT of several years duration--->eliquis resumed - Mixing studies cannot be performed Obtain Lupus anticoagulant Will need outpatient follow-up
[2018-12-13] MEDS ORDERED: INSULIN (NOVOLOG) ASPART 100 UNITS/ML 10ML VIAL ONE (20:04)
[2018-12-13] MEDS: ATORVASTATIN CA 80 MG TABLET (FP) PO SCH (21:19)
[2018-12-13] MEDS: INSULIN (LEVEMIR) 100 UNITS/ML UNITS SQ SCH (21:21)
[2018-12-13] MEDS: ACETAMINOPHEN 325 MG TABLET (FP) PO PRN (23:45)
[2018-12-14] MEDS: INSULIN SLIDING SCALE (NOVOLOG) 1 VIAL SQ SCH ×4 (06:29→22:06)
[2018-12-14 07:57] LABS: BASO % 0.8 % (0-2.0); EOS % 5.1 % (0-4.5); HEMATOCRIT 27.9 % (35.4-49); HEMOGLOBIN 9.5 GM/dL (11.7-16.9); LYMPH % 36.3 % (8-40); MCH 35.5 pg (25.7-33.7); MCHC 34.1 g/dl (32.0-35.9); MEAN CELL VOLUME 104.2 fl (80-96); MEAN PLT VOLUME 7.5 fl (7.5-11.1); MONO % 8.4 % (3.8-10.2); NEUT % 49.4 % (42.8-82.8); PLATELET COUNT 168 K/MM3 (134-434); RBC 2.67 M/mm3 (4.00-5.60); WHITE BLOOD COUNT 5.9 K/mm3 (4.0-10.0)
--- NOTE | 2018-12-14 08:17 | PN.GI ---
GI Progress Note Subjective: NO NEW COMPLAINTS STATES HE IS FEELING WELL - Objective Vital Signs: Vital Signs Temperature 98.2 F 12/14/18 06:00 Pulse Rate 63 12/14/18 06:00 Respiratory Rate 18 12/14/18 06:00 Blood Pressure 144/70 12/14/18 06:00 O2 Sat by Pulse Oximetry (%) 97 12/13/18 21:00 Constitutional: Well Nourished, No Distress, Calm Eyes: Yes: WNL HENT: Yes: WNL Neck: Yes: WNL Cardiovascular: Yes: WNL, Regular Rate and Rhythm Respiratory: Yes: WNL, Regular, CTA Bilaterally Gastrointestinal Inspection: Yes: WNL ...Auscultate: Yes: Normoactive Bowel Sounds Extremities: Yes: WNL Edema: No Labs: INR, PTT INR 1.22 (0.83-1.09) H 12/12/18 07:04 Problem List - Problems (1) UGIB (upper gastrointestinal bleed) Assessment/Plan: H/H STABLE CONTINUE TO MONITOR QD WHILE HOSPITALIZED DIET TOLERATED C/W A/C PPI THERAPY DC PLANNING PER PRIMARY MEDICAL TEAM Code(s): K92.2 - GASTROINTESTINAL HEMORRHAGE, UNSPECIFIED
[2018-12-14 08:42] LABS: ALBUMIN 2.6 g/dl (3.4-5.0); BILIRUBIN,TOTAL 0.8 mg/dL (0.2-1); BLOOD UREA NITROGEN 16.2 mg/dL (7-18); CALCIUM 8.2 mg/dL (8.5-10.1); CREATININE 1.4 mg/dL (0.55-1.3); MAGNESIUM 1.9 mg/dL (1.8-2.4); POTASSIUM 3.3 mmol/L (3.5-5.1); TOT PROT 6.4 g/dl (6.4-8.2)
[2018-12-14] MEDS: TAMSULOSIN HCL 0.4 MG CAP PO SCH (09:29)
[2018-12-14] MEDS: FERROUS SO4 325 MG TABLET (FP) PO SCH ×2 (09:30→22:06)
[2018-12-14] MEDS: GABAPENTIN 300 MG CAPSULE (FP) PO SCH ×2 (09:30→22:06)
[2018-12-14] MEDS: APIXABAN 5 MG TABLET PO SCH ×2 (09:30→22:06)
[2018-12-14] MEDS: dilTIAZem HCL 60 MG TABLET (FP) PO SCH ×2 (09:31→22:06)
[2018-12-14] MEDS: TORSEMIDE 100 MG TABLET PO SCH (09:32)
[2018-12-14] MEDS: PANTOPRAZOLE 40 MG TABLET (FP) PO SCH (09:36)
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
[2018-12-14] MEDS: SODIUM CHLORIDE 1,000 ML IV SCH (16:50)
[2018-12-14] MEDS: INSULIN (LEVEMIR) 100 UNITS/ML UNITS SQ SCH (22:05)
[2018-12-14] MEDS: ATORVASTATIN CA 80 MG TABLET (FP) PO SCH (22:06)
[2018-12-15] MEDS ORDERED: MELATONIN 5 MG TABLETS PO ONE (01:23)
[2018-12-15] MEDS: INSULIN SLIDING SCALE (NOVOLOG) 1 VIAL SQ SCH ×2 (06:33→11:13)
[2018-12-15 07:19] LABS: BASO % 0.9 % (0-2.0); EOS % 5.3 % (0-4.5); HEMATOCRIT 29.1 % (35.4-49); LYMPH % 37.5 % (8-40); MCH 35.7 pg (25.7-33.7); MCHC 34.4 g/dl (32.0-35.9); MEAN PLT VOLUME 7.4 fl (7.5-11.1); MONO % 9.3 % (3.8-10.2); PLATELET COUNT 173 K/MM3 (134-434); RDW 15.4 % (11.9-15.9); WHITE BLOOD COUNT 7.2 K/mm3 (4.0-10.0)
[2018-12-15 07:41] LABS: ALBUMIN 2.7 g/dl (3.4-5.0); BILIRUBIN,TOTAL 0.6 mg/dL (0.2-1); BLOOD UREA NITROGEN 17.6 mg/dL (7-18); CALCIUM 8.8 mg/dL (8.5-10.1); CREATININE 1.5 mg/dL (0.55-1.3); MAGNESIUM 1.9 mg/dL (1.8-2.4); POTASSIUM 3.5 mmol/L (3.5-5.1); TOT PROT 6.6 g/dl (6.4-8.2)
[2018-12-15] MEDS ORDERED: POTASSIUM CHLORIDE TABS 20 MEQ TABLET.ER (FP) PO ONE (08:15)
[2018-12-15 08:57] VITALS: BP 116/57; PULSE 65; TEMP 98
[2018-12-15] MEDS: TAMSULOSIN HCL 0.4 MG CAP PO SCH (09:20)
[2018-12-15] MEDS: TORSEMIDE 100 MG TABLET PO SCH (09:21)
[2018-12-15] MEDS: dilTIAZem HCL 60 MG TABLET (FP) PO SCH (09:21)
[2018-12-15] MEDS: GABAPENTIN 300 MG CAPSULE (FP) PO SCH (09:21)
[2018-12-15] MEDS: FERROUS SO4 325 MG TABLET (FP) PO SCH (09:21)
[2018-12-15] MEDS: APIXABAN 5 MG TABLET PO SCH (09:22)
[2018-12-15] MEDS: PANTOPRAZOLE 40 MG TABLET (FP) PO SCH (09:22)
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
--- NOTE | 2018-12-15 18:07 | PATH ---
Surgical Pathology Report Patient Name: CATHERINE PABLO Med. Rec. #: [id number] /Age/Gender: 1930 (Age: 88) / M Account: [id number] Location: [facility] MED/SURG Taken: 12/11/2018 Received: 12/12/2018 Reported: 12/15/2018 Physicians: Valentín Silveira D.O. Specimen(s) Received STOMACH, BODY, NODULE Clinical History Anemia, abnormal capsule endoscopy Postoperative diagnosis: Gastritis, AVM body of stomach Final Diagnosis STOMACH, BODY, NODULE, BIOPSY: POLYPOID GASTRIC BODY MUCOSA WITH MILD CHRONIC GASTRITIS AND MILD FOVEOLAR HYPERPLASIA. IMMUNOHISTOCHEMICAL STAIN FOR H. PYLORI IS NEGATIVE. Electronically Signed Ankita Noble M.D. Gross Description Received in formalin, labeled "body of stomach nodule" are 2 johnson, irregular portions of soft tissue averaging 0.2 cm. in greatest dimension. The specimens are submitted in toto in one cassette. 12/12/2018 [facility]12/12/2018
[2018-12-16 08:11] LABS: DRVVT - 48.8 sec (0.0-47.0); dRVVT MIX 39.4 sec (0.0-47.0)
== END 2018-12-15 11:54 | disposition home health service (06) | DRG 378 ==
LOC: JER 10:43 → JERBED 12:27 → J7W 15:32
PROVIDERS: ATTEND Nurse Practitioner Acute Care
PROC: 0DB68ZX Excision of Stomach, Via Natural or Artificial Opening Endoscopic, Diagnostic (ICD-10-PCS; 2018-12-11)
PROC: 0W3P8ZZ Control Bleeding in Gastrointestinal Tract, Via Natural or Artificial Opening Endoscopic (ICD-10-PCS; principal; 2018-12-11 12:45)
DX: K31.811 Angiodysplasia of stomach and duodenum with bleeding (principal); I50.32 Chronic diastolic (congestive) heart failure; I13.0 Hypertensive heart and chronic kidney disease with heart failure and stage 1 through stage 4 chronic kidney disease, or unspecified chronic kidney disease; N18.3 Chronic kidney disease, stage 3 (moderate); D89.0 Polyclonal hypergammaglobulinemia; G62.9 Polyneuropathy, unspecified; E11.40 Type 2 diabetes mellitus with diabetic neuropathy, unspecified; D50.0 Iron deficiency anemia secondary to blood loss (chronic); I25.10 Atherosclerotic heart disease of native coronary artery without angina pectoris; Z95.1 Presence of aortocoronary bypass graft; I48.2 Chronic atrial fibrillation; K29.50 Unspecified chronic gastritis without bleeding; R79.1 Abnormal coagulation profile
CPT/HCPCS: 36415; 71045-TC-FY; 80053; 81003; 82272; 82607; 82746; 82784; 82962; 83036; 83615; 83735; 83883; 84155; 84165; 84443; 85025; 85027; 85044; 85610; 85613; 85732; 86850; 86900; 86901; 87086; 87186; 88305-TC; 93005; 93010; 97116-GP; 97161-GP; 99284-25; J1644; J7030

== ENCOUNTER 2019-03-04 09:56 | Inpatient (IN) | payer OTHER, BC ==
[2019-03-04] MEDS ORDERED: LACTATED RINGERS SOLUTION 1000 ML INFUS.BAG IV ONE ×2 (10:39→12:03)
[2019-03-04 11:03] LABS: BASO % 0.4 % (0-2.0); LYMPH % 6.1 % (8-40); MCH 36.4 pg (25.7-33.7); MCHC 34.4 g/dl (32.0-35.9); MEAN CELL VOLUME 105.8 fl (80-96); MEAN PLT VOLUME 8.2 fl (7.5-11.1); MONO % 6.3 % (3.8-10.2); NEUT % 87.2 % (42.8-82.8); PLATELET COUNT 196 K/MM3 (134-434); RBC 3.31 M/mm3 (4.00-5.60); RDW 14.5 % (11.9-15.9)
[2019-03-04 11:04] LABS: EPI CELLS 0.4 /HPF (0-5/HPF); HYALINE CASTS 3 /lpf (0-8); URINE APPEARANCE TURBID; URINE BACTERIA 893.4 /hpf (NEGATIVE); URINE BILIRUBIN NEGATIVE (NEGATIVE); URINE COLOR YELLOW; URINE GLUCOSE (UA) NEGATIVE (NEGATIVE); URINE KETONE NEGATIVE (NEGATIVE); URINE LEUK ESTERASE 3+ (NEGATIVE); URINE NITRITE NEGATIVE (NEGATIVE); URINE PROTEIN TRACE (NEGATIVE); URINE RBC 7 /hpf (0-4); URINE WBC 202 /hpf (0-5)
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
[2019-03-04] MEDS ORDERED: CEFTRIAXONE 1,000 MG in DEXTROSE 5%-WATER - 50 ML IVPB ONE (11:10)
[2019-03-04 11:17] LABS: INR 1.27 (0.83-1.09)
[2019-03-04 11:19] LABS: ACTIVATED PTT 36.6 SECONDS (25.2-36.5)
[2019-03-04 11:24] LABS: YEAST NONE SEEN (NEGATIVE)
[2019-03-04 11:42] LABS: ANISOCYTOSIS 1+; MACROCYTOSIS 1+; PLATELET ESTIMATE NORMAL; TOXIC GRANULATION 1+
[2019-03-04 11:45] LABS: ALBUMIN 3.3 g/dl (3.4-5.0); BILIRUBIN,TOTAL 1.2 mg/dL (0.2-1); BLOOD UREA NITROGEN 33.7 mg/dL (7-18); CALCIUM 9.5 mg/dL (8.5-10.1); CREATININE 2.5 mg/dL (0.55-1.3); MAGNESIUM 2.3 mg/dL (1.8-2.4); POTASSIUM 4.6 mmol/L (3.5-5.1); TOT PROT 7.6 g/dl (6.4-8.2)
[2019-03-04] MEDS ORDERED: CEFTRIAXONE 1 GM/50 ML BAG ONE (11:47)
[2019-03-04] MEDS ORDERED: SODIUM CHLORIDE 0.9% 500 ML INFUS.BAG IV ONE (12:09)
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
--- NOTE | 2019-03-04 15:09 | EKG ---
Test Reason : Blood Pressure : / mmHG Vent. Rate : 106 BPM Atrial Rate : 106 BPM P-R Int : 182 ms QRS Dur : 136 ms QT Int : 340 ms P-R-T Axes : 000 -49 -53 degrees QTc Int : 451 ms POOR DATA QUALITY, INTERPRETATION MAY BE ADVERSELY AFFECTED SINUS TACHYCARDIA RIGHT BUNDLE BRANCH BLOCK LEFT ANTERIOR FASCICULAR BLOCK BIFASCICULAR BLOCK ABNORMAL ECG WHEN COMPARED WITH ECG OF 09-DEC-2018 11:11, PREMATURE ATRIAL COMPLEXES ARE NO LONGER PRESENT VENT. RATE HAS INCREASED BY 42 BPM T WAVE INVERSION NOW EVIDENT IN ANTERIOR LEADS Confirmed by VAN RODRIGUEZ, ESTER ([id number]) on 03/04/2019 3:09:24 PM Referred By: Confirmed By:ESTER ARAUJO MD
--- NOTE | 2019-03-04 16:02 | ECHO ---
Name: CATHERINE PABLO Exam:Adult Echocardiogram Study Date: 03/04/2019 02:50 PM Age: 88 yrs Reason For Study: syncope cad cabg Height: 67 in Weight: 165 lb BSA: 1.9 m2 MMode/2D Measurements & Calculations IVSd: 1.3 cm Ao root diam: 2.6 cm LVIDd: 3.9 cm LA dimension: 4.0 cm LVIDs: 2.9 cm ACS: 1.7 cm LVPWd: 1.2 cm EDV(Teich): 65.2 ml LVOT diam: 2.0 cm ESV(Teich): 31.6 ml Doppler Measurements & Calculations MV E max jose g: 99.2 cm/sec MVA(VTI): 2.6 cm2 MV A max jose g: 63.7 cm/sec MV V2 max: 100.7 cm/sec MV E/A: 1.6 MV max P.1 mmHg MV dec time: 0.14 sec MV V2 mean: 54.0 cm/sec MV mean P.5 mmHg MV V2 VTI: 22.3 cm Ao V2 max: 161.7 cm/sec LV V1 max P.2 mmHg Ao max P.5 mmHg LV V1 mean P.4 mmHg Ao V2 mean: 88.8 cm/sec LV V1 max: 89.3 cm/sec Ao mean P.0 mmHg LV V1 mean: 54.8 cm/sec Ao V2 VTI: 30.7 cm LV V1 VTI: 19.3 cm REYNOLD(I,D): 1.9 cm2 REYNOLD(V,D): 1.7 cm2 MR max jose g: 319.0 cm/sec SV(LVOT): 58.3 ml MR max P.7 mmHg TR max jose g: 200.9 cm/sec Med Peak E' Jose G: 10.7 cm/sec TR max P.5 mmHg Med E/e': 9.2 RVSP(TR): 26.5 mmHg Lat Peak E' Jose G: 14.7 cm/sec Lat E/e': 6.8 RAP systole: 10.0 mmHg Procedure A two-dimensional transthoracic echocardiogram with color flow and Doppler was performed. The study w as technically difficult with many images being suboptimal in quality. Left Ventricle The left ventricular size, thickness and function are normal. The left ventricle is not well visualiz ed. The left ventricular ejection fraction is normal. Regional wall motion abnormalities cannot be excluded d ue to limited visualization. Right Ventricle The right ventricle is not well visualized. Atria The left atrium is mildly dilated. The right atrium is mildly dilated. Mitral Valve The mitral valve is not well visualized. There is no mitral valve stenosis. There is mild mitral regurgitation. Tricuspid Valve The tricuspid valve is not well visualized. There is no tricuspid stenosis. There is mild tricuspid regurgitation. Right ventricular systolic pressure is normal. Aortic Valve The aortic valve is not well visualized. No hemodynamically significant valvular aortic stenosis. No aortic regurgitation is present. Pulmonic Valve The pulmonic valve is not well visualized. Great Vessels The aortic root is normal size. Pericardium/Pleura There is no pericardial effusion. Interpretation Summary The left ventricular size, thickness and function are normal The left ventricular ejection fraction is normal. The left ventricle is not well visualized. The study was technically difficult with many images being suboptimal in quality. Regional wall motion abnormalities cannot be excluded due to limited visualization. Right ventricular systolic pressure is normal. There is mild tricuspid regurgitation. There is mild mitral regurgitation. The right atrium is mildly dilated. The left atrium is mildly dilated. MD Fabiano Monteiro 03/04/2019 04:02 PM
[2019-03-04] MEDS ORDERED: INSULIN SLIDING SCALE (NOVOLOG) 1 VIAL SQ SCH (16:30)
--- NOTE | 2019-03-04 16:37 | CON.CARD ---
Cardiology Consult (text) - Consultation Consultation Note: Chief Complaint: fall History of Present Illness: 88M with complex PMH includes: CAD s/p CABG 2002 at [facility] PAF H/o CVA HTN CKD DM w/ neuropathy Anemia with occult GI bleeding Here today in er after fall. Fall unwitnessed and pt does not recall much. He thinks he got up to use bathroom last night and next remembers being on floor. No cp sob palps dizzy pnd orthopnea le edema. Sees dr cuba for cardio. - History Source History Provided By: Patient, Medical Record - Past Medical History Cardio/Vascular: Yes: AFIB, CAD (6 vessel CABG 05/2002), CHF (diastolic), HTN Gastrointestinal: Yes: Crohn's Disease, GI Bleed Renal/: Yes: Renal Inusuff, Other (polyclonal gammopathy) Heme/Onc: Yes: Anemia Infectious Disease: No: AIDS, C-Diff, Herpes Zoster, HIV, MRSA, STD's, Tuberculosis, VREF, Other Psych: No: Addictions, Anxiety, Bipolar, Depression, Panic, Psychosis, Schizophrenia, Other Musculoskeletal: No: Bursitis, Chronic low back pain, Hemiparesis, Hemiplegia, Osteoarthritis, Paraplegia, Other Rheumatology: No: Fibromyalgia, Gout, Lupus, Rheumatoid Arthritis, Sarcoidosis, Vasculitis, Other ENT: No: Allergic Rhinitis, Sinusitis, Other Endocrine: Yes: Diabetes Mellitus - Past Surgical History Past Surgical History: Yes: CABG (x6), Joint Replacement ( R knee replacement 2004) - Alcohol/Substance Use Hx Alcohol Use: No History of Substance Use: reports: None - Smoking History Smoking history: Never smoked Have you smoked in the past 12 months: No - Social History Usual Living Arrangement: Alone () ADL: Support Services (Daughter visits daily) History of Recent Travel: No Home Medications - Allergies Allergies/Adverse Reactions: Allergies Allergy/AdvReac Type Severity Reaction Status Date / Time No Known Allergies Allergy Verified 03/04/19 10:14 - Home Medications Current Medications Generic Name Dose Route Start Last Admin Trade Name Freq PRN Reason Stop Dose Admin Aspirin 81 mg 03/05/19 10:00 Asa - PO DAILY SARAH Atorvastatin Calcium 40 mg 03/05/19 22:00 Lipitor - PO HS SARAH Ferrous Sulfate 325 mg 03/05/19 08:00 Feosol - PO BIDWM SARAH Insulin Aspart 1 vial 03/04/19 16:30 11/06/19 16:37 Novolog Vial Sliding Scale - SQ Not Given TIDAC [facility] Protocol Pantoprazole Sodium 40 mg 03/05/19 10:00 Protonix - PO DAILY [facility] Tamsulosin HCl 0.8 mg 03/05/19 08:30 Flomax - PO DAILY@0830 [facility] Family Disease History - Family Disease History Family Disease History: Other: Father (: 74: liver cancer: heavy drinker), Mother (: 70's: complications of hepatitis s/p transfusion), Sister (2, 1 of lung cancer), Son (1, healthy), Daughter (1 : CHF, 1 healthy) Other Family History: No family history of colorectal cancer Review of Systems Findings/Remarks: see HPI - Review of Systems Constitutional: reports: No Symptoms Eyes: reports: No Symptoms HENT: reports: No Symptoms Neck: reports: No Symptoms Cardiovascular: reports: No Symptoms Respiratory: reports: No Symptoms Gastrointestinal: reports: No Symptoms Genitourinary: reports: No Symptoms Breasts: reports: No Symptoms Reported Musculoskeletal: reports: No Symptoms Integumentary: reports: No Symptoms Endocrine: reports: No Symptoms Hematology/Lymphatic: reports: No Symptoms Psychiatric: reports: No Symptoms - Risk Factors Known Risk Factors: Yes: Other (Known CAD) Vital Signs: Vital Signs Period Temp Pulse Resp BP Sys/Shaw Pulse Ox Last 24 Hr 98.3 F 92-110 13-24 84-119/60-75 98-100 Constitutional: Yes: No Distress, Calm Eyes: Yes: Conjunctiva Clear, EOM Intact Respiratory: Yes: CTA Bilaterally Gastrointestinal: Yes: Soft (NT, no rebound or guarding) Cardiovascular: Yes: Regular Rate and Rhythm JVD: No Carotid Bruit: No Heart Sounds: Yes: S1, S2 (RRR, no M/R/G) Edema: No Peripheral Pulses WNL: Yes Neurological: Yes: Alert no jaundice diaphoresis Laboratory Last Values WBC 26.0 K/mm3 (4.0-10.0) H 03/04/19 10:50 RBC 3.31 M/mm3 (4.00-5.60) L 03/04/19 10:50 Hgb 12.0 GM/dL (11.7-16.9) 03/04/19 10:50 Hct 35.0 % (35.4-49) L D 03/04/19 10:50 MCV 105.8 fl (80-96) H 03/04/19 10:50 MCH 36.4 pg (25.7-33.7) H 03/04/19 10:50 MCHC 34.4 g/dl (32.0-35.9) 03/04/19 10:50 RDW 14.5 % (11.9-15.9) 03/04/19 10:50 Plt Count 196 K/MM3 (134-434) 03/04/19 10:50 MPV 8.2 fl (7.5-11.1) D 03/04/19 10:50 Absolute Neuts (auto) 22.7 K/mm3 (1.5-8.0) H 03/04/19 10:50 Neutrophils % 87.2 % (42.8-82.8) H D 03/04/19 10:50 Neutrophils % (Manual) 70.3 % (42.8-82.8) 03/04/19 10:50 Band Neutrophils % 12.9 % 03/04/19 10:50 Lymphocytes % 6.1 % (8-40) L D 03/04/19 10:50 Lymphocytes % (Manual) 9.9 % (8-40) 03/04/19 10:50 Monocytes % 6.3 % (3.8-10.2) 03/04/19 10:50 Monocytes % (Manual) 6 % (3.8-10.2) 03/04/19 10:50 Eosinophils % 0.0 % (0-4.5) D 03/04/19 10:50 Eosinophils % (Manual) 0.0 % (0-4.5) 03/04/19 10:50 Basophils % 0.4 % (0-2.0) 03/04/19 10:50 Basophils % (Manual) 0.0 % (0-2.0) 03/04/19 10:50 Myelocytes % (Man) 0 % (0-2) 03/04/19 10:50 Promyelocytes % (Man) 0 % (0-2) 03/04/19 10:50 Blast Cells % (Manual) 0 % (0-0) 03/04/19 10:50 Nucleated RBC % 0 % (0-0) 03/04/19 10:50 Metamyelocytes 0 % (0-2) 03/04/19 10:50 Hypochromia 0 03/04/19 10:50 Toxic Granulation 1+ 03/04/19 10:50 Platelet Estimate Normal 03/04/19 10:50 Polychromasia 0 03/04/19 10:50 Poikilocytosis 0 03/04/19 10:50 Anisocytosis 1+ 03/04/19 10:50 Microcytosis 0 03/04/19 10:50 Macrocytosis 1+ 03/04/19 10:50 PT with INR 15.00 SEC (9.7-13.0) H 03/04/19 10:50 INR 1.27 (0.83-1.09) H 03/04/19 10:50 PTT (Actin FS) 36.6 SECONDS (25.2-36.5) H 03/04/19 10:50 Sodium 139 mmol/L (136-145) 03/04/19 10:50 Potassium 4.6 mmol/L (3.5-5.1) 03/04/19 10:50 Chloride 101 mmol/L (98-107) 03/04/19 10:50 Carbon Dioxide 29 mmol/L (21-32) 03/04/19 10:50 Anion Gap 10 MMOL/L (8-16) 03/04/19 10:50 BUN 33.7 mg/dL (7-18) H 03/04/19 10:50 Creatinine 2.5 mg/dL (0.55-1.3) H 03/04/19 10:50 Est GFR (CKD-EPI)AfAm 25.61 03/04/19 10:50 Est GFR (CKD-EPI)NonAf 22.10 03/04/19 10:50 POC Glucometer 257 UNITS (80-120) 03/04/19 16:34 Random Glucose 248 mg/dL (74-106) H 03/04/19 10:50 Lactic Acid 4.2 mmol/L (0.4-2.0) H* 03/04/19 13:54 Calcium 9.5 mg/dL (8.5-10.1) 03/04/19 10:50 Magnesium 2.3 mg/dL (1.8-2.4) 03/04/19 10:50 Total Bilirubin 1.2 mg/dL (0.2-1) H 03/04/19 10:50 AST 64 U/L (15-37) H 03/04/19 10:50 ALT 37 U/L (13-61) 03/04/19 10:50 Alkaline Phosphatase 205 U/L (45-117) H 03/04/19 10:50 Creatine Kinase > 1000 U/L (26-308) H 03/04/19 10:50 Creatine Kinase Index No Result Required. 03/04/19 10:50 CK-MB (CK-2) No Result Required. 03/04/19 10:50 Troponin I 0.08 ng/ml (0.00-0.05) H 03/04/19 10:50 Total Protein 7.6 g/dl (6.4-8.2) 03/04/19 10:50 Albumin 3.3 g/dl (3.4-5.0) L 03/04/19 10:50 Urine Color Yellow 03/04/19 10:50 Urine Appearance Turbid 03/04/19 10:50 Urine pH 5.0 (5.0-8.0) D 03/04/19 10:50 Ur Specific Mikado 1.015 (1.010-1.035) 03/04/19 10:50 Urine Protein Trace (NEGATIVE) 03/04/19 10:50 Urine Glucose (UA) Negative (NEGATIVE) 03/04/19 10:50 Urine Ketones Negative (NEGATIVE) 03/04/19 10:50 Urine Blood 2+ (NEGATIVE) H 03/04/19 10:50 Urine Nitrite Negative (NEGATIVE) 03/04/19 10:50 Urine Bilirubin Negative (NEGATIVE) 03/04/19 10:50 Urine Urobilinogen 1.0 mg/dL (0.2-1.0) 03/04/19 10:50 Ur Leukocyte Esterase 3+ (NEGATIVE) H 03/04/19 10:50 Urine WBC (Auto) 202 /hpf (0-5) 03/04/19 10:50 Urine RBC (Auto) 7 /hpf (0-4) 03/04/19 10:50 Urine Casts (Auto) 3 /lpf (0-8) 03/04/19 10:50 U Epithel Cells (Auto) 0.4 /HPF (0-5/HPF) 03/04/19 10:50 Urine Bacteria (Auto) 893.4 /hpf (NEGATIVE) 03/04/19 10:50 Urine Yeast (Auto) None seen (NEGATIVE) 03/04/19 10:50 ecg: sr, old rbbb cxr: clear lungs Echo: Report Reviewed (Echo 06/2018: Nl LV/RV, mod LAE, mild MR, AI, no PHTN) Stress Echo: Other (MPI: 11/2015: No ischemic ST changes. Small region ischemia inferoseptum, apical inferolateral wall, no TID, Normal EF) a/p: 88 yo m hx PAF, cva's, htn, ckd, dm, gib here s/p fall. fall, syncope: -unwitnessed, details unclear, appears he was likely on ground for awhile as he has rhabdo and jayce -trend ce's on tele -echo pending -possible sepsis as cause given his elevated wbcs, lactate and hypotension. infectious w/u and abx per primary team. pafib: -in sr now, was on dilt 60 bid and toprol 50 qd at home, holding for now given low bp/sepsis picture. Monitor on tele. -He has hx of gastric avm with plans for outpt cauterization and eventual plan for watchman device afterwards. Given his high risk of recurrent cva he has been maintained on eliquis, would continue here at his home dose of 2.5 bid. Aspirin has been held as outpt for now as well until avm treated. CAD s/p CABG: -stable, no signs acs -cont statin, ac jayce, rhabdo: -cont ivfs. renal consulted. Chronic diastolic CHF: -stable here currently. monitor vol status with ivfs -holding home torsemide 50 qd for now given septic picture, low bp
[2019-03-04] MEDS ORDERED: FLU VACCINE QUAD 60 MCG/0.5 ML (MDV 19-20) IM ONE (18:08)
[2019-03-04] MEDS: SODIUM CHLORIDE 1,000 ML IV SCH (20:26)
[2019-03-04] MEDS ORDERED: HEPARIN NA (PORCINE) 5,000 UNITS/ML 1ML VIAL SQ SCH (22:00)
[2019-03-04] MEDS: APIXABAN 2.5 MG TABLET PO SCH (22:17)
[2019-03-04] MEDS: INSULIN SLIDING SCALE (NOVOLOG) 1 VIAL SQ SCH (22:17)
[2019-03-05] MEDS: SODIUM CHLORIDE 1,000 ML IV SCH ×2 (06:15→17:47)
[2019-03-05] MEDS: INSULIN SLIDING SCALE (NOVOLOG) 1 VIAL SQ SCH ×4 (06:16→22:33)
[2019-03-05 07:46] LABS: BASO % 0.6 % (0-2.0); EOS % 1.6 % (0-4.5); HEMOGLOBIN 10.6 GM/dL (11.7-16.9); LYMPH % 17.2 % (8-40); MCH 36.6 pg (25.7-33.7); MCHC 34.1 g/dl (32.0-35.9); MEAN CELL VOLUME 107.4 fl (80-96); MEAN PLT VOLUME 7.8 fl (7.5-11.1); NEUT % 75.6 % (42.8-82.8); PLATELET COUNT 150 K/MM3 (134-434); RBC 2.89 M/mm3 (4.00-5.60); RDW 14.7 % (11.9-15.9); WHITE BLOOD COUNT 13.8 K/mm3 (4.0-10.0)
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
[2019-03-05 08:11] LABS: ALBUMIN 2.6 g/dl (3.4-5.0); BILIRUBIN,TOTAL 0.8 mg/dL (0.2-1); BLOOD UREA NITROGEN 27.7 mg/dL (7-18); CALCIUM 8.5 mg/dL (8.5-10.1); CREATININE 1.5 mg/dL (0.55-1.3); MAGNESIUM 2.2 mg/dL (1.8-2.4); PHOSPHOROUS 2.8 mg/dL (2.5-4.9); POTASSIUM 4.1 mmol/L (3.5-5.1); TOT PROT 6.2 g/dl (6.4-8.2)
[2019-03-05] MEDS: FERROUS SO4 325 MG TABLET (FP) PO SCH ×2 (08:12→17:46)
[2019-03-05] MEDS: TAMSULOSIN HCL 0.4 MG CAP PO SCH (08:12)
[2019-03-05] MEDS ORDERED: cefTRIAXone SODIUM 1 GM VIAL ONE (09:16)
[2019-03-05] MEDS ORDERED: DEXTROSE 5%-WATER - 50 ML IVPB ONE (09:16)
[2019-03-05] MEDS: APIXABAN 2.5 MG TABLET PO SCH ×2 (09:18→21:03)
[2019-03-05] MEDS: PANTOPRAZOLE 40 MG TABLET (FP) PO SCH (09:18)
[2019-03-05] MEDS ORDERED: ASPIRIN 81 MG CHEWABLE TABLETS PO SCH (10:00)
[2019-03-05] MEDS ORDERED: CEFTRIAXONE 1 GM in DEXTROSE 5%-WATER - 50 ML IVPB ONE (10:00)
--- NOTE | 2019-03-05 11:02 | PN ---
Progress Note (short form) - Note Progress Note: s: no cp sob palp sdizzy Current Medications Generic Name Dose Route Start Last Admin Trade Name Freq PRN Reason Stop Dose Admin Apixaban 2.5 mg 03/04/19 22:00 03/05/19 09:18 Eliquis - PO 2.5 mg BID SARAH Administration Atorvastatin Calcium 40 mg 03/05/19 22:00 Lipitor - PO HS SARAH Ferrous Sulfate 325 mg 03/05/19 08:00 03/05/19 08:12 Feosol - PO 325 mg BIDWM SARAH Administration Sodium Chloride 1,000 mls @ 125 mls/hr 03/04/19 19:30 03/05/19 06:15 Normal Saline - IV 125 mls/hr ASDIR SARAH Administration Insulin Aspart 1 vial 03/04/19 22:00 03/05/19 06:16 Novolog Vial Sliding Scale - SQ 2 units ACHS SARAH Administration Protocol Metoprolol Succinate 50 mg 03/05/19 10:00 03/05/19 09:18 Toprol Xl - PO 50 mg DAILY SARAH Administration Pantoprazole Sodium 40 mg 03/05/19 10:00 03/05/19 09:18 Protonix - PO 40 mg DAILY SARAH Administration Tamsulosin HCl 0.8 mg 03/05/19 08:30 03/05/19 08:12 Flomax - PO 0.8 mg DAILY@0830 SARAH Administration Vital Signs Period Temp Pulse Resp BP Sys/Shaw Pulse Ox Last 24 Hr 97.7 F-98.8 F 90-111 13-26 84-160/57-90 96-100 Constitutional: Yes: No Distress, Calm Eyes: Yes: Conjunctiva Clear, EOM Intact Respiratory: Yes: CTA Bilaterally Cardiovascular: Yes: Regular Rate and Rhythm JVD: No Carotid Bruit: No Heart Sounds: Yes: S1, S2 (RRR, no M/R/G) Edema: No Peripheral Pulses WNL: Yes Neurological: Yes: Alert no jaundice diaphoresis CBC, BMP 03/05/19 06:05 03/05/19 06:05 ecg: sr, old rbbb cxr: clear lungs tele: afib, rate ok echo 02/2019: nl lvef, nl rvsp, mild tr, mild mr, kiet Echo: Report Reviewed (Echo 06/2018: Nl LV/RV, mod LAE, mild MR, AI, no PHTN) Stress Echo: Other (MPI: 11/2015: No ischemic ST changes. Small region ischemia inferoseptum, apical inferolateral wall, no TID, Normal EF) a/p: 88 yo m hx PAF, cva's, htn, ckd, dm, gib here s/p fall. fall, syncope: -unwitnessed, details unclear, appears he was likely on ground for awhile as he has rhabdo and jayce -no signs acs -unremarkable -possible sepsis as cause given his elevated wbcs, lactate and hypotension. infectious w/u and abx per primary team. pafib: -was on dilt 60 bid and toprol 50 qd at home, held initially due to low bp/ sepsis picture--today bp improved and in afib. will resume toprol 50 qd. Monitor on tele. -He has hx of gastric avm with plans for outpt cauterization and eventual plan for watchman device afterwards. Given his high risk of recurrent cva he has been maintained on eliquis, would continue here at his home dose of 2.5 bid. Aspirin has been held as outpt for now as well until avm treated. CAD s/p CABG: -stable, no signs acs -cont statin, ac jayce, rhabdo: -cont ivfs. renal consulted. Chronic diastolic CHF: -stable here currently. monitor vol status with ivfs -holding home torsemide 50 qd for now given jayce, rhabdo
--- NOTE | 2019-03-05 11:12 | CONSULT ---
Consultation: REQUESTING PROVIDER: Dr. Lie CONSULT REQUEST: We have been asked to medically evaluate this patient for ANGELO. HISTORY OF PRESENT ILLNESS: Pt. is an 88 y.o. M w/ PMHx. of Afib( on Eliquis), HTN, NIDDM w/ peripheral neuropathy, CKD, polyclonal gammopathy, CVA, CAD (s/p 6 vessel CABG), BPH and UGIB presents after having an unwitnessed fall on Saturday evening when trying to go to the bathroom. Pt. states he does not remember how he felt before he fell but was found later on Saturday by his friend. Pt. states he was not able to eat or drink after the fall and that his first meal was breakfast when I saw him this AM. Pt. endorses a cough that started this AM after eating but denies any prior history of difficulty swallowing or cough prior to this morning. Pt. states that he has a gastric ulcer(AVM) that is being worked up outpatient. Per chart review Pt's ASA is being held because of therapeutic intervention. Pt. denies any chest pain, shortness of breath, dizziness , lightheadedness, head ache, dysuria, hematuria , constipation or diarrhea. Pt. denies taking any NSAIDs REVIEW OF SYSTEMS: As Above PHYSICAL EXAMINATION Vital Signs - 24 hr 03/04/19 03/04/19 03/04/19 11:58 13:11 16:51 Temperature Pulse Rate Pulse Rate [ 102 H 92 H 92 H Apical] Respiratory 18 13 16 Rate Blood Pressure Blood Pressure 84/60 L 119/75 160/90 [Right Arm] O2 Sat by Pulse 100 99 98 Oximetry (%) 03/04/19 03/04/19 03/04/19 16:54 17:40 17:47 Temperature 97.7 F 98.8 F Pulse Rate 102 H Pulse Rate [ 90 Apical] Respiratory 17 26 H 26 H Rate Blood Pressure 127/78 Blood Pressure 109/57 L [Right Arm] O2 Sat by Pulse 96 100 Oximetry (%) 03/04/19 03/05/19 03/05/19 21:00 01:00 05:30 Temperature 97.7 F 98.5 F 98.4 F Pulse Rate 91 H 109 H 111 H Pulse Rate [ Apical] Respiratory 21 H 18 20 Rate Blood Pressure 128/70 125/71 144/77 Blood Pressure [Right Arm] O2 Sat by Pulse 100 Oximetry (%) GENERAL: Awake, alert, and fully oriented, in mild respiratory distress. HEAD: Superior occipital erythema EYES: Pupils equal, round and reactive to light, extraocular movements intact, sclera anicteric, conjunctiva clear. EARS, NOSE, THROAT: Ears normal, nares patent, oropharynx clear without exudates. Dry mucous membranes. NECK: Normal range of motion, supple without lymphadenopathy, JVD, or masses. LUNGS: Breath sounds equal, clear to auscultation bilaterally. No wheezes, and no crackles. No accessory muscle use. HEART: Irregular rate and rhythm, normal S1 and S2 without murmur, rub or gallop. ABDOMEN: Soft, nontender, not distended but protuberant, normoactive bowel sounds, no guarding, no rebound, no masses. MUSCULOSKELETAL: Normal range of motion at all joints. No bony deformities or tenderness. No CVA tenderness. 5/5 muscle strength in b/l UE; 3/5 muscle strength b/l in LE. UPPER EXTREMITIES: warm, well-perfused. No cyanosis. No clubbing. No peripheral edema. LOWER EXTREMITIES: 2+ dorsal pedal pulses, warm, well-perfused. No calf tenderness. No peripheral edema. NEUROLOGICAL: Cranial nerves II-XII grossly intact. Normal speech. PSYCHIATRIC: Cooperative. Good eye contact. Appropriate mood and affect. SKIN: Warm, dry, normal turgor, no rashes or lesions noted. Laboratory Results - last 24 hr 03/04/19 03/04/19 03/04/19 10:50 10:50 10:50 WBC RBC Hgb Hct MCV MCH MCHC RDW Plt Count MPV Absolute Neuts (auto) Neutrophils % Neutrophils % (Manual) 70.3 Band Neutrophils % 12.9 Lymphocytes % Lymphocytes % (Manual) 9.9 Monocytes % Monocytes % (Manual) 6 Eosinophils % Eosinophils % (Manual) 0.0 Basophils % Basophils % (Manual) 0.0 Myelocytes % (Man) 0 Promyelocytes % (Man) 0 Blast Cells % (Manual) 0 Nucleated RBC % Metamyelocytes 0 Hypochromia 0 Toxic Granulation 1+ Platelet Estimate Normal Polychromasia 0 Poikilocytosis 0 Anisocytosis 1+ Microcytosis 0 Macrocytosis 1+ PT with INR 15.00 H INR 1.27 H PTT (Actin FS) 36.6 H Sodium Potassium Chloride Carbon Dioxide Anion Gap BUN Creatinine Est GFR (CKD-EPI)AfAm Est GFR (CKD-EPI)NonAf POC Glucometer Random Glucose Lactic Acid Calcium Phosphorus Magnesium Total Bilirubin AST ALT Alkaline Phosphatase Creatine Kinase > 1000 H Creatine Kinase Index 0.0 CK-MB (CK-2) 4.7 H Troponin I 0.08 H Total Protein Albumin Urine Yeast (Auto) 03/04/19 03/04/19 03/04/19 10:50 10:50 10:50 WBC RBC Hgb Hct MCV MCH MCHC RDW Plt Count MPV Absolute Neuts (auto) Neutrophils % Neutrophils % (Manual) Band Neutrophils % Lymphocytes % Lymphocytes % (Manual) Monocytes % Monocytes % (Manual) Eosinophils % Eosinophils % (Manual) Basophils % Basophils % (Manual) Myelocytes % (Man) Promyelocytes % (Man) Blast Cells % (Manual) Nucleated RBC % Metamyelocytes Hypochromia Toxic Granulation Platelet Estimate Polychromasia Poikilocytosis Anisocytosis Microcytosis Macrocytosis PT with INR INR PTT (Actin FS) Sodium 139 Potassium 4.6 Chloride 101 Carbon Dioxide 29 Anion Gap 10 BUN 33.7 H Creatinine 2.5 H Est GFR (CKD-EPI)AfAm 25.61 Est GFR (CKD-EPI)NonAf 22.10 POC Glucometer Random Glucose 248 H Lactic Acid 6.1 H* Calcium 9.5 Phosphorus Magnesium 2.3 Total Bilirubin 1.2 H AST 64 H ALT 37 Alkaline Phosphatase 205 H Creatine Kinase Creatine Kinase Index CK-MB (CK-2) Troponin I Total Protein 7.6 Albumin 3.3 L Urine Yeast (Auto) None seen 03/04/19 03/04/19 03/04/19 10:50 10:50 13:54 WBC RBC Hgb Hct MCV MCH MCHC RDW Plt Count MPV Absolute Neuts (auto) Neutrophils % Neutrophils % (Manual) Band Neutrophils % Lymphocytes % Lymphocytes % (Manual) Monocytes % Monocytes % (Manual) Eosinophils % Eosinophils % (Manual) Basophils % Basophils % (Manual) Myelocytes % (Man) Promyelocytes % (Man) Blast Cells % (Manual) Nucleated RBC % Metamyelocytes Hypochromia Toxic Granulation Platelet Estimate Polychromasia Poikilocytosis Anisocytosis Microcytosis Macrocytosis PT with INR INR PTT (Actin FS) Sodium Potassium Chloride Carbon Dioxide Anion Gap BUN Creatinine Est GFR (CKD-EPI)AfAm Est GFR (CKD-EPI)NonAf POC Glucometer Random Glucose Lactic Acid 4.2 H* Calcium Phosphorus Magnesium Total Bilirubin AST ALT Alkaline Phosphatase Creatine Kinase Creatine Kinase Index No Result Required. No Result Required. CK-MB (CK-2) No Result Required. No Result Required. Troponin I Total Protein Albumin Urine Yeast (Auto) 03/04/19 03/04/19 03/04/19 16:34 17:57 21:05 WBC RBC Hgb Hct MCV MCH MCHC RDW Plt Count MPV Absolute Neuts (auto) Neutrophils % Neutrophils % (Manual) Band Neutrophils % Lymphocytes % Lymphocytes % (Manual) Monocytes % Monocytes % (Manual) Eosinophils % Eosinophils % (Manual) Basophils % Basophils % (Manual) Myelocytes % (Man) Promyelocytes % (Man) Blast Cells % (Manual) Nucleated RBC % Metamyelocytes Hypochromia Toxic Granulation Platelet Estimate Polychromasia Poikilocytosis Anisocytosis Microcytosis Macrocytosis PT with INR INR PTT (Actin FS) Sodium Potassium Chloride Carbon Dioxide Anion Gap BUN Creatinine Est GFR (CKD-EPI)AfAm Est GFR (CKD-EPI)NonAf POC Glucometer 257 259 202 Random Glucose Lactic Acid Calcium Phosphorus Magnesium Total Bilirubin AST ALT Alkaline Phosphatase Creatine Kinase Creatine Kinase Index CK-MB (CK-2) Troponin I Total Protein Albumin Urine Yeast (Auto) 03/05/19 03/05/19 03/05/19 06:05 06:05 06:10 WBC 13.8 H RBC 2.89 L Hgb 10.6 L Hct 31.0 L MCV 107.4 H MCH 36.6 H MCHC 34.1 RDW 14.7 Plt Count 150 D MPV 7.8 Absolute Neuts (auto) 10.4 H Neutrophils % 75.6 Neutrophils % (Manual) Band Neutrophils % Lymphocytes % 17.2 D Lymphocytes % (Manual) Monocytes % 5.0 Monocytes % (Manual) Eosinophils % 1.6 D Eosinophils % (Manual) Basophils % 0.6 Basophils % (Manual) Myelocytes % (Man) Promyelocytes % (Man) Blast Cells % (Manual) Nucleated RBC % 0 Metamyelocytes Hypochromia Toxic Granulation Platelet Estimate Polychromasia Poikilocytosis Anisocytosis Microcytosis Macrocytosis PT with INR INR PTT (Actin FS) Sodium 144 Potassium 4.1 Chloride 111 H Carbon Dioxide 30 Anion Gap 4 L BUN 27.7 H Creatinine 1.5 H Est GFR (CKD-EPI)AfAm 47.49 Est GFR (CKD-EPI)NonAf 40.98 POC Glucometer 179 Random Glucose 183 H Lactic Acid Calcium 8.5 Phosphorus 2.8 Magnesium 2.2 Total Bilirubin 0.8 AST 75 H ALT 34 Alkaline Phosphatase 158 H Creatine Kinase Creatine Kinase Index CK-MB (CK-2) Troponin I Total Protein 6.2 L Albumin 2.6 L Urine Yeast (Auto) Active Medications Home Medications Medication Instructions Recorded Apixaban [Eliquis -] 2.5 mg PO BID 07/14/18 Gabapentin [Neurontin -] 300 mg PO BID 07/14/18 Diltiazem [Cardizem -] 60 mg PO BID 09/01/18 Aspirin [ASA -] 81 mg PO DAILY 09/11/18 Pantoprazole Sodium [Protonix -] 40 mg PO DAILY tablet.ec 09/11/18 Torsemide [Demadex -] 50 mg PO DAILY tablet 09/11/18 Tamsulosin HCl [Flomax -] 0.8 mg PO DAILY #60 capsule 09/12/18 Ferrous Sulfate [Feosol] 325 mg PO BID 10/14/18 Atorvastatin Ca [Lipitor] 40 mg PO HS 03/04/19 Insulin Glargine,Hum.rec.anlog 22 unit SQ HS 03/04/19 [Basaglar Kwikpen U-100] Insulin Sliding Scale [Novolog 0 units SQ TIDAC 03/04/19 Vial Sliding Scale -] Metoprolol Succinate [Toprol XL -] 100 mg PO DAILY 03/04/19 Potassium Chloride 20 meq PO DAILY 03/04/19 Current Medications Apixaban (Eliquis -) 2.5 mg PO BID [facility] Last Admin: 03/05/19 09:18 Dose: 2.5 mg Atorvastatin Calcium (Lipitor -) 40 mg PO HS [facility] Ferrous Sulfate (Feosol -) 325 mg PO BIDWM [facility] Last Admin: 03/05/19 08:12 Dose: 325 mg Sodium Chloride (Normal Saline -) 1,000 mls @ 125 mls/hr IV ASDIR [facility] Last Admin: 03/05/19 06:15 Dose: 125 mls/hr Insulin Aspart (Novolog Vial Sliding Scale -) 1 vial SQ ACHS [facility]; Protocol Last Admin: 03/05/19 06:16 Dose: 2 units Metoprolol Succinate (Toprol Xl -) 50 mg PO DAILY [facility] Last Admin: 03/05/19 09:18 Dose: 50 mg Pantoprazole Sodium (Protonix -) 40 mg PO DAILY [facility] Last Admin: 03/05/19 09:18 Dose: 40 mg Tamsulosin HCl (Flomax -) 0.8 mg PO DAILY@0830 [facility] Last Admin: 03/05/19 08:12 Dose: 0.8 mg ASSESSMENT/PLAN: Dispo: We will continue to follow the patient. Thank you for this consultative opportunity. Pt. is an 88 y.o. M w/ PMHx. of Afib( on Eliquis), HTN, NIDDM w/ peripheral neuropathy, CKD, polyclonal gammopathy, CVA, CAD (s/p 6 vessel CABG) and UGIB presents after having an unwitnessed fall on Saturday evening when trying to go to the bathroom. #ANGELO 2/2 Dehydration and possible UTI Cr. 2.5-->1.5 (baseline ~1.2) BUN 33 on admission. c/w IVF NS @ 125 UA: turbid, 3+ LE, 202 WBCs Urine culture growing lactose Neg. Fermenting Gram Neg. Rods ( Has grown Citrobacter Koseri in the past) Suggest starting Pt. on Ceftriaxone and await sensitivities c/w Flomax Visit type - Emergency Visit Emergency Visit: Yes ED Registration Date: 03/04/19 Care time: The patient presented to the Emergency Department on the above date and was hospitalized for further evaluation of their emergent condition. - New Patient This patient is new to me today: Yes Date on this admission: 03/05/19 - Critical Care Critical Care patient: No ATTENDING PHYSICIAN STATEMENT I saw and evaluated the patient. I reviewed the resident's note and discussed the case with the resident. I agree with the resident's findings and plan as documented. SUBJECTIVE: OBJECTIVE: ASSESSMENT AND PLAN:
--- NOTE | 2019-03-05 12:46 | CON.ID ---
Consult - Past Medical History Cardio/Vascular: Yes: AFIB, CAD (6 vessel CABG 05/2002), CHF (diastolic), HTN Gastrointestinal: Yes: Crohn's Disease, GI Bleed Renal/: Yes: Renal Inusuff, Other (polyclonal gammopathy) Endocrine: Yes: Diabetes Mellitus - Past Surgical History Past Surgical History: Yes: CABG (x6), Joint Replacement ( R knee replacement 2004) - Alcohol/Substance Use Hx Alcohol Use: No History of Substance Use: reports: None - Smoking History Smoking history: Never smoked Have you smoked in the past 12 months: No - Social History Usual Living Arrangement: Alone () ADL: Support Services (Daughter visits daily) History of Recent Travel: No Home Medications - Allergies Allergies/Adverse Reactions: Allergies Allergy/AdvReac Type Severity Reaction Status Date / Time No Known Allergies Allergy Verified 03/04/19 10:14 - Home Medications Home Medications: Ambulatory Orders Apixaban [Eliquis -] 2.5 mg PO BID 07/14/18 Gabapentin [Neurontin -] 300 mg PO BID 07/14/18 Diltiazem [Cardizem -] 60 mg PO BID 09/01/18 Aspirin [ASA -] 81 mg PO DAILY 09/11/18 Pantoprazole Sodium [Protonix -] 40 mg PO DAILY tablet.ec 09/11/18 Torsemide [Demadex -] 50 mg PO DAILY tablet 09/11/18 Tamsulosin HCl [Flomax -] 0.8 mg PO DAILY #60 capsule 09/12/18 Ferrous Sulfate [Feosol] 325 mg PO BID 10/14/18 Atorvastatin Ca [Lipitor] 40 mg PO HS 03/04/19 Insulin Glargine,Hum.rec.anlog [Basaglar Kwikpen U-100] 22 unit SQ HS 03/04/19 Insulin Sliding Scale [Novolog Vial Sliding Scale -] 0 units SQ TIDAC 03/04/19 Metoprolol Succinate [Toprol XL -] 100 mg PO DAILY 03/04/19 Potassium Chloride 20 meq PO DAILY 03/04/19 Physical Exam Vital Signs: Vital Signs Temperature 98.4 F 03/05/19 09:00 Pulse Rate 114 H 03/05/19 09:00 Respiratory Rate 20 03/05/19 09:00 Blood Pressure 142/83 03/05/19 09:00 O2 Sat by Pulse Oximetry (%) 100 03/05/19 09:00 Labs: CBC, BMP 03/05/19 06:05 03/05/19 06:05
[2019-03-05] MEDS ORDERED: INSULIN (NOVOLOG) ASPART 100 UNITS/ML 10ML VIAL ONE (13:57)
--- NOTE | 2019-03-05 17:21 | PN ---
Teaching Attending Note Name of Resident: Jin Prado (Nephrology) ATTENDING PHYSICIAN STATEMENT I saw and evaluated the patient. I reviewed the resident's note and discussed the case with the resident. I agree with the resident's findings and plan as documented. Renal Pt is an 88 year old male with pmhx of a-fib, htn, dm, ckd polyclonal gammopathy, cad and cabg who presented after a fall. I was called to evaluate him for angelo and rhabdo. His renal function is improving. pmhx a-fib htn dm ckd nkda socail hx neg family hx non contrib Laboratory Tests 12/15/18 03/04/19 03/05/19 06:35 10:50 06:05 Creatinine 1.5 H 2.5 H 1.5 H Creatine Kinase 1284 H Last Vital Signs Temp Pulse Resp BP Pulse Ox 97.8 F 115 H 20 148/88 100 03/05/19 14:00 03/05/19 14:00 03/05/19 09:00 03/05/19 14:00 03/05/19 09:00 Current Medications Generic Name Dose Route Start Last Admin Trade Name Freq PRN Reason Stop Dose Admin Apixaban 2.5 mg 03/04/19 22:00 03/05/19 09:18 Eliquis - PO 2.5 mg BID SARAH Administration Atorvastatin Calcium 40 mg 03/05/19 22:00 Lipitor - PO HS SARAH Ferrous Sulfate 325 mg 03/05/19 08:00 03/05/19 08:12 Feosol - PO 325 mg BIDWM SARAH Administration Ceftriaxone Sodium 1 gm/ 50 mls @ 100 mls/hr 03/06/19 10:00 Dextrose IVPB DAILY SARAH Protocol Sodium Chloride 1,000 mls @ 75 mls/hr 03/05/19 17:10 Normal Saline - IV ASDIR SARAH Insulin Aspart 1 vial 03/04/19 22:00 03/05/19 14:02 Novolog Vial Sliding Scale - SQ 4 units ACHS SARAH Administration Protocol Metoprolol Succinate 50 mg 03/05/19 10:00 03/05/19 09:18 Toprol Xl - PO 50 mg DAILY SARAH Administration Pantoprazole Sodium 40 mg 03/05/19 10:00 03/05/19 09:18 Protonix - PO 40 mg DAILY SARAH Administration Tamsulosin HCl 0.8 mg 03/05/19 08:30 03/05/19 08:12 Flomax - PO 0.8 mg DAILY@0830 SARAH Administration cardio s1s2 skin neg rash neuro awake pulm clear gi soft Impression 1. ANGELO 2. s/p fall 3. hx perinephric mass 4. anemia 5. htn 6. dm 7. 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
[2019-03-05] MEDS ORDERED: ATORVASTATIN CA 80 MG TABLET (FP) PO SCH (22:00)
[2019-03-06] MEDS: SODIUM CHLORIDE 1,000 ML IV SCH (04:30)
[2019-03-06] MEDS: INSULIN SLIDING SCALE (NOVOLOG) 1 VIAL SQ SCH ×4 (06:16→21:30)
[2019-03-06 07:15] LABS: BASO % 0.6 % (0-2.0); EOS % 3.3 % (0-4.5); HEMATOCRIT 31.2 % (35.4-49); HEMOGLOBIN 10.6 GM/dL (11.7-16.9); LYMPH % 25.6 % (8-40); MCH 36.3 pg (25.7-33.7); MCHC 33.9 g/dl (32.0-35.9); MEAN CELL VOLUME 107.2 fl (80-96); MEAN PLT VOLUME 7.8 fl (7.5-11.1); NEUT % 64.5 % (42.8-82.8); PLATELET COUNT 139 K/MM3 (134-434); RBC 2.91 M/mm3 (4.00-5.60); RDW 14.1 % (11.9-15.9); WHITE BLOOD COUNT 8.6 K/mm3 (4.0-10.0)
[2019-03-06 07:45] LABS: ALBUMIN 2.6 g/dl (3.4-5.0); BLOOD UREA NITROGEN 19.5 mg/dL (7-18); CALCIUM 8.1 mg/dL (8.5-10.1); CREATININE 1.2 mg/dL (0.55-1.3); PHOSPHOROUS 2.4 mg/dL (2.5-4.9); POTASSIUM 4.1 mmol/L (3.5-5.1); TOT PROT 6.3 g/dl (6.4-8.2)
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
[2019-03-06] MEDS: FERROUS SO4 325 MG TABLET (FP) PO SCH ×2 (08:33→17:16)
[2019-03-06] MEDS: TAMSULOSIN HCL 0.4 MG CAP PO SCH (08:33)
[2019-03-06] MEDS ORDERED: cefTRIAXone SODIUM 1 GM VIAL ONE (09:27)
[2019-03-06] MEDS ORDERED: DEXTROSE 5%-WATER - 50 ML IVPB ONE (09:28)
[2019-03-06] MEDS: CEFTRIAXONE 1 GM in DEXTROSE 5%-WATER - 50 ML IVPB SCH (09:33)
[2019-03-06] MEDS: PANTOPRAZOLE 40 MG TABLET (FP) PO SCH (09:33)
[2019-03-06] MEDS: APIXABAN 2.5 MG TABLET PO SCH ×2 (09:33→21:29)
--- NOTE | 2019-03-06 10:19 | PN ---
Progress Note, Physician Chief Complaint: no CP or SOB TELE: AF, rare bursts into 130s, self limited Weight up 3 lbs - Current Medication List Current Medications: Active Medications Apixaban (Eliquis -) 2.5 mg PO BID [facility] Last Admin: 03/06/19 09:33 Dose: 2.5 mg Atorvastatin Calcium (Lipitor -) 40 mg PO HS [facility] Last Admin: 03/05/19 21:02 Dose: 40 mg Ferrous Sulfate (Feosol -) 325 mg PO BIDWM [facility] Last Admin: 03/06/19 08:33 Dose: 325 mg Ceftriaxone Sodium 1 gm/ (Dextrose) 50 mls @ 100 mls/hr IVPB DAILY [facility]; Protocol Last Admin: 03/06/19 09:33 Dose: 100 mls/hr Sodium Chloride (Normal Saline -) 1,000 mls @ 75 mls/hr IV ASDIR [facility] Last Admin: 03/06/19 04:30 Dose: 75 mls/hr Insulin Aspart (Novolog Vial Sliding Scale -) 1 vial SQ ACHS [facility]; Protocol Last Admin: 03/06/19 06:16 Dose: 2 units Metoprolol Succinate (Toprol Xl -) 50 mg PO DAILY [facility] Last Admin: 03/06/19 09:33 Dose: 50 mg Pantoprazole Sodium (Protonix -) 40 mg PO DAILY [facility] Last Admin: 03/06/19 09:33 Dose: 40 mg Tamsulosin HCl (Flomax -) 0.8 mg PO DAILY@0830 [facility] Last Admin: 03/06/19 08:33 Dose: 0.8 mg - Objective Vital Signs: Vital Signs Temperature 98.3 F 03/06/19 09:38 Pulse Rate 110 H 03/06/19 09:38 Respiratory Rate 19 03/06/19 09:38 Blood Pressure 142/87 03/06/19 09:38 O2 Sat by Pulse Oximetry (%) 97 03/05/19 20:41 Constitutional: Yes: Calm Cardiovascular: Yes: Pulse Irregular Respiratory: Yes: CTA Bilaterally Gastrointestinal: Yes: Soft Edema: No Neurological: Yes: Alert Labs: CBC, BMP 03/06/19 06:20 03/06/19 06:25 INR, PTT INR 1.27 (0.83-1.09) H 03/04/19 10:50 Laboratory Tests 03/05/19 03/06/19 03/06/19 06:05 06:20 06:25 WBC 8.6 Hgb 10.6 L Plt Count 139 Sodium 140 Potassium 4.1 BUN 19.5 H Creatinine 1.5 H 1.2 Magnesium 2.0 - ....Imaging EKG: Image Reviewed Assessment/Plan tele: afib, rate ok echo 02/2019: nl lvef, nl rvsp, mild tr, mild mr, kiet Echo: Report Reviewed (Echo 06/2018: Nl LV/RV, mod LAE, mild MR, AI, no PHTN) Stress Echo: Other (MPI: 11/2015: No ischemic ST changes. Small region ischemia inferoseptum, apical inferolateral wall, no TID, Normal EF) a/p: 88 yo m hx PAF, cva's, htn, ckd, dm, gib here s/p fall. fall, syncope: -unwitnessed, details unclear, appears he was likely on ground for awhile as he has rhabdo and jayce -no signs acs -unremarkable -possible sepsis as cause given his elevated wbcs, lactate and hypotension. infectious w/u and abx per primary team. pafib: -was on dilt 60 bid and toprol 50 qd at home, held initially due to low bp/ sepsis picture -Toprol resumed yesterday; will plan to resume dilt in next 24 hours but cautiously to avoid hypotension (plan to resume Torsemide today) -He has hx of gastric avm with plans for outpt cauterization and eventual plan for watchman device afterwards. Given his high risk of recurrent cva he has been maintained on eliquis, would continue here at his home dose of 2.5 bid. Aspirin has been held as outpt for now as well until avm treated. CAD s/p CABG: -stable, no signs acs -cont statin, ac jayce, rhabdo: -cont ivfs. renal consulted. -Renal function back to baseline Chronic diastolic CHF: -stable here currently. monitor vol status with ivfs -As renal fxn back to baseline, will resume home Torsemide of 50mg daily to assure venous pressures remain low to normal (elevation potentially increases risk of bleeding from his AVM)
--- NOTE | 2019-03-06 12:03 | PN ---
Progress Note, Physician History of Present Illness: Pt seen and examined at bedside. He is awake and alert. He denies shortness - Current Medication List Current Medications: Active Medications Apixaban (Eliquis -) 2.5 mg PO BID [facility] Last Admin: 03/06/19 09:33 Dose: 2.5 mg Atorvastatin Calcium (Lipitor -) 40 mg PO HS [facility] Last Admin: 03/05/19 21:02 Dose: 40 mg Ferrous Sulfate (Feosol -) 325 mg PO BIDWM [facility] Last Admin: 03/06/19 08:33 Dose: 325 mg Ceftriaxone Sodium 1 gm/ (Dextrose) 50 mls @ 100 mls/hr IVPB DAILY [facility]; Protocol Last Admin: 03/06/19 09:33 Dose: 100 mls/hr Sodium Chloride (Normal Saline -) 1,000 mls @ 75 mls/hr IV ASDIR [facility] Last Admin: 03/06/19 04:30 Dose: 75 mls/hr Insulin Aspart (Novolog Vial Sliding Scale -) 1 vial SQ ACHS [facility]; Protocol Last Admin: 03/06/19 06:16 Dose: 2 units Metoprolol Succinate (Toprol Xl -) 50 mg PO DAILY [facility] Last Admin: 03/06/19 09:33 Dose: 50 mg Pantoprazole Sodium (Protonix -) 40 mg PO DAILY [facility] Last Admin: 03/06/19 09:33 Dose: 40 mg Tamsulosin HCl (Flomax -) 0.8 mg PO DAILY@0830 [facility] Last Admin: 03/06/19 08:33 Dose: 0.8 mg Torsemide 40 mg/ Torsemide 10 (mg) 50 mg PO DAILY [facility] - Objective Vital Signs: Vital Signs Temperature 98.3 F 03/06/19 09:38 Pulse Rate 110 H 03/06/19 09:38 Respiratory Rate 19 03/06/19 09:38 Blood Pressure 142/87 03/06/19 09:38 O2 Sat by Pulse Oximetry (%) 97 03/05/19 20:41 Constitutional: Yes: Calm Eyes: Yes: Conjunctiva Clear HENT: Yes: Atraumatic Neck: Yes: Supple Cardiovascular: Yes: S1, S2 Gastrointestinal: Yes: Normal Bowel Sounds, Soft Genitourinary: Yes: WNL Musculoskeletal: Yes: WNL Edema: LLE: Trace, RLE: Trace Neurological: Yes: Oriented Psychiatric: Yes: Oriented Labs: CBC, BMP 03/06/19 06:20 03/06/19 06:25 INR, PTT INR 1.27 (0.83-1.09) H 03/04/19 10:50 Assessment/Plan Current Medications Generic Name Dose Route Start Last Admin Trade Name Francisco PRN Reason Stop Dose Admin Apixaban 2.5 mg 03/04/19 22:00 03/06/19 09:33 Eliquis - PO 2.5 mg BID [facility] Administration Atorvastatin Calcium 40 mg 03/05/19 22:00 03/05/19 21:02 Lipitor - PO 40 mg HS [facility] Administration Ferrous Sulfate 325 mg 03/05/19 08:00 03/06/19 08:33 Feosol - PO 325 mg BIDWM [facility] Administration Ceftriaxone Sodium 1 gm/ 50 mls @ 100 mls/hr 03/06/19 10:00 03/06/19 09:33 Dextrose IVPB 100 mls/hr DAILY [facility] Administration Protocol Sodium Chloride 1,000 mls @ 75 mls/hr 03/05/19 17:10 03/06/19 04:30 Normal Saline - IV 75 mls/hr ASDIR [facility] Administration Insulin Aspart 1 vial 03/04/19 22:00 03/06/19 06:16 Novolog Vial Sliding Scale - SQ 2 units ACHS [facility] Administration Protocol Metoprolol Succinate 50 mg 03/05/19 10:00 03/06/19 09:33 Toprol Xl - PO 50 mg DAILY [facility] Administration Pantoprazole Sodium 40 mg 03/05/19 10:00 03/06/19 09:33 Protonix - PO 40 mg DAILY [facility] Administration Tamsulosin HCl 0.8 mg 03/05/19 08:30 03/06/19 08:33 Flomax - PO 0.8 mg DAILY@0830 [facility] Administration Torsemide 40 mg/ Torsemide 10 50 mg 03/07/19 10:00 mg PO DAILY [facility] Impression 1. ANGELO 2. s/p fall 3. rhabdo 4. anemia 5. htn 6. 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
[2019-03-06] MEDS: NAPH,MB-DB/K PH,MBDB POWDER PACKET PO SCH ×2 (12:19→21:29)
--- NOTE | 2019-03-06 13:22 | PN ---
Progress Note, Physician History of Present Illness: patient stable looks better no complaints - Current Medication List Current Medications: Active Medications Apixaban (Eliquis -) 2.5 mg PO BID [facility] Last Admin: 03/06/19 09:33 Dose: 2.5 mg Atorvastatin Calcium (Lipitor -) 40 mg PO HS [facility] Last Admin: 03/05/19 21:02 Dose: 40 mg Ferrous Sulfate (Feosol -) 325 mg PO BIDWM [facility] Last Admin: 03/06/19 08:33 Dose: 325 mg Ceftriaxone Sodium 1 gm/ (Dextrose) 50 mls @ 100 mls/hr IVPB DAILY [facility]; Protocol Last Admin: 03/06/19 09:33 Dose: 100 mls/hr Insulin Aspart (Novolog Vial Sliding Scale -) 1 vial SQ ACHS [facility]; Protocol Last Admin: 03/06/19 12:03 Dose: 4 units Metoprolol Succinate (Toprol Xl -) 50 mg PO DAILY [facility] Last Admin: 03/06/19 09:33 Dose: 50 mg Pantoprazole Sodium (Protonix -) 40 mg PO DAILY [facility] Last Admin: 03/06/19 09:33 Dose: 40 mg Potassium Phos/Sodium Phos (Phos-Nak Packet -) 1 packet PO BID [facility] Stop: 03/06/19 22:01 Last Admin: 03/06/19 12:19 Dose: 1 packet Tamsulosin HCl (Flomax -) 0.8 mg PO DAILY@0830 [facility] Last Admin: 03/06/19 08:33 Dose: 0.8 mg Torsemide 40 mg/ Torsemide 10 (mg) 50 mg PO DAILY [facility] - Objective Vital Signs: Vital Signs Temperature 98.3 F 03/06/19 09:38 Pulse Rate 110 H 03/06/19 09:38 Respiratory Rate 19 03/06/19 09:38 Blood Pressure 142/87 03/06/19 09:38 O2 Sat by Pulse Oximetry (%) 97 03/05/19 20:41 Constitutional: Yes: No Distress, Calm Cardiovascular: Yes: S1, S2 Respiratory: Yes: Regular, CTA Bilaterally Gastrointestinal: Yes: Normal Bowel Sounds, Soft Musculoskeletal: Yes: WNL Extremities: Yes: WNL Neurological: Yes: Alert, Oriented Psychiatric: Yes: Alert, Oriented Labs: CBC, BMP 03/06/19 06:20 03/06/19 06:25 INR, PTT INR 1.27 (0.83-1.09) H 03/04/19 10:50 Assessment/Plan 1. ANGELO 2. s/p fall 3. rhabdo 4. anemia 5. htn 6. dm 7 uti plan continue ceftriaxone monitor physio rest as per the teams
[2019-03-06] MEDS ORDERED: ARTIFICIAL TEARS (POLYVINYL ALCOHOL) OPTH DROPS OU PRN (16:42)
[2019-03-06] MEDS: dilTIAZem HCL 60 MG TABLET (FP) PO SCH (21:29)
[2019-03-06] MEDS: ATORVASTATIN CA 40 MG TABLET (FP) PO SCH (21:40)
[2019-03-07] MEDS: INSULIN SLIDING SCALE (NOVOLOG) 1 VIAL SQ SCH ×4 (06:26→22:16)
[2019-03-07 07:06] LABS: BASO % 0.7 % (0-2.0); EOS % 4.5 % (0-4.5); HEMATOCRIT 32.5 % (35.4-49); HEMOGLOBIN 11.2 GM/dL (11.7-16.9); LYMPH % 28.8 % (8-40); MCH 36.5 pg (25.7-33.7); MCHC 34.4 g/dl (32.0-35.9); MEAN CELL VOLUME 106.1 fl (80-96); MEAN PLT VOLUME 7.7 fl (7.5-11.1); MONO % 7.2 % (3.8-10.2); NEUT % 58.8 % (42.8-82.8); PLATELET COUNT 152 K/MM3 (134-434); RBC 3.06 M/mm3 (4.00-5.60); RDW 13.7 % (11.9-15.9)
[2019-03-07 07:33] LABS: ALBUMIN 2.7 g/dl (3.4-5.0); BILIRUBIN,TOTAL 1.3 mg/dL (0.2-1); BLOOD UREA NITROGEN 17.4 mg/dL (7-18); CALCIUM 8.4 mg/dL (8.5-10.1); PHOSPHOROUS 2.7 mg/dL (2.5-4.9); POTASSIUM 4.4 mmol/L (3.5-5.1); TOT PROT 6.6 g/dl (6.4-8.2)
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
[2019-03-07] MEDS ORDERED: cefTRIAXone SODIUM 1 GM VIAL ONE (09:58)
[2019-03-07] MEDS ORDERED: DEXTROSE 5%-WATER - 50 ML IVPB ONE (09:59)
[2019-03-07] MEDS ORDERED: TORSEMIDE 20 MG TABLET (FP) PO SCH (10:00)
[2019-03-07] MEDS: CEFTRIAXONE 1 GM in DEXTROSE 5%-WATER - 50 ML IVPB SCH (10:06)
[2019-03-07] MEDS: APIXABAN 2.5 MG TABLET PO SCH ×2 (10:07→22:16)
[2019-03-07] MEDS: FERROUS SO4 325 MG TABLET (FP) PO SCH ×2 (10:08→17:13)
[2019-03-07] MEDS: TORSEMIDE 40 MG, TORSEMIDE 10 MG PO SCH (10:08)
[2019-03-07] MEDS: PANTOPRAZOLE 40 MG TABLET (FP) PO SCH (10:08)
[2019-03-07] MEDS: TAMSULOSIN HCL 0.4 MG CAP PO SCH (10:08)
[2019-03-07] MEDS: dilTIAZem HCL 60 MG TABLET (FP) PO SCH ×2 (10:09→22:16)
--- NOTE | 2019-03-07 11:17 | PN ---
Progress Note (short form) - Note Progress Note: s: no cp sob palps dizzy tele: rate controlled afib Current Medications Generic Name Dose Route Start Last Admin Trade Name Freq PRN Reason Stop Dose Admin Apixaban 2.5 mg 03/04/19 22:00 03/07/19 10:07 Eliquis - PO 2.5 mg BID [facility] Administration Artificial Tears 2 drop 03/06/19 16:42 03/06/19 20:17 Artificial Tears OU 2 drop QID PRN Administration DRY EYES Atorvastatin Calcium 40 mg 03/06/19 21:36 03/06/19 21:40 Lipitor - PO 40 mg HS [facility] Administration Diltiazem HCl 60 mg 03/06/19 22:00 03/07/19 10:09 Cardizem - PO 60 mg BID [facility] Administration Ferrous Sulfate 325 mg 03/05/19 08:00 03/07/19 10:08 Feosol - PO 325 mg BIDWM [facility] Administration Ceftriaxone Sodium 1 gm/ 50 mls @ 100 mls/hr 03/06/19 10:00 03/07/19 10:06 Dextrose IVPB 100 mls/hr DAILY [facility] Administration Protocol Insulin Aspart 1 vial 03/04/19 22:00 03/07/19 06:26 Novolog Vial Sliding Scale - SQ 2 units ACHS [facility] Administration Protocol Metoprolol Succinate 50 mg 03/05/19 10:00 03/07/19 10:08 Toprol Xl - PO 50 mg DAILY [facility] Administration Pantoprazole Sodium 40 mg 03/05/19 10:00 03/07/19 10:08 Protonix - PO 40 mg DAILY [facility] Administration Tamsulosin HCl 0.8 mg 03/05/19 08:30 03/07/19 10:08 Flomax - PO 0.8 mg DAILY@0830 [facility] Administration Torsemide 40 mg/ Torsemide 10 50 mg 03/07/19 10:00 03/07/19 10:08 mg PO 50 mg DAILY [facility] Administration Vital Signs Period Temp Pulse Resp BP Sys/Shaw Pulse Ox Last 24 Hr 97.9 F-98.9 F 79-113 18-20 134-149/75-87 97 Constitutional: Yes: Calm Cardiovascular: Yes: Pulse Irregular Respiratory: Yes: CTA Bilaterally Gastrointestinal: Yes: Soft Edema: No Neurological: Yes: Alert no jaundice diaphoresis Labs: CBC, BMP 03/07/19 05:45 03/07/19 05:45 echo 02/2019: nl lvef, nl rvsp, mild tr, mild mr, kiet Echo: Report Reviewed (Echo 06/2018: Nl LV/RV, mod LAE, mild MR, AI, no PHTN) Stress Echo: Other (MPI: 11/2015: No ischemic ST changes. Small region ischemia inferoseptum, apical inferolateral wall, no TID, Normal EF) a/p: 88 yo m hx PAF, cva's, htn, ckd, dm, gib here s/p fall. fall, syncope: -unwitnessed, details unclear, appears he was likely on ground for awhile as he has rhabdo and jayce -no signs acs -unremarkable -possible sepsis as cause given his elevated wbcs, lactate and hypotension. infectious w/u and abx per primary team. pafib: -cont home dilt 60 bid and toprol 50 qd -He has hx of gastric avm with plans for outpt cauterization and eventual plan for watchman device afterwards. Given his high risk of recurrent cva he has been maintained on eliquis, would continue here at his home dose of 2.5 bid. Aspirin has been held as outpt for now as well until avm treated. CAD s/p CABG: -stable, no signs acs -cont statin, ac jayce, rhabdo: -cont ivfs. renal consulted. -Renal function back to baseline Chronic diastolic CHF: -stable here currently. monitor vol status with ivfs -As renal fxn back to baseline, resumed home Torsemide of 50mg daily to assure venous pressures remain low to normal (elevation potentially increases risk of bleeding from his AVM)
[2019-03-07 15:13] VITALS: BMI 26.6
--- NOTE | 2019-03-07 17:41 | PN ---
Progress Note, Physician History of Present Illness: Pt states he feels better. Remains afebrile, is without distress. Has no specific complaints. - Current Medication List Current Medications: Active Medications Apixaban (Eliquis -) 2.5 mg PO BID [facility] Last Admin: 03/07/19 10:07 Dose: 2.5 mg Artificial Tears (Artificial Tears) 2 drop OU QID PRN PRN Reason: DRY EYES Last Admin: 03/06/19 20:17 Dose: 2 drop Atorvastatin Calcium (Lipitor -) 40 mg PO HS [facility] Last Admin: 03/06/19 21:40 Dose: 40 mg Diltiazem HCl (Cardizem -) 60 mg PO BID [facility] Last Admin: 03/07/19 10:09 Dose: 60 mg Ferrous Sulfate (Feosol -) 325 mg PO BIDWM [facility] Last Admin: 03/07/19 17:13 Dose: 325 mg Ceftriaxone Sodium 1 gm/ (Dextrose) 50 mls @ 100 mls/hr IVPB DAILY [facility]; Protocol Last Admin: 03/07/19 10:06 Dose: 100 mls/hr Insulin Aspart (Novolog Vial Sliding Scale -) 1 vial SQ ACHS [facility]; Protocol Last Admin: 03/07/19 17:13 Dose: 4 units Metoprolol Succinate (Toprol Xl -) 50 mg PO DAILY [facility] Last Admin: 03/07/19 10:08 Dose: 50 mg Pantoprazole Sodium (Protonix -) 40 mg PO DAILY [facility] Last Admin: 03/07/19 10:08 Dose: 40 mg Tamsulosin HCl (Flomax -) 0.8 mg PO DAILY@0830 [facility] Last Admin: 03/07/19 10:08 Dose: 0.8 mg Torsemide 40 mg/ Torsemide 10 (mg) 50 mg PO DAILY [facility] Last Admin: 03/07/19 10:08 Dose: 50 mg - Objective Vital Signs: Vital Signs Temperature 98.8 F 03/07/19 14:00 Pulse Rate 78 03/07/19 14:00 Respiratory Rate 20 03/07/19 10:00 Blood Pressure 112/61 03/07/19 14:00 O2 Sat by Pulse Oximetry (%) 99 03/07/19 10:00 Constitutional: Yes: No Distress, Calm Eyes: Yes: Conjunctiva Clear Cardiovascular: Yes: Pulse Irregular Respiratory: Yes: Regular Gastrointestinal: Yes: Normal Bowel Sounds, Soft Genitourinary: Yes: WNL Extremities: Yes: WNL Integumentary: Yes: WNL Neurological: Yes: Alert Labs: CBC, BMP 03/07/19 05:45 03/07/19 05:45 INR, PTT INR 1.27 (0.83-1.09) H 03/04/19 10:50 Problem List - Problems (1) CHF (congestive heart failure) Code(s): I50.9 - HEART FAILURE, UNSPECIFIED (2) ANGELO (acute kidney injury) Code(s): N17.9 - ACUTE KIDNEY FAILURE, UNSPECIFIED (3) Diabetes mellitus Code(s): E11.9 - TYPE 2 DIABETES MELLITUS WITHOUT COMPLICATIONS (4) Fall in elderly patient Code(s): R29.6 - REPEATED FALLS (5) Hypertension Code(s): I10 - ESSENTIAL (PRIMARY) HYPERTENSION (6) Rhabdomyolysis Code(s): M62.82 - RHABDOMYOLYSIS Qualifiers: Rhabdomyolysis type: traumatic Encounter type: initial encounter Qualified Code(s): T79.6XXA - Traumatic ischemia of muscle, initial encounter (7) S/P CABG (coronary artery bypass graft) Code(s): Z95.1 - PRESENCE OF AORTOCORONARY BYPASS GRAFT (8) Syncope Code(s): R55 - SYNCOPE AND COLLAPSE Qualifiers: Syncope type: unspecified Qualified Code(s): R55 - Syncope and collapse (9) UTI (urinary tract infection) Code(s): N39.0 - URINARY TRACT INFECTION, SITE NOT SPECIFIED Qualifiers: Urinary tract infection type: acute cystitis Hematuria presence: with hematuria Qualified Code(s): N30.01 - Acute cystitis with hematuria (10) Afib Code(s): I48.91 - UNSPECIFIED ATRIAL FIBRILLATION Qualifiers: Atrial fibrillation type: chronic (11) Anemia Code(s): D64.9 - ANEMIA, UNSPECIFIED Qualifiers: Anemia type: unspecified type Qualified Code(s): D64.9 - Anemia, unspecified (12) CKD (chronic kidney disease) stage 3, GFR 30-59 ml/min Code(s): N18.3 - CHRONIC KIDNEY DISEASE, STAGE 3 (MODERATE) Assessment/Plan ANGELO UTI s/p fall rhabdomyolysis anemia HTN DM -- culture isolate noted, continue Ceftriaxone leukocytosis resolved, pt afebrile
[2019-03-07] MEDS: ATORVASTATIN CA 40 MG TABLET (FP) PO SCH (22:16)
[2019-03-08] MEDS ORDERED: INSULIN (NOVOLOG) ASPART 100 UNITS/ML 10ML VIAL ONE (06:06)
[2019-03-08] MEDS: INSULIN SLIDING SCALE (NOVOLOG) 1 VIAL SQ SCH ×4 (06:13→22:08)
[2019-03-08 07:33] LABS: BASO % 0.8 % (0-2.0); HEMATOCRIT 32.8 % (35.4-49); HEMOGLOBIN 11.5 GM/dL (11.7-16.9); LYMPH % 29.4 % (8-40); MCH 36.7 pg (25.7-33.7); MEAN CELL VOLUME 104.8 fl (80-96); MEAN PLT VOLUME 7.6 fl (7.5-11.1); MONO % 9.6 % (3.8-10.2); NEUT % 56.2 % (42.8-82.8); PLATELET COUNT 180 K/MM3 (134-434); RBC 3.13 M/mm3 (4.00-5.60); RDW 13.5 % (11.9-15.9); WHITE BLOOD COUNT 6.3 K/mm3 (4.0-10.0)
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
[2019-03-08 08:00] LABS: ALBUMIN 2.7 g/dl (3.4-5.0); BILIRUBIN,TOTAL 1.1 mg/dL (0.2-1); BLOOD UREA NITROGEN 18.7 mg/dL (7-18); CALCIUM 8.2 mg/dL (8.5-10.1); CREATININE 1.3 mg/dL (0.55-1.3); MAGNESIUM 1.8 mg/dL (1.8-2.4); PHOSPHOROUS 3.1 mg/dL (2.5-4.9); POTASSIUM 3.4 mmol/L (3.5-5.1); TOT PROT 6.8 g/dl (6.4-8.2)
[2019-03-08] MEDS ORDERED: POTASSIUM CHLORIDE TABS 20 MEQ TABLET.ER (FP) PO ONE (08:07)
[2019-03-08] MEDS ORDERED: cefTRIAXone SODIUM 1 GM VIAL ONE (08:19)
[2019-03-08] MEDS ORDERED: DEXTROSE 5%-WATER - 50 ML IVPB ONE (08:19)
[2019-03-08] MEDS: TAMSULOSIN HCL 0.4 MG CAP PO SCH (08:26)
[2019-03-08] MEDS: FERROUS SO4 325 MG TABLET (FP) PO SCH ×2 (08:26→17:00)
[2019-03-08] MEDS: CEFTRIAXONE 1 GM in DEXTROSE 5%-WATER - 50 ML IVPB SCH (09:04)
[2019-03-08] MEDS: dilTIAZem HCL 60 MG TABLET (FP) PO SCH ×2 (09:05→22:08)
[2019-03-08] MEDS: APIXABAN 2.5 MG TABLET PO SCH ×2 (09:05→22:08)
[2019-03-08] MEDS: PANTOPRAZOLE 40 MG TABLET (FP) PO SCH (09:06)
[2019-03-08] MEDS ORDERED: PT OWN MED DRAWER 7, Y5N ONE ×2 (09:08→10:35)
[2019-03-08] MEDS: TORSEMIDE 40 MG, TORSEMIDE 10 MG PO SCH (09:08)
--- NOTE | 2019-03-08 10:36 | PN ---
Progress Note (short form) - Note Progress Note: s: no cp sob palps dizzy tele: rate controlled afib Current Medications Generic Name Dose Route Start Last Admin Trade Name Freq PRN Reason Stop Dose Admin Apixaban 2.5 mg 03/04/19 22:00 03/08/19 09:05 Eliquis - PO 2.5 mg BID [facility] Administration Artificial Tears 2 drop 03/06/19 16:42 03/06/19 20:17 Artificial Tears OU 2 drop QID PRN Administration DRY EYES Atorvastatin Calcium 40 mg 03/06/19 21:36 03/07/19 22:16 Lipitor - PO 40 mg HS [facility] Administration Diltiazem HCl 60 mg 03/06/19 22:00 03/08/19 09:05 Cardizem - PO 60 mg BID [facility] Administration Ferrous Sulfate 325 mg 03/05/19 08:00 03/08/19 08:26 Feosol - PO 325 mg BIDWM [facility] Administration Ceftriaxone Sodium 1 gm/ 50 mls @ 100 mls/hr 03/06/19 10:00 03/08/19 09:04 Dextrose IVPB 100 mls/hr DAILY [facility] Administration Protocol Insulin Aspart 1 vial 03/04/19 22:00 03/08/19 06:13 Novolog Vial Sliding Scale - SQ 2 units ACHS [facility] Administration Protocol Metoprolol Succinate 50 mg 03/05/19 10:00 03/08/19 09:05 Toprol Xl - PO 50 mg DAILY [facility] Administration Pantoprazole Sodium 40 mg 03/05/19 10:00 03/08/19 09:06 Protonix - PO 40 mg DAILY [facility] Administration Tamsulosin HCl 0.8 mg 03/05/19 08:30 03/08/19 08:26 Flomax - PO 0.8 mg DAILY@0830 [facility] Administration Torsemide 40 mg/ Torsemide 10 50 mg 03/07/19 10:00 03/08/19 09:08 mg PO 50 mg DAILY [facility] Administration Vital Signs Period Temp Pulse Resp BP Sys/Shaw Pulse Ox Last 24 Hr 97.7 F-98.8 F 78-94 20-20 112-141/61-79 99 Constitutional: Yes: Calm Cardiovascular: Yes: Pulse Irregular Respiratory: Yes: CTA Bilaterally Gastrointestinal: Yes: Soft Edema: No Neurological: Yes: Alert no jaundice diaphoresis Labs: CBC, BMP 03/08/19 06:07 03/08/19 06:07 echo 02/2019: nl lvef, nl rvsp, mild tr, mild mr, kiet Echo: Report Reviewed (Echo 06/2018: Nl LV/RV, mod LAE, mild MR, AI, no PHTN) Stress Echo: Other (MPI: 11/2015: No ischemic ST changes. Small region ischemia inferoseptum, apical inferolateral wall, no TID, Normal EF) a/p: 88 yo m hx PAF, cva's, htn, ckd, dm, gib here s/p fall. fall, syncope: -unwitnessed, details unclear, appears he was likely on ground for awhile as he has rhabdo and jayce -no signs acs -unremarkable -possible sepsis as cause given his elevated wbcs, lactate and hypotension. infectious w/u and abx per primary team. pafib: -cont home dilt 60 bid and toprol 50 qd -He has hx of gastric avm with plans for outpt cauterization and eventual plan for watchman device afterwards. Given his high risk of recurrent cva he has been maintained on eliquis, would continue here at his home dose of 2.5 bid. Aspirin has been held as outpt for now as well until avm treated. CAD s/p CABG: -stable, no signs acs -cont statin, ac jayce, rhabdo: -cont ivfs. renal consulted. -Renal function back to baseline Chronic diastolic CHF: -stable here currently. monitor vol status with ivfs -As renal fxn back to baseline, resumed home Torsemide of 50mg daily to assure venous pressures remain low to normal (elevation potentially increases risk of bleeding from his AVM) dc tele
--- NOTE | 2019-03-08 15:48 | PN ---
Progress Note, Physician History of Present Illness: Pt states he feels well. Had mild temp elevation of 99.3F today but has no complaints. No distress noted. Family at bedside. - Current Medication List Current Medications: Active Medications Apixaban (Eliquis -) 2.5 mg PO BID [facility] Last Admin: 03/08/19 09:05 Dose: 2.5 mg Artificial Tears (Artificial Tears) 2 drop OU QID PRN PRN Reason: DRY EYES Last Admin: 03/06/19 20:17 Dose: 2 drop Atorvastatin Calcium (Lipitor -) 40 mg PO HS [facility] Last Admin: 03/07/19 22:16 Dose: 40 mg Diltiazem HCl (Cardizem -) 60 mg PO BID [facility] Last Admin: 03/08/19 09:05 Dose: 60 mg Ferrous Sulfate (Feosol -) 325 mg PO BIDWM [facility] Last Admin: 03/08/19 08:26 Dose: 325 mg Ceftriaxone Sodium 1 gm/ (Dextrose) 50 mls @ 100 mls/hr IVPB DAILY [facility]; Protocol Last Admin: 03/08/19 09:04 Dose: 100 mls/hr Insulin Aspart (Novolog Vial Sliding Scale -) 1 vial SQ ACHS [facility]; Protocol Last Admin: 03/08/19 12:08 Dose: 6 units Metoprolol Succinate (Toprol Xl -) 50 mg PO DAILY [facility] Last Admin: 03/08/19 09:05 Dose: 50 mg Pantoprazole Sodium (Protonix -) 40 mg PO DAILY [facility] Last Admin: 03/08/19 09:06 Dose: 40 mg Tamsulosin HCl (Flomax -) 0.8 mg PO DAILY@0830 [facility] Last Admin: 03/08/19 08:26 Dose: 0.8 mg Torsemide 40 mg/ Torsemide 10 (mg) 50 mg PO DAILY [facility] Last Admin: 03/08/19 09:08 Dose: 50 mg - Objective Vital Signs: Vital Signs Temperature 99.3 F 03/08/19 14:00 Pulse Rate 90 03/08/19 14:00 Respiratory Rate 20 03/08/19 14:00 Blood Pressure 107/57 L 03/08/19 14:00 O2 Sat by Pulse Oximetry (%) 99 03/07/19 21:00 Constitutional: Yes: No Distress, Calm Cardiovascular: Yes: Pulse Irregular Respiratory: Yes: Regular Gastrointestinal: Yes: Normal Bowel Sounds, Soft Genitourinary: Yes: WNL Extremities: Yes: WNL Neurological: Yes: Alert Labs: CBC, BMP 03/08/19 06:07 03/08/19 06:07 INR, PTT INR 1.27 (0.83-1.09) H 03/04/19 10:50 Microbiology 03/04/19 10:50 Blood - Peripheral Venous Blood Culture - Preliminary NO GROWTH OBTAINED AFTER 96 HOURS, INCUBATION TO CONTINUE FOR 1 DAYS. 03/04/19 11:40 Blood - Peripheral Venous Blood Culture - Preliminary NO GROWTH OBTAINED AFTER 96 HOURS, INCUBATION TO CONTINUE FOR 1 DAYS. 03/04/19 10:50 Urine - Urine - Catheterized Urine Culture - Final Citrobacter Koseri Problem List - Problems (1) CHF (congestive heart failure) Code(s): I50.9 - HEART FAILURE, UNSPECIFIED (2) ANGELO (acute kidney injury) Code(s): N17.9 - ACUTE KIDNEY FAILURE, UNSPECIFIED (3) Diabetes mellitus Code(s): E11.9 - TYPE 2 DIABETES MELLITUS WITHOUT COMPLICATIONS (4) Fall in elderly patient Code(s): R29.6 - REPEATED FALLS (5) Hypertension Code(s): I10 - ESSENTIAL (PRIMARY) HYPERTENSION (6) Rhabdomyolysis Code(s): M62.82 - RHABDOMYOLYSIS Qualifiers: Rhabdomyolysis type: traumatic Encounter type: initial encounter Qualified Code(s): T79.6XXA - Traumatic ischemia of muscle, initial encounter (7) S/P CABG (coronary artery bypass graft) Code(s): Z95.1 - PRESENCE OF AORTOCORONARY BYPASS GRAFT (8) Syncope Code(s): R55 - SYNCOPE AND COLLAPSE Qualifiers: Syncope type: unspecified Qualified Code(s): R55 - Syncope and collapse (9) UTI (urinary tract infection) Code(s): N39.0 - URINARY TRACT INFECTION, SITE NOT SPECIFIED Qualifiers: Urinary tract infection type: acute cystitis Hematuria presence: with hematuria Qualified Code(s): N30.01 - Acute cystitis with hematuria (10) Afib Code(s): I48.91 - UNSPECIFIED ATRIAL FIBRILLATION Qualifiers: Atrial fibrillation type: chronic (11) Anemia Code(s): D64.9 - ANEMIA, UNSPECIFIED Qualifiers: Anemia type: unspecified type Qualified Code(s): D64.9 - Anemia, unspecified (12) CKD (chronic kidney disease) stage 3, GFR 30-59 ml/min Code(s): N18.3 - CHRONIC KIDNEY DISEASE, STAGE 3 (MODERATE) Assessment/Plan ANGELO UTI s/p fall rhabdomyolysis anemia HTN DM -- Pt feels well and wishes to be discharged home -- May switch to Bactrim DS po BID x 5 days and follow up with PMD if goes home
[2019-03-08] MEDS: ATORVASTATIN CA 40 MG TABLET (FP) PO SCH (22:08)
[2019-03-09 06:32] LABS: BASO % 0.9 % (0-2.0); EOS % 4.2 % (0-4.5); HEMATOCRIT 32.4 % (35.4-49); HEMOGLOBIN 11.4 GM/dL (11.7-16.9); LYMPH % 35.3 % (8-40); MCHC 35.2 g/dl (32.0-35.9); MEAN PLT VOLUME 7.4 fl (7.5-11.1); MONO % 9.7 % (3.8-10.2); NEUT % 49.9 % (42.8-82.8); PLATELET COUNT 199 K/MM3 (134-434); RBC 3.08 M/mm3 (4.00-5.60); RDW 13.6 % (11.9-15.9); WHITE BLOOD COUNT 6.6 K/mm3 (4.0-10.0)
[2019-03-09 06:54] LABS: ALBUMIN 2.6 g/dl (3.4-5.0); BILIRUBIN,TOTAL 0.7 mg/dL (0.2-1); CREATININE 1.3 mg/dL (0.55-1.3); MAGNESIUM 1.8 mg/dL (1.8-2.4); POTASSIUM 3.5 mmol/L (3.5-5.1); TOT PROT 6.3 g/dl (6.4-8.2)
[2019-03-09] MEDS: INSULIN SLIDING SCALE (NOVOLOG) 1 VIAL SQ SCH ×2 (06:59→12:27)
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
[2019-03-09] MEDS ORDERED: cefTRIAXone SODIUM 1 GM VIAL ONE (08:43)
[2019-03-09] MEDS ORDERED: DEXTROSE 5%-WATER - 50 ML IVPB ONE (08:44)
[2019-03-09] MEDS: FERROUS SO4 325 MG TABLET (FP) PO SCH (08:46)
[2019-03-09] MEDS: TAMSULOSIN HCL 0.4 MG CAP PO SCH (08:46)
[2019-03-09 09:40] LABS: ANISOCYTOSIS 1+; MACROCYTOSIS 2+; PLATELET ESTIMATE NORMAL
[2019-03-09] MEDS ORDERED: PT OWN MED DRAWER 7, Y5N ONE (09:44)
[2019-03-09] MEDS: PANTOPRAZOLE 40 MG TABLET (FP) PO SCH (09:49)
[2019-03-09] MEDS: APIXABAN 2.5 MG TABLET PO SCH (09:49)
[2019-03-09] MEDS: TORSEMIDE 40 MG, TORSEMIDE 10 MG PO SCH (09:50)
[2019-03-09] MEDS: CEFTRIAXONE 1 GM in DEXTROSE 5%-WATER - 50 ML IVPB SCH (09:51)
[2019-03-09] MEDS: dilTIAZem HCL 60 MG TABLET (FP) PO SCH (09:51)
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
[2019-03-09 11:11] VITALS: BP 112/65; PULSE 94; TEMP 98.8
--- NOTE | 2019-03-09 11:45 | PN ---
Progress Note, Physician History of Present Illness: Pt seen and examined at bedside. He is awake and alert. He is eager to go home. He denies shortness of breath. He denies dysuria. - Current Medication List Current Medications: Active Medications Apixaban (Eliquis -) 2.5 mg PO BID [facility] Last Admin: 03/09/19 09:49 Dose: 2.5 mg Artificial Tears (Artificial Tears) 2 drop OU QID PRN PRN Reason: DRY EYES Last Admin: 03/06/19 20:17 Dose: 2 drop Atorvastatin Calcium (Lipitor -) 40 mg PO HS [facility] Last Admin: 03/08/19 22:08 Dose: 40 mg Diltiazem HCl (Cardizem -) 60 mg PO BID [facility] Last Admin: 03/09/19 09:51 Dose: 60 mg Ferrous Sulfate (Feosol -) 325 mg PO BIDWM [facility] Last Admin: 03/09/19 08:46 Dose: 325 mg Ceftriaxone Sodium 1 gm/ (Dextrose) 50 mls @ 100 mls/hr IVPB DAILY [facility]; Protocol Last Admin: 03/09/19 09:51 Dose: 100 mls/hr Insulin Aspart (Novolog Vial Sliding Scale -) 1 vial SQ ACHS [facility]; Protocol Last Admin: 03/09/19 06:59 Dose: 4 units Metoprolol Succinate (Toprol Xl -) 50 mg PO DAILY [facility] Last Admin: 03/09/19 09:50 Dose: 50 mg Pantoprazole Sodium (Protonix -) 40 mg PO DAILY [facility] Last Admin: 03/09/19 09:49 Dose: 40 mg Tamsulosin HCl (Flomax -) 0.8 mg PO DAILY@0830 [facility] Last Admin: 03/09/19 08:46 Dose: 0.8 mg Torsemide 40 mg/ Torsemide 10 (mg) 50 mg PO DAILY [facility] Last Admin: 03/09/19 09:50 Dose: 50 mg - Objective Vital Signs: Vital Signs Temperature 98.8 F 03/09/19 11:10 Pulse Rate 94 H 03/09/19 11:10 Respiratory Rate 18 03/09/19 11:10 Blood Pressure 112/65 03/09/19 11:10 O2 Sat by Pulse Oximetry (%) 98 03/09/19 09:00 Constitutional: Yes: Calm Eyes: Yes: Conjunctiva Clear HENT: Yes: Atraumatic Neck: Yes: Supple Cardiovascular: Yes: S1, S2 Respiratory: Yes: CTA Bilaterally Gastrointestinal: Yes: Normal Bowel Sounds, Soft Genitourinary: Yes: WNL Musculoskeletal: Yes: WNL Edema: No Integumentary: Yes: WNL Neurological: Yes: Oriented Labs: CBC, BMP 03/09/19 05:20 03/09/19 05:20 INR, PTT INR 1.27 (0.83-1.09) H 03/04/19 10:50 Assessment/Plan Current Medications Generic Name Dose Route Start Last Admin Trade Name Freq PRN Reason Stop Dose Admin Apixaban 2.5 mg 03/04/19 22:00 03/09/19 09:49 Eliquis - PO 2.5 mg BID SARAH Administration Artificial Tears 2 drop 03/06/19 16:42 03/06/19 20:17 Artificial Tears OU 2 drop QID PRN Administration DRY EYES Atorvastatin Calcium 40 mg 03/06/19 21:36 03/08/19 22:08 Lipitor - PO 40 mg HS SARAH Administration Diltiazem HCl 60 mg 03/06/19 22:00 03/09/19 09:51 Cardizem - PO 60 mg BID SARAH Administration Ferrous Sulfate 325 mg 03/05/19 08:00 03/09/19 08:46 Feosol - PO 325 mg BIDWM SARAH Administration Ceftriaxone Sodium 1 gm/ 50 mls @ 100 mls/hr 03/06/19 10:00 03/09/19 09:51 Dextrose IVPB 100 mls/hr DAILY [facility]AH Administration Protocol Insulin Aspart 1 vial 03/04/19 22:00 03/09/19 06:59 Novolog Vial Sliding Scale - SQ 4 units ACHS SARAH Administration Protocol Metoprolol Succinate 50 mg 03/05/19 10:00 03/09/19 09:50 Toprol Xl - PO 50 mg DAILY SARAH Administration Pantoprazole Sodium 40 mg 03/05/19 10:00 03/09/19 09:49 Protonix - PO 40 mg DAILY SARAH Administration Tamsulosin HCl 0.8 mg 03/05/19 08:30 03/09/19 08:46 Flomax - PO 0.8 mg DAILY@0830 SARAH Administration Torsemide 40 mg/ Torsemide 10 50 mg 03/07/19 10:00 03/09/19 09:50 mg PO 50 mg DAILY SARAH Administration Laboratory Tests 03/09/19 05:20 Phosphorus 3.0 Impression 1. ANGELO 2. s/p fall 3. rhabdo 4. anemia 5. htn 6. dm Plan - renal function stabilized - cpk had improved - pt back on torsemide - monitor volume status - monitor renal function - can see in office - phos level improved as well
== END 2019-03-09 12:12 | disposition home health service (06) | DRG 683 ==
LOC: JER 09:56 → JERBED 13:30 → J4W 17:28
PROVIDERS: ADMIT Internal Medicine; ATTEND Nurse Practitioner Acute Care
DX: N17.9 Acute kidney failure, unspecified (principal); M62.82 Rhabdomyolysis; E87.2 Acidosis; K50.90 Crohn's disease, unspecified, without complications; N39.0 Urinary tract infection, site not specified; I13.0 Hypertensive heart and chronic kidney disease with heart failure and stage 1 through stage 4 chronic kidney disease, or unspecified chronic kidney disease; I50.32 Chronic diastolic (congestive) heart failure; E11.22 Type 2 diabetes mellitus with diabetic chronic kidney disease; N18.3 Chronic kidney disease, stage 3 (moderate); I25.10 Atherosclerotic heart disease of native coronary artery without angina pectoris; I48.0 Paroxysmal atrial fibrillation; E11.42 Type 2 diabetes mellitus with diabetic polyneuropathy; D89.0 Polyclonal hypergammaglobulinemia; D64.9 Anemia, unspecified; R79.1 Abnormal coagulation profile; S00.81XA Abrasion of other part of head, initial encounter; W18.39XA Other fall on same level, initial encounter; Y92.098 Other place in other non-institutional residence as the place of occurrence of the external cause; Z95.1 Presence of aortocoronary bypass graft; Z78.9 Other specified health status; Z96.651 Presence of right artificial knee joint; Z66 Do not resuscitate
CPT/HCPCS: 36415; 70450-TC; 71045-TC-FY; 72125-TC; 73523-TC-FY; 76775-TC; 80048; 80053; 81003; 82550; 82553; 82565; 82962; 83605; 83735; 84100; 84156; 84300; 84484; 84540; 85025; 85610; 85730; 87040; 87086; 87186; 93005; 93010; 93306-TC; 93308; 93880-TC; 97116-GP; 97161-GP; 99285-25; G0008; J7030; Q2036

== ENCOUNTER 2019-11-07 19:23 | Inpatient (IN) | payer OTHER, BC ==
[2019-11-07] MEDS ORDERED: dilTIAZem HCL 125 MG/25 ML - 25 ML VIAL ONE (19:26)
[2019-11-07] MEDS ORDERED: ACETAMINOPHEN 1000 MG/100 ML VIAL (NON FORMULARY) IVPB ONE (19:31)
[2019-11-07] MEDS ORDERED: SODIUM CHLORIDE 1,000 ML IV STA ×2 (19:31→23:16)
--- NOTE | 2019-11-07 19:41 | PDOC ---
History of Present Illness - General Stated Complaint: IRREGULAR HEART RATE, S.O.B History Source: Patient, Family Exam Limitations: Clinical Condition - History of Present Illness Initial Comments: 89 year old male with history of CKD, DM, HTN, s/p CABG, Afib on Eliquis BIBA to the ED for shortness of breath. AOx3 but a poor historian, further history was provided by his daughter, stating that he lives at home alone but has 2 home health aids that visit daily and according to them, he was stable this morning, and was eating and drinking normally. The patient's son in law checked on him this afternoon and found him in his chair with shortness of breath and called EMS. She also mentions that he's had a persistent cough for a few weeks. On arrival, the patient reported SOB and CP but denied syncope, recent falls, fevers, lightheadedness, numbness/tingling, abdominal pain. Past History - Medical History Allergies/Adverse Reactions: Allergies Allergy/AdvReac Type Severity Reaction Status Date / Time No Known Allergies Allergy Verified 11/07/19 20:21 Home Medications: Ambulatory Orders Gabapentin [Neurontin -] 300 mg PO BID 07/14/18 Diltiazem [Cardizem -] 60 mg PO BID 09/01/18 Aspirin [ASA -] 81 mg PO DAILY 09/11/18 Pantoprazole Sodium [Protonix -] 40 mg PO DAILY tablet.ec 09/11/18 Torsemide [Demadex -] 50 mg PO DAILY tablet 09/11/18 Tamsulosin HCl [Flomax -] 0.8 mg PO DAILY #60 capsule 09/12/18 Ferrous Sulfate [Feosol] 325 mg PO BID 10/14/18 Atorvastatin Ca [Lipitor] 40 mg PO HS 03/04/19 Insulin Glargine,Hum.rec.anlog [Basaglar Kwikpen U-100] 30 unit SQ HS 03/04/19 Insulin Sliding Scale [Novolog Vial Sliding Scale -] 25 units SQ TIDAC 03/04/19 Potassium Chloride 20 meq PO DAILY 03/04/19 Metoprolol Succinate [Toprol XL -] 50 mg PO DAILY tab.sr.24h 03/09/19 Polyvinyl Alcohol [Artificial Tears] 2 drop OU QID PRN drops 03/09/19 Anemia: Yes Cardiac Disorders: Yes (cardiac cath [id number] ago, SD, CABG, afib) CVA: Yes (cerebellar infarct) COPD: No CHF: Yes Diabetes: Yes GI Disorders: Yes (G-I bleed) HTN: Yes - Surgical History Cardiac Surgery: Yes (Bypass x6) Orthopedic Surgery: Yes (Right knee replacement) - Immunization History Immunization Up to Date: Yes - Psycho-Social/Smoking History Smoking History: Never smoked Have you smoked in the past 12 months: No Review of Systems - Review of Systems Able to Perform ROS?: No (unreliable historian) *Physical Exam - Physical Exam General Appearance: Yes: Apparent Distress, Moderate Distress HEENT: positive: EOMI, YASMIN Neck: positive: Trachea midline Respiratory/Chest: positive: Decreased Breath Sounds. negative: Rales, Wheezing Cardiovascular: positive: Edema (2+ pitting edema LE bilaterally), Tachycardia (Tachycardic on arrival, down to 80s after diltiazem), Gallop/S3 Gastrointestinal/Abdominal: positive: Soft. negative: Tender Musculoskeletal: positive: Normal Inspection Extremity: positive: Normal Inspection Integumentary: positive: Normal Color, Dry, Warm Neurologic: positive: Fully Oriented, Alert ED Treatment Course - LABORATORY CBC & Chemistry Diagram: 11/07/19 19:36 11/07/19 19:36 Medical Decision Making - Medical Decision Making 89 y.o male with hx/o DM, s/p CABG, CKD, Afib on xeralto BIBA to the ED with SOB and tachycardia (180s), which improved with 10mg IV diltiazem and nonrebreather. He was febrile at 103F and was tachypnic. CBC demonstrated leukocytosis at 16.8. Patient met SIRS criteria for sepsis with possible source of infection of UTI. U A demonstrated trace leukocyte esterase, 13 WBCs, and 2000 bacteria. Initial lactate elevated at 4.6. EKG demonstrated rapid Afib. CXR was reviewed by myself and impression is that there's patchy infiltrate bilaterally. Potentially due to COVID +/- superimposed pna. Patient was started on 1g Rocephin and 500mg Azithromycin. Patient will be admitted for IV antibiotics. Discharge - Discharge Information Problems reviewed: Yes Clinical Impression/Diagnosis: Weakness Afib Qualifiers: Atrial fibrillation type: unspecified chronic Qualified Code(s): I48.20 - Chronic atrial fibrillation, unspecified; I48.2 - Chronic atrial fibrillation Dyspnea Qualifiers: Dyspnea type: unspecified Qualified Code(s): R06.00 - Dyspnea, unspecified Condition: Guarded - Admission Yes - Follow up/Referral - Patient Discharge Instructions - Post Discharge Activity
--- NOTE | 2019-11-07 19:46 | PDOC ---
Attending Attestation - Resident Resident Name: Evans Ruiz - ED Attending Attestation I have performed the following: I have examined & evaluated the patient, The case was reviewed & discussed with the resident, I agree w/resident's findings & plan - HPI HPI: 11/07/19 19:49 Pt comes from home and he is febrile and tachy and SOB; his HHAide came to medicate him and noted that he looked unwell and called EMS. Pt has a DNR/DNI noted on old charts in our hospital. Pt is Alert +Ox3 and he is able to give his PMHx, though he tells us that he is not on blood thinners, though he is. In fact pt has DM, HTN, ANGELO, AFIB on blood thinners. Pt is shaky and pulsox is 60-80 on RA with poor waveform and cold extremities. WIth a NRB 100% facemask, he is 100% pulsox. Pt has irreg HR that is rapid. EMS started IVF; 500ml in. BP 123/60s on arrival HR is 140-160s Pt arrived naked; when son-in-law went to check on him tonight he was breathing with difficulty, and he was sitting in his recliner without clothing. 11/07/19 20:02 Pt has normal carotid dopplers with mild intimal plaque as of 02/2019 Pt has a hx of a chronic left cerebellar infarct - Physicial Exam PE: 11/07/19 19:52 Pt is A+Ox3 shaking chills (covered in rain water from EMS trip to the ER) Pt has irreg HR Lungs good breath sounds bilat Abd distended, but not tender; no rebound and no guarding Pt complains of back pain Pt has no suprapubic pain Pt is moving all extremities. He has pitting edema of legs; NIKKO stockings on - Medical Decision Making 11/07/19 19:54 Sepsis labs and cariac labs sent Pt is on eliquis Pt has an irreg EKG; francesco RSR' waves; no p waves. 11/07/19 19:58 Pt received diltiazem 10mg IVP; another 10mg IVP and he broke his rapid afib HR is now 84; BP is 140/78 Pt will have mayers/cath placed; rocephin ordered. Pt has right sided pneumonia possibly COVID on CXR We will check covid test All labs pending 11/07/19 20:25 Pt has plenty of bacteria in the urine; it is a cath specimen, so we will treat with rocephin. 11/07/19 21:15 lactic acid is 4.6 fever is down with ofirmev 11/07/19 21:52 Pt will be admitted to the hospitalist team Discharge - Discharge Information Problems reviewed: Yes Clinical Impression/Diagnosis: Afib, Weakness, Dyspnea - Follow up/Referral - Patient Discharge Instructions - Post Discharge Activity
[2019-11-07] MEDS ORDERED: CEFTRIAXONE 1 GM in DEXTROSE 5%-WATER - 100 ML IVPB ONE (19:47)
[2019-11-07] MEDS ORDERED: dilTIAZem HCL 50 MG/10 ML - 10 ML VIAL IVPUSH ONE (19:50)
[2019-11-07 19:57] LABS: BASO % 0.2 % (0-2.0); EOS % 0.1 % (0-4.5); HEMATOCRIT 40.4 % (35.4-49); HEMOGLOBIN 13.6 GM/dL (11.7-16.9); LYMPH % 6.8 % (8-40); MCH 36.1 pg (25.7-33.7); MCHC 33.6 g/dl (32.0-35.9); MEAN CELL VOLUME 107.5 fl (80-96); MEAN PLT VOLUME 7.7 fl (7.5-11.1); MONO % 6.8 % (3.8-10.2); NEUT % 86.1 % (42.8-82.8); PLATELET COUNT 243 K/MM3 (134-434); RBC 3.76 M/mm3 (4.00-5.60); RDW 13.7 % (11.9-15.9); WHITE BLOOD COUNT 16.8 K/mm3 (4.0-10.0)
[2019-11-07] MEDS ORDERED: dilTIAZem HCL 60 MG TABLET PO ONE (20:01)
[2019-11-07 20:04] LABS: INR 1.32 (0.83-1.09); PROTHROMBIN TIME (PATIENT) 15.6 SEC (9.7-13.0)
[2019-11-07] MEDS ORDERED: CEFTRIAXONE 1 GM/50 ML BAG ONE (20:05)
[2019-11-07] MEDS ORDERED: dilTIAZem HCL 60 MG TABLET ONE (20:05)
[2019-11-07 20:07] LABS: ACTIVATED PTT 37.6 SECONDS (25.2-36.5)
[2019-11-07 20:09] LABS: EPI CELLS 9 /uL (0-25.1); HYALINE CASTS 2 /uL (0-3.1); PH,URINE 5.5 (5.0-8.0); URINE APPEARANCE CLEAR; URINE BACTERIA 1998 /uL (0-1359); URINE BILIRUBIN NEGATIVE (NEGATIVE); URINE COLOR DK YELLOW; URINE GLUCOSE (UA) NEGATIVE (NEGATIVE); URINE KETONE NEGATIVE (NEGATIVE); URINE LEUK ESTERASE TRACE (NEGATIVE); URINE NITRITE NEGATIVE (NEGATIVE); URINE PROTEIN NEGATIVE (NEGATIVE); URINE RBC 8 /uL (0-23.9); URINE WBC 13 /uL (0-25.8)
[2019-11-07 20:18] LABS: ANISOCYTOSIS 2+; MACROCYTOSIS 2+
[2019-11-07 20:28] LABS: ALBUMIN 3.1 g/dl (3.4-5.0); ALK PHOS 229 U/L (45-117); ANION GAP 12 MMOL/L (8-16); BILIRUBIN,TOTAL 2.2 mg/dL (0.2-1); BLOOD UREA NITROGEN 23.4 mg/dL (7-18); CALCIUM 8.6 mg/dL (8.5-10.1); CHLORIDE 98 mmol/L (98-107); CO2 25 mmol/L (21-32); CREATININE 1.9 mg/dL (0.55-1.3); GLUCOSE,RANDOM 216 mg/dL (74-106); N-TERMINAL BNP 1017.3 pg/ml (5-450); POTASSIUM 4.1 mmol/L (3.5-5.1); SGOT/AST 43 U/L (15-37); SGPT/ALT 34 U/L (13-61); SODIUM 135 mmol/L (136-145); TOT PROT 7.8 g/dl (6.4-8.2)
[2019-11-07] MEDS ORDERED: AZITHROMYCIN IVPB 500 MG in DEXTROSE 5%-WATER - 250 ML IVPB ONE (20:40)
[2019-11-07 20:47] LABS: VENOUS BASE EXCESS -0.8 mmol/L (-2-2); VENOUS O2 SATURATION 75.2 % (70-80); VENOUS PCO2 36.9 mmHg (38-52); VENOUS PH 7.418 (7.310-7.410)
[2019-11-07] MEDS ORDERED: AZITHROMYCIN IVPB 500 MG/250 ML BAG IVPB ONE (21:31)
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
[2019-11-08] MEDS: SODIUM CHLORIDE 1,000 ML IV SCH (00:01)
[2019-11-08] MEDS ORDERED: ASPIRIN 81 MG CHEWABLE TABLETS PO ONE (02:41)
[2019-11-08] MEDS ORDERED: PANTOPRAZOLE 40 MG TABLET ONE (08:40)
[2019-11-08] MEDS ORDERED: CEFTRIAXONE 1 GM/50 ML BAG ONE (08:41)
[2019-11-08] MEDS ORDERED: dilTIAZem HCL 60 MG TABLET ONE (08:41)
[2019-11-08] MEDS ORDERED: TAMSULOSIN HCL 0.4 MG CAP ONE (08:41)
[2019-11-08 08:49] LABS: CHOLESTEROL 94 mg/dL (50-200); HDL CHOLESTEROL 38 mg/dL (40-60); LDL CHOLESTEROL (ONLY SJRH) 51 mg/dL (5-100); TRIGLYCERIDES 77 mg/dL (0-150)
[2019-11-08] MEDS ORDERED: ACETAMINOPHEN 1000 MG/100 ML VIAL (NON FORMULARY) IVPB ONE (08:53)
[2019-11-08] MEDS: TAMSULOSIN HCL 0.4 MG CAP PO SCH (08:54)
[2019-11-08] MEDS ORDERED: ACETAMINOPHEN INJECTION 100 ML IVPB ONE (08:55)
[2019-11-08] MEDS: PANTOPRAZOLE 40 MG TABLET PO SCH (09:11)
[2019-11-08] MEDS: CEFTRIAXONE 1 GM in DEXTROSE 5%-WATER - 50 ML IVPB SCH (09:11)
[2019-11-08] MEDS: dilTIAZem HCL 60 MG TABLET PO SCH ×2 (09:11→23:25)
[2019-11-08] MEDS: INSULIN SLIDING SCALE (NOVOLOG) 1 VIAL SQ SCH ×3 (09:12→18:08)
--- NOTE | 2019-11-08 09:42 | EKG ---
Test Reason : Blood Pressure : / mmHG Vent. Rate : 148 BPM Atrial Rate : 148 BPM P-R Int : 000 ms QRS Dur : 130 ms QT Int : 276 ms P-R-T Axes : 045 -33 033 degrees QTc Int : 433 ms UNDETERMINED RHYTHM LEFT AXIS DEVIATION RIGHT BUNDLE BRANCH BLOCK ABNORMAL ECG WHEN COMPARED WITH ECG OF 04-MAR-2019 10:38, CURRENT UNDETERMINED RHYTHM PRECLUDES RHYTHM COMPARISON, NEEDS REVIEW NONSPECIFIC T WAVE ABNORMALITY, IMPROVED IN INFERIOR LEADS NONSPECIFIC T WAVE ABNORMALITY NO LONGER EVIDENT IN LATERAL LEADS Confirmed by JAN WASHINGTON MD ([id number]) on 11/08/2019 9:42:24 AM Referred By: Confirmed By:JAN WASHINGTON MD
--- NOTE | 2019-11-08 11:04 | CON.CARD ---
Cardiology Consult (text) - Consultation Consultation Note: Chief Complaint: sob, lethargic History of Present Illness: 89M with complex PMH includes: CAD s/p CABG 2002 at [facility] [place] H/o CVA HTN CKD DM w/ neuropathy Anemia with occult GI bleeding Here today in er after family found him lethargic and sob. Pt is confused/poor historian, hx from charts. Also had fever in ER. Pt unsure why here, denies any sxs. Sees dr cuba for cardio. - History Source History Provided By: Patient, Medical Record - Past Medical History Cardio/Vascular: Yes: AFIB, CAD (6 vessel CABG 05/2002), CHF (diastolic), HTN Gastrointestinal: Yes: Crohn's Disease, GI Bleed Renal/: Yes: Renal Inusuff, Other (polyclonal gammopathy) Heme/Onc: Yes: Anemia Infectious Disease: No: AIDS, C-Diff, Herpes Zoster, HIV, MRSA, STD's, Tuberculosis, VREF, Other Psych: No: Addictions, Anxiety, Bipolar, Depression, Panic, Psychosis, Schizophrenia, Other Musculoskeletal: No: Bursitis, Chronic low back pain, Hemiparesis, Hemiplegia, Osteoarthritis, Paraplegia, Other Rheumatology: No: Fibromyalgia, Gout, Lupus, Rheumatoid Arthritis, Sarcoidosis, Vasculitis, Other ENT: No: Allergic Rhinitis, Sinusitis, Other Endocrine: Yes: Diabetes Mellitus - Past Surgical History Past Surgical History: Yes: CABG (x6), Joint Replacement ( R knee replacement 2004) - Alcohol/Substance Use Hx Alcohol Use: No History of Substance Use: reports: None - Smoking History Smoking history: Never smoked Have you smoked in the past 12 months: No - Social History Usual Living Arrangement: Alone () ADL: Support Services (Daughter visits daily) History of Recent Travel: No Home Medications - Allergies Allergies/Adverse Reactions: Allergies Allergy/AdvReac Type Severity Reaction Status Date / Time No Known Allergies Allergy Verified 11/07/19 20:21 Home Medications Medication Instructions Recorded Gabapentin [Neurontin -] 300 mg PO BID 07/14/18 Diltiazem [Cardizem -] 60 mg PO BID 09/01/18 Aspirin [ASA -] 81 mg PO DAILY 09/11/18 Pantoprazole Sodium [Protonix -] 40 mg PO DAILY tablet.ec 09/11/18 Torsemide [Demadex -] 50 mg PO DAILY tablet 09/11/18 Tamsulosin HCl [Flomax -] 0.8 mg PO DAILY #60 capsule 09/12/18 Ferrous Sulfate [Feosol] 325 mg PO BID 10/14/18 Atorvastatin Ca [Lipitor] 40 mg PO HS 03/04/19 Insulin Glargine,Hum.rec.anlog 30 unit SQ HS 03/04/19 [Basaglar Kwikpen U-100] Insulin Sliding Scale [Novolog 25 units SQ TIDAC 03/04/19 Vial Sliding Scale -] Potassium Chloride 20 meq PO DAILY 03/04/19 Metoprolol Succinate [Toprol XL -] 50 mg PO DAILY tab.sr.24h 03/09/19 Polyvinyl Alcohol [Artificial 2 drop OU QID PRN drops 03/09/19 Tears] Family Disease History - Family Disease History Family Disease History: Other: Father (: 74: liver cancer: heavy drinker), Mother (: 70's: complications of hepatitis s/p transfusion), Sister (2, 1 of lung cancer), Son (1, healthy), Daughter (1 : CHF, 1 healthy) Other Family History: No family history of colorectal cancer Review of Systems Findings/Remarks: see HPI - Review of Systems unable to obtain 2/2 ams - Risk Factors Known Risk Factors: Yes: Other (Known CAD) Vital Signs: Vital Signs Period Temp Pulse Resp BP Sys/Shaw Pulse Ox Last 24 Hr 97.4 F-103.3 F 102-181 16-31 112-162/62-86 88-100 Constitutional: Yes: No Distress, Calm Eyes: Yes: Conjunctiva Clear, EOM Intact Respiratory: Yes: CTA Bilaterally Gastrointestinal: Yes: Soft (NT, no rebound or guarding) Cardiovascular: Yes: Regular Rate and Rhythm JVD: No Carotid Bruit: No Heart Sounds: Yes: S1, S2 (RRR, no M/R/G) Edema: No Peripheral Pulses WNL: Yes Neurological: Yes: Alert no jaundice diaphoresis Laboratory Last Values WBC 16.8 K/mm3 (4.0-10.0) H 11/07/19 19:36 RBC 3.76 M/mm3 (4.00-5.60) L 11/07/19 19:36 Hgb 13.6 GM/dL (11.7-16.9) 11/07/19 19:36 Hct 40.4 % (35.4-49) D 11/07/19 19:36 MCV 107.5 fl (80-96) H 11/07/19 19:36 MCH 36.1 pg (25.7-33.7) H 11/07/19 19:36 MCHC 33.6 g/dl (32.0-35.9) 11/07/19 19:36 RDW 13.7 % (11.9-15.9) 11/07/19 19:36 Plt Count 243 K/MM3 (134-434) D 11/07/19 19:36 MPV 7.7 fl (7.5-11.1) 11/07/19 19:36 Absolute Neuts (auto) 14.5 K/mm3 (1.5-8.0) H 11/07/19 19:36 Neutrophils % 86.1 % (42.8-82.8) H D 11/07/19 19:36 Lymphocytes % 6.8 % (8-40) L D 11/07/19 19:36 Monocytes % 6.8 % (3.8-10.2) 11/07/19 19:36 Eosinophils % 0.1 % (0-4.5) D 11/07/19 19:36 Basophils % 0.2 % (0-2.0) 11/07/19 19:36 Nucleated RBC % 0 % (0-0) 11/07/19 19:36 Anisocytosis 2+ 11/07/19 19:36 Macrocytosis 2+ 11/07/19 19:36 PT with INR 15.60 SEC (9.7-13.0) H 11/07/19 19:36 INR 1.32 (0.83-1.09) H 11/07/19 19:36 PTT (Actin FS) 37.6 SECONDS (25.2-36.5) H 11/07/19 19:36 VBG pH 7.418 (7.310-7.410) H 11/07/19 20:25 POC VBG pCO2 36.9 mmHg (38-52) L 11/07/19 20:25 POC VBG pO2 39.2 mmHg (28-48) 11/07/19 20:25 VBG HCO3 23.3 mmol/L (23-29) 11/07/19 20:25 VBG O2 Sat (Binh) 75.2 % (70-80) 11/07/19 20:25 VBG Base Excess -0.8 mmol/L (-2-2) 11/07/19 20:25 Sodium 135 mmol/L (136-145) L 11/07/19 19:36 Potassium 4.1 mmol/L (3.5-5.1) 11/07/19 19:36 Chloride 98 mmol/L (98-107) 11/07/19 19:36 Carbon Dioxide 25 mmol/L (21-32) 11/07/19 19:36 Anion Gap 12 MMOL/L (8-16) 11/07/19 19:36 BUN 23.4 mg/dL (7-18) H 11/07/19 19:36 Creatinine 1.9 mg/dL (0.55-1.3) H 11/07/19 19:36 Est GFR (CKD-EPI)AfAm 35.44 11/07/19 19:36 Est GFR (CKD-EPI)NonAf 30.58 11/07/19 19:36 Random Glucose 216 mg/dL (74-106) H 11/07/19 19:36 Lactic Acid 2.0 mmol/L (0.4-2.0) 11/07/19 23:45 Calcium 8.6 mg/dL (8.5-10.1) 11/07/19 19:36 Total Bilirubin 2.2 mg/dL (0.2-1) H 11/07/19 19:36 AST 43 U/L (15-37) H 11/07/19 19:36 ALT 34 U/L (13-61) 11/07/19 19:36 Alkaline Phosphatase 229 U/L (45-117) H 11/07/19 19:36 Creatine Kinase 172 U/L (26-308) 11/07/19 19:36 Creatine Kinase Index No Result Required. 11/07/19 19:36 CK-MB (CK-2) < 1.0 ng/mL (0.5-3.6) 11/07/19 19:36 Troponin I 0.12 ng/ml (0.00-0.05) H 11/07/19 23:45 B-Natriuretic Peptide 1017.3 pg/ml (5-450) H 11/07/19 19:36 Total Protein 7.8 g/dl (6.4-8.2) 11/07/19 19:36 Albumin 3.1 g/dl (3.4-5.0) L 11/07/19 19:36 Triglycerides 77 mg/dL (0-150) 11/07/19 19:36 Cholesterol 94 mg/dL (50-200) 11/07/19 19:36 Total LDL Cholesterol 51 mg/dL (5-100) 11/07/19 19:36 HDL Cholesterol 38 mg/dL (40-60) L 11/07/19 19:36 Urine Color Dk yellow 11/07/19 19:58 Urine Appearance Clear 11/07/19 19:58 Urine pH 5.5 (5.0-8.0) 11/07/19 19:58 Ur Specific [place] 1.012 (1.010-1.035) 11/07/19 19:58 Urine Protein Negative (NEGATIVE) 11/07/19 19:58 Urine Glucose (UA) Negative (NEGATIVE) 11/07/19 19:58 Urine Ketones Negative (NEGATIVE) 11/07/19 19:58 Urine Blood Negative (NEGATIVE) 11/07/19 19:58 Urine Nitrite Negative (NEGATIVE) 11/07/19 19:58 Urine Bilirubin Negative (NEGATIVE) 11/07/19 19:58 Urine Urobilinogen 1.0 mg/dL (0.2-1.0) 11/07/19 19:58 Ur Leukocyte Esterase Trace (NEGATIVE) 11/07/19 19:58 Urine WBC (Auto) 13 /uL (0-25.8) 11/07/19 19:58 Urine RBC (Auto) 8 /uL (0-23.9) 11/07/19 19:58 Urine Casts (Auto) 2 /uL (0-3.1) 11/07/19 19:58 U Epithel Cells (Auto) 9 /uL (0-25.1) 11/07/19 19:58 Urine Bacteria (Auto) 1998 /uL (0-1359) 11/07/19 19:58 echo 02/2019: nl lvef, nl rvsp, mild tr, mild mr, kiet Echo: Report Reviewed (Echo 06/2018: Nl LV/RV, mod LAE, mild MR, AI, no PHTN) Stress Echo: Other (MPI: 11/2015: No ischemic ST changes. 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 fever, lethargy, possible sepsis: -infectious w/u -cxr with infiltrate, abx per primary/ID jayce: -cont ivfs, monitor cr elevated trop: -borderline trop with flat trend, similar to prior baseline values, not c/w acs pafib: -cont home dilt 60 bid and toprol 50 qd, monitor on tele. -He has hx of gastric avm with prior plans for outpt cauterization and was on ac during prior admit 02/2019. Will have to clarify if he is still on his prior eliquis 2.5 bid. CAD s/p CABG: -stable, no signs acs -cont statin, bb -asa stopped in past due to gastric avm Chronic diastolic CHF: -stable here currently. monitor vol status with ivfs -when renal fxn back to baseline, resume home Torsemide of 50mg daily
[2019-11-08] MEDS ORDERED: ACETAMINOPHEN 1000 MG/100 ML VIAL (NON FORMULARY) IVPB PRN (19:47)
[2019-11-09] MEDS: MORPHINE SULFATE 2 MG/ML VIAL IVPUSH PRN ×2 (02:29→15:47)
[2019-11-09] MEDS: SODIUM CHLORIDE 1,000 ML IV SCH (02:56)
[2019-11-09] MEDS: LORazepam 2 MG/ML SDV VIAL IVPUSH PRN ×2 (03:15→12:42)
[2019-11-09] MEDS ORDERED: NOREPINEPHRINE BITARTRATE 4 MG/4 ML ML IV ONE (06:28)
[2019-11-09] MEDS: INSULIN SLIDING SCALE (NOVOLOG) 1 VIAL SQ SCH ×3 (07:34→18:00)
[2019-11-09] MEDS ORDERED: ALBUTEROL SO4 2.5/IPRATROPIUM 0.5 INH SOL 3 ML VIAL.NEB. NEB ONE (07:53)
[2019-11-09] MEDS ORDERED: dilTIAZem HCL 50 MG/10 ML - 10 ML VIAL IVPUSH ONE ×2 (07:53→11:19)
[2019-11-09] MEDS: TAMSULOSIN HCL 0.4 MG CAP PO SCH (08:40)
[2019-11-09 09:04] LABS: BASO % 0.6 % (0-2.0); EOS % 3.5 % (0-4.5); HEMATOCRIT 40.4 % (35.4-49); HEMOGLOBIN 13.4 GM/dL (11.7-16.9); LYMPH % 12.5 % (8-40); MCH 36.1 pg (25.7-33.7); MCHC 33.2 g/dl (32.0-35.9); MEAN CELL VOLUME 108.6 fl (80-96); MEAN PLT VOLUME 7.4 fl (7.5-11.1); MONO % 6.8 % (3.8-10.2); NEUT % 76.6 % (42.8-82.8); PLATELET COUNT 247 K/MM3 (134-434); RBC 3.72 M/mm3 (4.00-5.60); RDW 13.7 % (11.9-15.9); WHITE BLOOD COUNT 17.3 K/mm3 (4.0-10.0)
[2019-11-09] MEDS ORDERED: methylPREDNISolone NA SUCC 40 MG/1 ML VIAL IVPUSH ONE (09:14)
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
[2019-11-09 09:36] LABS: ALBUMIN 2.6 g/dl (3.4-5.0); BILIRUBIN,DIRECT 1.5 mg/dL (0.0-0.2); BILIRUBIN,TOTAL 2.2 mg/dL (0.2-1); BLOOD UREA NITROGEN 21.3 mg/dL (7-18); CALCIUM 8.7 mg/dL (8.5-10.1); CREATININE 1.3 mg/dL (0.55-1.3); MAGNESIUM 2.4 mg/dL (1.8-2.4); PHOSPHOROUS 2.2 mg/dL (2.5-4.9); POTASSIUM 4.6 mmol/L (3.5-5.1); TOT PROT 7.1 g/dl (6.4-8.2)
[2019-11-09] MEDS ORDERED: DEXTROSE 5%-WATER - 50 ML IVPB ONE (09:37)
[2019-11-09] MEDS ORDERED: cefTRIAXone SODIUM 1 GM VIAL ONE (09:37)
[2019-11-09] MEDS: CEFTRIAXONE 1 GM in DEXTROSE 5%-WATER - 50 ML IVPB SCH (09:39)
[2019-11-09] MEDS: PANTOPRAZOLE 40 MG TABLET PO SCH (09:49)
[2019-11-09] MEDS: dilTIAZem HCL 60 MG TABLET PO SCH ×2 (09:49→22:29)
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
[2019-11-09] MEDS: METOPROLOL TARTRATE 5 MG/5 ML VIAL IVPUSH PRN (10:27)
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
[2019-11-09] MEDS: DILTIAZEM INJECTION 125 MG in SODIUM CHLORIDE 100 ML IVPB SCH (11:50)
--- NOTE | 2019-11-09 12:13 | CON.PULM ---
Consult Consult Specialty:: PULM/CCM Referred by:: Hospitalist Reason for Consultation:: SOB - History of Present Illness Chief Complaint: Lethargy History of Present Illness: 89 M, CAD s/p CABG 2002, PAF, H/o CVA, HTN, CKD, DM w/ neuropathy, Anemia, and GI bleeding. Admitted via the ER due to increased lethargy and shortness of breath. Patient is a poor historian, and is unable to provide accurate history. Apparently at baseline he is mostly sedentary and has been increasing lethargic for the past few weeks. Noted to be in Rapid AFib. Cardizem IVP and a drip is being started. CXR: CHF pattern - History Source History Provided By: Patient, Medical Record Limitations to Obtaining History: Poor Historian - Past Medical History Cardio/Vascular: Yes: AFIB, CAD (6 vessel CABG 05/2002), CHF (diastolic), HTN Gastrointestinal: Yes: Crohn's Disease, GI Bleed Renal/: Yes: Renal Inusuff, Other (polyclonal gammopathy) Endocrine: Yes: Diabetes Mellitus - Past Surgical History Past Surgical History: Yes: CABG (x6), Joint Replacement ( R knee replacement 2004) - Alcohol/Substance Use Hx Alcohol Use: No History of Substance Use: reports: None - Smoking History Smoking history: Smoker current status UNK Have you smoked in the past 12 months: No - Social History Usual Living Arrangement: Alone () ADL: Support Services (Daughter visits daily) History of Recent Travel: No Home Medications - Allergies Allergies/Adverse Reactions: Allergies Allergy/AdvReac Type Severity Reaction Status Date / Time No Known Allergies Allergy Verified 11/07/19 20:21 - Home Medications Home Medications: Ambulatory Orders Gabapentin [Neurontin -] 300 mg PO BID 07/14/18 Diltiazem [Cardizem -] 60 mg PO BID 09/01/18 Aspirin [ASA -] 81 mg PO DAILY 09/11/18 Pantoprazole Sodium [Protonix -] 40 mg PO DAILY tablet.ec 09/11/18 Torsemide [Demadex -] 50 mg PO DAILY tablet 09/11/18 Tamsulosin HCl [Flomax -] 0.8 mg PO DAILY #60 capsule 09/12/18 Ferrous Sulfate [Feosol] 325 mg PO BID 10/14/18 Atorvastatin Ca [Lipitor] 40 mg PO HS 03/04/19 Insulin Glargine,Hum.rec.anlog [Basaglar Kwikpen U-100] 30 unit SQ HS 03/04/19 Insulin Sliding Scale [Novolog Vial Sliding Scale -] 25 units SQ TIDAC 03/04/19 Potassium Chloride 20 meq PO DAILY 03/04/19 Metoprolol Succinate [Toprol XL -] 50 mg PO DAILY tab.sr.24h 03/09/19 Polyvinyl Alcohol [Artificial Tears] 2 drop OU QID PRN drops 03/09/19 Review of Systems Unable to obtain ROS, reason: not able to provide Physical Exam Vital Sings: Vital Signs Temperature 99 F 11/09/19 07:56 Pulse Rate 149 H 11/09/19 12:02 Respiratory Rate 26 H 11/09/19 08:02 Blood Pressure 149/62 11/09/19 12:02 O2 Sat by Pulse Oximetry (%) 95 11/09/19 08:02 Constitutional: Yes: Mild Distress Eyes: Yes: Conjunctiva Clear, EOM Intact HENT: Yes: Atraumatic, Normocephalic Neck: Yes: Supple, Trachea Midline Cardiovascular: Yes: Tachycardia, Pulse Irregular Respiratory: Yes: Cough, Diminished, On Nasal O2, Rales, Rhonchi, SOB, SOB on Exertion, Tachypnea. No: Stridor, Wheezes ...Inspection: Yes: WNL ...Clubbing: No Gastrointestinal: Yes: Normal Bowel Sounds, Soft Musculoskeletal: Yes: Back Pain Extremities: Yes: WNL Edema: Yes Peripheral Pulses WNL: Yes Integumentary: Yes: WNL Neurological: Yes: Confusion Labs: CBC, BMP 11/09/19 08:00 11/09/19 08:00 Imaging - Results Chest X-ray: Report Reviewed, Image Reviewed Problem List - Problems (1) Dyspnea Code(s): R06.00 - DYSPNEA, UNSPECIFIED Qualifiers: Dyspnea type: unspecified Qualified Code(s): R06.00 - Dyspnea, unspecified (2) Afib Code(s): I48.91 - UNSPECIFIED ATRIAL FIBRILLATION Qualifiers: Atrial fibrillation type: unspecified chronic Qualified Code(s): I48.20 - Chronic atrial fibrillation, unspecified; I48.2 - Chronic atrial fibrillation (3) ANGELO (acute kidney injury) Code(s): N17.9 - ACUTE KIDNEY FAILURE, UNSPECIFIED (4) Anticoagulated by anticoagulation treatment Code(s): Z79.01 - RESIDENTIAL (CURRENT) USE OF ANTICOAGULANTS (5) CHF (congestive heart failure) Code(s): I50.9 - HEART FAILURE, UNSPECIFIED (6) DNI (do not intubate) Code(s): Z78.9 - OTHER SPECIFIED HEALTH STATUS (7) DNR (do not resuscitate) Code(s): Z66 - DO NOT RESUSCITATE (8) Diabetes mellitus Code(s): E11.9 - TYPE 2 DIABETES MELLITUS WITHOUT COMPLICATIONS (9) Hypertension Code(s): I10 - ESSENTIAL (PRIMARY) HYPERTENSION (10) Peripheral neuropathy Code(s): G62.9 - POLYNEUROPATHY, UNSPECIFIED (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 Assessment/Plan Cardizem drip for rate control Supplemental O2 as needed DC IVF Strict I & O Noted empiric ABX Follow cultures Aspiration precautions Monitor off systemic steroids Will follow DNR/DNI Dr Eastman
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
--- NOTE | 2019-11-09 13:11 | PN ---
Progress Note, Physician History of Present Illness: still lethargic on face mask now all cx results noted - Current Medication List Current Medications: Active Medications Acetaminophen (Ofirmev Injection -) 1,000 mg IVPB Q6H PRN PRN Reason: pain or fever Stop: 11/09/19 19:48 Last Admin: 11/08/19 22:53 Dose: 1,000 mg Documented by: Aspirin (Asa -) 81 mg PO DAILY [facility] Diltiazem HCl (Cardizem -) 60 mg PO BID [facility] Last Admin: 11/09/19 09:49 Dose: Not Given Documented by: Ceftriaxone Sodium 1 gm/ (Dextrose) 50 mls @ 100 mls/hr IVPB DAILY [facility] Last Admin: 11/09/19 09:39 Dose: 100 mls/hr Documented by: Diltiazem HCl 125 mg/ Sodium (Chloride) 125 mls @ 5 mls/hr IVPB TITR [facility]; Protocol Last Titration: 11/09/19 12:40 Dose: 14 mg/hr, 14 mls/hr Documented by: Insulin Aspart (Novolog Vial Sliding Scale -) 1 vial SQ TIDAC [facility]; Protocol Last Admin: 11/09/19 10:29 Dose: Not Given Documented by: Lorazepam (Ativan Injection -) 1 mg IVPUSH Q2H PRN PRN Reason: ANXIETY Last Admin: 11/09/19 12:42 Dose: 1 mg Documented by: Metoprolol Succinate (Toprol Xl -) 50 mg PO DAILY [facility] Last Admin: 11/09/19 09:49 Dose: Not Given Documented by: Metoprolol Tartrate (Lopressor Injection -) 5 mg IVPUSH Q4H PRN PRN Reason: TACHYCARDIA Last Admin: 11/09/19 10:27 Dose: 5 mg Documented by: Morphine Sulfate (Morphine Sulfate) 2 mg IVPUSH Q2H PRN PRN Reason: pain or tachypnea Last Admin: 11/09/19 02:29 Dose: 2 mg Documented by: Pantoprazole Sodium (Protonix -) 40 mg PO DAILY [facility] Last Admin: 11/09/19 09:49 Dose: Not Given Documented by: Tamsulosin HCl (Flomax -) 0.8 mg PO DAILY@0830 [facility] Last Admin: 11/09/19 08:40 Dose: Not Given Documented by: - Objective Vital Signs: Vital Signs Temperature 99.2 F 11/09/19 12:00 Pulse Rate 146 H 11/09/19 12:40 Respiratory Rate 26 H 11/09/19 12:00 Blood Pressure 137/76 11/09/19 12:40 O2 Sat by Pulse Oximetry (%) 95 11/09/19 08:02 Constitutional: Yes: Other Cardiovascular: Yes: S1, S2 Respiratory: Yes: Poor Air Entry, Other (on face mask) Gastrointestinal: Yes: Normal Bowel Sounds, Soft Musculoskeletal: Yes: WNL Extremities: Yes: WNL Neurological: Yes: Alert, Lethargy, Other Labs: CBC, BMP 11/09/19 08:00 11/09/19 08:00 INR, PTT INR 1.32 (0.83-1.09) H 11/07/19 19:36 Assessment/Plan Problem List - Problems (1) Dyspnea Code(s): R06.00 - DYSPNEA, UNSPECIFIED Qualifiers: Dyspnea type: unspecified Qualified Code(s): R06.00 - Dyspnea, unspecified (2) Afib Code(s): I48.91 - UNSPECIFIED ATRIAL FIBRILLATION Qualifiers: Atrial fibrillation type: unspecified chronic Qualified Code(s): I48.20 - Chronic atrial fibrillation, unspecified; I48.2 - Chronic atrial fibrillation (3) ANGELO (acute kidney injury) Code(s): N17.9 - ACUTE KIDNEY FAILURE, UNSPECIFIED (4) Anticoagulated by anticoagulation treatment Code(s): Z79.01 - INTERMEDIATE (CURRENT) USE OF ANTICOAGULANTS (5) CHF (congestive heart failure) Code(s): I50.9 - HEART FAILURE, UNSPECIFIED (6) DNI (do not intubate) Code(s): Z78.9 - OTHER SPECIFIED HEALTH STATUS (7) DNR (do not resuscitate) Code(s): Z66 - DO NOT RESUSCITATE (8) Diabetes mellitus Code(s): E11.9 - TYPE 2 DIABETES MELLITUS WITHOUT COMPLICATIONS (9) Hypertension Code(s): I10 - ESSENTIAL (PRIMARY) HYPERTENSION (10) Peripheral neuropathy Code(s): G62.9 - POLYNEUROPATHY, UNSPECIFIED (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 continue abx for now resp support close watch rest as per the team
--- NOTE | 2019-11-09 13:54 | CONSULT ---
Consult Consult Specialty:: Nephrology Reason for Consultation:: ANGELO - History of Present Illness Chief Complaint: shortness of breath History of Present Illness: Pt is an 89 year old male with pmhx of a-fib, angelo, htn, dm, ckd, polyclonal gammopathy, cad who presents to the ER with increased shortness of breath. He is a poor historian. He was found to have elevated registered medical transcriptionist and I was called to evaluate him. He denies chest pain. He is unaware of his kidney disease. He lives at home alone but has a few home health aids. He denies dysuria or hematuria. - History Source History Provided By: Patient - Past Medical History Cardio/Vascular: Yes: AFIB, CAD (6 vessel CABG 05/2002), CHF (diastolic), HTN Gastrointestinal: Yes: Crohn's Disease, GI Bleed Renal/: Yes: Renal Inusuff, Other (polyclonal gammopathy) Endocrine: Yes: Diabetes Mellitus - Past Surgical History Past Surgical History: Yes: CABG (x6), Joint Replacement ( R knee replacement 2004) - Alcohol/Substance Use Hx Alcohol Use: No History of Substance Use: reports: None - Smoking History Smoking history: Smoker current status UNK Have you smoked in the past 12 months: No - Social History Usual Living Arrangement: Alone () ADL: Support Services (Daughter visits daily) History of Recent Travel: No Home Medications - Allergies Allergies/Adverse Reactions: Allergies Allergy/AdvReac Type Severity Reaction Status Date / Time No Known Allergies Allergy Verified 11/07/19 20:21 - Home Medications Home Medications: Ambulatory Orders Gabapentin [Neurontin -] 300 mg PO BID 07/14/18 Diltiazem [Cardizem -] 60 mg PO BID 09/01/18 Aspirin [ASA -] 81 mg PO DAILY 09/11/18 Pantoprazole Sodium [Protonix -] 40 mg PO DAILY tablet.ec 09/11/18 Torsemide [Demadex -] 50 mg PO DAILY tablet 09/11/18 Tamsulosin HCl [Flomax -] 0.8 mg PO DAILY #60 capsule 09/12/18 Ferrous Sulfate [Feosol] 325 mg PO BID 10/14/18 Atorvastatin Ca [Lipitor] 40 mg PO HS 03/04/19 Insulin Glargine,Hum.rec.anlog [Audra Cervantes U-100] 30 unit SQ HS 03/04/19 Insulin Sliding Scale [Novolog Vial Sliding Scale -] 25 units SQ TIDAC 03/04/19 Potassium Chloride 20 meq PO DAILY 03/04/19 Metoprolol Succinate [Toprol XL -] 50 mg PO DAILY tab.sr.24h 03/09/19 Polyvinyl Alcohol [Artificial Tears] 2 drop OU QID PRN drops 03/09/19 Family Medical History Family History: Denies Review of Systems - Review of Systems Constitutional: reports: Loss of Appetite, Weakness Eyes: reports: No Symptoms HENT: reports: No Symptoms Neck: reports: No Symptoms Cardiovascular: reports: Shortness of Breath. denies: Chest Pain Respiratory: reports: SOB, SOB on Exertion Gastrointestinal: reports: No Symptoms Genitourinary: reports: No Symptoms Musculoskeletal: reports: No Symptoms Integumentary: reports: No Symptoms Neurological: reports: No Symptoms Endocrine: reports: No Symptoms Hematology/Lymphatic: reports: No Symptoms Psychiatric: reports: No Symptoms Physical Exam Vital Signs: Vital Signs Temperature 99.2 F 11/09/19 12:00 Pulse Rate 146 H 11/09/19 12:40 Respiratory Rate 26 H 11/09/19 12:00 Blood Pressure 137/76 11/09/19 12:40 O2 Sat by Pulse Oximetry (%) 95 11/09/19 08:02 Constitutional: Yes: Calm Eyes: Yes: Conjunctiva Clear HENT: Yes: Atraumatic Neck: Yes: Supple Cardiovascular: Yes: Tachycardia, S1, S2 Respiratory: Yes: On Venti-Mask Gastrointestinal: Yes: Soft Renal/: Yes: WNL Musculoskeletal: Yes: WNL Edema: Yes Integumentary: Yes: WNL Neurological: Yes: Oriented Psychiatric: Yes: Oriented Labs: CBC, BMP 11/09/19 08:00 11/09/19 08:00 Laboratory Tests 11/07/19 11/09/19 19:36 08:00 Creatinine 1.9 H 1.3 Imaging - Results Chest X-ray: Report Reviewed Ultrasound: Report Reviewed Problem List - Problems (1) Dyspnea Code(s): R06.00 - DYSPNEA, UNSPECIFIED Qualifiers: Dyspnea type: unspecified Qualified Code(s): R06.00 - Dyspnea, unspecified (2) Weakness Code(s): R53.1 - WEAKNESS (3) Afib Code(s): I48.91 - UNSPECIFIED ATRIAL FIBRILLATION Qualifiers: Atrial fibrillation type: unspecified chronic Qualified Code(s): I48.20 - Chronic atrial fibrillation, unspecified; I48.2 - Chronic atrial fibrillation (4) ANGELO (acute kidney injury) Code(s): N17.9 - ACUTE KIDNEY FAILURE, UNSPECIFIED (5) CHF (congestive heart failure) Code(s): I50.9 - HEART FAILURE, UNSPECIFIED Assessment/Plan Current Medications Generic Name Dose Route Start Last Admin Trade Name Freq PRN Reason Stop Dose Admin Acetaminophen 1,000 mg 11/08/19 19:47 11/08/19 22:53 Ofirmev Injection - IVPB 11/09/19 19:48 1,000 mg Q6H PRN Administration pain or fever Aspirin 81 mg 11/10/19 10:00 Asa - PO DAILY [facility] Diltiazem HCl 60 mg 11/08/19 10:00 11/09/19 09:49 Cardizem - PO Not Given BID SAR[facility] Ceftriaxone Sodium 1 gm/ 50 mls @ 100 mls/hr 11/08/19 10:00 11/09/19 09:39 Dextrose IVPB 100 mls/hr DAILY [facility] Administration Diltiazem HCl 125 mg/ Sodium 125 mls @ 5 mls/hr 11/09/19 11:30 11/09/19 12:40 Chloride IVPB 14 mg/hr TITR SARAH 14 mls/hr Titration Protocol 5 MG/HR Insulin Aspart 1 vial 11/08/19 07:00 11/09/19 10:29 Novolog Vial Sliding Scale - SQ Not Given TIDAC [facility] Protocol Lorazepam 1 mg 11/08/19 19:53 11/09/19 12:42 Ativan Injection - IVPUSH 1 mg Q2H PRN Administration ANXIETY Metoprolol Succinate 50 mg 11/08/19 10:00 11/09/19 09:49 Toprol Xl - PO Not Given DAILY [facility] Metoprolol Tartrate 5 mg 11/09/19 09:34 11/09/19 10:27 Lopressor Injection - IVPUSH 5 mg Q4H PRN Administration TACHYCARDIA Morphine Sulfate 2 mg 11/08/19 19:40 11/09/19 02:29 Morphine Sulfate IVPUSH 2 mg Q2H PRN Administration pain or tachypnea Pantoprazole Sodium 40 mg 11/08/19 10:00 11/09/19 09:49 Protonix - PO Not Given DAILY [facility] Tamsulosin HCl 0.8 mg 11/08/19 08:30 11/09/19 08:40 Flomax - PO Not Given DAILY@0830 [facility] Impression 1. ANGELO 2. CAD 3. a-fib 4. CVA 5. CKD 6. DM 7. anemia 8. GI bleeding Plan - renal function did improve - cont to monitor - reviewed ultrasound - repeat cxr in am - lasix as needed - check echo - cont icu care - monitor lytes and registered medical transcriptionist
[2019-11-10] MEDS: INSULIN SLIDING SCALE (NOVOLOG) 1 VIAL SQ SCH ×3 (06:39→17:11)
[2019-11-10] MEDS ORDERED: PT OWN MED DRAWER 7, Y5N ONE ×2 (08:42→18:03)
[2019-11-10] MEDS ORDERED: dilTIAZem HCL 25 MG/5 ML - 5 ML VIAL ONE (08:42)
[2019-11-10] MEDS ORDERED: cefTRIAXone SODIUM 1 GM VIAL ONE (09:19)
[2019-11-10] MEDS ORDERED: DEXTROSE 5%-WATER - 50 ML IVPB ONE (09:19)
[2019-11-10] MEDS: TAMSULOSIN HCL 0.4 MG CAP PO SCH (09:53)
[2019-11-10] MEDS: PANTOPRAZOLE 40 MG TABLET PO SCH (09:54)
[2019-11-10] MEDS: ASPIRIN 81 MG CHEWABLE TABLETS PO SCH (09:54)
[2019-11-10] MEDS: dilTIAZem HCL 60 MG TABLET PO SCH ×2 (09:54→22:00)
[2019-11-10] MEDS: CEFTRIAXONE 1 GM in DEXTROSE 5%-WATER - 50 ML IVPB SCH (09:54)
[2019-11-10 11:12] LABS: BASO % 0.9 % (0-2.0); EOS % 2.2 % (0-4.5); HEMATOCRIT 37.8 % (35.4-49); HEMOGLOBIN 12.7 GM/dL (11.7-16.9); LYMPH % 12.2 % (8-40); MCH 36.9 pg (25.7-33.7); MCHC 33.7 g/dl (32.0-35.9); MEAN CELL VOLUME 109.4 fl (80-96); MEAN PLT VOLUME 7.4 fl (7.5-11.1); MONO % 6.7 % (3.8-10.2); PLATELET COUNT 225 K/MM3 (134-434); RBC 3.46 M/mm3 (4.00-5.60); RDW 13.6 % (11.9-15.9); WHITE BLOOD COUNT 12.6 K/mm3 (4.0-10.0)
[2019-11-10 11:39] LABS: ALBUMIN 2.3 g/dl (3.4-5.0); BILIRUBIN,TOTAL 1.8 mg/dL (0.2-1); CALCIUM 8.6 mg/dL (8.5-10.1); CREATININE 1.2 mg/dL (0.55-1.3); MAGNESIUM 2.2 mg/dL (1.8-2.4); POTASSIUM 4.1 mmol/L (3.5-5.1); TOT PROT 6.4 g/dl (6.4-8.2)
[2019-11-10] MEDS: DILTIAZEM INJECTION 125 MG in SODIUM CHLORIDE 100 ML IVPB SCH (11:45)
--- NOTE | 2019-11-10 12:11 | PN ---
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 Accepted trials of 2 1/2 tsp of applesauce with delayed but fairly brisk swallow. Cough response on sip of thin water, coughed for a few minutes. Nursing aware. o2 sat 92/RR27/VM cxr: right infiltrate and fluid, worsening Suggest continue strict NPO Consider alternate means of nutrition for now MBS when medically stable
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
--- NOTE | 2019-11-10 14:07 | PN ---
Progress Note (short form) - Note Progress Note: Remains lethargic on VM O2. Mildly tachypneic at rest. No acute events overnight. Intake & Output 11/07/19 11/08/19 11/09/19 11/10/19 23:59 23:59 23:59 23:59 Intake Total 100 146 138 Output Total 162 775 4736 600 Balance -150 -300 -854 -462 Weight 485 lb 0.271 oz 169 lb 12.095 oz 169 lb 12.095 oz 169 lb Last Vital Signs Temp Pulse Resp BP Pulse Ox 99 F 109 H 18 138/87 98 11/10/19 09:00 11/10/19 11:45 11/10/19 09:00 11/10/19 11:45 11/10/19 09:00 Active Medications Aspirin (Asa -) 81 mg PO DAILY [facility] Last Admin: 11/10/19 09:54 Dose: Not Given Documented by: Diltiazem HCl (Cardizem -) 60 mg PO BID [facility] Last Admin: 11/10/19 09:54 Dose: Not Given Documented by: Ceftriaxone Sodium 1 gm/ (Dextrose) 50 mls @ 100 mls/hr IVPB DAILY [facility] Last Admin: 11/10/19 09:54 Dose: 100 mls/hr Documented by: Diltiazem HCl 125 mg/ Sodium (Chloride) 125 mls @ 5 mls/hr IVPB TITR [facility]; Protocol Last Admin: 11/10/19 11:45 Dose: 15 mg/hr, 15 mls/hr Documented by: Insulin Aspart (Novolog Vial Sliding Scale -) 1 vial SQ TIDAC [facility]; Protocol Last Admin: 11/10/19 11:45 Dose: 6 units Documented by: Lorazepam (Ativan Injection -) 1 mg IVPUSH Q2H PRN PRN Reason: ANXIETY Last Admin: 11/09/19 12:42 Dose: 1 mg Documented by: Metoprolol Succinate (Toprol Xl -) 50 mg PO DAILY [facility] Last Admin: 11/10/19 09:54 Dose: Not Given Documented by: Metoprolol Tartrate (Lopressor Injection -) 5 mg IVPUSH Q4H PRN PRN Reason: TACHYCARDIA Last Admin: 11/09/19 10:27 Dose: 5 mg Documented by: Morphine Sulfate (Morphine Sulfate) 2 mg IVPUSH Q2H PRN PRN Reason: pain or tachypnea Last Admin: 11/09/19 15:47 Dose: 2 mg Documented by: Pantoprazole Sodium (Protonix -) 40 mg PO DAILY [facility] Last Admin: 11/10/19 09:54 Dose: Not Given Documented by: Tamsulosin HCl (Flomax -) 0.8 mg PO DAILY@0830 [facility] Last Admin: 11/10/19 09:53 Dose: Not Given Documented by: Constitutional: Yes: Lethargic on VM O2 Eyes: Yes: Conjunctiva Clear, EOM Intact HENT: Yes: Atraumatic, Normocephalic Neck: Yes: Supple, Trachea Midline Cardiovascular: Yes: Tachycardia, Pulse Irregular Respiratory: Yes: Cough, Diminished, VM O2, Rhonchi, SOB, Tachypnea. No: Stridor, Wheezes ...Inspection: Yes: WNL ...Clubbing: No Gastrointestinal: Yes: Normal Bowel Sounds, Soft Musculoskeletal: Yes: Back Pain Extremities: Yes: WNL Edema: Yes Peripheral Pulses WNL: Yes Integumentary: Yes: WNL Neurological: Yes: Confusion Labs: Laboratory Results - last 24 hr 11/07/19 11/09/19 11/10/19 20:25 17:58 06:36 WBC RBC Hgb Hct MCV MCH MCHC RDW Plt Count MPV Absolute Neuts (auto) Neutrophils % Lymphocytes % Monocytes % Eosinophils % Basophils % Nucleated RBC % Sodium Potassium Chloride Carbon Dioxide Anion Gap BUN Creatinine Est GFR (CKD-EPI)AfAm Est GFR (CKD-EPI)NonAf POC Glucometer 261 251 Random Glucose Calcium Magnesium Total Bilirubin AST ALT Alkaline Phosphatase Total Protein Albumin COVID-19 (ANDI) Not detected 11/10/19 11/10/19 11/10/19 10:50 10:50 11:27 WBC 12.6 H RBC 3.46 L Hgb 12.7 Hct 37.8 MCV 109.4 H MCH 36.9 H MCHC 33.7 RDW 13.6 Plt Count 225 MPV 7.4 L Absolute Neuts (auto) 9.9 H Neutrophils % 78.0 Lymphocytes % 12.2 Monocytes % 6.7 Eosinophils % 2.2 Basophils % 0.9 Nucleated RBC % 0 Sodium 144 Potassium 4.1 Chloride 110 H Carbon Dioxide 25 Anion Gap 9 BUN 26.0 H Creatinine 1.2 Est GFR (CKD-EPI)AfAm 61.76 Est GFR (CKD-EPI)NonAf 53.29 POC Glucometer 270 Random Glucose 272 H Calcium 8.6 Magnesium 2.2 Total Bilirubin 1.8 H AST 31 ALT 27 Alkaline Phosphatase 151 H Total Protein 6.4 Albumin 2.3 L COVID-19 (ANDI) Imaging - Results Chest X-ray: Report Reviewed, Image Reviewed Problem List - Problems (1) Dyspnea Code(s): R06.00 - DYSPNEA, UNSPECIFIED Qualifiers: Dyspnea type: unspecified Qualified Code(s): R06.00 - Dyspnea, unspecified (2) Afib Code(s): I48.91 - UNSPECIFIED ATRIAL FIBRILLATION Qualifiers: Atrial fibrillation type: unspecified chronic Qualified Code(s): I48.20 - Chronic atrial fibrillation, unspecified; I48.2 - Chronic atrial fibrillation (3) ANGELO (acute kidney injury) Code(s): N17.9 - ACUTE KIDNEY FAILURE, UNSPECIFIED (4) Anticoagulated by anticoagulation treatment 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 (5) CHF (congestive heart failure) Code(s): I50.9 - HEART FAILURE, UNSPECIFIED (6) DNI (do not intubate) Code(s): Z78.9 - OTHER SPECIFIED HEALTH STATUS (7) DNR (do not resuscitate) Code(s): Z66 - DO NOT RESUSCITATE (8) Diabetes mellitus Code(s): E11.9 - TYPE 2 DIABETES MELLITUS WITHOUT COMPLICATIONS (9) Hypertension Code(s): I10 - ESSENTIAL (PRIMARY) HYPERTENSION (10) Peripheral neuropathy Code(s): G62.9 - POLYNEUROPATHY, UNSPECIFIED (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 Assessment/Plan Rate control Supplemental O2 as needed Strict I & O Empiric ABX Follow cultures Aspiration precautions Monitor off systemic steroids DNR/DNI Dr Eastman Problem List - Problems (1) Dyspnea Code(s): R06.00 - DYSPNEA, UNSPECIFIED Qualifiers: Dyspnea type: unspecified Qualified Code(s): R06.00 - Dyspnea, unspecified (2) Afib Code(s): I48.91 - UNSPECIFIED ATRIAL FIBRILLATION Qualifiers: Atrial fibrillation type: unspecified chronic Qualified Code(s): I48.20 - Chronic atrial fibrillation, unspecified; I48.2 - Chronic atrial fibrillation (3) ANGELO (acute kidney injury) Code(s): N17.9 - ACUTE KIDNEY FAILURE, UNSPECIFIED (4) Anticoagulated by anticoagulation treatment 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 (5) CHF (congestive heart failure) Code(s): I50.9 - HEART FAILURE, UNSPECIFIED (6) DNI (do not intubate) Code(s): Z78.9 - OTHER SPECIFIED HEALTH STATUS (7) DNR (do not resuscitate) Code(s): Z66 - DO NOT RESUSCITATE (8) Diabetes mellitus Code(s): E11.9 - TYPE 2 DIABETES MELLITUS WITHOUT COMPLICATIONS (9) Hypertension Code(s): I10 - ESSENTIAL (PRIMARY) HYPERTENSION (10) Peripheral neuropathy Code(s): G62.9 - POLYNEUROPATHY, UNSPECIFIED (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
--- NOTE | 2019-11-10 14:17 | PN ---
Progress Note, Physician History of Present Illness: Remains lethargic on VM O2. Mildly tachypneic at rest. No acute events overnight. - Current Medication List Current Medications: Active Medications Aspirin (Asa -) 81 mg PO DAILY [facility] Last Admin: 11/10/19 09:54 Dose: Not Given Documented by: Diltiazem HCl (Cardizem -) 60 mg PO BID [facility] Last Admin: 11/10/19 09:54 Dose: Not Given Documented by: Ceftriaxone Sodium 1 gm/ (Dextrose) 50 mls @ 100 mls/hr IVPB DAILY [facility] Last Admin: 11/10/19 09:54 Dose: 100 mls/hr Documented by: Diltiazem HCl 125 mg/ Sodium (Chloride) 125 mls @ 5 mls/hr IVPB TITR [facility]; Protocol Last Admin: 11/10/19 11:45 Dose: 15 mg/hr, 15 mls/hr Documented by: Insulin Aspart (Novolog Vial Sliding Scale -) 1 vial SQ TIDAC [facility]; Protocol Last Admin: 11/10/19 11:45 Dose: 6 units Documented by: Lorazepam (Ativan Injection -) 1 mg IVPUSH Q2H PRN PRN Reason: ANXIETY Last Admin: 11/09/19 12:42 Dose: 1 mg Documented by: Metoprolol Succinate (Toprol Xl -) 50 mg PO DAILY [facility] Last Admin: 11/10/19 09:54 Dose: Not Given Documented by: Metoprolol Tartrate (Lopressor Injection -) 5 mg IVPUSH Q4H PRN PRN Reason: TACHYCARDIA Last Admin: 11/09/19 10:27 Dose: 5 mg Documented by: Morphine Sulfate (Morphine Sulfate) 2 mg IVPUSH Q2H PRN PRN Reason: pain or tachypnea Last Admin: 11/09/19 15:47 Dose: 2 mg Documented by: Pantoprazole Sodium (Protonix -) 40 mg PO DAILY [facility] Last Admin: 11/10/19 09:54 Dose: Not Given Documented by: Tamsulosin HCl (Flomax -) 0.8 mg PO DAILY@0830 [facility] Last Admin: 11/10/19 09:53 Dose: Not Given Documented by: - Objective Vital Signs: Vital Signs Temperature 99 F 11/10/19 09:00 Pulse Rate 109 H 11/10/19 11:45 Respiratory Rate 18 11/10/19 09:00 Blood Pressure 138/87 11/10/19 11:45 O2 Sat by Pulse Oximetry (%) 98 11/10/19 09:00 Constitutional: Yes: Other Eyes: Yes: Conjunctiva Clear Cardiovascular: Yes: S1, S2 Respiratory: Yes: On Venti-Mask, Poor Air Entry, Other Gastrointestinal: Yes: Normal Bowel Sounds, Soft Musculoskeletal: Yes: WNL Extremities: Yes: WNL Neurological: Yes: Lethargy Psychiatric: Yes: Other Labs: CBC, BMP 11/10/19 10:50 11/10/19 10:50 INR, PTT INR 1.32 (0.83-1.09) H 11/07/19 19:36 - ....Imaging Chest X-ray: Report Reviewed, Image Reviewed Assessment/Plan Problem List - Problems (1) Dyspnea Code(s): R06.00 - DYSPNEA, UNSPECIFIED Qualifiers: Dyspnea type: unspecified Qualified Code(s): R06.00 - Dyspnea, unspecified (2) Afib Code(s): I48.91 - UNSPECIFIED ATRIAL FIBRILLATION Qualifiers: Atrial fibrillation type: unspecified chronic Qualified Code(s): I48.20 - Chronic atrial fibrillation, unspecified; I48.2 - Chronic atrial fibrillation (3) ANGELO (acute kidney injury) Code(s): N17.9 - ACUTE KIDNEY FAILURE, UNSPECIFIED (4) Anticoagulated by anticoagulation treatment Code(s): Z79.01 - RETIREMENT (CURRENT) USE OF ANTICOAGULANTS (5) CHF (congestive heart failure) Code(s): I50.9 - HEART FAILURE, UNSPECIFIED (6) DNI (do not intubate) Code(s): Z78.9 - OTHER SPECIFIED HEALTH STATUS (7) DNR (do not resuscitate) Code(s): Z66 - DO NOT RESUSCITATE (8) Diabetes mellitus Code(s): E11.9 - TYPE 2 DIABETES MELLITUS WITHOUT COMPLICATIONS (9) Hypertension Code(s): I10 - ESSENTIAL (PRIMARY) HYPERTENSION (10) Peripheral neuropathy Code(s): G62.9 - POLYNEUROPATHY, UNSPECIFIED (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
--- NOTE | 2019-11-10 15:50 | PN ---
Progress Note, Physician History of Present Illness: Pt seen and examined at bedside. He appears confused today. He remains in ICU. - Current Medication List Current Medications: Active Medications Aspirin (Asa -) 81 mg PO DAILY [facility] Last Admin: 11/10/19 09:54 Dose: Not Given Documented by: Diltiazem HCl (Cardizem -) 60 mg PO BID [facility] Last Admin: 11/10/19 09:54 Dose: Not Given Documented by: Ceftriaxone Sodium 1 gm/ (Dextrose) 50 mls @ 100 mls/hr IVPB DAILY [facility] Last Admin: 11/10/19 09:54 Dose: 100 mls/hr Documented by: Diltiazem HCl 125 mg/ Sodium (Chloride) 125 mls @ 5 mls/hr IVPB TITR [facility]; Protocol Last Admin: 11/10/19 11:45 Dose: 15 mg/hr, 15 mls/hr Documented by: Insulin Aspart (Novolog Vial Sliding Scale -) 1 vial SQ TIDAC [facility]; Protocol Last Admin: 11/10/19 11:45 Dose: 6 units Documented by: Lorazepam (Ativan Injection -) 1 mg IVPUSH Q2H PRN PRN Reason: ANXIETY Last Admin: 11/09/19 12:42 Dose: 1 mg Documented by: Metoprolol Succinate (Toprol Xl -) 50 mg PO DAILY [facility] Last Admin: 11/10/19 09:54 Dose: Not Given Documented by: Metoprolol Tartrate (Lopressor Injection -) 5 mg IVPUSH Q4H PRN PRN Reason: TACHYCARDIA Last Admin: 11/09/19 10:27 Dose: 5 mg Documented by: Morphine Sulfate (Morphine Sulfate) 2 mg IVPUSH Q2H PRN PRN Reason: pain or tachypnea Last Admin: 11/09/19 15:47 Dose: 2 mg Documented by: Pantoprazole Sodium (Protonix -) 40 mg PO DAILY [facility] Last Admin: 11/10/19 09:54 Dose: Not Given Documented by: Tamsulosin HCl (Flomax -) 0.8 mg PO DAILY@0830 [facility] Last Admin: 11/10/19 09:53 Dose: Not Given Documented by: - Objective Vital Signs: Vital Signs Temperature 99.3 F 11/10/19 14:00 Pulse Rate 100 H 11/10/19 14:00 Respiratory Rate 20 11/10/19 14:00 Blood Pressure 116/70 11/10/19 14:00 O2 Sat by Pulse Oximetry (%) 98 11/10/19 09:00 Constitutional: Yes: Calm Eyes: Yes: Conjunctiva Clear HENT: Yes: Atraumatic Cardiovascular: Yes: S1, S2 Respiratory: Yes: On Venti-Mask Gastrointestinal: Yes: Soft Genitourinary: Yes: Rice Present Musculoskeletal: Yes: Muscle Weakness Edema: No Integumentary: Yes: WNL Neurological: Yes: Confusion Labs: CBC, BMP 11/10/19 10:50 11/10/19 10:50 INR, PTT INR 1.32 (0.83-1.09) H 11/07/19 19:36 Problem List - Problems (1) Dyspnea Code(s): R06.00 - DYSPNEA, UNSPECIFIED Qualifiers: Dyspnea type: unspecified Qualified Code(s): R06.00 - Dyspnea, unspecified (2) Weakness Code(s): R53.1 - WEAKNESS (3) Afib Code(s): I48.91 - UNSPECIFIED ATRIAL FIBRILLATION Qualifiers: Atrial fibrillation type: unspecified chronic Qualified Code(s): I48.20 - Chronic atrial fibrillation, unspecified; I48.2 - Chronic atrial fibrillation (4) ANGELO (acute kidney injury) Code(s): N17.9 - ACUTE KIDNEY FAILURE, UNSPECIFIED (5) CHF (congestive heart failure) Code(s): I50.9 - HEART FAILURE, UNSPECIFIED Assessment/Plan Current Medications Generic Name Dose Route Start Last Admin Trade Name Danielq PRN Reason Stop Dose Admin Aspirin 81 mg 11/10/19 10:00 11/10/19 09:54 Asa - PO Not Given DAILY [facility] Diltiazem HCl 60 mg 11/08/19 10:00 11/10/19 09:54 Cardizem - PO Not Given BID [facility] Ceftriaxone Sodium 1 gm/ 50 mls @ 100 mls/hr 11/08/19 10:00 11/10/19 09:54 Dextrose IVPB 100 mls/hr DAILY [facility] Administration Diltiazem HCl 125 mg/ Sodium 125 mls @ 5 mls/hr 11/09/19 11:30 11/10/19 11:45 Chloride IVPB 15 mg/hr TITR [facility] 15 mls/hr Administration Protocol 5 MG/HR Insulin Aspart 1 vial 11/08/19 07:00 11/10/19 11:45 Novolog Vial Sliding Scale - SQ 6 units TIDAC [facility] Administration Protocol Lorazepam 1 mg 11/08/19 19:53 11/09/19 12:42 Ativan Injection - IVPUSH 1 mg Q2H PRN Administration ANXIETY Metoprolol Succinate 50 mg 11/08/19 10:00 11/10/19 09:54 Toprol Xl - PO Not Given DAILY [facility] Metoprolol Tartrate 5 mg 11/09/19 09:34 11/09/19 10:27 Lopressor Injection - IVPUSH 5 mg Q4H PRN Administration TACHYCARDIA Morphine Sulfate 2 mg 11/08/19 19:40 11/09/19 15:47 Morphine Sulfate IVPUSH 2 mg Q2H PRN Administration pain or tachypnea Pantoprazole Sodium 40 mg 11/08/19 10:00 11/10/19 09:54 Protonix - PO Not Given DAILY [facility] Tamsulosin HCl 0.8 mg 11/08/19 08:30 11/10/19 09:53 Flomax - PO Not Given DAILY@0830 [facility] Impression 1. ANGELO 2. CAD 3. a-fib 4. CVA 5. CKD 6. DM 7. anemia 8. GI bleeding Plan - requisition approver improved - rate is improved - cont rate control - follow cultures - lasix as needed - check echo - cont icu care
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
[2019-11-11] MEDS ORDERED: PT OWN MED DRAWER 7, Y5N ONE (01:16)
[2019-11-11] MEDS: MORPHINE SULFATE 2 MG/ML VIAL IVPUSH PRN (05:29)
[2019-11-11] MEDS: METOPROLOL TARTRATE 5 MG/5 ML VIAL IVPUSH PRN ×2 (06:18→15:00)
[2019-11-11] MEDS: DILTIAZEM INJECTION 125 MG in SODIUM CHLORIDE 100 ML IVPB SCH (06:19)
[2019-11-11] MEDS: AMINO ACIDS 4.25%/D5W 1,000 ML IV SCH ×3 (07:15→20:12)
[2019-11-11 07:17] LABS: BASO % 0.8 % (0-2.0); EOS % 0.6 % (0-4.5); HEMATOCRIT 37.9 % (35.4-49); HEMOGLOBIN 12.8 GM/dL (11.7-16.9); LYMPH % 10.8 % (8-40); MCH 36.7 pg (25.7-33.7); MCHC 33.8 g/dl (32.0-35.9); MEAN CELL VOLUME 108.7 fl (80-96); MEAN PLT VOLUME 7.1 fl (7.5-11.1); MONO % 6.6 % (3.8-10.2); NEUT % 81.2 % (42.8-82.8); PLATELET COUNT 289 K/MM3 (134-434); RBC 3.49 M/mm3 (4.00-5.60); WHITE BLOOD COUNT 14.5 K/mm3 (4.0-10.0)
[2019-11-11 07:47] LABS: ALBUMIN 2.2 g/dl (3.4-5.0); BILIRUBIN,TOTAL 2.1 mg/dL (0.2-1); BLOOD UREA NITROGEN 25.9 mg/dL (7-18); CALCIUM 8.5 mg/dL (8.5-10.1); CREATININE 1.2 mg/dL (0.55-1.3); MAGNESIUM 2.2 mg/dL (1.8-2.4); POTASSIUM 3.8 mmol/L (3.5-5.1); TOT PROT 6.8 g/dl (6.4-8.2)
[2019-11-11] MEDS: INSULIN SLIDING SCALE (NOVOLOG) 1 VIAL SQ SCH ×3 (08:42→17:30)
[2019-11-11 08:44] LABS: ANISOCYTOSIS 1+; MACROCYTOSIS 1+; PLATELET ESTIMATE NORMAL
[2019-11-11] MEDS: PANTOPRAZOLE 40 MG TABLET PO SCH (09:17)
[2019-11-11] MEDS: dilTIAZem HCL 60 MG TABLET PO SCH ×2 (09:17→21:30)
[2019-11-11] MEDS: ASPIRIN 81 MG CHEWABLE TABLETS PO SCH (09:17)
[2019-11-11] MEDS: TAMSULOSIN HCL 0.4 MG CAP PO SCH (09:17)
[2019-11-11] MEDS ORDERED: DEXTROSE 5%-WATER - 50 ML IVPB ONE (09:19)
[2019-11-11] MEDS ORDERED: cefTRIAXone SODIUM 1 GM VIAL ONE (09:19)
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
[2019-11-11] MEDS: CEFTRIAXONE 1 GM in DEXTROSE 5%-WATER - 50 ML IVPB SCH (09:53)
--- NOTE | 2019-11-11 10:55 | PN ---
Progress Note, RECEPTIONIST - Note Progress Note: Selected Entries 11/10/19 11/10/19 11/10/19 00:00 01:00 03:59 Supper NPO Temperature 98 F 99.2 F Pulse Rate 119 H 118 H Respiratory 20 19 Rate Respiratory Effort Blood Pressure 165/75 131/72 O2 Sat by Pulse Oximetry (%) Oxygen Flow Rate Weight 11/10/19 11/10/19 11/10/19 04:14 05:00 06:00 Supper Temperature 99.3 F Pulse Rate 118 H Respiratory 17 Rate Respiratory Effort Blood Pressure 131/75 O2 Sat by Pulse 98 Oximetry (%) Oxygen Flow Rate Weight 169 lb 11/10/19 11/10/19 11/10/19 07:30 09:00 11:45 Supper Temperature 99 F Pulse Rate 124 H 102 H 109 H Respiratory 18 Rate Respiratory Non-Labored Effort Blood Pressure 127/78 139/74 138/87 O2 Sat by Pulse 98 Oximetry (%) Oxygen Flow Rate Weight 11/10/19 11/10/19 11/10/19 14:00 18:00 18:13 Supper NPO Temperature 99.3 F 98 F Pulse Rate 100 H 96 H Respiratory 20 20 Rate Respiratory Effort Blood Pressure 116/70 133/71 O2 Sat by Pulse Oximetry (%) Oxygen Flow Rate Weight 11/10/19 11/11/19 11/11/19 19:47 02:00 04:00 Supper Temperature 98.4 F 98.7 F Pulse Rate 119 H 118 H Respiratory 20 20 23 H Rate Respiratory Non-Labored Effort Blood Pressure 154/81 158/88 O2 Sat by Pulse 95 Oximetry (%) Oxygen Flow 4 Rate Weight 11/11/19 11/11/19 11/11/19 06:00 06:18 06:19 Supper Temperature 98.4 F Pulse Rate 119 H 119 H 119 H Respiratory 23 H Rate Respiratory Effort Blood Pressure 156/98 166/88 O2 Sat by Pulse Oximetry (%) Oxygen Flow Rate Weight 169 lb 11/11/19 11/11/19 08:00 09:51 Supper Temperature 98.6 F Pulse Rate 118 H 118 H Respiratory 23 H 23 H Rate Respiratory Effort Blood Pressure 140/99 151/73 O2 Sat by Pulse Oximetry (%) Oxygen Flow Rate Weight Laboratory Tests 11/09/19 11/10/19 11/11/19 08:00 10:50 07:00 WBC 17.3 H 12.6 H 14.5 H Selected Entries 11/11/19 11/11/19 11/11/19 02:00 04:00 06:00 Pulse Rate 119 H 118 H 119 H 11/11/19 11/11/19 11/11/19 06:18 06:19 08:00 Pulse Rate 119 H 119 H 118 H 11/11/19 09:51 Pulse Rate 118 H CXR worse HR elevated Continue strict NPO. MBS when medically stable
--- NOTE | 2019-11-11 11:18 | PN ---
Progress Note (short form) - Note Progress Note: PULMONARY Awake but confused. No fevers recorded. On cardizem gtt. Vital Signs Period Temp Pulse Resp BP Sys/Shaw Pulse Ox Last 24 Hr 98 F-99.3 F 96-119 20-23 116-166/70-99 95 Gen: NAD, confused Heart: RRR Lung: decreased breath sounds at the bases Abd: soft, nontender Ext: no edema CBC, BMP 11/11/19 07:00 11/11/19 07:00 Active Medications Aspirin (Asa -) 81 mg PO DAILY [facility] Last Admin: 11/11/19 09:17 Dose: Not Given Documented by: Diltiazem HCl (Cardizem -) 60 mg PO BID [facility] Last Admin: 11/11/19 09:17 Dose: Not Given Documented by: Ceftriaxone Sodium 1 gm/ (Dextrose) 50 mls @ 100 mls/hr IVPB DAILY [facility] Last Admin: 11/11/19 09:53 Dose: 100 mls/hr Documented by: Diltiazem HCl 125 mg/ Sodium (Chloride) 125 mls @ 5 mls/hr IVPB TITR [facility]; Protocol Last Admin: 11/11/19 06:19 Dose: 15 mg/hr, 15 mls/hr Documented by: Amino Acids (Clinimix -) 1,000 mls @ 42 mls/hr IV Q24H [facility] Last Admin: 11/11/19 07:15 Dose: 42 mls/hr Documented by: Insulin Aspart (Novolog Vial Sliding Scale -) 1 vial SQ TIDAC [facility]; Protocol Last Admin: 11/11/19 08:42 Dose: 8 units Documented by: Lorazepam (Ativan Injection -) 1 mg IVPUSH Q2H PRN PRN Reason: ANXIETY Last Admin: 11/09/19 12:42 Dose: 1 mg Documented by: Metoprolol Succinate (Toprol Xl -) 50 mg PO DAILY [facility] Last Admin: 11/11/19 09:17 Dose: Not Given Documented by: Metoprolol Tartrate (Lopressor Injection -) 5 mg IVPUSH Q4H PRN PRN Reason: TACHYCARDIA Last Admin: 11/11/19 06:18 Dose: 5 mg Documented by: Morphine Sulfate (Morphine Sulfate) 2 mg IVPUSH Q2H PRN PRN Reason: pain or tachypnea Last Admin: 11/11/19 05:29 Dose: 2 mg Documented by: Pantoprazole Sodium (Protonix -) 40 mg PO DAILY [facility] Last Admin: 11/11/19 09:17 Dose: Not Given Documented by: Tamsulosin HCl (Flomax -) 0.8 mg PO DAILY@0830 [facility] Last Admin: 11/11/19 09:17 Dose: Not Given Documented by: A/P Pneumonia Sepsis Acute on Chronic Renal Failure improving CAD s/p CABG +Troponins likely Demand Ischemia Paroxysmal Atrial Fibrillation LV Diastolic Dysfunction HTN DM h/o GI Bleed h/o CVA - continue antibiotics - aspiration precautions - on clinimix - rate control - O2 to keep Spo2 >90% - DVT prophylaxis
--- NOTE | 2019-11-11 12:18 | PN ---
Progress Note (short form) - Note Progress Note: s: confused, unable to obtain hpi or ROS Current Medications Generic Name Dose Route Start Last Admin Trade Name Freq PRN Reason Stop Dose Admin Aspirin 81 mg 11/10/19 10:00 11/11/19 09:17 Asa - PO Not Given DAILY [facility] Diltiazem HCl 60 mg 11/08/19 10:00 11/11/19 09:17 Cardizem - PO Not Given BID [facility]AH Ceftriaxone Sodium 1 gm/ 50 mls @ 100 mls/hr 11/08/19 10:00 11/11/19 09:53 Dextrose IVPB 100 mls/hr DAILY [facility] Administration Diltiazem HCl 125 mg/ Sodium 125 mls @ 5 mls/hr 11/09/19 11:30 11/11/19 06:19 Chloride IVPB 15 mg/hr TITR SARAH 15 mls/hr Administration Protocol 5 MG/HR Amino Acids 1,000 mls @ 42 mls/hr 11/10/19 17:45 11/11/19 07:15 Clinimix - IV 42 mls/hr Q24H [facility]AH Administration Insulin Aspart 1 vial 11/08/19 07:00 11/11/19 08:42 Novolog Vial Sliding Scale - SQ 8 units TIDAC [facility] Administration Protocol Lorazepam 1 mg 11/08/19 19:53 11/09/19 12:42 Ativan Injection - IVPUSH 1 mg Q2H PRN Administration ANXIETY Metoprolol Succinate 50 mg 11/08/19 10:00 11/11/19 09:17 Toprol Xl - PO Not Given DAILY [facility] Metoprolol Tartrate 5 mg 11/09/19 09:34 11/11/19 06:18 Lopressor Injection - IVPUSH 5 mg Q4H PRN Administration TACHYCARDIA Morphine Sulfate 2 mg 11/08/19 19:40 11/11/19 05:29 Morphine Sulfate IVPUSH 2 mg Q2H PRN Administration pain or tachypnea Pantoprazole Sodium 40 mg 11/08/19 10:00 11/11/19 09:17 Protonix - PO Not Given DAILY [facility] Tamsulosin HCl 0.8 mg 11/08/19 08:30 11/11/19 09:17 Flomax - PO Not Given DAILY@0830 [facility] Vital Signs Period Temp Pulse Resp BP Sys/Shaw Pulse Ox Last 24 Hr 98 F-99.3 F 96-119 20-23 116-166/70-99 95-96 Constitutional: Yes: No Distress, Calm Eyes: Yes: Conjunctiva Clear Respiratory: Yes:dec bs right, nl eff Gastrointestinal: Yes: Soft (NT, no rebound or guarding) Cardiovascular: Yes: Regular Rate and Rhythm JVD: No Carotid Bruit: No Heart Sounds: Yes: S1, S2 (RRR, no M/R/G) Edema: No Peripheral Pulses WNL: Yes Neurological: Yes: Alert no jaundice diaphoresis tele: afib rate 100s-120s echo 02/2019: nl lvef, nl rvsp, mild tr, mild mr, kiet Echo: Report Reviewed (Echo 06/2018: Nl LV/RV, mod LAE, mild MR, AI, no PHTN) Stress Echo: Other (MPI: 11/2015: No ischemic ST changes. 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 fever, lethargy, sepsis: -infectious w/u -cxr with infiltrate, abx per primary/ID, cont supplemental 02 jayce: -cont ivfs, monitor cr elevated trop: -borderline trop with flat trend, similar to prior baseline values, not c/w acs pafib: -pt not taking po meds (was on dilt 60 bid and toprol 50 qd at home) and having rvr - rate improving with dilt gtt, cont while NPO. 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 His AC has been stopped and he remains on asa 81 qd, cont same when taking PO CAD s/p CABG: -stable, no signs acs -cont statin, bb, aspirin Chronic diastolic CHF: -stable here currently. monitor vol status with ivfs -when renal fxn back to baseline, resume home Torsemide of 50mg daily
--- NOTE | 2019-11-11 13:35 | PN ---
Progress Note, Physician History of Present Illness: Pt seen and examined at bedside. He is more awake and alert today. - Current Medication List Current Medications: Active Medications Aspirin (Asa -) 81 mg PO DAILY [facility] Last Admin: 11/11/19 09:17 Dose: Not Given Documented by: Diltiazem HCl (Cardizem -) 60 mg PO BID [facility] Last Admin: 11/11/19 09:17 Dose: Not Given Documented by: Ceftriaxone Sodium 1 gm/ (Dextrose) 50 mls @ 100 mls/hr IVPB DAILY [facility] Last Admin: 11/11/19 09:53 Dose: 100 mls/hr Documented by: Diltiazem HCl 125 mg/ Sodium (Chloride) 125 mls @ 5 mls/hr IVPB TITR [facility]; Pr otocol Last Admin: 11/11/19 06:19 Dose: 15 mg/hr, 15 mls/hr Documented by: Amino Acids (Clinimix -) 1,000 mls @ 42 mls/hr IV Q24H [facility] Last Admin: 11/11/19 07:15 Dose: 42 mls/hr Documented by: Insulin Aspart (Novolog Vial Sliding Scale -) 1 vial SQ TIDAC [facility]; Protocol Last Admin: 11/11/19 13:00 Dose: 8 units Documented by: Lorazepam (Ativan Injection -) 1 mg IVPUSH Q2H PRN PRN Reason: ANXIETY Last Admin: 11/09/19 12:42 Dose: 1 mg Documented by: Metoprolol Succinate (Toprol Xl -) 50 mg PO DAILY [facility] Last Admin: 11/11/19 09:17 Dose: Not Given Documented by: Metoprolol Tartrate (Lopressor Injection -) 5 mg IVPUSH Q4H PRN PRN Reason: TACHYCARDIA Last Admin: 11/11/19 06:18 Dose: 5 mg Documented by: Morphine Sulfate (Morphine Sulfate) 2 mg IVPUSH Q2H PRN PRN Reason: pain or tachypnea Last Admin: 11/11/19 05:29 Dose: 2 mg Documented by: Pantoprazole Sodium (Protonix -) 40 mg PO DAILY [facility] Last Admin: 11/11/19 09:17 Dose: Not Given Documented by: Tamsulosin HCl (Flomax -) 0.8 mg PO DAILY@0830 [facility] Last Admin: 11/11/19 09:17 Dose: Not Given Documented by: - Objective Vital Signs: Vital Signs Temperature 98.6 F 11/11/19 10:00 Pulse Rate 116 H 11/11/19 12:00 Respiratory Rate 23 H 11/11/19 12:00 Blood Pressure 149/73 11/11/19 12:00 O2 Sat by Pulse Oximetry (%) 96 11/11/19 09:00 Constitutional: Yes: Calm Eyes: Yes: Conjunctiva Clear HENT: Yes: Atraumatic Neck: Yes: Supple Cardiovascular: Yes: S1, S2 Respiratory: Yes: CTA Bilaterally Gastrointestinal: Yes: Soft Genitourinary: Yes: Incontinence Edema: No Neurological: Yes: Oriented Labs: CBC, BMP 11/11/19 07:00 11/11/19 07:00 INR, PTT INR 1.32 (0.83-1.09) H 11/07/19 19:36 Problem List - Problems (1) Dyspnea Code(s): R06.00 - DYSPNEA, UNSPECIFIED Qualifiers: Dyspnea type: unspecified Qualified Code(s): R06.00 - Dyspnea, unspecified (2) Weakness Code(s): R53.1 - WEAKNESS (3) Afib Code(s): I48.91 - UNSPECIFIED ATRIAL FIBRILLATION Qualifiers: Atrial fibrillation type: unspecified chronic Qualified Code(s): I48.20 - Chronic atrial fibrillation, unspecified; I48.2 - Chronic atrial fibrillation (4) ANGELO (acute kidney injury) Code(s): N17.9 - ACUTE KIDNEY FAILURE, UNSPECIFIED (5) CHF (congestive heart failure) Code(s): I50.9 - HEART FAILURE, UNSPECIFIED Assessment/Plan Current Medications Generic Name Dose Route Start Last Admin Trade Name Francisco PRN Reason Stop Dose Admin Aspirin 81 mg 11/10/19 10:00 11/11/19 09:17 Asa - PO Not Given DAILY [facility] Diltiazem HCl 60 mg 11/08/19 10:00 11/11/19 09:17 Cardizem - PO Not Given BID [facility] Ceftriaxone Sodium 1 gm/ 50 mls @ 100 mls/hr 11/08/19 10:00 11/11/19 09:53 Dextrose IVPB 100 mls/hr DAILY [facility] Administration Diltiazem HCl 125 mg/ Sodium 125 mls @ 5 mls/hr 11/09/19 11:30 11/11/19 06:19 Chloride IVPB 15 mg/hr TITR [facility] 15 mls/hr Administration Protocol 5 MG/HR Amino Acids 1,000 mls @ 42 mls/hr 11/10/19 17:45 11/11/19 07:15 Clinimix - IV 42 mls/hr Q24H [facility] Administration Insulin Aspart 1 vial 11/08/19 07:00 11/11/19 13:00 Novolog Vial Sliding Scale - SQ 8 units TIDAC [facility] Administration Protocol Lorazepam 1 mg 11/08/19 19:53 11/09/19 12:42 Ativan Injection - IVPUSH 1 mg Q2H PRN Administration ANXIETY Metoprolol Succinate 50 mg 11/08/19 10:00 11/11/19 09:17 Toprol Xl - PO Not Given DAILY [facility] Metoprolol Tartrate 5 mg 11/09/19 09:34 11/11/19 06:18 Lopressor Injection - IVPUSH 5 mg Q4H PRN Administration TACHYCARDIA Morphine Sulfate 2 mg 11/08/19 19:40 11/11/19 05:29 Morphine Sulfate IVPUSH 2 mg Q2H PRN Administration pain or tachypnea Pantoprazole Sodium 40 mg 11/08/19 10:00 11/11/19 09:17 Protonix - PO Not Given DAILY [facility] Tamsulosin HCl 0.8 mg 11/08/19 08:30 11/11/19 09:17 Flomax - PO Not Given DAILY@0830 [facility] Impression 1. ANGELO 2. CAD 3. a-fib 4. CVA 5. CKD 6. DM 7. anemia 8. GI bleeding Plan - cont clinimix - encourage po intake - he is more awake today - residential concierge stable - follow cultures - lasix as needed - check echo - cont icu care
--- NOTE | 2019-11-11 17:20 | PN ---
Progress Note, Physician History of Present Illness: Pt seen and examined in the ICU. He is alert and verbally responsive. Daughter at bedside states he is more alert but still confused at times. Pt denies SOB, CP, Abd pain. Afebrile, wbc increased since yesterday. - Current Medication List Current Medications: Active Medications Aspirin (Asa -) 81 mg PO DAILY [facility] Last Admin: 11/11/19 09:17 Dose: Not Given Documented by: Diltiazem HCl (Cardizem -) 60 mg PO BID [facility] Last Admin: 11/11/19 09:17 Dose: Not Given Documented by: Ceftriaxone Sodium 1 gm/ (Dextrose) 50 mls @ 100 mls/hr IVPB DAILY [facility] Last Admin: 11/11/19 09:53 Dose: 100 mls/hr Documented by: Diltiazem HCl 125 mg/ Sodium (Chloride) 125 mls @ 5 mls/hr IVPB TITR [facility]; Protocol Last Titration: 11/11/19 07:15 Dose: 10 mg/hr, 10 mls/hr Documented by: Amino Acids (Clinimix -) 1,000 mls @ 42 mls/hr IV Q24H [facility] Last Admin: 11/11/19 07:15 Dose: 42 mls/hr Documented by: Insulin Aspart (Novolog Vial Sliding Scale -) 1 vial SQ TIDAC [facility]; Protocol Last Admin: 11/11/19 13:00 Dose: 8 units Documented by: Insulin Detemir (Levemir Vial) 5 units SQ HS [facility] Lorazepam (Ativan Injection -) 1 mg IVPUSH Q2H PRN PRN Reason: ANXIETY Last Admin: 11/09/19 12:42 Dose: 1 mg Documented by: Metoprolol Succinate (Toprol Xl -) 50 mg PO DAILY [facility] Last Admin: 11/11/19 09:17 Dose: Not Given Documented by: Metoprolol Tartrate (Lopressor Injection -) 5 mg IVPUSH Q4H PRN PRN Reason: TACHYCARDIA Last Admin: 11/11/19 15:00 Dose: 5 mg Documented by: Morphine Sulfate (Morphine Sulfate) 2 mg IVPUSH Q2H PRN PRN Reason: pain or tachypnea Last Admin: 11/11/19 05:29 Dose: 2 mg Documented by: Pantoprazole Sodium (Protonix -) 40 mg PO DAILY [facility] Last Admin: 11/11/19 09:17 Dose: Not Given Documented by: Tamsulosin HCl (Flomax -) 0.8 mg PO DAILY@0830 [facility] Last Admin: 11/11/19 09:17 Dose: Not Given Documented by: - Objective Vital Signs: Vital Signs Temperature 98.5 F 11/11/19 14:00 Pulse Rate 130 H 11/11/19 15:00 Respiratory Rate 23 H 11/11/19 14:00 Blood Pressure 128/84 11/11/19 15:00 O2 Sat by Pulse Oximetry (%) 96 11/11/19 09:00 Constitutional: Yes: No Distress, Calm Cardiovascular: Yes: Tachycardia Respiratory: Yes: Diminished (Rt lung) Gastrointestinal: Yes: Normal Bowel Sounds, Soft Genitourinary: Yes: Rice Present Neurological: Yes: Alert Labs: CBC, BMP 11/11/19 07:00 11/11/19 07:00 INR, PTT INR 1.32 (0.83-1.09) H 11/07/19 19:36 Laboratory Last Values WBC 14.5 K/mm3 (4.0-10.0) H 11/11/19 07:00 RBC 3.49 M/mm3 (4.00-5.60) L 11/11/19 07:00 Hgb 12.8 GM/dL (11.7-16.9) 11/11/19 07:00 Hct 37.9 % (35.4-49) 11/11/19 07:00 MCV 108.7 fl (80-96) H 11/11/19 07:00 MCH 36.7 pg (25.7-33.7) H 11/11/19 07:00 MCHC 33.8 g/dl (32.0-35.9) 11/11/19 07:00 RDW 14.0 % (11.9-15.9) 11/11/19 07:00 Plt Count 289 K/MM3 (134-434) D 11/11/19 07:00 MPV 7.1 fl (7.5-11.1) L 11/11/19 07:00 Absolute Neuts (auto) 11.8 K/mm3 (1.5-8.0) H 11/11/19 07:00 Neutrophils % 81.2 % (42.8-82.8) 11/11/19 07:00 Lymphocytes % 10.8 % (8-40) 11/11/19 07:00 Monocytes % 6.6 % (3.8-10.2) 11/11/19 07:00 Eosinophils % 0.6 % (0-4.5) 11/11/19 07:00 Basophils % 0.8 % (0-2.0) 11/11/19 07:00 Nucleated RBC % 0 % (0-0) 11/11/19 07:00 Hypochromia 0 11/11/19 07:00 Platelet Estimate Normal 11/11/19 07:00 Polychromasia 0 11/11/19 07:00 Poikilocytosis 0 11/11/19 07:00 Anisocytosis 1+ 11/11/19 07:00 Microcytosis 0 11/11/19 07:00 Macrocytosis 1+ 11/11/19 07:00 PT with INR 15.60 SEC (9.7-13.0) H 11/07/19 19:36 INR 1.32 (0.83-1.09) H 11/07/19 19:36 PTT (Actin FS) 37.6 SECONDS (25.2-36.5) H 11/07/19 19:36 VBG pH 7.418 (7.310-7.410) H 11/07/19 20:25 POC VBG pCO2 36.9 mmHg (38-52) L 11/07/19 20:25 POC VBG pO2 39.2 mmHg (28-48) 11/07/19 20:25 VBG HCO3 23.3 mmol/L (23-29) 11/07/19 20:25 VBG O2 Sat (Binh) 75.2 % (70-80) 11/07/19 20:25 VBG Base Excess -0.8 mmol/L (-2-2) 11/07/19 20:25 Sodium 143 mmol/L (136-145) 11/11/19 07:00 Potassium 3.8 mmol/L (3.5-5.1) 11/11/19 07:00 Chloride 109 mmol/L (98-107) H 11/11/19 07:00 Carbon Dioxide 26 mmol/L (21-32) 11/11/19 07:00 Anion Gap 8 MMOL/L (8-16) 11/11/19 07:00 BUN 25.9 mg/dL (7-18) H 11/11/19 07:00 Creatinine 1.2 mg/dL (0.55-1.3) 11/11/19 07:00 Est GFR (CKD-EPI)AfAm 61.76 11/11/19 07:00 Est GFR (CKD-EPI)NonAf 53.29 11/11/19 07:00 POC Glucometer 321 UNITS (80-120) 11/11/19 12:02 Random Glucose 309 mg/dL (74-106) H 11/11/19 07:00 Lactic Acid 2.0 mmol/L (0.4-2.0) 11/07/19 23:45 Calcium 8.5 mg/dL (8.5-10.1) 11/11/19 07:00 Phosphorus 2.2 mg/dL (2.5-4.9) L 11/09/19 08:00 Magnesium 2.2 mg/dL (1.8-2.4) 11/11/19 07:00 Total Bilirubin 2.1 mg/dL (0.2-1) H 11/11/19 07:00 Direct Bilirubin 1.5 mg/dL (0.0-0.2) H 11/09/19 08:00 AST 27 U/L (15-37) 11/11/19 07:00 ALT 28 U/L (13-61) 11/11/19 07:00 Alkaline Phosphatase 157 U/L (45-117) H 11/11/19 07:00 Creatine Kinase 172 U/L (26-308) 11/07/19 19:36 Creatine Kinase Index No Result Required. 11/07/19 19:36 CK-MB (CK-2) < 1.0 ng/mL (0.5-3.6) 11/07/19 19:36 Troponin I 0.12 ng/ml (0.00-0.05) H 11/07/19 23:45 B-Natriuretic Peptide 1017.3 pg/ml (5-450) H 11/07/19 19:36 Total Protein 6.8 g/dl (6.4-8.2) 11/11/19 07:00 Albumin 2.2 g/dl (3.4-5.0) L 11/11/19 07:00 Triglycerides 77 mg/dL (0-150) 11/07/19 19:36 Cholesterol 94 mg/dL (50-200) 11/07/19 19:36 Total LDL Cholesterol 51 mg/dL (5-100) 11/07/19 19:36 HDL Cholesterol 38 mg/dL (40-60) L 11/07/19 19:36 Urine Color Dk yellow 11/07/19 19:58 Urine Appearance Clear 11/07/19 19:58 Urine pH 5.5 (5.0-8.0) 11/07/19 19:58 Ur Specific [place] 1.012 (1.010-1.035) 11/07/19 19:58 Urine Protein Negative (NEGATIVE) 11/07/19 19:58 Urine Glucose (UA) Negative (NEGATIVE) 11/07/19 19:58 Urine Ketones Negative (NEGATIVE) 11/07/19 19:58 Urine Blood Negative (NEGATIVE) 11/07/19 19:58 Urine Nitrite Negative (NEGATIVE) 11/07/19 19:58 Urine Bilirubin Negative (NEGATIVE) 11/07/19 19:58 Urine Urobilinogen 1.0 mg/dL (0.2-1.0) 11/07/19 19:58 Ur Leukocyte Esterase Trace (NEGATIVE) 11/07/19 19:58 Urine WBC (Auto) 13 /uL (0-25.8) 11/07/19 19:58 Urine RBC (Auto) 8 /uL (0-23.9) 11/07/19 19:58 Urine Casts (Auto) 2 /uL (0-3.1) 11/07/19 19:58 U Epithel Cells (Auto) 9 /uL (0-25.1) 11/07/19 19:58 Urine Bacteria (Auto) 1998 /uL (0-1359) 11/07/19 19:58 Ur Random Creatinine 93.0 mg/dL (30-150) 11/09/19 04:30 Ur Random Sodium < 18 MMOL/L (40-220) L 11/09/19 04:30 COVID-19 (ANDI) Not detected (Not Detected) 11/07/19 20:25 Microbiology 11/07/19 19:34 Blood - Peripheral Venous Blood Culture - Preliminary NO GROWTH OBTAINED AFTER 72 HOURS, INCUBATION TO CONTINUE FOR 2 DAYS. 11/07/19 19:30 Blood - Peripheral Venous Blood Culture - Preliminary NO GROWTH OBTAINED AFTER 72 HOURS, INCUBATION TO CONTINUE FOR 2 DAYS. 11/07/19 19:58 Urine - Urine Clean Catch Urine Culture - Preliminary Non Lactose Fermenting Gnb 11/09/19 04:30 Urine - Urine Clean Catch Legionella Antigen - Final 11/09/19 04:30 Urine - Urine Clean Catch Streptococcus pneumoniae Antigen (M - Final - ....Imaging Chest X-ray: Report Reviewed Problem List - Problems (1) Afib Code(s): I48.91 - UNSPECIFIED ATRIAL FIBRILLATION Qualifiers: Atrial fibrillation type: unspecified chronic Qualified Code(s): I48.20 - Chronic atrial fibrillation, unspecified; I48.2 - Chronic atrial fibrillation (2) S/P CABG (coronary artery bypass graft) Code(s): Z95.1 - PRESENCE OF AORTOCORONARY BYPASS GRAFT (3) UGIB (upper gastrointestinal bleed) Code(s): K92.2 - GASTROINTESTINAL HEMORRHAGE, UNSPECIFIED (4) UTI (urinary tract infection) Code(s): N39.0 - URINARY TRACT INFECTION, SITE NOT SPECIFIED Qualifiers: Urinary tract infection type: acute cystitis Hematuria presence: with hematuria Qualified Code(s): N30.01 - Acute cystitis with hematuria Assessment/Plan Sepsis AMS PNA -? aspiration Leukocytosis UTI AFIB DM HTN Hx of CVA Hx of GI bleed -- wbc trended up slightly, fevers resolved, mental status improved -- repeat cbc in a.m., if continues to trend up will switch to Zosyn -- aspiration precautions, currently NPO -- Blood cultures neg 72h, Urinary Ag negative -- Urine Cx - gnr, follow up isolate continue monitor closely cc: 37 min
[2019-11-11] MEDS ORDERED: dilTIAZem HCL 25 MG/5 ML - 5 ML VIAL ONE (18:24)
[2019-11-11] MEDS: INSULIN (LEVEMIR) 100 UNITS/ML UNITS SQ SCH (23:20)
[2019-11-12] MEDS: INSULIN SLIDING SCALE (NOVOLOG) 1 VIAL SQ SCH ×3 (06:58→17:38)
[2019-11-12] MEDS: DILTIAZEM INJECTION 125 MG in SODIUM CHLORIDE 100 ML IVPB SCH ×2 (07:30→14:30)
[2019-11-12 07:48] LABS: BASO % 0.5 % (0-2.0); EOS % 1.3 % (0-4.5); HEMATOCRIT 38.1 % (35.4-49); HEMOGLOBIN 12.8 GM/dL (11.7-16.9); MCH 36.7 pg (25.7-33.7); MCHC 33.5 g/dl (32.0-35.9); MEAN CELL VOLUME 109.3 fl (80-96); MEAN PLT VOLUME 7.1 fl (7.5-11.1); MONO % 7.7 % (3.8-10.2); NEUT % 78.5 % (42.8-82.8); PLATELET COUNT 274 K/MM3 (134-434); RBC 3.49 M/mm3 (4.00-5.60); RDW 13.9 % (11.9-15.9); WHITE BLOOD COUNT 13.3 K/mm3 (4.0-10.0)
[2019-11-12 08:06] LABS: ALBUMIN 2.3 g/dl (3.4-5.0); BLOOD UREA NITROGEN 27.1 mg/dL (7-18); CALCIUM 8.7 mg/dL (8.5-10.1); CREATININE 1.1 mg/dL (0.55-1.3); MAGNESIUM 2.1 mg/dL (1.8-2.4); POTASSIUM 3.8 mmol/L (3.5-5.1); TOT PROT 6.9 g/dl (6.4-8.2)
[2019-11-12] MEDS ORDERED: cefTRIAXone SODIUM 1 GM VIAL ONE (08:19)
[2019-11-12] MEDS ORDERED: DEXTROSE 5%-WATER - 50 ML IVPB ONE (08:19)
[2019-11-12] MEDS: dilTIAZem HCL 60 MG TABLET PO SCH ×2 (09:41→21:03)
[2019-11-12] MEDS: TAMSULOSIN HCL 0.4 MG CAP PO SCH (09:41)
[2019-11-12] MEDS: ASPIRIN 81 MG CHEWABLE TABLETS PO SCH (09:42)
[2019-11-12] MEDS: CEFTRIAXONE 1 GM in DEXTROSE 5%-WATER - 50 ML IVPB SCH (10:13)
[2019-11-12] MEDS: PANTOPRAZOLE 40 MG TABLET PO SCH (10:23)
--- NOTE | 2019-11-12 11:02 | PN ---
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 MBS when medically stable
--- NOTE | 2019-11-12 11:12 | PN ---
Progress Note (short form) - Note Progress Note: s: no cp palps dizzy sob. Current Medications Generic Name Dose Route Start Last Admin Trade Name Freq PRN Reason Stop Dose Admin Aspirin 81 mg 11/10/19 10:00 11/12/19 09:42 Asa - PO Not Given DAILY [facility] Diltiazem HCl 60 mg 11/08/19 10:00 11/12/19 09:41 Cardizem - PO Not Given BID [facility] Ceftriaxone Sodium 1 gm/ 50 mls @ 100 mls/hr 11/08/19 10:00 11/12/19 10:13 Dextrose IVPB 100 mls/hr DAILY [facility] Administration Diltiazem HCl 125 mg/ Sodium 125 mls @ 5 mls/hr 11/09/19 11:30 11/11/19 21:04 Chloride IVPB 15 mg/hr TITR [facility] 15 mls/hr Titration Protocol 5 MG/HR Amino Acids 1,000 mls @ 42 mls/hr 11/10/19 17:45 11/11/19 20:12 Clinimix - IV Not Given Q24H [facility] Insulin Aspart 1 vial 11/08/19 07:00 11/12/19 06:58 Novolog Vial Sliding Scale - SQ 6 units TIDAC [facility] Administration Protocol Insulin Detemir 5 units 11/11/19 22:00 11/11/19 23:20 Levemir Vial SQ 5 units HS [facility] Administration Lorazepam 1 mg 11/08/19 19:53 11/09/19 12:42 Ativan Injection - IVPUSH 1 mg Q2H PRN Administration ANXIETY Metoprolol Succinate 50 mg 11/08/19 10:00 11/12/19 09:41 Toprol Xl - PO Not Given DAILY [facility] Metoprolol Tartrate 5 mg 11/09/19 09:34 11/11/19 15:00 Lopressor Injection - IVPUSH 5 mg Q4H PRN Administration TACHYCARDIA Morphine Sulfate 2 mg 11/08/19 19:40 11/11/19 05:29 Morphine Sulfate IVPUSH 2 mg Q2H PRN Administration pain or tachypnea Pantoprazole Sodium 40 mg 11/08/19 10:00 11/12/19 10:23 Protonix - PO Not Given DAILY [facility] Tamsulosin HCl 0.8 mg 11/08/19 08:30 11/12/19 09:41 Flomax - PO Not Given DAILY@0830 [facility] Vital Signs Temp 98.2 F 11/11/19 22:00 Pulse 104 H 11/12/19 08:00 Resp 17 11/12/19 09:00 BP 165/74 11/12/19 08:00 Pulse Ox 98 11/12/19 09:00 Intake & Output 11/11/19 11/11/19 11/12/19 11:59 23:59 11:59 Intake Total 55 1358 Output Total 400 550 800 Balance -345 808 -800 Weight 169 lb Intake: IV 55 1308 Cardizem Injection - 125 55 300 mg In Normal Saline - 100 ml @ 5 MG/HR 5 mls/hr IVPB TITR [facility] Rx#: [id number] clinimix 1008 IVPB 50 Output: Urine 400 550 800 Rice 400 550 800 Other: Voiding Method Indwelling Catheter Indwelling Catheter Indwelling Catheter Bowel Movement No No Weight Measurement Method Stated by Patient Constitutional: Yes: No Distress, Calm Eyes: Yes: Conjunctiva Clear Respiratory: Yes:dec bs right, nl eff Gastrointestinal: Yes: Soft (NT, no rebound or guarding) Cardiovascular: Yes: Regular Rate and Rhythm JVD: No Carotid Bruit: No Heart Sounds: Yes: S1, S2 (RRR, no M/R/G) Edema: No Peripheral Pulses WNL: Yes Neurological: Yes: Alert no jaundice diaphoresis Laboratory Last Values WBC 13.3 K/mm3 (4.0-10.0) H 11/12/19 07:10 RBC 3.49 M/mm3 (4.00-5.60) L 11/12/19 07:10 Hgb 12.8 GM/dL (11.7-16.9) 11/12/19 07:10 Hct 38.1 % (35.4-49) 11/12/19 07:10 MCV 109.3 fl (80-96) H 11/12/19 07:10 MCH 36.7 pg (25.7-33.7) H 11/12/19 07:10 MCHC 33.5 g/dl (32.0-35.9) 11/12/19 07:10 RDW 13.9 % (11.9-15.9) 11/12/19 07:10 Plt Count 274 K/MM3 (134-434) 11/12/19 07:10 MPV 7.1 fl (7.5-11.1) L 11/12/19 07:10 Absolute Neuts (auto) 10.4 K/mm3 (1.5-8.0) H 11/12/19 07:10 Neutrophils % 78.5 % (42.8-82.8) 11/12/19 07:10 Lymphocytes % 12.0 % (8-40) 11/12/19 07:10 Monocytes % 7.7 % (3.8-10.2) 11/12/19 07:10 Eosinophils % 1.3 % (0-4.5) D 11/12/19 07:10 Basophils % 0.5 % (0-2.0) 11/12/19 07:10 Nucleated RBC % 0 % (0-0) 11/12/19 07:10 Hypochromia 0 11/11/19 07:00 Platelet Estimate Normal 11/11/19 07:00 Polychromasia 0 11/11/19 07:00 Poikilocytosis 0 11/11/19 07:00 Anisocytosis 1+ 11/11/19 07:00 Microcytosis 0 11/11/19 07:00 Macrocytosis 1+ 11/11/19 07:00 PT with INR 15.60 SEC (9.7-13.0) H 11/07/19 19:36 INR 1.32 (0.83-1.09) H 11/07/19 19:36 PTT (Actin FS) 37.6 SECONDS (25.2-36.5) H 11/07/19 19:36 VBG pH 7.418 (7.310-7.410) H 11/07/19 20:25 POC VBG pCO2 36.9 mmHg (38-52) L 11/07/19 20:25 POC VBG pO2 39.2 mmHg (28-48) 11/07/19 20:25 VBG HCO3 23.3 mmol/L (23-29) 11/07/19 20:25 VBG O2 Sat (Binh) 75.2 % (70-80) 11/07/19 20:25 VBG Base Excess -0.8 mmol/L (-2-2) 11/07/19 20:25 Sodium 147 mmol/L (136-145) H 11/12/19 07:10 Potassium 3.8 mmol/L (3.5-5.1) 11/12/19 07:10 Chloride 113 mmol/L (98-107) H 11/12/19 07:10 Carbon Dioxide 27 mmol/L (21-32) 11/12/19 07:10 Anion Gap 7 MMOL/L (8-16) L 11/12/19 07:10 BUN 27.1 mg/dL (7-18) H 11/12/19 07:10 Creatinine 1.1 mg/dL (0.55-1.3) 11/12/19 07:10 Est GFR (CKD-EPI)AfAm 68.62 11/12/19 07:10 Est GFR (CKD-EPI)NonAf 59.20 11/12/19 07:10 POC Glucometer 297 UNITS (80-120) 11/12/19 06:43 Random Glucose 321 mg/dL (74-106) H 11/12/19 07:10 Lactic Acid 2.0 mmol/L (0.4-2.0) 11/07/19 23:45 Calcium 8.7 mg/dL (8.5-10.1) 11/12/19 07:10 Phosphorus 2.2 mg/dL (2.5-4.9) L 11/09/19 08:00 Magnesium 2.1 mg/dL (1.8-2.4) 11/12/19 07:10 Total Bilirubin 2.0 mg/dL (0.2-1) H 11/12/19 07:10 Direct Bilirubin 1.5 mg/dL (0.0-0.2) H 11/09/19 08:00 AST 28 U/L (15-37) 11/12/19 07:10 ALT 27 U/L (13-61) 11/12/19 07:10 Alkaline Phosphatase 157 U/L (45-117) H 11/12/19 07:10 Creatine Kinase 172 U/L (26-308) 11/07/19 19:36 Creatine Kinase Index No Result Required. 11/07/19 19:36 CK-MB (CK-2) < 1.0 ng/mL (0.5-3.6) 11/07/19 19:36 Troponin I 0.12 ng/ml (0.00-0.05) H 11/07/19 23:45 B-Natriuretic Peptide 1017.3 pg/ml (5-450) H 11/07/19 19:36 Total Protein 6.9 g/dl (6.4-8.2) 11/12/19 07:10 Albumin 2.3 g/dl (3.4-5.0) L 11/12/19 07:10 Triglycerides 77 mg/dL (0-150) 11/07/19 19:36 Cholesterol 94 mg/dL (50-200) 11/07/19 19:36 Total LDL Cholesterol 51 mg/dL (5-100) 11/07/19 19:36 HDL Cholesterol 38 mg/dL (40-60) L 11/07/19 19:36 Urine Color Dk yellow 11/07/19 19:58 Urine Appearance Clear 11/07/19 19:58 Urine pH 5.5 (5.0-8.0) 11/07/19 19:58 Ur Specific [place] 1.012 (1.010-1.035) 11/07/19 19:58 Urine Protein Negative (NEGATIVE) 11/07/19 19:58 Urine Glucose (UA) Negative (NEGATIVE) 11/07/19 19:58 Urine Ketones Negative (NEGATIVE) 11/07/19 19:58 Urine Blood Negative (NEGATIVE) 11/07/19 19:58 Urine Nitrite Negative (NEGATIVE) 11/07/19 19:58 Urine Bilirubin Negative (NEGATIVE) 11/07/19 19:58 Urine Urobilinogen 1.0 mg/dL (0.2-1.0) 11/07/19 19:58 Ur Leukocyte Esterase Trace (NEGATIVE) 11/07/19 19:58 Urine WBC (Auto) 13 /uL (0-25.8) 11/07/19 19:58 Urine RBC (Auto) 8 /uL (0-23.9) 11/07/19 19:58 Urine Casts (Auto) 2 /uL (0-3.1) 11/07/19 19:58 U Epithel Cells (Auto) 9 /uL (0-25.1) 11/07/19 19:58 Urine Bacteria (Auto) 1998 /uL (0-1359) 11/07/19 19:58 Ur Random Creatinine 93.0 mg/dL (30-150) 11/09/19 04:30 Ur Random Sodium < 18 MMOL/L (40-220) L 11/09/19 04:30 COVID-19 (ANDI) Not detected (Not Detected) 11/07/19 20:25 tele: afib rate 100s-110s echo 02/2019: nl lvef, nl rvsp, mild tr, mild mr, kiet Echo: Report Reviewed (Echo 06/2018: Nl LV/RV, mod LAE, mild MR, AI, no PHTN) Stress Echo: Other (MPI: 11/2015: No ischemic ST changes. 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 fever, lethargy, sepsis: -pna, likely aspiration -abx per primary/ID, cont supplemental 02 jayce: -improved with ivfs elevated trop: -borderline trop with flat trend, similar to prior baseline values, not c/w acs pafib: -pt not taking po meds (was on dilt 60 bid and toprol 50 qd at home) and having rvr - rate improved with dilt gtt, cont while NPO. 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 His AC has been stopped and he remains on asa 81 qd, cont same when taking PO CAD s/p CABG: -stable, no signs acs -cont statin, bb, aspirin Chronic diastolic CHF: -stable here currently. monitor vol status with ivfs -when renal fxn back to baseline, resume home Torsemide of 50mg daily
--- NOTE | 2019-11-12 11:27 | PN ---
Progress Note, Physician History of Present Illness: Pt seen and examined at bedside. He is more awake. He denies shortness of breath. - Current Medication List Current Medications: Active Medications Aspirin (Asa -) 81 mg PO DAILY ON LICENSE OF [facility] Last Admin: 11/12/19 09:42 Dose: Not Given Documented by: Diltiazem HCl (Cardizem -) 60 mg PO BID ON LICENSE OF [facility] Last Admin: 11/12/19 09:41 Dose: Not Given Documented by: Ceftriaxone Sodium 1 gm/ (Dextrose) 50 mls @ 100 mls/hr IVPB DAILY ON LICENSE OF [facility] Last Admin: 11/12/19 10:13 Dose: 100 mls/hr Documented by: Diltiazem HCl 125 mg/ Sodium (Chloride) 125 mls @ 5 mls/hr IVPB TITR ON LICENSE OF [facility]; Protocol Last Titration: 11/11/19 21:04 Dose: 15 mg/hr, 15 mls/hr Documented by: Amino Acids (Clinimix -) 1,000 mls @ 42 mls/hr IV Q24H ON LICENSE OF [facility] Last Admin: 11/11/19 20:12 Dose: Not Given Documented by: Insulin Aspart (Novolog Vial Sliding Scale -) 1 vial SQ TIDAC ON LICENSE OF [facility]; Protocol Last Admin: 11/12/19 06:58 Dose: 6 units Documented by: Insulin Detemir (Levemir Vial) 5 units SQ HS ON LICENSE OF [facility] Last Admin: 11/11/19 23:20 Dose: 5 units Documented by: Lorazepam (Ativan Injection -) 1 mg IVPUSH Q2H PRN PRN Reason: ANXIETY Last Admin: 11/09/19 12:42 Dose: 1 mg Documented by: Metoprolol Succinate (Toprol Xl -) 50 mg PO DAILY ON LICENSE OF [facility] Last Admin: 11/12/19 09:41 Dose: Not Given Documented by: Metoprolol Tartrate (Lopressor Injection -) 5 mg IVPUSH Q4H PRN PRN Reason: TACHYCARDIA Last Admin: 11/11/19 15:00 Dose: 5 mg Documented by: Morphine Sulfate (Morphine Sulfate) 2 mg IVPUSH Q2H PRN PRN Reason: pain or tachypnea Last Admin: 11/11/19 05:29 Dose: 2 mg Documented by: Pantoprazole Sodium (Protonix -) 40 mg PO DAILY ON LICENSE OF [facility] Last Admin: 11/12/19 10:23 Dose: Not Given Documented by: Tamsulosin HCl (Flomax -) 0.8 mg PO DAILY@0830 SARAH Last Admin: 11/12/19 09:41 Dose: Not Given Documented by: - Objective Vital Signs: Vital Signs Temperature 98.2 F 11/11/19 22:00 Pulse Rate 104 H 11/12/19 08:00 Respiratory Rate 17 11/12/19 09:00 Blood Pressure 165/74 11/12/19 08:00 O2 Sat by Pulse Oximetry (%) 98 11/12/19 09:00 Constitutional: Yes: Calm Eyes: Yes: Conjunctiva Clear HENT: Yes: Atraumatic Neck: Yes: Supple Cardiovascular: Yes: S1, S2 Respiratory: Yes: CTA Bilaterally Gastrointestinal: Yes: Soft Genitourinary: Yes: WNL Musculoskeletal: Yes: WNL Extremities: Yes: WNL Edema: No Neurological: Yes: Confusion Psychiatric: Yes: Oriented Labs: CBC, BMP 11/12/19 07:10 11/12/19 07:10 INR, PTT INR 1.32 (0.83-1.09) H 11/07/19 19:36 Problem List - Problems (1) Dyspnea Code(s): R06.00 - DYSPNEA, UNSPECIFIED Qualifiers: Dyspnea type: unspecified Qualified Code(s): R06.00 - Dyspnea, unspecified (2) Weakness Code(s): R53.1 - WEAKNESS (3) Afib Code(s): I48.91 - UNSPECIFIED ATRIAL FIBRILLATION Qualifiers: Atrial fibrillation type: unspecified chronic Qualified Code(s): I48.20 - Chronic atrial fibrillation, unspecified; I48.2 - Chronic atrial fibrillation (4) ANGELO (acute kidney injury) Code(s): N17.9 - ACUTE KIDNEY FAILURE, UNSPECIFIED (5) CHF (congestive heart failure) Code(s): I50.9 - HEART FAILURE, UNSPECIFIED Assessment/Plan Current Medications Generic Name Dose Route Start Last Admin Trade Name Freq PRN Reason Stop Dose Admin Aspirin 81 mg 11/10/19 10:00 11/12/19 09:42 Asa - PO Not Given DAILY ON LICENSE OF [facility] Diltiazem HCl 60 mg 11/08/19 10:00 11/12/19 09:41 Cardizem - PO Not Given BID ON LICENSE OF [facility] Ceftriaxone Sodium 1 gm/ 50 mls @ 100 mls/hr 11/08/19 10:00 11/12/19 10:13 Dextrose IVPB 100 mls/hr DAILY SARAH Administration Diltiazem HCl 125 mg/ Sodium 125 mls @ 5 mls/hr 11/09/19 11:30 11/11/19 21:04 Chloride IVPB 15 mg/hr TITR SARAH 15 mls/hr Titration Protocol 5 MG/HR Amino Acids 1,000 mls @ 42 mls/hr 11/10/19 17:45 11/11/19 20:12 Clinimix - IV Not Given Q24H ON LICENSE OF [facility] Insulin Aspart 1 vial 11/08/19 07:00 11/12/19 06:58 Novolog Vial Sliding Scale - SQ 6 units TIDAC ON LICENSE OF [facility] Administration Protocol Insulin Detemir 5 units 11/11/19 22:00 11/11/19 23:20 Levemir Vial SQ 5 units HS ON LICENSE OF [facility] Administration Lorazepam 1 mg 11/08/19 19:53 11/09/19 12:42 Ativan Injection - IVPUSH 1 mg Q2H PRN Administration ANXIETY Metoprolol Succinate 50 mg 11/08/19 10:00 11/12/19 09:41 Toprol Xl - PO Not Given DAILY ON LICENSE OF [facility] Metoprolol Tartrate 5 mg 11/09/19 09:34 11/11/19 15:00 Lopressor Injection - IVPUSH 5 mg Q4H PRN Administration TACHYCARDIA Morphine Sulfate 2 mg 11/08/19 19:40 11/11/19 05:29 Morphine Sulfate IVPUSH 2 mg Q2H PRN Administration pain or tachypnea Pantoprazole Sodium 40 mg 11/08/19 10:00 11/12/19 10:23 Protonix - PO Not Given DAILY ON LICENSE OF [facility] Tamsulosin HCl 0.8 mg 11/08/19 08:30 11/12/19 09:41 Flomax - PO Not Given DAILY@0830 ON LICENSE OF [facility] Impression 1. ANGELO 2. CAD 3. a-fib 4. CVA 5. CKD 6. DM 7. anemia 8. GI bleeding Plan - renal function stable - volume status stable - rate control - repeat labs in am - lasix as needed - cont icu care
[2019-11-12] MEDS ORDERED: INSULIN (NOVOLOG) ASPART 100 UNITS/ML 10ML VIAL ONE (12:10)
--- NOTE | 2019-11-12 13:28 | PN ---
Progress Note (short form) - Note Progress Note: More awake in NAD. No acute events overnight. Intake & Output 11/09/19 11/10/19 11/11/19 11/12/19 23:59 23:59 23:59 23:59 Intake Total 920 730 1137 Output Total 1000 1550 950 800 Balance -854 1139 463 -800 Weight 169 lb 12.095 oz 169 lb 169 lb Last Vital Signs Temp Pulse Resp BP Pulse Ox 98.2 F 104 H 17 165/74 98 11/11/19 22:00 11/12/19 08:00 11/12/19 09:00 11/12/19 08:00 11/12/19 09:00 Active Medications Aspirin (Asa -) 81 mg PO DAILY [facility] Last Admin: 11/12/19 09:42 Dose: Not Given Documented by: Diltiazem HCl (Cardizem -) 60 mg PO BID [facility] Last Admin: 11/12/19 09:41 Dose: Not Given Documented by: Ceftriaxone Sodium 1 gm/ (Dextrose) 50 mls @ 100 mls/hr IVPB DAILY [facility] Last Admin: 11/12/19 10:13 Dose: 100 mls/hr Documented by: Diltiazem HCl 125 mg/ Sodium (Chloride) 125 mls @ 5 mls/hr IVPB TITR [facility]; Protocol Last Admin: 11/12/19 07:30 Dose: 15 mg/hr, 15 mls/hr Documented by: Amino Acids (Clinimix -) 1,000 mls @ 42 mls/hr IV Q24H [facility] Last Admin: 11/11/19 20:12 Dose: Not Given Documented by: Insulin Aspart (Novolog Vial Sliding Scale -) 1 vial SQ TIDAC [facility]; Protocol Last Admin: 11/12/19 12:00 Dose: 8 units Documented by: Insulin Detemir (Levemir Vial) 5 units SQ HS [facility] Last Admin: 11/11/19 23:20 Dose: 5 units Documented by: Lorazepam (Ativan Injection -) 1 mg IVPUSH Q2H PRN PRN Reason: ANXIETY Last Admin: 11/09/19 12:42 Dose: 1 mg Documented by: Metoprolol Succinate (Toprol Xl -) 50 mg PO DAILY [facility] Last Admin: 11/12/19 09:41 Dose: Not Given Documented by: Metoprolol Tartrate (Lopressor Injection -) 5 mg IVPUSH Q4H PRN PRN Reason: TACHYCARDIA Last Admin: 11/11/19 15:00 Dose: 5 mg Documented by: Morphine Sulfate (Morphine Sulfate) 2 mg IVPUSH Q2H PRN PRN Reason: pain or tachypnea Last Admin: 11/11/19 05:29 Dose: 2 mg Documented by: Pantoprazole Sodium (Protonix -) 40 mg PO DAILY [facility] Last Admin: 11/12/19 10:23 Dose: Not Given Documented by: Tamsulosin HCl (Flomax -) 0.8 mg PO DAILY@0830 [facility] Last Admin: 11/12/19 09:41 Dose: Not Given Documented by: Constitutional: Yes: NAD Eyes: Yes: Conjunctiva Clear, EOM Intact HENT: Yes: Atraumatic, Normocephalic Neck: Yes: Supple, Trachea Midline Cardiovascular: Yes: Tachycardia, Pulse Irregular Respiratory: Yes: Cough, Diminished, NC O2, Rhonchi. No: Stridor, Wheezes ...Inspection: Yes: WNL ...Clubbing: No Gastrointestinal: Yes: Normal Bowel Sounds, Soft Musculoskeletal: Yes: Back Pain Extremities: Yes: WNL Edema: Yes Peripheral Pulses WNL: Yes Integumentary: Yes: WNL Neurological: Yes: Confusion Labs: Laboratory Results - last 24 hr 11/11/19 11/11/19 11/12/19 17:14 23:08 06:43 WBC RBC Hgb Hct MCV MCH MCHC RDW Plt Count MPV Absolute Neuts (auto) Neutrophils % Lymphocytes % Monocytes % Eosinophils % Basophils % Nucleated RBC % Sodium Potassium Chloride Carbon Dioxide Anion Gap BUN Creatinine Est GFR (CKD-EPI)AfAm Est GFR (CKD-EPI)NonAf POC Glucometer 284 253 297 Random Glucose Calcium Magnesium Total Bilirubin AST ALT Alkaline Phosphatase Total Protein Albumin 11/12/19 11/12/19 11/12/19 07:10 07:10 11:57 WBC 13.3 H RBC 3.49 L Hgb 12.8 Hct 38.1 MCV 109.3 H MCH 36.7 H MCHC 33.5 RDW 13.9 Plt Count 274 MPV 7.1 L Absolute Neuts (auto) 10.4 H Neutrophils % 78.5 Lymphocytes % 12.0 Monocytes % 7.7 Eosinophils % 1.3 D Basophils % 0.5 Nucleated RBC % 0 Sodium 147 H Potassium 3.8 Chloride 113 H Carbon Dioxide 27 Anion Gap 7 L BUN 27.1 H Creatinine 1.1 Est GFR (CKD-EPI)AfAm 68.62 Est GFR (CKD-EPI)NonAf 59.20 POC Glucometer 302 Random Glucose 321 H Calcium 8.7 Magnesium 2.1 Total Bilirubin 2.0 H AST 28 ALT 27 Alkaline Phosphatase 157 H Total Protein 6.9 Albumin 2.3 L Imaging - Results Chest X-ray: Report Reviewed, Image Reviewed Problem List - Problems (1) Dyspnea Code(s): R06.00 - DYSPNEA, UNSPECIFIED Qualifiers: Dyspnea type: unspecified Qualified Code(s): R06.00 - Dyspnea, unspecified (2) Afib Code(s): I48.91 - UNSPECIFIED ATRIAL FIBRILLATION Qualifiers: Atrial fibrillation type: unspecified chronic Qualified Code(s): I48.20 - Chronic atrial fibrillation, unspecified; I48.2 - Chronic atrial fibrillation (3) ANGELO (acute kidney injury) Code(s): N17.9 - ACUTE KIDNEY FAILURE, UNSPECIFIED (4) Anticoagulated by anticoagulation treatment Code(s): Z79.01 - EGG TESTER (CURRENT) USE OF ANTICOAGULANTS (5) CHF (congestive heart failure) Code(s): I50.9 - HEART FAILURE, UNSPECIFIED (6) DNI (do not intubate) Code(s): Z78.9 - OTHER SPECIFIED HEALTH STATUS (7) DNR (do not resuscitate) Code(s): Z66 - DO NOT RESUSCITATE (8) Diabetes mellitus Code(s): E11.9 - TYPE 2 DIABETES MELLITUS WITHOUT COMPLICATIONS (9) Hypertension Code(s): I10 - ESSENTIAL (PRIMARY) HYPERTENSION (10) Peripheral neuropathy Code(s): G62.9 - POLYNEUROPATHY, UNSPECIFIED (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 Assessment/Plan Rate control Supplemental O2 as needed Strict I & O Empiric ABX Follow cultures Aspiration precautions Monitor off systemic steroids DNR/DNI Dr Eastman Problem List - Problems (1) Dyspnea Code(s): R06.00 - DYSPNEA, UNSPECIFIED Qualifiers: Dyspnea type: unspecified Qualified Code(s): R06.00 - Dyspnea, unspecified (2) Afib Code(s): I48.91 - UNSPECIFIED ATRIAL FIBRILLATION Qualifiers: Atrial fibrillation type: unspecified chronic Qualified Code(s): I48.20 - Chronic atrial fibrillation, unspecified; I48.2 - Chronic atrial fibrillation (3) ANGELO (acute kidney injury) Code(s): N17.9 - ACUTE KIDNEY FAILURE, UNSPECIFIED (4) Anticoagulated by anticoagulation treatment Code(s): Z79.01 - EGG TESTER (CURRENT) USE OF ANTICOAGULANTS (5) CHF (congestive heart failure) Code(s): I50.9 - HEART FAILURE, UNSPECIFIED (6) DNI (do not intubate) Code(s): Z78.9 - OTHER SPECIFIED HEALTH STATUS (7) DNR (do not resuscitate) Code(s): Z66 - DO NOT RESUSCITATE (8) Diabetes mellitus Code(s): E11.9 - TYPE 2 DIABETES MELLITUS WITHOUT COMPLICATIONS (9) Hypertension Code(s): I10 - ESSENTIAL (PRIMARY) HYPERTENSION (10) Peripheral neuropathy Code(s): G62.9 - POLYNEUROPATHY, UNSPECIFIED (

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
[2019-11-12] MEDS ORDERED: PANTOPRAZOLE SODIUM 40 MG in SODIUM CHLORIDE 100 ML IVPB SCH (17:15)
[2019-11-12] MEDS: AMINO ACIDS 4.25%/D5W 1,000 ML IV SCH (17:37)
[2019-11-12] MEDS: PANTOPRAZOLE SODIUM 40 MG VIAL IVPUSH SCH (17:40)
--- NOTE | 2019-11-12 20:57 | PN ---
Progress Note, Physician History of Present Illness: Pt is alert and fully responsive. Daughter at bedside states he is mentally improving. Remains afebrile. No distress noted at this time. Barium swallow done, pt is high risk for aspiration. - Current Medication List Current Medications: Active Medications Aspirin (Asa -) 81 mg PO DAILY [facility] Last Admin: 11/12/19 09:42 Dose: Not Given Documented by: Diltiazem HCl (Cardizem -) 60 mg PO BID [facility] Last Admin: 11/12/19 09:41 Dose: Not Given Documented by: Ceftriaxone Sodium 1 gm/ (Dextrose) 50 mls @ 100 mls/hr IVPB DAILY [facility] Last Admin: 11/12/19 10:13 Dose: 100 mls/hr Documented by: Diltiazem HCl 125 mg/ Sodium (Chloride) 125 mls @ 5 mls/hr IVPB TITR [facility]; Protocol Last Admin: 11/12/19 14:30 Dose: 13 mg/hr, 13 mls/hr Documented by: Amino Acids (Clinimix -) 1,000 mls @ 84 mls/hr IV Q12H [facility] Last Admin: 11/12/19 17:37 Dose: 84 mls/hr Documented by: Insulin Aspart (Novolog Vial Sliding Scale -) 1 vial SQ TIDAC [facility]; Protocol Last Admin: 11/12/19 17:38 Dose: 4 units Documented by: Insulin Detemir (Levemir Vial) 5 units SQ HS [facility] Last Admin: 11/11/19 23:20 Dose: 5 units Documented by: Lorazepam (Ativan Injection -) 1 mg IVPUSH Q2H PRN PRN Reason: ANXIETY Last Admin: 11/09/19 12:42 Dose: 1 mg Documented by: Metoprolol Succinate (Toprol Xl -) 50 mg PO DAILY [facility] Last Admin: 11/12/19 09:41 Dose: Not Given Documented by: Metoprolol Tartrate (Lopressor Injection -) 5 mg IVPUSH Q4H PRN PRN Reason: TACHYCARDIA Last Admin: 11/11/19 15:00 Dose: 5 mg Documented by: Morphine Sulfate (Morphine Sulfate) 2 mg IVPUSH Q2H PRN PRN Reason: pain or tachypnea Last Admin: 11/11/19 05:29 Dose: 2 mg Documented by: Pantoprazole Sodium (Protonix -) 40 mg PO DAILY [facility] Last Admin: 11/12/19 10:23 Dose: Not Given Documented by: Pantoprazole Sodium (Protonix Iv) 40 mg IVPUSH DAILY [facility] Last Admin: 11/12/19 17:40 Dose: 40 mg Documented by: Tamsulosin HCl (Flomax -) 0.8 mg PO DAILY@0830 [facility] Last Admin: 11/12/19 09:41 Dose: Not Given Documented by: - Objective Vital Signs: Vital Signs Temperature 98.9 F 11/12/19 18:00 Pulse Rate 100 H 11/12/19 20:00 Respiratory Rate 18 11/12/19 20:00 Blood Pressure 140/75 11/12/19 20:00 O2 Sat by Pulse Oximetry (%) 96 11/12/19 20:00 Constitutional: Yes: No Distress, Calm Cardiovascular: Yes: Pulse Irregular Respiratory: Yes: Diminished (poor inspiratory effort) Gastrointestinal: Yes: Normal Bowel Sounds, Soft Genitourinary: Yes: Rice Present Neurological: Yes: Alert Labs: CBC, BMP 11/12/19 07:10 11/12/19 07:10 INR, PTT INR 1.32 (0.83-1.09) H 11/07/19 19:36 Laboratory Last Values WBC 13.3 K/mm3 (4.0-10.0) H 11/12/19 07:10 RBC 3.49 M/mm3 (4.00-5.60) L 11/12/19 07:10 Hgb 12.8 GM/dL (11.7-16.9) 11/12/19 07:10 Hct 38.1 % (35.4-49) 11/12/19 07:10 MCV 109.3 fl (80-96) H 11/12/19 07:10 MCH 36.7 pg (25.7-33.7) H 11/12/19 07:10 MCHC 33.5 g/dl (32.0-35.9) 11/12/19 07:10 RDW 13.9 % (11.9-15.9) 11/12/19 07:10 Plt Count 274 K/MM3 (134-434) 11/12/19 07:10 MPV 7.1 fl (7.5-11.1) L 11/12/19 07:10 Absolute Neuts (auto) 10.4 K/mm3 (1.5-8.0) H 11/12/19 07:10 Neutrophils % 78.5 % (42.8-82.8) 11/12/19 07:10 Lymphocytes % 12.0 % (8-40) 11/12/19 07:10 Monocytes % 7.7 % (3.8-10.2) 11/12/19 07:10 Eosinophils % 1.3 % (0-4.5) D 11/12/19 07:10 Basophils % 0.5 % (0-2.0) 11/12/19 07:10 Nucleated RBC % 0 % (0-0) 11/12/19 07:10 Hypochromia 0 11/11/19 07:00 Platelet Estimate Normal 11/11/19 07:00 Polychromasia 0 11/11/19 07:00 Poikilocytosis 0 11/11/19 07:00 Anisocytosis 1+ 11/11/19 07:00 Microcytosis 0 11/11/19 07:00 Macrocytosis 1+ 11/11/19 07:00 PT with INR 15.60 SEC (9.7-13.0) H 11/07/19 19:36 INR 1.32 (0.83-1.09) H 11/07/19 19:36 PTT (Actin FS) 37.6 SECONDS (25.2-36.5) H 11/07/19 19:36 VBG pH 7.418 (7.310-7.410) H 11/07/19 20:25 POC VBG pCO2 36.9 mmHg (38-52) L 11/07/19 20:25 POC VBG pO2 39.2 mmHg (28-48) 11/07/19 20:25 VBG HCO3 23.3 mmol/L (23-29) 11/07/19 20:25 VBG O2 Sat (Binh) 75.2 % (70-80) 11/07/19 20:25 VBG Base Excess -0.8 mmol/L (-2-2) 11/07/19 20:25 Sodium 147 mmol/L (136-145) H 11/12/19 07:10 Potassium 3.8 mmol/L (3.5-5.1) 11/12/19 07:10 Chloride 113 mmol/L (98-107) H 11/12/19 07:10 Carbon Dioxide 27 mmol/L (21-32) 11/12/19 07:10 Anion Gap 7 MMOL/L (8-16) L 11/12/19 07:10 BUN 27.1 mg/dL (7-18) H 11/12/19 07:10 Creatinine 1.1 mg/dL (0.55-1.3) 11/12/19 07:10 Est GFR (CKD-EPI)AfAm 68.62 11/12/19 07:10 Est GFR (CKD-EPI)NonAf 59.20 11/12/19 07:10 POC Glucometer 247 UNITS (80-120) 11/12/19 17:02 Random Glucose 321 mg/dL (74-106) H 11/12/19 07:10 Lactic Acid 2.0 mmol/L (0.4-2.0) 11/07/19 23:45 Calcium 8.7 mg/dL (8.5-10.1) 11/12/19 07:10 Phosphorus 2.2 mg/dL (2.5-4.9) L 11/09/19 08:00 Magnesium 2.1 mg/dL (1.8-2.4) 11/12/19 07:10 Total Bilirubin 2.0 mg/dL (0.2-1) H 11/12/19 07:10 Direct Bilirubin 1.5 mg/dL (0.0-0.2) H 11/09/19 08:00 AST 28 U/L (15-37) 11/12/19 07:10 ALT 27 U/L (13-61) 11/12/19 07:10 Alkaline Phosphatase 157 U/L (45-117) H 11/12/19 07:10 Creatine Kinase 172 U/L (26-308) 11/07/19 19:36 Creatine Kinase Index No Result Required. 11/07/19 19:36 CK-MB (CK-2) < 1.0 ng/mL (0.5-3.6) 11/07/19 19:36 Troponin I 0.12 ng/ml (0.00-0.05) H 11/07/19 23:45 B-Natriuretic Peptide 1017.3 pg/ml (5-450) H 11/07/19 19:36 Total Protein 6.9 g/dl (6.4-8.2) 11/12/19 07:10 Albumin 2.3 g/dl (3.4-5.0) L 11/12/19 07:10 Triglycerides 77 mg/dL (0-150) 11/07/19 19:36 Cholesterol 94 mg/dL (50-200) 11/07/19 19:36 Total LDL Cholesterol 51 mg/dL (5-100) 11/07/19 19:36 HDL Cholesterol 38 mg/dL (40-60) L 11/07/19 19:36 Urine Color Dk yellow 11/07/19 19:58 Urine Appearance Clear 11/07/19 19:58 Urine pH 5.5 (5.0-8.0) 11/07/19 19:58 Ur Specific Rosamond 1.012 (1.010-1.035) 11/07/19 19:58 Urine Protein Negative (NEGATIVE) 11/07/19 19:58 Urine Glucose (UA) Negative (NEGATIVE) 11/07/19 19:58 Urine Ketones Negative (NEGATIVE) 11/07/19 19:58 Urine Blood Negative (NEGATIVE) 11/07/19 19:58 Urine Nitrite Negative (NEGATIVE) 11/07/19 19:58 Urine Bilirubin Negative (NEGATIVE) 11/07/19 19:58 Urine Urobilinogen 1.0 mg/dL (0.2-1.0) 11/07/19 19:58 Ur Leukocyte Esterase Trace (NEGATIVE) 11/07/19 19:58 Urine WBC (Auto) 13 /uL (0-25.8) 11/07/19 19:58 Urine RBC (Auto) 8 /uL (0-23.9) 11/07/19 19:58 Urine Casts (Auto) 2 /uL (0-3.1) 11/07/19 19:58 U Epithel Cells (Auto) 9 /uL (0-25.1) 11/07/19 19:58 Urine Bacteria (Auto) 1998 /uL (0-1359) 11/07/19 19:58 Ur Random Creatinine 93.0 mg/dL (30-150) 11/09/19 04:30 Ur Random Sodium < 18 MMOL/L (40-220) L 11/09/19 04:30 COVID-19 (ANDI) Not detected (Not Detected) 11/07/19 20:25 Microbiology 11/07/19 19:34 Blood - Peripheral Venous Blood Culture - Final NO GROWTH AFTER 5 DAYS INCUBATION 11/07/19 19:30 Blood - Peripheral Venous Blood Culture - Final NO GROWTH AFTER 5 DAYS INCUBATION 11/07/19 19:58 Urine - Urine Clean Catch Urine Culture - Final Bordetella Bronchiseptica 11/09/19 04:30 Urine - Urine Clean Catch Legionella Antigen - Final 11/09/19 04:30 Urine - Urine Clean Catch Streptococcus pneumoniae Antigen (M - Final - ....Imaging Other: Report Reviewed Problem List - Problems (1) Afib Code(s): I48.91 - UNSPECIFIED ATRIAL FIBRILLATION Qualifiers: Atrial fibrillation type: unspecified chronic Qualified Code(s): I48.20 - Chronic atrial fibrillation, unspecified; I48.2 - Chronic atrial fibrillation (2) S/P CABG (coronary artery bypass graft) Code(s): Z95.1 - PRESENCE OF AORTOCORONARY BYPASS GRAFT (3) UGIB (upper gastrointestinal bleed) Code(s): K92.2 - GASTROINTESTINAL HEMORRHAGE, UNSPECIFIED (4) UTI (urinary tract infection) Code(s): N39.0 - URINARY TRACT INFECTION, SITE NOT SPECIFIED Qualifiers: Urinary tract infection type: acute cystitis Hematuria presence: with hematuria Qualified Code(s): N30.01 - Acute cystitis with hematuria Assessment/Plan Sepsis AMS PNA -? aspiration Leukocytosis UTI AFIB DM HTN Hx of CVA Hx of GI bleed -- culture results noted -- continue antibiotics -- wbc trending back down, repeat cbc in am. Fevers resolved. -- aspiration precautions -- Blood cultures neg , Urinary Ag negative continue monitor closely cc: 37 min
[2019-11-12] MEDS: INSULIN (LEVEMIR) 100 UNITS/ML UNITS SQ SCH (21:21)
[2019-11-13] MEDS: AMINO ACIDS 4.25%/D5W 1,000 ML IV SCH ×2 (00:16→06:34)
[2019-11-13] MEDS: DILTIAZEM INJECTION 125 MG in SODIUM CHLORIDE 100 ML IVPB SCH ×2 (04:00→13:30)
--- NOTE | 2019-11-13 06:25 | PN ---
Progress Note, Physician Chief Complaint: no CP/SOB TELE: AF, controlled rare single VPCs ON CADIZEM gtts History of Present Illness: fever asp pna jayce afib s/p watchman device - Current Medication List Current Medications: Active Medications Aspirin (Asa -) 81 mg PO DAILY [facility] Last Admin: 11/12/19 09:42 Dose: Not Given Documented by: Diltiazem HCl (Cardizem -) 60 mg PO BID [facility] Last Admin: 11/12/19 21:03 Dose: Not Given Documented by: Ceftriaxone Sodium 1 gm/ (Dextrose) 50 mls @ 100 mls/hr IVPB DAILY [facility] Last Admin: 11/12/19 10:13 Dose: 100 mls/hr Documented by: Diltiazem HCl 125 mg/ Sodium (Chloride) 125 mls @ 5 mls/hr IVPB TITR [facility]; Protocol Last Admin: 11/12/19 14:30 Dose: 13 mg/hr, 13 mls/hr Documented by: Amino Acids (Clinimix -) 1,000 mls @ 84 mls/hr IV Q12H [facility] Last Admin: 11/13/19 00:16 Dose: 84 mls/hr Documented by: Insulin Aspart (Novolog Vial Sliding Scale -) 1 vial SQ TIDAC [facility]; Protocol Last Admin: 11/12/19 17:38 Dose: 4 units Documented by: Insulin Detemir (Levemir Vial) 5 units SQ HS [facility] Last Admin: 11/12/19 21:21 Dose: 5 units Documented by: Lorazepam (Ativan Injection -) 1 mg IVPUSH Q2H PRN PRN Reason: ANXIETY Last Admin: 11/09/19 12:42 Dose: 1 mg Documented by: Metoprolol Succinate (Toprol Xl -) 50 mg PO DAILY [facility] Last Admin: 11/12/19 09:41 Dose: Not Given Documented by: Metoprolol Tartrate (Lopressor Injection -) 5 mg IVPUSH Q4H PRN PRN Reason: TACHYCARDIA Last Admin: 11/11/19 15:00 Dose: 5 mg Documented by: Morphine Sulfate (Morphine Sulfate) 2 mg IVPUSH Q2H PRN PRN Reason: pain or tachypnea Last Admin: 11/11/19 05:29 Dose: 2 mg Documented by: Pantoprazole Sodium (Protonix -) 40 mg PO DAILY [facility] Last Admin: 11/12/19 10:23 Dose: Not Given Documented by: Pantoprazole Sodium (Protonix Iv) 40 mg IVPUSH DAILY [facility] Last Admin: 11/12/19 17:40 Dose: 40 mg Documented by: Tamsulosin HCl (Flomax -) 0.8 mg PO DAILY@0830 [facility] Last Admin: 11/12/19 09:41 Dose: Not Given Documented by: - Objective Vital Signs: Vital Signs Temperature 97.8 F 11/13/19 02:12 Pulse Rate 100 H 11/13/19 05:21 Respiratory Rate 16 11/13/19 05:21 Blood Pressure 155/73 11/13/19 05:21 O2 Sat by Pulse Oximetry (%) 95 11/13/19 05:21 Constitutional: Yes: No Distress Cardiovascular: Yes: Pulse Irregular Respiratory: Yes: CTA Bilaterally Gastrointestinal: Yes: Soft (nt) Edema: No Neurological: Yes: Alert ...Motor Strength: WNL Labs: CBC, BMP 11/12/19 07:10 11/12/19 07:10 INR, PTT INR 1.32 (0.83-1.09) H 11/07/19 19:36 Laboratory Tests 11/07/19 11/07/19 11/12/19 19:36 20:25 07:10 WBC 13.3 H Hgb 12.8 Plt Count 274 INR 1.32 H Sodium Potassium Creatinine COVID-19 (ANDI) Not detected 11/12/19 07:10 WBC Hgb Plt Count INR Sodium 147 H Potassium 3.8 Creatinine 1.1 COVID-19 (ANDI) - ....Imaging EKG: Image Reviewed Assessment/Plan DATA: Echo: Report Reviewed (Echo 06/2018: Nl LV/RV, mod LAE, mild MR, AI, no PHTN) Stress Echo: Other (MPI: 11/2015: No ischemic ST changes. 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 fever, lethargy, sepsis: -pna, likely aspiration -abx per primary/ID, cont supplemental 02 jayce: -improved with ivfs elevated trop: -borderline trop with flat trend, similar to prior baseline values, not c/w acs pafib: -pt not taking po meds (was on dilt 60 bid and toprol 50 qd at home) and having rvr - rate improved with dilt gtt, cont while NPO. 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 His AC has been stopped and he remains on asa 81 qd, cont same when taking PO CAD s/p CABG: -stable, no signs acs -cont statin, bb, aspirin Chronic diastolic CHF: -stable here currently, although weight is up. Rpt CXR -renal fx now back to baseline, can resume home Torsemide of 50mg daily and follow renal fx
[2019-11-13] MEDS: INSULIN SLIDING SCALE (NOVOLOG) 1 VIAL SQ SCH ×3 (06:36→17:30)
[2019-11-13] MEDS ORDERED: DEXTROSE 5%-WATER - 50 ML IVPB ONE (08:03)
[2019-11-13] MEDS ORDERED: cefTRIAXone SODIUM 1 GM VIAL ONE ×2 (08:03→09:30)
[2019-11-13] MEDS: dilTIAZem HCL 60 MG TABLET PO SCH ×2 (10:14→21:23)
[2019-11-13] MEDS: TAMSULOSIN HCL 0.4 MG CAP PO SCH (10:14)
[2019-11-13] MEDS: PANTOPRAZOLE SODIUM 40 MG VIAL IVPUSH SCH (10:14)
[2019-11-13] MEDS: ASPIRIN 81 MG CHEWABLE TABLETS PO SCH (10:14)
[2019-11-13] MEDS: CEFTRIAXONE 1 GM in DEXTROSE 5%-WATER - 50 ML IVPB SCH (10:15)
[2019-11-13] MEDS: PANTOPRAZOLE 40 MG TABLET PO SCH (10:17)
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
[2019-11-13 11:39] LABS: BASO % 0.6 % (0-2.0); EOS % 2.1 % (0-4.5); HEMATOCRIT 38.2 % (35.4-49); HEMOGLOBIN 12.9 GM/dL (11.7-16.9); LYMPH % 12.4 % (8-40); MCH 36.9 pg (25.7-33.7); MCHC 33.7 g/dl (32.0-35.9); MEAN CELL VOLUME 109.4 fl (80-96); MEAN PLT VOLUME 7.2 fl (7.5-11.1); MONO % 7.1 % (3.8-10.2); NEUT % 77.8 % (42.8-82.8); PLATELET COUNT 282 K/MM3 (134-434); RBC 3.49 M/mm3 (4.00-5.60); RDW 13.5 % (11.9-15.9); WHITE BLOOD COUNT 11.6 K/mm3 (4.0-10.0)
[2019-11-13 12:13] LABS: ALBUMIN 2.1 g/dl (3.4-5.0); BLOOD UREA NITROGEN 26.6 mg/dL (7-18); CALCIUM 8.8 mg/dL (8.5-10.1); POTASSIUM 3.4 mmol/L (3.5-5.1)
[2019-11-13 12:16] LABS: BILIRUBIN,TOTAL 1.8 mg/dL (0.2-1); TOT PROT 6.7 g/dl (6.4-8.2)
[2019-11-13] MEDS ORDERED: PT OWN MED DRAWER 7, Y5N ONE (12:35)
--- NOTE | 2019-11-13 13:46 | PN ---
Progress Note (short form) - Note Progress Note: Resting in NAD. No acute events overnight. Intake & Output 11/10/19 11/11/19 11/12/19 11/13/19 23:59 23:59 23:59 23:59 Intake Total 418 1413 1128 Output Total 8186 458 1596 1000 Balance -1132 463 -1600 128 Weight 169 lb 169 lb 172 lb 4.8 oz Last Vital Signs Temp Pulse Resp BP Pulse Ox 97.4 F L 100 H 16 155/73 95 11/13/19 05:21 11/13/19 05:21 11/13/19 05:21 11/13/19 05:21 11/13/19 05:21 Active Medications Aspirin (Asa -) 81 mg PO DAILY [facility] Last Admin: 11/13/19 10:14 Dose: Not Given Documented by: Diltiazem HCl (Cardizem -) 60 mg PO BID [facility] Last Admin: 11/13/19 10:14 Dose: Not Given Documented by: Ceftriaxone Sodium 1 gm/ (Dextrose) 50 mls @ 100 mls/hr IVPB DAILY [facility] Last Admin: 11/13/19 10:15 Dose: 100 mls/hr Documented by: Diltiazem HCl 125 mg/ Sodium (Chloride) 125 mls @ 5 mls/hr IVPB TITR [facility]; Protocol Last Admin: 11/13/19 04:00 Dose: 10 mg/hr, 10 mls/hr Documented by: Amino Acids (Clinimix -) 1,000 mls @ 84 mls/hr IV Q12H [facility] Last Admin: 11/13/19 06:34 Dose: Not Given Documented by: Insulin Aspart (Novolog Vial Sliding Scale -) 1 vial SQ TIDAC [facility]; Protocol Last Admin: 11/13/19 06:36 Dose: 8 units Documented by: Insulin Detemir (Levemir Vial) 5 units SQ HS [facility] Last Admin: 11/12/19 21:21 Dose: 5 units Documented by: Lorazepam (Ativan Injection -) 1 mg IVPUSH Q2H PRN PRN Reason: ANXIETY Last Admin: 11/09/19 12:42 Dose: 1 mg Documented by: Metoprolol Succinate (Toprol Xl -) 50 mg PO DAILY [facility] Last Admin: 11/13/19 10:18 Dose: Not Given Documented by: Metoprolol Tartrate (Lopressor Injection -) 5 mg IVPUSH Q4H PRN PRN Reason: TACHYCARDIA Last Admin: 11/11/19 15:00 Dose: 5 mg Documented by: Morphine Sulfate (Morphine Sulfate) 2 mg IVPUSH Q2H PRN PRN Reason: pain or tachypnea Last Admin: 11/11/19 05:29 Dose: 2 mg Documented by: Pantoprazole Sodium (Protonix -) 40 mg PO DAILY [facility] Last Admin: 11/13/19 10:17 Dose: Not Given Documented by: Pantoprazole Sodium (Protonix Iv) 40 mg IVPUSH DAILY [facility] Last Admin: 11/13/19 10:14 Dose: 40 mg Documented by: Tamsulosin HCl (Flomax -) 0.8 mg PO DAILY@0830 [facility] Last Admin: 11/13/19 10:14 Dose: Not Given Documented by: Constitutional: Yes: NAD Eyes: Yes: Conjunctiva Clear, EOM Intact HENT: Yes: Atraumatic, Normocephalic Neck: Yes: Supple, Trachea Midline Cardiovascular: Yes: Tachycardia, Pulse Irregular Respiratory: Yes: Cough, Diminished, NC O2, Rhonchi. No: Stridor, Wheezes ...Inspection: Yes: WNL ...Clubbing: No Gastrointestinal: Yes: Normal Bowel Sounds, Soft Musculoskeletal: Yes: Back Pain Extremities: Yes: WNL Edema: Yes Peripheral Pulses WNL: Yes Integumentary: Yes: WNL Neurological: Yes: Confusion Labs: Laboratory Results - last 24 hr 11/12/19 11/12/19 11/13/19 17:02 21:05 06:35 WBC RBC Hgb Hct MCV MCH MCHC RDW Plt Count MPV Absolute Neuts (auto) Neutrophils % Lymphocytes % Monocytes % Eosinophils % Basophils % Nucleated RBC % Sodium Potassium Chloride Carbon Dioxide Anion Gap BUN Creatinine Est GFR (CKD-EPI)AfAm Est GFR (CKD-EPI)NonAf POC Glucometer 247 285 306 Random Glucose Calcium Magnesium Total Bilirubin AST ALT Alkaline Phosphatase Total Protein Albumin 11/13/19 11/13/19 11/13/19 09:50 09:50 13:01 WBC 11.6 H RBC 3.49 L Hgb 12.9 Hct 38.2 MCV 109.4 H MCH 36.9 H MCHC 33.7 RDW 13.5 Plt Count 282 MPV 7.2 L Absolute Neuts (auto) 9.0 H Neutrophils % 77.8 Lymphocytes % 12.4 Monocytes % 7.1 Eosinophils % 2.1 Basophils % 0.6 Nucleated RBC % 0 Sodium 147 H Potassium 3.4 L Chloride 114 H Carbon Dioxide 26 Anion Gap 7 L BUN 26.6 H Creatinine 1.0 Est GFR (CKD-EPI)AfAm 77.00 Est GFR (CKD-EPI)NonAf 66.43 POC Glucometer 335 Random Glucose 298 H Calcium 8.8 Magnesium 2.0 Total Bilirubin 1.8 H AST 32 ALT 28 Alkaline Phosphatase 159 H Total Protein 6.7 Albumin 2.1 L Imaging - Results Chest X-ray: Report Reviewed, Image Reviewed Problem List - Problems (1) Dyspnea Code(s): R06.00 - DYSPNEA, UNSPECIFIED Qualifiers: Dyspnea type: unspecified Qualified Code(s): R06.00 - Dyspnea, unspecified (2) Afib Code(s): I48.91 - UNSPECIFIED ATRIAL FIBRILLATION Qualifiers: Atrial fibrillation type: unspecified chronic Qualified Code(s): I48.20 - Chronic atrial fibrillation, unspecified; I48.2 - Chronic atrial fibrillation (3) ANGELO (acute kidney injury) Code(s): N17.9 - ACUTE KIDNEY FAILURE, UNSPECIFIED (4) Anticoagulated by anticoagulation treatment Code(s): Z79.01 - RESIDENTIAL (CURRENT) USE OF ANTICOAGULANTS (5) CHF (congestive heart failure) Code(s): I50.9 - HEART FAILURE, UNSPECIFIED (6) DNI (do not intubate) Code(s): Z78.9 - OTHER SPECIFIED HEALTH STATUS (7) DNR (do not resuscitate) Code(s): Z66 - DO NOT RESUSCITATE (8) Diabetes mellitus Code(s): E11.9 - TYPE 2 DIABETES MELLITUS WITHOUT COMPLICATIONS (9) Hypertension Code(s): I10 - ESSENTIAL (PRIMARY) HYPERTENSION (10) Peripheral neuropathy Code(s): G62.9 - POLYNEUROPATHY, UNSPECIFIED (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 Assessment/Plan Rate control Supplemental O2 as needed Strict I & O Empiric ABX Follow cultures Aspiration precautions Monitor off systemic steroids DNR/DNI For possible hospice Dr Eastman Problem List - Problems (1) Dyspnea Code(s): R06.00 - DYSPNEA, UNSPECIFIED Qualifiers: Dyspnea type: unspecified Qualified Code(s): R06.00 - Dyspnea, unspecified (2) Afib Code(s): I48.91 - UNSPECIFIED ATRIAL FIBRILLATION Qualifiers: Atrial fibrillation type: unspecified chronic Qualified Code(s): I48.20 - Chronic atrial fibrillation, unspecified; I48.2 - Chronic atrial fibrillation (3) ANGELO (acute kidney injury) Code(s): N17.9 - ACUTE KIDNEY FAILURE, UNSPECIFIED (4) Anticoagulated by anticoagulation treatment Code(s): Z79.01 - RESIDENTIAL (CURRENT) USE OF ANTICOAGULANTS (5) CHF (congestive heart failure) Code(s): I50.9 - HEART FAILURE, UNSPECIFIED (6) DNI (do not intubate) Code(s): Z78.9 - OTHER SPECIFIED HEALTH STATUS (7) DNR (do not resuscitate) Code(s): Z66 - DO NOT RESUSCITATE (8) Diabetes mellitus Code(s): E11.9 - TYPE 2 DIABETES MELLITUS WITHOUT COMPLICATIONS (9) Hypertension Code(s): I10 - ESSENTIAL (PRIMARY) HYPERTENSION (10) Peripheral neuropathy Code(s): G62.9 - POLYNEUROPATHY, UNSPECIFIED (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
--- NOTE | 2019-11-13 14:07 | PN ---
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 Option of PEG insertion vs pleasure feedings at this time, with aspiration risk. Palliative care Pt's medical/pulmonary status much improved since NPO CXR noted. Plan is for home hospice. Family does not want PEG, according to primkary nurse. Pt is DNR/DNI. Consider limited po trial of puree/honey on tsp, if pt desires, for pleasure feedings at home. Family needs to be aware of risk of increased congestion/SOB sec aspiration with PO trials. Consider Home suction.
[2019-11-13] MEDS ORDERED: POTASSIUM CHLORIDE 20 MEQ in AMINO ACIDS 4.25%/D5W 1,000 ML IVPB SCH (15:01)
--- NOTE | 2019-11-13 15:01 | PN ---
Progress Note, Physician History of Present Illness: Pt seen and examined at bedside. He is not very interactive today. - Current Medication List Current Medications: Active Medications Aspirin (Asa -) 81 mg PO DAILY [facility] Last Admin: 11/13/19 10:14 Dose: Not Given Documented by: Diltiazem HCl (Cardizem -) 60 mg PO BID [facility] Last Admin: 11/13/19 10:14 Dose: Not Given Documented by: Ceftriaxone Sodium 1 gm/ (Dextrose) 50 mls @ 100 mls/hr IVPB DAILY [facility] Last Admin: 11/13/19 10:15 Dose: 100 mls/hr Documented by: Diltiazem HCl 125 mg/ Sodium (Chloride) 125 mls @ 5 mls/hr IVPB TITR [facility]; Pr otocol Last Admin: 11/13/19 13:30 Dose: 8 mg/hr, 8 mls/hr Documented by: Amino Acids (Clinimix -) 1,000 mls @ 84 mls/hr IV Q12H [facility] Last Admin: 11/13/19 06:34 Dose: Not Given Documented by: Insulin Aspart (Novolog Vial Sliding Scale -) 1 vial SQ TIDAC [facility]; Protocol Last Admin: 11/13/19 12:45 Dose: 8 units Documented by: Insulin Detemir (Levemir Vial) 5 units SQ HS [facility] Last Admin: 11/12/19 21:21 Dose: 5 units Documented by: Lorazepam (Ativan Injection -) 1 mg IVPUSH Q2H PRN PRN Reason: ANXIETY Last Admin: 11/09/19 12:42 Dose: 1 mg Documented by: Metoprolol Succinate (Toprol Xl -) 50 mg PO DAILY [facility] Last Admin: 11/13/19 10:18 Dose: Not Given Documented by: Metoprolol Tartrate (Lopressor Injection -) 5 mg IVPUSH Q4H PRN PRN Reason: TACHYCARDIA Last Admin: 11/11/19 15:00 Dose: 5 mg Documented by: Morphine Sulfate (Morphine Sulfate) 2 mg IVPUSH Q2H PRN PRN Reason: pain or tachypnea Last Admin: 11/11/19 05:29 Dose: 2 mg Documented by: Pantoprazole Sodium (Protonix -) 40 mg PO DAILY [facility] Last Admin: 11/13/19 10:17 Dose: Not Given Documented by: Pantoprazole Sodium (Protonix Iv) 40 mg IVPUSH DAILY [facility] Last Admin: 11/13/19 10:14 Dose: 40 mg Documented by: Tamsulosin HCl (Flomax -) 0.8 mg PO DAILY@0830 [facility] Last Admin: 11/13/19 10:14 Dose: Not Given Documented by: - Objective Vital Signs: Vital Signs Temperature 97.4 F L 11/13/19 05:21 Pulse Rate 98 H 11/13/19 13:30 Respiratory Rate 16 11/13/19 05:21 Blood Pressure 151/79 11/13/19 13:30 O2 Sat by Pulse Oximetry (%) 95 11/13/19 05:21 Constitutional: Yes: Calm Eyes: Yes: Conjunctiva Clear HENT: Yes: Atraumatic Neck: Yes: Supple Cardiovascular: Yes: S1, S2 Respiratory: Yes: CTA Bilaterally Gastrointestinal: Yes: Soft Genitourinary: Yes: Incontinence Edema: No Neurological: Yes: Lethargy Labs: CBC, BMP 11/13/19 09:50 11/13/19 09:50 INR, PTT INR 1.32 (0.83-1.09) H 11/07/19 19:36 Problem List - Problems (1) Dyspnea Code(s): R06.00 - DYSPNEA, UNSPECIFIED Qualifiers: Dyspnea type: unspecified Qualified Code(s): R06.00 - Dyspnea, unspecified (2) Weakness Code(s): R53.1 - WEAKNESS (3) Afib Code(s): I48.91 - UNSPECIFIED ATRIAL FIBRILLATION Qualifiers: Atrial fibrillation type: unspecified chronic Qualified Code(s): I48.20 - Chronic atrial fibrillation, unspecified; I48.2 - Chronic atrial fibrillation (4) ANGELO (acute kidney injury) Code(s): N17.9 - ACUTE KIDNEY FAILURE, UNSPECIFIED (5) CHF (congestive heart failure) Code(s): I50.9 - HEART FAILURE, UNSPECIFIED Assessment/Plan Current Medications Generic Name Dose Route Start Last Admin Trade Name Freq PRN Reason Stop Dose Admin Aspirin 81 mg 11/10/19 10:00 11/13/19 10:14 Asa - PO Not Given DAILY [facility] Diltiazem HCl 60 mg 11/08/19 10:00 11/13/19 10:14 Cardizem - PO Not Given BID [facility] Ceftriaxone Sodium 1 gm/ 50 mls @ 100 mls/hr 11/08/19 10:00 11/13/19 10:15 Dextrose IVPB 100 mls/hr DAILY [facility] Administration Diltiazem HCl 125 mg/ Sodium 125 mls @ 5 mls/hr 11/09/19 11:30 11/13/19 13:30 Chloride IVPB 8 mg/hr TITR [facility] 8 mls/hr Administration Protocol 5 MG/HR Amino Acids 1,000 mls @ 84 mls/hr 11/12/19 16:58 11/13/19 06:34 Clinimix - IV Not Given Q12H [facility] Insulin Aspart 1 vial 11/08/19 07:00 11/13/19 12:45 Novolog Vial Sliding Scale - SQ 8 units TIDAC [facility] Administration Protocol Insulin Detemir 5 units 11/11/19 22:00 11/12/19 21:21 Levemir Vial SQ 5 units HS [facility] Administration Lorazepam 1 mg 11/08/19 19:53 11/09/19 12:42 Ativan Injection - IVPUSH 1 mg Q2H PRN Administration ANXIETY Metoprolol Succinate 50 mg 11/08/19 10:00 11/13/19 10:18 Toprol Xl - PO Not Given DAILY [facility] Metoprolol Tartrate 5 mg 11/09/19 09:34 11/11/19 15:00 Lopressor Injection - IVPUSH 5 mg Q4H PRN Administration TACHYCARDIA Morphine Sulfate 2 mg 11/08/19 19:40 11/11/19 05:29 Morphine Sulfate IVPUSH 2 mg Q2H PRN Administration pain or tachypnea Pantoprazole Sodium 40 mg 11/08/19 10:00 11/13/19 10:17 Protonix - PO Not Given DAILY [facility] Pantoprazole Sodium 40 mg 11/12/19 17:15 11/13/19 10:14 Protonix Iv IVPUSH 40 mg DAILY [facility] Administration Tamsulosin HCl 0.8 mg 11/08/19 08:30 11/13/19 10:14 Flomax - PO Not Given DAILY@0830 [facility] Impression 1. ANGELO 2. CAD 3. a-fib 4. CVA 5. CKD 6. DM 7. anemia 8. GI bleeding Plan - will add potassium to colinimx - monitor lytes - monitor renal function - rate control - lasix as needed - cont icu care
[2019-11-13] MEDS: KCL 10 MEQ IVPB 10 MEQ/100 ML INFUS.BAG IVPB SCH ×2 (18:30→21:24)
[2019-11-13] MEDS: POTASSIUM CHLORIDE 20 MEQ in AMINO ACIDS 4.25%/D5W 1,000 ML IVPB SCH (18:30)
--- NOTE | 2019-11-13 20:55 | PN ---
Progress Note, Physician History of Present Illness: No new events. Pt without distress. Temp of 99.5F currently. - Current Medication List Current Medications: Active Medications Aspirin (Asa -) 81 mg PO DAILY [facility] Last Admin: 11/13/19 10:14 Dose: Not Given Documented by: Diltiazem HCl (Cardizem -) 60 mg PO BID [facility] Last Admin: 11/13/19 10:14 Dose: Not Given Documented by: Ceftriaxone Sodium 1 gm/ (Dextrose) 50 mls @ 100 mls/hr IVPB DAILY [facility] Last Admin: 11/13/19 10:15 Dose: 100 mls/hr Documented by: Diltiazem HCl 125 mg/ Sodium (Chloride) 125 mls @ 5 mls/hr IVPB TITR [facility]; Protocol Last Admin: 11/13/19 13:30 Dose: 8 mg/hr, 8 mls/hr Documented by: Potassium Chloride 20 meq/ (Amino Acids) 1,010 mls @ 84 mls/hr IVPB Q12H [facility] Last Admin: 11/13/19 18:30 Dose: 84 mls/hr Documented by: Insulin Aspart (Novolog Vial Sliding Scale -) 1 vial SQ TIDAC [facility]; Protocol Last Admin: 11/13/19 17:30 Dose: 6 units Documented by: Insulin Detemir (Levemir Vial) 5 units SQ HS [facility] Last Admin: 11/12/19 21:21 Dose: 5 units Documented by: Lorazepam (Ativan Injection -) 1 mg IVPUSH Q2H PRN PRN Reason: ANXIETY Last Admin: 11/09/19 12:42 Dose: 1 mg Documented by: Metoprolol Succinate (Toprol Xl -) 50 mg PO DAILY [facility] Last Admin: 11/13/19 10:18 Dose: Not Given Documented by: Metoprolol Tartrate (Lopressor Injection -) 5 mg IVPUSH Q4H PRN PRN Reason: TACHYCARDIA Last Admin: 11/11/19 15:00 Dose: 5 mg Documented by: Morphine Sulfate (Morphine Sulfate) 2 mg IVPUSH Q2H PRN PRN Reason: pain or tachypnea Last Admin: 11/11/19 05:29 Dose: 2 mg Documented by: Pantoprazole Sodium (Protonix -) 40 mg PO DAILY [facility] Last Admin: 11/13/19 10:17 Dose: Not Given Documented by: Pantoprazole Sodium (Protonix Iv) 40 mg IVPUSH DAILY [facility] Last Admin: 11/13/19 10:14 Dose: 40 mg Documented by: Tamsulosin HCl (Flomax -) 0.8 mg PO DAILY@0830 [facility] Last Admin: 11/13/19 10:14 Dose: Not Given Documented by: - Objective Vital Signs: Vital Signs Temperature 99.5 F 11/13/19 20:00 Pulse Rate 110 H 11/13/19 20:00 Respiratory Rate 20 11/13/19 20:00 Blood Pressure 134/86 11/13/19 20:00 O2 Sat by Pulse Oximetry (%) 96 11/13/19 20:00 Constitutional: Yes: No Distress Cardiovascular: Yes: Pulse Irregular Respiratory: Yes: Diminished, Other (poor inspiratory effort) Gastrointestinal: Yes: Normal Bowel Sounds, Soft Neurological: Yes: Alert Labs: CBC, BMP 11/13/19 09:50 11/13/19 09:50 INR, PTT INR 1.32 (0.83-1.09) H 11/07/19 19:36 Laboratory Last Values WBC 11.6 K/mm3 (4.0-10.0) H 11/13/19 09:50 RBC 3.49 M/mm3 (4.00-5.60) L 11/13/19 09:50 Hgb 12.9 GM/dL (11.7-16.9) 11/13/19 09:50 Hct 38.2 % (35.4-49) 11/13/19 09:50 MCV 109.4 fl (80-96) H 11/13/19 09:50 MCH 36.9 pg (25.7-33.7) H 11/13/19 09:50 MCHC 33.7 g/dl (32.0-35.9) 11/13/19 09:50 RDW 13.5 % (11.9-15.9) 11/13/19 09:50 Plt Count 282 K/MM3 (134-434) 11/13/19 09:50 MPV 7.2 fl (7.5-11.1) L 11/13/19 09:50 Absolute Neuts (auto) 9.0 K/mm3 (1.5-8.0) H 11/13/19 09:50 Neutrophils % 77.8 % (42.8-82.8) 11/13/19 09:50 Lymphocytes % 12.4 % (8-40) 11/13/19 09:50 Monocytes % 7.1 % (3.8-10.2) 11/13/19 09:50 Eosinophils % 2.1 % (0-4.5) 11/13/19 09:50 Basophils % 0.6 % (0-2.0) 11/13/19 09:50 Nucleated RBC % 0 % (0-0) 11/13/19 09:50 Hypochromia 0 11/11/19 07:00 Platelet Estimate Normal 11/11/19 07:00 Polychromasia 0 11/11/19 07:00 Poikilocytosis 0 11/11/19 07:00 Anisocytosis 1+ 11/11/19 07:00 Microcytosis 0 11/11/19 07:00 Macrocytosis 1+ 11/11/19 07:00 PT with INR 15.60 SEC (9.7-13.0) H 11/07/19 19:36 INR 1.32 (0.83-1.09) H 11/07/19 19:36 PTT (Actin FS) 37.6 SECONDS (25.2-36.5) H 11/07/19 19:36 VBG pH 7.418 (7.310-7.410) H 11/07/19 20:25 POC VBG pCO2 36.9 mmHg (38-52) L 11/07/19 20:25 POC VBG pO2 39.2 mmHg (28-48) 11/07/19 20:25 VBG HCO3 23.3 mmol/L (23-29) 11/07/19 20:25 VBG O2 Sat (Binh) 75.2 % (70-80) 11/07/19 20:25 VBG Base Excess -0.8 mmol/L (-2-2) 11/07/19 20:25 Sodium 147 mmol/L (136-145) H 11/13/19 09:50 Potassium 3.4 mmol/L (3.5-5.1) L 11/13/19 09:50 Chloride 114 mmol/L (98-107) H 11/13/19 09:50 Carbon Dioxide 26 mmol/L (21-32) 11/13/19 09:50 Anion Gap 7 MMOL/L (8-16) L 11/13/19 09:50 BUN 26.6 mg/dL (7-18) H 11/13/19 09:50 Creatinine 1.0 mg/dL (0.55-1.3) 11/13/19 09:50 Est GFR (CKD-EPI)AfAm 77.00 11/13/19 09:50 Est GFR (CKD-EPI)NonAf 66.43 11/13/19 09:50 POC Glucometer 274 UNITS (80-120) 11/13/19 17:09 Random Glucose 298 mg/dL (74-106) H 11/13/19 09:50 Lactic Acid 2.0 mmol/L (0.4-2.0) 11/07/19 23:45 Calcium 8.8 mg/dL (8.5-10.1) 11/13/19 09:50 Phosphorus 2.2 mg/dL (2.5-4.9) L 11/09/19 08:00 Magnesium 2.0 mg/dL (1.8-2.4) 11/13/19 09:50 Total Bilirubin 1.8 mg/dL (0.2-1) H 11/13/19 09:50 Direct Bilirubin 1.5 mg/dL (0.0-0.2) H 11/09/19 08:00 AST 32 U/L (15-37) 11/13/19 09:50 ALT 28 U/L (13-61) 11/13/19 09:50 Alkaline Phosphatase 159 U/L (45-117) H 11/13/19 09:50 Creatine Kinase 172 U/L (26-308) 11/07/19 19:36 Creatine Kinase Index No Result Required. 11/07/19 19:36 CK-MB (CK-2) < 1.0 ng/mL (0.5-3.6) 11/07/19 19:36 Troponin I 0.12 ng/ml (0.00-0.05) H 11/07/19 23:45 B-Natriuretic Peptide 1017.3 pg/ml (5-450) H 11/07/19 19:36 Total Protein 6.7 g/dl (6.4-8.2) 11/13/19 09:50 Albumin 2.1 g/dl (3.4-5.0) L 11/13/19 09:50 Triglycerides 77 mg/dL (0-150) 11/07/19 19:36 Cholesterol 94 mg/dL (50-200) 11/07/19 19:36 Total LDL Cholesterol 51 mg/dL (5-100) 11/07/19 19:36 HDL Cholesterol 38 mg/dL (40-60) L 11/07/19 19:36 Urine Color Dk yellow 11/07/19 19:58 Urine Appearance Clear 11/07/19 19:58 Urine pH 5.5 (5.0-8.0) 11/07/19 19:58 Ur Specific [place] 1.012 (1.010-1.035) 11/07/19 19:58 Urine Protein Negative (NEGATIVE) 11/07/19 19:58 Urine Glucose (UA) Negative (NEGATIVE) 11/07/19 19:58 Urine Ketones Negative (NEGATIVE) 11/07/19 19:58 Urine Blood Negative (NEGATIVE) 11/07/19 19:58 Urine Nitrite Negative (NEGATIVE) 11/07/19 19:58 Urine Bilirubin Negative (NEGATIVE) 11/07/19 19:58 Urine Urobilinogen 1.0 mg/dL (0.2-1.0) 11/07/19 19:58 Ur Leukocyte Esterase Trace (NEGATIVE) 11/07/19 19:58 Urine WBC (Auto) 13 /uL (0-25.8) 11/07/19 19:58 Urine RBC (Auto) 8 /uL (0-23.9) 11/07/19 19:58 Urine Casts (Auto) 2 /uL (0-3.1) 11/07/19 19:58 U Epithel Cells (Auto) 9 /uL (0-25.1) 11/07/19 19:58 Urine Bacteria (Auto) 1998 /uL (0-1359) 11/07/19 19:58 Ur Random Creatinine 93.0 mg/dL (30-150) 11/09/19 04:30 Ur Random Sodium < 18 MMOL/L (40-220) L 11/09/19 04:30 COVID-19 (ANDI) Not detected (Not Detected) 11/07/19 20:25 - ....Imaging Chest X-ray: Report Reviewed Problem List - Problems (1) Afib Code(s): I48.91 - UNSPECIFIED ATRIAL FIBRILLATION Qualifiers: Atrial fibrillation type: unspecified chronic Qualified Code(s): I48.20 - Chronic atrial fibrillation, unspecified; I48.2 - Chronic atrial fibrillation (2) S/P CABG (coronary artery bypass graft) Code(s): Z95.1 - PRESENCE OF AORTOCORONARY BYPASS GRAFT (3) UGIB (upper gastrointestinal bleed) Code(s): K92.2 - GASTROINTESTINAL HEMORRHAGE, UNSPECIFIED (4) UTI (urinary tract infection) Code(s): N39.0 - URINARY TRACT INFECTION, SITE NOT SPECIFIED Qualifiers: Urinary tract infection type: acute cystitis Hematuria presence: with hematuria Qualified Code(s): N30.01 - Acute cystitis with hematuria Assessment/Plan Sepsis AMS PNA Dysphagia Leukocytosis UTI AFIB DM HTN Hx of CVA Hx of GI bleed -- leukocytosis resolving -- monitor temps -- continue Ceftriaxone for now -- aspiration precautions cc: 35 min
[2019-11-13] MEDS: INSULIN (LEVEMIR) 100 UNITS/ML UNITS SQ SCH (21:31)
[2019-11-14] MEDS: POTASSIUM CHLORIDE 20 MEQ in AMINO ACIDS 4.25%/D5W 1,000 ML IVPB SCH ×2 (06:19→18:00)
[2019-11-14] MEDS: INSULIN SLIDING SCALE (NOVOLOG) 1 VIAL SQ SCH ×3 (06:22→18:13)
[2019-11-14 07:19] LABS: BASO % 0.8 % (0-2.0); EOS % 3.4 % (0-4.5); HEMATOCRIT 38.1 % (35.4-49); HEMOGLOBIN 12.6 GM/dL (11.7-16.9); LYMPH % 15.6 % (8-40); MCH 35.9 pg (25.7-33.7); MEAN CELL VOLUME 108.8 fl (80-96); MONO % 6.4 % (3.8-10.2); NEUT % 73.8 % (42.8-82.8); PLATELET COUNT 302 K/MM3 (134-434); RBC 3.51 M/mm3 (4.00-5.60); RDW 13.4 % (11.9-15.9)
[2019-11-14 07:53] LABS: BLOOD UREA NITROGEN 25.9 mg/dL (7-18); CALCIUM 8.7 mg/dL (8.5-10.1); MAGNESIUM 1.9 mg/dL (1.8-2.4); POTASSIUM 3.8 mmol/L (3.5-5.1); TOT PROT 6.6 g/dl (6.4-8.2)
--- NOTE | 2019-11-14 08:05 | PN ---
Progress Note, Physician Chief Complaint: altered MS History of Present Illness: speaking incoherently, alert. denies cp, sob on direct questioning. appears calm, comfortable - Current Medication List Current Medications: Active Medications Aspirin (Asa -) 81 mg PO DAILY [facility] Last Admin: 11/13/19 10:14 Dose: Not Given Documented by: Diltiazem HCl (Cardizem -) 60 mg PO BID [facility] Last Admin: 11/13/19 21:23 Dose: Not Given Documented by: Ceftriaxone Sodium 1 gm/ (Dextrose) 50 mls @ 100 mls/hr IVPB DAILY [facility] Last Admin: 11/13/19 10:15 Dose: 100 mls/hr Documented by: Diltiazem HCl 125 mg/ Sodium (Chloride) 125 mls @ 5 mls/hr IVPB TITR [facility]; Protocol Last Titration: 11/14/19 06:14 Dose: 10 mg/hr, 10 mls/hr Documented by: Potassium Chloride 20 meq/ (Amino Acids) 1,010 mls @ 84 mls/hr IVPB Q12H [facility] Last Admin: 11/14/19 06:19 Dose: 84 mls/hr Documented by: Insulin Aspart (Novolog Vial Sliding Scale -) 1 vial SQ TIDAC [facility]; Protocol Last Admin: 11/14/19 06:22 Dose: 6 units Documented by: Insulin Detemir (Levemir Vial) 5 units SQ HS [facility] Last Admin: 11/13/19 21:31 Dose: 5 units Documented by: Lorazepam (Ativan Injection -) 1 mg IVPUSH Q2H PRN PRN Reason: ANXIETY Last Admin: 11/09/19 12:42 Dose: 1 mg Documented by: Metoprolol Succinate (Toprol Xl -) 50 mg PO DAILY [facility] Last Admin: 11/13/19 10:18 Dose: Not Given Documented by: Metoprolol Tartrate (Lopressor Injection -) 5 mg IVPUSH Q4H PRN PRN Reason: TACHYCARDIA Last Admin: 11/11/19 15:00 Dose: 5 mg Documented by: Morphine Sulfate (Morphine Sulfate) 2 mg IVPUSH Q2H PRN PRN Reason: pain or tachypnea Last Admin: 11/11/19 05:29 Dose: 2 mg Documented by: Pantoprazole Sodium (Protonix -) 40 mg PO DAILY [facility] Last Admin: 07/17/20 10:17 Dose: Not Given Documented by: Pantoprazole Sodium (Protonix Iv) 40 mg IVPUSH DAILY [facility] Last Admin: 11/13/19 10:14 Dose: 40 mg Documented by: Tamsulosin HCl (Flomax -) 0.8 mg PO DAILY@0830 [facility] Last Admin: 11/13/19 10:14 Dose: Not Given Documented by: - Objective Vital Signs: Vital Signs Temperature 97.0 F L 11/14/19 06:00 Pulse Rate 126 H 11/14/19 06:14 Respiratory Rate 11/14/19 02:00 Blood Pressure 147/85 11/14/19 06:14 O2 Sat by Pulse Oximetry (%) 93 L 11/14/19 02:00 Constitutional: Yes: Well Nourished, No Distress, Calm Cardiovascular: Yes: Regular Rate and Rhythm, JVD. No: Gallop, Murmur Respiratory: Yes: Regular, CTA Bilaterally. No: Accessory Muscle Use, Rales Extremities: No: Cold Edema: No (SCDs) Neurological: Yes: Alert. 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 fever, lethargy, sepsis: -pna, likely aspiration -abx per primary/ID, cont supplemental 02 jayce on CKD: -improved with ivfs -baseline creat around 1.3 elevated trop: -borderline trop with flat trend, similar to prior baseline values, not c/w acs pafib: - pt not taking po meds (was on dilt 60 bid and toprol 50 qd at home)--rapid AF/AFL/AT - rapid despite diltiazem gtt, lopressor 5mg IVP. 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 His AC has been stopped and he remains on asa 81 qd. cont same (suppository here) CAD s/p CABG: -stable, no signs acs -cont statin, bb, aspirin Chronic diastolic CHF: -CXR 11/12 with congestive changes (on top of diffuse opacification of R lung), + JVD. -renal fxn normalized -was on torsemide 50 qd at home--not taking PO here -will start lasix 40 IV qd for now, monitor clinically
[2019-11-14] MEDS ORDERED: FUROSEMIDE 40 MG/4 ML INJECTABLE VIAL IVPUSH SCH (10:00)
[2019-11-14] MEDS: dilTIAZem HCL 60 MG TABLET PO SCH (10:28)
[2019-11-14] MEDS: TAMSULOSIN HCL 0.4 MG CAP PO SCH (10:29)
[2019-11-14] MEDS: PANTOPRAZOLE 40 MG TABLET PO SCH (10:29)
[2019-11-14] MEDS: ASPIRIN 81 MG CHEWABLE TABLETS PO SCH (10:29)
[2019-11-14] MEDS ORDERED: cefTRIAXone SODIUM 1 GM VIAL ONE (10:36)
[2019-11-14] MEDS ORDERED: DEXTROSE 5%-WATER - 50 ML IVPB ONE ×2 (10:36→22:14)
[2019-11-14] MEDS: CEFTRIAXONE 1 GM in DEXTROSE 5%-WATER - 50 ML IVPB SCH (10:38)
[2019-11-14] MEDS: PANTOPRAZOLE SODIUM 40 MG VIAL IVPUSH SCH (10:39)
[2019-11-14] MEDS ORDERED: METOPROLOL TARTRATE 5 MG/5 ML VIAL IVPUSH SCH (11:30)
[2019-11-14] MEDS ORDERED: FUROSEMIDE 40 MG/4 ML INJECTABLE VIAL IVPUSH ONE (11:31)
--- NOTE | 2019-11-14 13:09 | PN ---
Progress Note (short form) - Note Progress Note: Resting in NAD on NC O2. Periods of mild tachypnea. No acute events overnight. Intake & Output 11/11/19 11/12/19 11/13/19 11/14/19 23:59 23:59 23:59 23:59 Intake Total 1413 2394 1204 Output Total 950 1600 1000 700 Balance 463 -1600 1394 504 Weight 169 lb 172 lb 178 lb 14.4 oz Last Vital Signs Temp Pulse Resp BP Pulse Ox 97.6 F 126 H 32 H 163/78 94 L 11/14/19 10:00 11/14/19 11:57 11/14/19 10:00 11/14/19 11:57 11/14/19 07:57 Active Medications Aspirin (Asa -) 81 mg PO DAILY [facility] Last Admin: 11/14/19 10:29 Dose: Not Given Documented by: Diltiazem HCl (Cardizem -) 60 mg PO BID [facility] Last Admin: 11/14/19 10:28 Dose: Not Given Documented by: Furosemide (Lasix Injection -) 40 mg IVPUSH DAILY [facility] Ceftriaxone Sodium 1 gm/ (Dextrose) 50 mls @ 100 mls/hr IVPB DAILY [facility] Last Admin: 11/14/19 10:38 Dose: 100 mls/hr Documented by: Diltiazem HCl 125 mg/ Sodium (Chloride) 125 mls @ 5 mls/hr IVPB TITR [facility]; Protocol Last Titration: 11/14/19 06:14 Dose: 10 mg/hr, 10 mls/hr Documented by: Potassium Chloride 20 meq/ (Amino Acids) 1,010 mls @ 84 mls/hr IVPB Q12H [facility] Last Admin: 11/14/19 06:19 Dose: 84 mls/hr Documented by: Insulin Aspart (Novolog Vial Sliding Scale -) 1 vial SQ TIDAC [facility]; Protocol Last Admin: 11/14/19 12:00 Dose: 8 units Documented by: Insulin Detemir (Levemir Vial) 5 units SQ HS [facility] Last Admin: 11/13/19 21:31 Dose: 5 units Documented by: Lorazepam (Ativan Injection -) 1 mg IVPUSH Q2H PRN PRN Reason: ANXIETY Last Admin: 11/09/19 12:42 Dose: 1 mg Documented by: Metoprolol Succinate (Toprol Xl -) 50 mg PO DAILY [facility] Last Admin: 11/14/19 10:29 Dose: Not Given Documented by: Metoprolol Tartrate (Lopressor Injection -) 5 mg IVPUSH Q4H [facility] Last Admin: 11/14/19 11:57 Dose: 5 mg Documented by: Morphine Sulfate (Morphine Sulfate) 2 mg IVPUSH Q2H PRN PRN Reason: pain or tachypnea Last Admin: 11/11/19 05:29 Dose: 2 mg Documented by: Pantoprazole Sodium (Protonix -) 40 mg PO DAILY [facility] Last Admin: 11/14/19 10:29 Dose: Not Given Documented by: Pantoprazole Sodium (Protonix Iv) 40 mg IVPUSH DAILY [facility] Last Admin: 11/14/19 10:39 Dose: 40 mg Documented by: Tamsulosin HCl (Flomax -) 0.8 mg PO DAILY@0830 [facility] Last Admin: 11/14/19 10:29 Dose: Not Given Documented by: Constitutional: Yes: NAD Eyes: Yes: Conjunctiva Clear, EOM Intact HENT: Yes: Atraumatic, Normocephalic Neck: Yes: Supple, Trachea Midline Cardiovascular: Yes: Tachycardia, Pulse Irregular Respiratory: Yes: Cough, Diminished, NC O2, Rhonchi. No: Stridor, Wheezes ...Inspection: Yes: WNL ...Clubbing: No Gastrointestinal: Yes: Normal Bowel Sounds, Soft Musculoskeletal: Yes: Back Pain Extremities: Yes: WNL Edema: Yes Peripheral Pulses WNL: Yes Integumentary: Yes: WNL Neurological: Yes: Confusion Labs: Laboratory Results - last 24 hr 11/13/19 11/13/19 11/14/19 17:09 21:26 06:05 WBC 12.0 H RBC 3.51 L Hgb 12.6 Hct 38.1 MCV 108.8 H MCH 35.9 H MCHC 33.0 RDW 13.4 Plt Count 302 MPV 7.0 L Absolute Neuts (auto) 8.8 H Neutrophils % 73.8 Lymphocytes % 15.6 D Monocytes % 6.4 Eosinophils % 3.4 Basophils % 0.8 Nucleated RBC % 0 Sodium Potassium Chloride Carbon Dioxide Anion Gap BUN Creatinine Est GFR (CKD-EPI)AfAm Est GFR (CKD-EPI)NonAf POC Glucometer 274 289 Random Glucose Calcium Magnesium Total Bilirubin AST ALT Alkaline Phosphatase Total Protein Albumin 11/14/19 11/14/19 11/14/19 06:05 06:21 11:48 WBC RBC Hgb Hct MCV MCH MCHC RDW Plt Count MPV Absolute Neuts (auto) Neutrophils % Lymphocytes % Monocytes % Eosinophils % Basophils % Nucleated RBC % Sodium 146 H Potassium 3.8 Chloride 115 H Carbon Dioxide 24 Anion Gap 7 L BUN 25.9 H Creatinine 1.0 Est GFR (CKD-EPI)AfAm 77.00 Est GFR (CKD-EPI)NonAf 66.43 POC Glucometer 296 324 Random Glucose 325 H Calcium 8.7 Magnesium 1.9 Total Bilirubin 2.0 H AST 35 ALT 28 Alkaline Phosphatase 165 H Total Protein 6.6 Albumin 2.0 L Imaging - Results Chest X-ray: Report Reviewed, Image Reviewed Problem List - Problems (1) Dyspnea Code(s): R06.00 - DYSPNEA, UNSPECIFIED Qualifiers: Dyspnea type: unspecified Qualified Code(s): R06.00 - Dyspnea, unspecified (2) Afib Code(s): I48.91 - UNSPECIFIED ATRIAL FIBRILLATION Qualifiers: Atrial fibrillation type: unspecified chronic Qualified Code(s): I48.20 - Chronic atrial fibrillation, unspecified; I48.2 - Chronic atrial fibrillation (3) ANGELO (acute kidney injury) Code(s): N17.9 - ACUTE KIDNEY FAILURE, UNSPECIFIED (4) Anticoagulated by anticoagulation treatment Code(s): Z79.01 - CARE HOME (CURRENT) USE OF ANTICOAGULANTS (5) CHF (congestive heart failure) Code(s): I50.9 - HEART FAILURE, UNSPECIFIED (6) DNI (do not intubate) Code(s): Z78.9 - OTHER SPECIFIED HEALTH STATUS (7) DNR (do not resuscitate) Code(s): Z66 - DO NOT RESUSCITATE (8) Diabetes mellitus Code(s): E11.9 - TYPE 2 DIABETES MELLITUS WITHOUT COMPLICATIONS (9) Hypertension Code(s): I10 - ESSENTIAL (PRIMARY) HYPERTENSION (10) Peripheral neuropathy Code(s): G62.9 - POLYNEUROPATHY, UNSPECIFIED (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 Assessment/Plan Rate control Supplemental O2 as needed Strict I & O Empiric ABX Follow cultures Aspiration precautions Monitor off systemic steroids DNR/DNI For possible hospice Dr Eastman Problem List - Problems (1) Dyspnea Code(s): R06.00 - DYSPNEA, UNSPECIFIED Qualifiers: Dyspnea type: unspecified Qualified Code(s): R06.00 - Dyspnea, unspecified (2) Afib Code(s): I48.91 - UNSPECIFIED ATRIAL FIBRILLATION Qualifiers: Atrial fibrillation type: unspecified chronic Qualified Code(s): I48.20 - Chronic atrial fibrillation, unspecified; I48.2 - Chronic atrial fibrillation (3) ANGELO (acute kidney injury) Code(s): N17.9 - ACUTE KIDNEY FAILURE, UNSPECIFIED (4) Anticoagulated by anticoagulation treatment Code(s): Z79.01 - CARE HOME (CURRENT) USE OF ANTICOAGULANTS (5) CHF (congestive heart failure) Code(s): I50.9 - HEART FAILURE, UNSPECIFIED (6) DNI (do not intubate) Code(s): Z78.9 - OTHER SPECIFIED HEALTH STATUS (7) DNR (do not resuscitate) Code(s): Z66 - DO NOT RESUSCITATE (8) Diabetes mellitus Code(s): E11.9 - TYPE 2 DIABETES MELLITUS WITHOUT COMPLICATIONS (9) Hypertension Code(s): I10 - ESSENTIAL (PRIMARY) HYPERTENSION (10) Peripheral neuropathy Code(s): G62.9 - POLYNEUROPATHY, UNSPECIFIED (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
[2019-11-14] MEDS ORDERED: METOPROLOL TARTRATE 5 MG/5 ML VIAL IVPUSH ONE (13:30)
[2019-11-14] MEDS: LORazepam 2 MG/ML SDV VIAL IVPUSH PRN (13:35)
--- NOTE | 2019-11-14 15:16 | PN ---
Progress Note (short form) - Note Progress Note: 1. ANGELO 2. CAD 3. a-fib 4. CVA 5. CKD 6. DM 7. anemia 8. GI bleeding Active Medications Aspirin (Asa -) 300 mg RC DAILY [facility] Diltiazem HCl (Cardizem -) 60 mg PO BID [facility] Last Admin: 11/14/19 10:28 Dose: Not Given Documented by: Furosemide (Lasix Injection -) 40 mg IVPUSH DAILY [facility] Ceftriaxone Sodium 1 gm/ (Dextrose) 50 mls @ 100 mls/hr IVPB DAILY [facility] Last Admin: 11/14/19 10:38 Dose: 100 mls/hr Documented by: Diltiazem HCl 125 mg/ Sodium (Chloride) 125 mls @ 5 mls/hr IVPB TITR [facility]; Protocol Last Titration: 11/14/19 06:14 Dose: 10 mg/hr, 10 mls/hr Documented by: Potassium Chloride 20 meq/ (Amino Acids) 1,010 mls @ 84 mls/hr IVPB Q12H [facility] Last Admin: 11/14/19 06:19 Dose: 84 mls/hr Documented by: Insulin Aspart (Novolog Vial Sliding Scale -) 1 vial SQ TIDAC [facility]; Protocol Last Admin: 11/14/19 12:00 Dose: 8 units Documented by: Insulin Detemir (Levemir Vial) 5 units SQ HS [facility] Last Admin: 11/13/19 21:31 Dose: 5 units Documented by: Lorazepam (Ativan Injection -) 1 mg IVPUSH Q2H PRN PRN Reason: ANXIETY Last Admin: 11/09/19 12:42 Dose: 1 mg Documented by: Metoprolol Succinate (Toprol Xl -) 50 mg PO DAILY [facility] Last Admin: 11/14/19 10:29 Dose: Not Given Documented by: Metoprolol Tartrate (Lopressor Injection -) 10 mg IVPUSH Q4H-IV [facility] Morphine Sulfate (Morphine Sulfate) 2 mg IVPUSH Q2H PRN PRN Reason: pain or tachypnea Last Admin: 11/11/19 05:29 Dose: 2 mg Documented by: Pantoprazole Sodium (Protonix -) 40 mg PO DAILY [facility] Last Admin: 11/14/19 10:29 Dose: Not Given Documented by: Pantoprazole Sodium (Protonix Iv) 40 mg IVPUSH DAILY [facility] Last Admin: 11/14/19 10:39 Dose: 40 mg Documented by: Tamsulosin HCl (Flomax -) 0.8 mg PO DAILY@0830 [facility] Last Admin: 11/14/19 10:29 Dose: Not Given Documented by: Last Vital Signs Temp Pulse Resp BP Pulse Ox 97.6 F 120 H 32 H 141/84 94 L 11/14/19 10:00 11/14/19 13:30 11/14/19 10:00 11/14/19 13:30 11/14/19 07:57 CBC, BMP 11/14/19 06:05 11/14/19 06:05 IMP Hypernatremia Prerenal azotemia on IVF Plan- monitor renal function and lytes
[2019-11-14] MEDS: METOPROLOL TARTRATE 5 MG/5 ML VIAL IVPUSH SCH ×3 (16:37→21:33)
--- NOTE | 2019-11-14 17:14 | PN ---
Progress Note, Physician Chief Complaint: Confused History of Present Illness: 89 year old male with a PMHx notable for PAF, CVA's, HTN, CKD, DM II, GI bleed arrives with lethargy, & fever - Current Medication List Current Medications: Active Medications Aspirin (Asa -) 300 mg RC DAILY [facility] Furosemide (Lasix Injection -) 40 mg IVPUSH DAILY [facility] Haloperidol (Haldol Injection (Fast Acting) -) 2.5 mg IM Q4H PRN PRN Reason: ALLERGIES Ceftriaxone Sodium 1 gm/ (Dextrose) 50 mls @ 100 mls/hr IVPB DAILY [facility] Last Admin: 11/14/19 10:38 Dose: 100 mls/hr Documented by: Diltiazem HCl 125 mg/ Sodium (Chloride) 125 mls @ 5 mls/hr IVPB TITR [facility]; Protocol Last Titration: 11/14/19 06:14 Dose: 10 mg/hr, 10 mls/hr Documented by: Potassium Chloride 20 meq/ (Amino Acids) 1,010 mls @ 84 mls/hr IVPB Q12H [facility] Last Admin: 11/14/19 06:19 Dose: 84 mls/hr Documented by: Insulin Aspart (Novolog Vial Sliding Scale -) 1 vial SQ TIDAC [facility]; Protocol Last Admin: 11/14/19 12:00 Dose: 8 units Documented by: Insulin Detemir (Levemir Vial) 5 units SQ HS [facility] Last Admin: 11/13/19 21:31 Dose: 5 units Documented by: Lorazepam (Ativan Injection -) 1 mg IVPUSH Q2H PRN PRN Reason: ANXIETY Last Admin: 11/09/19 12:42 Dose: 1 mg Documented by: Metoprolol Tartrate (Lopressor Injection -) 10 mg IVPUSH Q4H-IV [facility] Last Admin: 11/14/19 16:37 Dose: 10 mg Documented by: Morphine Sulfate (Morphine Sulfate) 2 mg IVPUSH Q2H PRN PRN Reason: pain or tachypnea Last Admin: 11/11/19 05:29 Dose: 2 mg Documented by: Pantoprazole Sodium (Protonix -) 40 mg PO DAILY [facility] Last Admin: 11/14/19 10:29 Dose: Not Given Documented by: Pantoprazole Sodium (Protonix Iv) 40 mg IVPUSH DAILY [facility] Last Admin: 11/14/19 10:39 Dose: 40 mg Documented by: Tamsulosin HCl (Flomax -) 0.8 mg PO DAILY@0830 [facility] Last Admin: 11/14/19 10:29 Dose: Not Given Documented by: - Objective Vital Signs: Vital Signs Temperature 98 F 11/14/19 14:00 Pulse Rate 122 H 11/14/19 16:37 Respiratory Rate 31 H 11/14/19 14:00 Blood Pressure 135/83 11/14/19 16:37 O2 Sat by Pulse Oximetry (%) 94 L 11/14/19 07:57 Constitutional: Yes: Well Nourished, Other (Confused with mild agitation) Eyes: Yes: WNL, Conjunctiva Clear, EOM Intact HENT: Yes: WNL, Atraumatic, Normocephalic Neck: Yes: WNL, Supple, Trachea Midline Cardiovascular: Yes: WNL, Pulse Irregular Respiratory: Yes: WNL, Regular, CTA Bilaterally Gastrointestinal: Yes: WNL, Normal Bowel Sounds, Soft Musculoskeletal: Yes: WNL Extremities: Yes: WNL Integumentary: Yes: WNL Neurological: Yes: Weakness (Confused), Other Labs: CBC, BMP 11/14/19 06:05 11/14/19 06:05 INR, PTT INR 1.32 (0.83-1.09) H 11/07/19 19:36 Impression/Plan Impression/Plan: Assessment/Plan: 89 year old male with a PMHx notable for PAF, CVA's, HTN, CKD, DM II, GI bleed arrives with lethargy, & fever. PLAN # Fever / lethargy/ sepsis: -Patient with Pneumonia, likely related to aspiration -On IV Rocephin -Final Blood culture No growth x 2. Negative urine antigens for Legionella and streptococcus -Continue with supplemental 02 # ANGELO on CKD: -Cr improved with IV fluids -Baseline creat ~ 1.3 -continue to monitor # Elevated troponin: -Borderline trop with flat trend, similar to prior baseline values, not c/w acs # Parox Afib: - pt not taking po meds (was on dilt 60 bid and toprol 50 qd at home)--rapid AF/AFL/AT - rapid despite diltiazem gtt, lopressor 5mg IVP. 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 His AC has been stopped and he remains on ASA 81 Q day. Continue with same (suppository here) # CAD s/p CABG: -stable, with no signs of ACS -continue statin, beta-temo, & Aspirin # Chronic diastolic CHF: -CXR 11/12 with congestive changes (on top of diffuse opacification of R lung), + JVD. -Renal fxn normalized -was on torsemide 50 qd at home--not taking PO here -will start lasix 40 IV qd for now, monitor clinically # DVT propphylaxsis - SCDs # Dispo - Discussed with giorgi at the bedside and she is considering comfort measures Visit type - Emergency Visit Emergency Visit: Yes ED Registration Date: 11/07/19 Care time: The patient presented to the Emergency Department on the above date a nd was hospitalized for further evaluation of their emergent condition. - New Patient This patient is new to me today: Yes Date on this admission: 11/14/19 - Critical Care Critical Care patient: No - Discharge Referral Referred to [facility] Med P.C.: No
[2019-11-14] MEDS: HALOPERIDOL LACTATE 5 MG/ML IM PRN (17:57)
[2019-11-14] MEDS: DILTIAZEM INJECTION 125 MG in SODIUM CHLORIDE 100 ML IVPB SCH (17:59)
[2019-11-14] MEDS: ASPIRIN 300 MG SUPP.RECT RC SCH (18:34)
[2019-11-14] MEDS: MORPHINE SULFATE 2 MG/ML VIAL IVPUSH PRN (21:32)
[2019-11-14] MEDS: INSULIN (LEVEMIR) 100 UNITS/ML UNITS SQ SCH (21:40)
--- NOTE | 2019-11-14 21:56 | PN ---
Progress Note, Physician History of Present Illness: Pt with low grade fever currently with. No acute distress noted at this time, occasionally dyspneic. O2 sat 94% on NC. - Current Medication List Current Medications: Active Medications Aspirin (Asa -) 300 mg RC DAILY [facility] Last Admin: 11/14/19 18:34 Dose: 300 mg Documented by: Furosemide (Lasix Injection -) 40 mg IVPUSH DAILY [facility] Haloperidol (Haldol Injection (Fast Acting) -) 2.5 mg IM Q4H PRN PRN Reason: ALLERGIES Last Admin: 11/14/19 17:57 Dose: 2.5 mg Documented by: Ceftriaxone Sodium 1 gm/ (Dextrose) 50 mls @ 100 mls/hr IVPB DAILY [facility] Last Admin: 11/14/19 10:38 Dose: 100 mls/hr Documented by: Diltiazem HCl 125 mg/ Sodium (Chloride) 125 mls @ 5 mls/hr IVPB TITR [facility]; Protocol Last Admin: 11/14/19 17:59 Dose: 10 mg/hr, 10 mls/hr Documented by: Potassium Chloride 20 meq/ (Amino Acids) 1,010 mls @ 84 mls/hr IVPB Q12H [facility] Last Admin: 11/14/19 18:00 Dose: 84 mls/hr Documented by: Insulin Aspart (Novolog Vial Sliding Scale -) 1 vial SQ TIDAC [facility]; Protocol Last Admin: 11/14/19 18:13 Dose: 8 units Documented by: Insulin Detemir (Levemir Vial) 5 units SQ HS [facility] Last Admin: 11/14/19 21:40 Dose: 5 units Documented by: Lorazepam (Ativan Injection -) 1 mg IVPUSH Q2H PRN PRN Reason: ANXIETY Last Admin: 11/14/19 13:35 Dose: 1 mg Documented by: Metoprolol Tartrate (Lopressor Injection -) 10 mg IVPUSH Q4H-IV [facility] Last Admin: 11/14/19 21:33 Dose: 10 mg Documented by: Morphine Sulfate (Morphine Sulfate) 2 mg IVPUSH Q2H PRN PRN Reason: pain or tachypnea Last Admin: 11/14/19 21:32 Dose: 2 mg Documented by: Pantoprazole Sodium (Protonix -) 40 mg PO DAILY [facility] Last Admin: 11/14/19 10:29 Dose: Not Given Documented by: Pantoprazole Sodium (Protonix Iv) 40 mg IVPUSH DAILY [facility] Last Admin: 11/14/19 10:39 Dose: 40 mg Documented by: Tamsulosin HCl (Flomax -) 0.8 mg PO DAILY@0830 [facility] Last Admin: 11/14/19 10:29 Dose: Not Given Documented by: - Objective Vital Signs: Vital Signs Temperature 100.1 F H 11/14/19 18:00 Pulse Rate 130 H 11/14/19 21:33 Respiratory Rate 30 H 11/14/19 18:00 Blood Pressure 148/94 11/14/19 21:33 O2 Sat by Pulse Oximetry (%) 94 L 11/14/19 07:57 Constitutional: Yes: No Distress Cardiovascular: Yes: Pulse Irregular Respiratory: Yes: Diminished Gastrointestinal: Yes: Normal Bowel Sounds, Soft Genitourinary: Yes: [place] Present Integumentary: Yes: WNL Neurological: Yes: Confusion, Other (weak) Labs: CBC, BMP 11/14/19 06:05 11/14/19 06:05 INR, PTT INR 1.32 (0.83-1.09) H 11/07/19 19:36 Laboratory Last Values WBC 12.0 K/mm3 (4.0-10.0) H 11/14/19 06:05 RBC 3.51 M/mm3 (4.00-5.60) L 11/14/19 06:05 Hgb 12.6 GM/dL (11.7-16.9) 11/14/19 06:05 Hct 38.1 % (35.4-49) 11/14/19 06:05 MCV 108.8 fl (80-96) H 11/14/19 06:05 MCH 35.9 pg (25.7-33.7) H 11/14/19 06:05 MCHC 33.0 g/dl (32.0-35.9) 11/14/19 06:05 RDW 13.4 % (11.9-15.9) 11/14/19 06:05 Plt Count 302 K/MM3 (134-434) 11/14/19 06:05 MPV 7.0 fl (7.5-11.1) L 11/14/19 06:05 Absolute Neuts (auto) 8.8 K/mm3 (1.5-8.0) H 11/14/19 06:05 Neutrophils % 73.8 % (42.8-82.8) 11/14/19 06:05 Lymphocytes % 15.6 % (8-40) D 11/14/19 06:05 Monocytes % 6.4 % (3.8-10.2) 11/14/19 06:05 Eosinophils % 3.4 % (0-4.5) 11/14/19 06:05 Basophils % 0.8 % (0-2.0) 11/14/19 06:05 Nucleated RBC % 0 % (0-0) 11/14/19 06:05 Hypochromia 0 11/11/19 07:00 Platelet Estimate Normal 11/11/19 07:00 Polychromasia 0 11/11/19 07:00 Poikilocytosis 0 11/11/19 07:00 Anisocytosis 1+ 11/11/19 07:00 Microcytosis 0 11/11/19 07:00 Macrocytosis 1+ 11/11/19 07:00 PT with INR 15.60 SEC (9.7-13.0) H 11/07/19 19:36 INR 1.32 (0.83-1.09) H 11/07/19 19:36 PTT (Actin FS) 37.6 SECONDS (25.2-36.5) H 11/07/19 19:36 VBG pH 7.418 (7.310-7.410) H 11/07/19 20:25 POC VBG pCO2 36.9 mmHg (38-52) L 11/07/19 20:25 POC VBG pO2 39.2 mmHg (28-48) 11/07/19 20:25 VBG HCO3 23.3 mmol/L (23-29) 11/07/19 20:25 VBG O2 Sat (Binh) 75.2 % (70-80) 11/07/19 20:25 VBG Base Excess -0.8 mmol/L (-2-2) 11/07/19 20:25 Sodium 146 mmol/L (136-145) H 11/14/19 06:05 Potassium 3.8 mmol/L (3.5-5.1) 11/14/19 06:05 Chloride 115 mmol/L (98-107) H 11/14/19 06:05 Carbon Dioxide 24 mmol/L (21-32) 11/14/19 06:05 Anion Gap 7 MMOL/L (8-16) L 11/14/19 06:05 BUN 25.9 mg/dL (7-18) H 11/14/19 06:05 Creatinine 1.0 mg/dL (0.55-1.3) 11/14/19 06:05 Est GFR (CKD-EPI)AfAm 77.00 11/14/19 06:05 Est GFR (CKD-EPI)NonAf 66.43 11/14/19 06:05 POC Glucometer 196 UNITS (80-120) 11/14/19 21:37 Random Glucose 325 mg/dL (74-106) H 11/14/19 06:05 Lactic Acid 2.0 mmol/L (0.4-2.0) 11/07/19 23:45 Calcium 8.7 mg/dL (8.5-10.1) 11/14/19 06:05 Phosphorus 2.2 mg/dL (2.5-4.9) L 11/09/19 08:00 Magnesium 1.9 mg/dL (1.8-2.4) 11/14/19 06:05 Total Bilirubin 2.0 mg/dL (0.2-1) H 11/14/19 06:05 Direct Bilirubin 1.5 mg/dL (0.0-0.2) H 11/09/19 08:00 AST 35 U/L (15-37) 11/14/19 06:05 ALT 28 U/L (13-61) 11/14/19 06:05 Alkaline Phosphatase 165 U/L (45-117) H 11/14/19 06:05 Creatine Kinase 172 U/L (26-308) 11/07/19 19:36 Creatine Kinase Index No Result Required. 11/07/19 19:36 CK-MB (CK-2) < 1.0 ng/mL (0.5-3.6) 11/07/19 19:36 Troponin I 0.12 ng/ml (0.00-0.05) H 11/07/19 23:45 B-Natriuretic Peptide 1017.3 pg/ml (5-450) H 11/07/19 19:36 Total Protein 6.6 g/dl (6.4-8.2) 11/14/19 06:05 Albumin 2.0 g/dl (3.4-5.0) L 11/14/19 06:05 Triglycerides 77 mg/dL (0-150) 11/07/19 19:36 Cholesterol 94 mg/dL (50-200) 11/07/19 19:36 Total LDL Cholesterol 51 mg/dL (5-100) 11/07/19 19:36 HDL Cholesterol 38 mg/dL (40-60) L 11/07/19 19:36 Urine Color Dk yellow 11/07/19 19:58 Urine Appearance Clear 11/07/19 19:58 Urine pH 5.5 (5.0-8.0) 11/07/19 19:58 Ur Specific [place] 1.012 (1.010-1.035) 11/07/19 19:58 Urine Protein Negative (NEGATIVE) 11/07/19 19:58 Urine Glucose (UA) Negative (NEGATIVE) 11/07/19 19:58 Urine Ketones Negative (NEGATIVE) 11/07/19 19:58 Urine Blood Negative (NEGATIVE) 11/07/19 19:58 Urine Nitrite Negative (NEGATIVE) 11/07/19 19:58 Urine Bilirubin Negative (NEGATIVE) 11/07/19 19:58 Urine Urobilinogen 1.0 mg/dL (0.2-1.0) 11/07/19 19:58 Ur Leukocyte Esterase Trace (NEGATIVE) 11/07/19 19:58 Urine WBC (Auto) 13 /uL (0-25.8) 11/07/19 19:58 Urine RBC (Auto) 8 /uL (0-23.9) 11/07/19 19:58 Urine Casts (Auto) 2 /uL (0-3.1) 11/07/19 19:58 U Epithel Cells (Auto) 9 /uL (0-25.1) 11/07/19 19:58 Urine Bacteria (Auto) 1998 /uL (0-1359) 11/07/19 19:58 Ur Random Creatinine 93.0 mg/dL (30-150) 11/09/19 04:30 Ur Random Sodium < 18 MMOL/L (40-220) L 11/09/19 04:30 COVID-19 (ANDI) Not detected (Not Detected) 11/07/19 20:25 Microbiology 11/07/19 19:34 Blood - Peripheral Venous Blood Culture - Final NO GROWTH AFTER 5 DAYS INCUBATION 11/07/19 19:30 Blood - Peripheral Venous Blood Culture - Final NO GROWTH AFTER 5 DAYS INCUBATION 11/07/19 19:58 Urine - Urine Clean Catch Urine Culture - Final Bordetella Bronchiseptica 11/09/19 04:30 Urine - Urine Clean Catch Legionella Antigen - Final 11/09/19 04:30 Urine - Urine Clean Catch Streptococcus pneumoniae Antigen (M - Final Problem List - Problems (1) Afib Code(s): I48.91 - UNSPECIFIED ATRIAL FIBRILLATION Qualifiers: Atrial fibrillation type: unspecified chronic Qualified Code(s): I48.20 - Chronic atrial fibrillation, unspecified; I48.2 - Chronic atrial fibrillation (2) S/P CABG (coronary artery bypass graft) Code(s): Z95.1 - PRESENCE OF AORTOCORONARY BYPASS GRAFT (3) UGIB (upper gastrointestinal bleed) Code(s): K92.2 - GASTROINTESTINAL HEMORRHAGE, UNSPECIFIED (4) UTI (urinary tract infection) Code(s): N39.0 - URINARY TRACT INFECTION, SITE NOT SPECIFIED Qualifiers: Urinary tract infection type: acute cystitis Hematuria presence: with hematuria Qualified Code(s): N30.01 - Acute cystitis with hematuria Assessment/Plan Sepsis AMS PNA - Possibly Aspiration Dysphagia Leukocytosis UTI AFIB DM HTN Hx of CVA Hx of GI bleed -- low grade fever with periods of tachypnea, mild leukocytosis -- d/c Ceftriaxone. Will switch to Zosyn for anaerobic coverage in addition -- aspiration precautions -- continue monitor wbc/temps cc: 35 min
[2019-11-14] MEDS ORDERED: PIPERACILLIN/TAZOBACTAM 3.375 GM VIAL IVPB ONE (22:14)
[2019-11-14] MEDS: PIPERACILLIN/TAZOB 3.375 GM 3.375 GM in DEXTROSE 5%-WATER - 50 ML IVPB SCH (22:15)
--- NOTE | 2019-11-14 23:28 | CONSULT ---
Consult Consult Specialty:: UROLOGY Reason for Consultation:: Urethral injury - History of Present Illness Chief Complaint: 89 Y/O male patient with pmhx of a-fib, ANGELO, HT, DM, CKD, polyclonal gammopathy, CAD who presents to the ER with increased shortness of breath. He is a poor historian. He pulled his mayers catheter, tip of the catherter remained in the bladder. no major bleeding. O/E soft lax abd no palpable bladder. Genitalia WNL. blood at the external meatus. 18 F coude catheter inserted and drain clear urine. - Past Medical History Cardio/Vascular: Yes: AFIB, CAD (6 vessel CABG 05/2002), CHF (diastolic), HTN Gastrointestinal: Yes: Crohn's Disease, GI Bleed Renal/: Yes: Renal Inusuff, Other (polyclonal gammopathy) Endocrine: Yes: Diabetes Mellitus - Past Surgical History Past Surgical History: Yes: CABG (x6), Joint Replacement ( R knee replacement 2004) - Alcohol/Substance Use Hx Alcohol Use: No History of Substance Use: reports: None - Smoking History Smoking history: Smoker current status UNK Have you smoked in the past 12 months: No - Social History Usual Living Arrangement: Alone () ADL: Support Services (Daughter visits daily) History of Recent Travel: No Home Medications - Allergies Allergies/Adverse Reactions: Allergies Allergy/AdvReac Type Severity Reaction Status Date / Time No Known Allergies Allergy Verified 11/07/19 20:21 - Home Medications Home Medications: Ambulatory Orders Gabapentin [Neurontin -] 300 mg PO BID 07/14/18 Diltiazem [Cardizem -] 60 mg PO BID 09/01/18 Aspirin [ASA -] 81 mg PO DAILY 09/11/18 Pantoprazole Sodium [Protonix -] 40 mg PO DAILY tablet.ec 09/11/18 Torsemide [Demadex -] 50 mg PO DAILY tablet 09/11/18 Tamsulosin HCl [Flomax -] 0.8 mg PO DAILY #60 capsule 09/12/18 Ferrous Sulfate [Feosol] 325 mg PO BID 10/14/18 Atorvastatin Ca [Lipitor] 40 mg PO HS 03/04/19 Insulin Glargine,Hum.rec.anlog [Basaglar Kwikpen U-100] 30 unit SQ HS 03/04/19 Insulin Sliding Scale [Novolog Vial Sliding Scale -] 25 units SQ TIDAC 03/04/19 Potassium Chloride 20 meq PO DAILY 03/04/19 Metoprolol Succinate [Toprol XL -] 50 mg PO DAILY tab.sr.24h 03/09/19 Polyvinyl Alcohol [Artificial Tears] 2 drop OU QID PRN drops 03/09/19 Physical Exam Vital Signs: Vital Signs Temperature 99.8 F H 11/14/19 22:00 Pulse Rate 95 H 11/14/19 22:00 Respiratory Rate 24 H 11/14/19 22:00 Blood Pressure 143/109 H 11/14/19 22:00 O2 Sat by Pulse Oximetry (%) 94 L 11/14/19 21:00 Labs: CBC, BMP 11/14/19 06:05 11/14/19 06:05 Assessment/Plan Urethral injury Plan: Keep the catheter Pelvic U/S will schedule him for Cystoscopy and removal of tip of the catheter. Keflex 500 mg TID
[2019-11-15] MEDS: METOPROLOL TARTRATE 5 MG/5 ML VIAL IVPUSH SCH ×6 (01:07→21:16)
[2019-11-15] MEDS: MORPHINE SULFATE 2 MG/ML VIAL IVPUSH PRN ×5 (01:08→23:36)
[2019-11-15] MEDS ORDERED: DEXTROSE 5%-WATER - 50 ML IVPB ONE ×3 (05:20→20:48)
[2019-11-15] MEDS ORDERED: PIPERACILLIN/TAZOBACTAM 3.375 GM VIAL IVPB ONE ×3 (05:20→20:48)
[2019-11-15] MEDS: PIPERACILLIN/TAZOB 3.375 GM 3.375 GM in DEXTROSE 5%-WATER - 50 ML IVPB SCH ×3 (05:47→21:17)
[2019-11-15] MEDS: POTASSIUM CHLORIDE 20 MEQ in AMINO ACIDS 4.25%/D5W 1,000 ML IVPB SCH ×2 (06:10→18:20)
[2019-11-15] MEDS: INSULIN SLIDING SCALE (NOVOLOG) 1 VIAL SQ SCH ×3 (06:17→18:17)
[2019-11-15 07:02] LABS: BASO % 0.7 % (0-2.0); EOS % 3.3 % (0-4.5); HEMATOCRIT 38.3 % (35.4-49); HEMOGLOBIN 12.7 GM/dL (11.7-16.9); MCHC 33.2 g/dl (32.0-35.9); MEAN CELL VOLUME 108.5 fl (80-96); MEAN PLT VOLUME 7.2 fl (7.5-11.1); MONO % 7.1 % (3.8-10.2); NEUT % 64.9 % (42.8-82.8); PLATELET COUNT 270 K/MM3 (134-434); RBC 3.53 M/mm3 (4.00-5.60); RDW 13.5 % (11.9-15.9); WHITE BLOOD COUNT 12.6 K/mm3 (4.0-10.0)
--- NOTE | 2019-11-15 07:36 | PN ---
Progress Note, Physician Chief Complaint: altered MS History of Present Illness: received morphine, now sleeping and not waking for exam no cigs - Current Medication List Current Medications: Active Medications Aspirin (Asa -) 300 mg RC DAILY [facility] Last Admin: 11/14/19 18:34 Dose: 300 mg Documented by: Furosemide (Lasix Injection -) 40 mg IVPUSH DAILY [facility] Haloperidol (Haldol Injection (Fast Acting) -) 2.5 mg IM Q4H PRN PRN Reason: ALLERGIES Last Admin: 11/14/19 17:57 Dose: 2.5 mg Documented by: Diltiazem HCl 125 mg/ Sodium (Chloride) 125 mls @ 5 mls/hr IVPB TITR [facility]; Protocol Last Titration: 11/15/19 00:00 Dose: 5 mg/hr, 5 mls/hr Documented by: Potassium Chloride 20 meq/ (Amino Acids) 1,010 mls @ 84 mls/hr IVPB Q12H [facility] Last Admin: 11/15/19 06:10 Dose: 84 mls/hr Documented by: Piperacillin Sod/Tazobactam (Sod 3.375 gm/ Dextrose) 50 mls @ 100 mls/hr IVPB TID [facility]; Protocol Last Admin: 11/15/19 05:47 Dose: 100 mls/hr Documented by: Insulin Aspart (Novolog Vial Sliding Scale -) 1 vial SQ TIDAC [facility]; Protocol Last Admin: 11/15/19 06:17 Dose: 8 units Documented by: Insulin Detemir (Levemir Vial) 5 units SQ HS [facility] Last Admin: 11/14/19 21:40 Dose: 5 units Documented by: Lorazepam (Ativan Injection -) 1 mg IVPUSH Q2H PRN PRN Reason: ANXIETY Last Admin: 11/14/19 13:35 Dose: 1 mg Documented by: Metoprolol Tartrate (Lopressor Injection -) 10 mg IVPUSH Q4H-IV [facility] Last Admin: 11/15/19 05:48 Dose: 10 mg Documented by: Morphine Sulfate (Morphine Sulfate) 2 mg IVPUSH Q2H PRN PRN Reason: pain or tachypnea Last Admin: 11/15/19 05:46 Dose: 2 mg Documented by: Pantoprazole Sodium (Protonix -) 40 mg PO DAILY [facility] Last Admin: 11/14/19 10:29 Dose: Not Given Documented by: Pantoprazole Sodium (Protonix Iv) 40 mg IVPUSH DAILY [facility] Last Admin: 11/14/19 10:39 Dose: 40 mg Documented by: Tamsulosin HCl (Flomax -) 0.8 mg PO DAILY@0830 [facility] Last Admin: 11/14/19 10:29 Dose: Not Given Documented by: - Objective Vital Signs: Vital Signs Temperature 97.4 F L 11/15/19 06:15 Pulse Rate 100 H 11/15/19 06:15 Respiratory Rate 14 11/15/19 06:15 Blood Pressure 147/67 11/15/19 06:15 O2 Sat by Pulse Oximetry (%) 96 11/15/19 06:15 Constitutional: Yes: Well Nourished, No Distress, Calm Eyes: No: Sclera Icterus HENT: No: Nasal Congestion Cardiovascular: Yes: Regular Rate and Rhythm, S1, S2. No: JVD Respiratory: Yes: Regular, CTA Bilaterally (not deep breaths). No: Accessory Muscle Use, Wheezes Gastrointestinal: Yes: Normal Bowel Sounds, Soft. 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 fever, lethargy, sepsis: -pna, likely aspiration -abx per primary/ID, cont supplemental 02 jayce on CKD: -improved with ivfs -baseline creat around 1.3 elevated trop: -borderline trop with flat trend, similar to prior baseline values, not c/w acs pafib: - pt not taking po meds (was on dilt 60 bid and toprol 50 qd at home)--rapid AF/AFL/AT here. - did not respond to diltiazem hi dose gtt, lopressor 5mg IVP. good rate response to lopressor 10mg IVP and bp tolerating--cont q4H standing. wean do wn/off dilt as tolerates - tele monitoring - Pt had gastric avm cauterized 01/2019 and then had watchman device 03/2019. His AC has been stopped and he remains on asa 81 qd. cont same (suppository he re) CAD s/p CABG: -stable, no signs acs -cont statin, bb, aspirin Chronic diastolic CHF, CKD (baseline creat 1.2-1.4): -CXR 11/12 with congestive changes (on top of diffuse opacification of R lung), + JVD. -renal fxn normalized -was on torsemide 50 qd at home--not taking PO here -cont lasix 40 IV qd for now, monitor clinically. renal fxn/lytes stable
[2019-11-15 07:38] LABS: BLOOD UREA NITROGEN 35.1 mg/dL (7-18); CALCIUM 8.4 mg/dL (8.5-10.1); CREATININE 1.3 mg/dL (0.55-1.3); MAGNESIUM 1.8 mg/dL (1.8-2.4); POTASSIUM 3.7 mmol/L (3.5-5.1); TOT PROT 6.4 g/dl (6.4-8.2)
[2019-11-15] MEDS: DILTIAZEM INJECTION 125 MG in SODIUM CHLORIDE 100 ML IVPB SCH (09:21)
[2019-11-15 09:26] LABS: ANISOCYTOSIS 1+; MACROCYTOSIS 1+; PLATELET ESTIMATE NORMAL
[2019-11-15] MEDS: PANTOPRAZOLE SODIUM 40 MG VIAL IVPUSH SCH (09:30)
[2019-11-15] MEDS: ASPIRIN 300 MG SUPP.RECT RC SCH (09:31)
[2019-11-15] MEDS: FUROSEMIDE 40 MG/4 ML INJECTABLE VIAL IVPUSH SCH (09:33)
[2019-11-15] MEDS: PANTOPRAZOLE 40 MG TABLET PO SCH (09:34)
[2019-11-15] MEDS: TAMSULOSIN HCL 0.4 MG CAP PO SCH (09:34)
--- NOTE | 2019-11-15 12:06 | PN ---
Progress Note (short form) - Note Progress Note: UROLOGY NOTE Urethral injury on mayers catheter, clear urine no bleeding. O/E Soft lax abd no palpable bladder waiting for pelvic u/s will follow.
--- NOTE | 2019-11-15 12:08 | PN ---
Progress Note (short form) - Note Progress Note: 1. ANGELO 2. CAD 3. a-fib 4. CVA 5. CKD 6. DM 7. anemia 8. GI bleeding Active Medications Aspirin (Asa -) 300 mg RC DAILY [facility] Last Admin: 11/15/19 09:31 Dose: 300 mg Documented by: Furosemide (Lasix Injection -) 40 mg IVPUSH DAILY [facility] Last Admin: 11/15/19 09:33 Dose: 40 mg Documented by: Haloperidol (Haldol Injection (Fast Acting) -) 2.5 mg IM Q4H PRN PRN Reason: ALLERGIES Last Admin: 11/14/19 17:57 Dose: 2.5 mg Documented by: Diltiazem HCl 125 mg/ Sodium (Chloride) 125 mls @ 5 mls/hr IVPB TITR [facility]; Protocol Last Admin: 11/15/19 09:21 Dose: 5 mg/hr, 5 mls/hr Documented by: Potassium Chloride 20 meq/ (Amino Acids) 1,010 mls @ 84 mls/hr IVPB Q12H [facility] Last Admin: 11/15/19 06:10 Dose: 84 mls/hr Documented by: Piperacillin Sod/Tazobactam (Sod 3.375 gm/ Dextrose) 50 mls @ 100 mls/hr IVPB TID [facility]; Protocol Last Admin: 11/15/19 05:47 Dose: 100 mls/hr Documented by: Insulin Aspart (Novolog Vial Sliding Scale -) 1 vial SQ TIDAC [facility]; Protocol Last Admin: 11/15/19 06:17 Dose: 8 units Documented by: Insulin Detemir (Levemir Vial) 5 units SQ HS [facility] Last Admin: 11/14/19 21:40 Dose: 5 units Documented by: Lorazepam (Ativan Injection -) 1 mg IVPUSH Q2H PRN PRN Reason: ANXIETY Last Admin: 11/14/19 13:35 Dose: 1 mg Documented by: Metoprolol Tartrate (Lopressor Injection -) 10 mg IVPUSH Q4H-IV [facility] Last Admin: 11/15/19 09:31 Dose: 10 mg Documented by: Morphine Sulfate (Morphine Sulfate) 2 mg IVPUSH Q2H PRN PRN Reason: pain or tachypnea Last Admin: 11/15/19 09:46 Dose: 2 mg Documented by: Pantoprazole Sodium (Protonix -) 40 mg PO DAILY [facility] Last Admin: 11/15/19 09:34 Dose: Not Given Documented by: Pantoprazole Sodium (Protonix Iv) 40 mg IVPUSH DAILY [facility] Last Admin: 11/15/19 09:30 Dose: 40 mg Documented by: Tamsulosin HCl (Flomax -) 0.8 mg PO DAILY@0830 [facility] Last Admin: 11/15/19 09:34 Dose: Not Given Documented by: Last Vital Signs Temp Pulse Resp BP Pulse Ox 97.4 F L 92 H 14 139/81 97 11/15/19 06:15 11/15/19 09:31 11/15/19 06:15 11/15/19 09:31 11/15/19 09:00 oral mucosa dry Neck no jvd Lungs clear Heart reg Abd soft nontender Ext no edema CBC, BMP 11/15/19 05:40 11/15/19 05:40 CBC, [facility] 11/14/19 06:05 11/14/19 06:05 IMP Hypernatremia- persisting Prerenal azotemia on IVF slight rise in serum creat today needs to be followed Plan- monitor renal function and lytes continue hypotonic IVF
--- NOTE | 2019-11-15 13:24 | PN ---
Progress Note (short form) - Note Progress Note: Resting in NAD on NC O2. Confused. Pulled mayers catheter out. Retained piece of mayers suspected. Intake & Output 11/12/19 11/13/19 11/14/19 11/15/19 23:59 23:59 23:59 23:59 Intake Total 2394 2370 1118 Output Total 1600 1000 2650 400 Balance -1600 1394 -280 718 Weight 172 lb 178 lb 14.4 oz Last Vital Signs Temp Pulse Resp BP Pulse Ox 97.4 F L 92 H 14 139/81 97 11/15/19 06:15 11/15/19 09:31 11/15/19 06:15 11/15/19 09:31 11/15/19 09:00 Active Medications Aspirin (Asa -) 300 mg RC DAILY [facility] Last Admin: 11/15/19 09:31 Dose: 300 mg Documented by: Furosemide (Lasix Injection -) 40 mg IVPUSH DAILY [facility] Last Admin: 11/15/19 09:33 Dose: 40 mg Documented by: Haloperidol (Haldol Injection (Fast Acting) -) 2.5 mg IM Q4H PRN PRN Reason: ALLERGIES Last Admin: 11/14/19 17:57 Dose: 2.5 mg Documented by: Diltiazem HCl 125 mg/ Sodium (Chloride) 125 mls @ 5 mls/hr IVPB TITR [facility]; Protocol Last Admin: 11/15/19 09:21 Dose: 5 mg/hr, 5 mls/hr Documented by: Potassium Chloride 20 meq/ (Amino Acids) 1,010 mls @ 84 mls/hr IVPB Q12H [facility] Last Admin: 11/15/19 06:10 Dose: 84 mls/hr Documented by: Piperacillin Sod/Tazobactam (Sod 3.375 gm/ Dextrose) 50 mls @ 100 mls/hr IVPB TID [facility]; Protocol Last Admin: 11/15/19 05:47 Dose: 100 mls/hr Documented by: Insulin Aspart (Novolog Vial Sliding Scale -) 1 vial SQ TIDAC [facility]; Protocol Last Admin: 11/15/19 12:04 Dose: 6 units Documented by: Insulin Detemir (Levemir Vial) 5 units SQ HS [facility] Last Admin: 11/14/19 21:40 Dose: 5 units Documented by: Lorazepam (Ativan Injection -) 1 mg IVPUSH Q2H PRN PRN Reason: ANXIETY Last Admin: 11/14/19 13:35 Dose: 1 mg Documented by: Metoprolol Tartrate (Lopressor Injection -) 10 mg IVPUSH Q4H-IV [facility] Last Admin: 11/15/19 09:31 Dose: 10 mg Documented by: Morphine Sulfate (Morphine Sulfate) 2 mg IVPUSH Q2H PRN PRN Reason: pain or tachypnea Last Admin: 11/15/19 09:46 Dose: 2 mg Documented by: Pantoprazole Sodium (Protonix -) 40 mg PO DAILY [facility] Last Admin: 11/15/19 09:34 Dose: Not Given Documented by: Pantoprazole Sodium (Protonix Iv) 40 mg IVPUSH DAILY [facility] Last Admin: 11/15/19 09:30 Dose: 40 mg Documented by: Tamsulosin HCl (Flomax -) 0.8 mg PO DAILY@0830 [facility] Last Admin: 11/15/19 09:34 Dose: Not Given Documented by: Constitutional: Yes: NAD, confused Eyes: Yes: Conjunctiva Clear, EOM Intact HENT: Yes: Atraumatic, Normocephalic Neck: Yes: Supple, Trachea Midline Cardiovascular: Yes: Tachycardia, Pulse Irregular Respiratory: Yes: Cough, Diminished, NC O2, Rhonchi. No: Stridor, Wheezes ...Inspection: Yes: WNL ...Clubbing: No Gastrointestinal: Yes: Normal Bowel Sounds, Soft Musculoskeletal: Yes: Back Pain Extremities: Yes: WNL Edema: Yes Peripheral Pulses WNL: Yes Integumentary: Yes: WNL Neurological: Yes: Confusion Labs: Laboratory Results - last 24 hr 11/14/19 11/14/19 11/15/19 17:11 21:37 05:40 WBC 12.6 H RBC 3.53 L Hgb 12.7 Hct 38.3 MCV 108.5 H MCH 36.0 H MCHC 33.2 RDW 13.5 Plt Count 270 MPV 7.2 L Absolute Neuts (auto) 8.2 H Neutrophils % 64.9 Lymphocytes % 24.0 D Monocytes % 7.1 Eosinophils % 3.3 Basophils % 0.7 Nucleated RBC % 0 Hypochromia 0 Platelet Estimate Normal Polychromasia 1+ Poikilocytosis 0 Anisocytosis 1+ Microcytosis 0 Macrocytosis 1+ Sodium Potassium Chloride Carbon Dioxide Anion Gap BUN Creatinine Est GFR (CKD-EPI)AfAm Est GFR (CKD-EPI)NonAf POC Glucometer 303 196 Random Glucose Calcium Magnesium Total Bilirubin AST ALT Alkaline Phosphatase Total Protein Albumin 11/15/19 11/15/19 11/15/19 05:40 06:15 11:46 WBC RBC Hgb Hct MCV MCH MCHC RDW Plt Count MPV Absolute Neuts (auto) Neutrophils % Lymphocytes % Monocytes % Eosinophils % Basophils % Nucleated RBC % Hypochromia Platelet Estimate Polychromasia Poikilocytosis Anisocytosis Microcytosis Macrocytosis Sodium 147 H Potassium 3.7 Chloride 114 H Carbon Dioxide 26 Anion Gap 6 L BUN 35.1 H Creatinine 1.3 Est GFR (CKD-EPI)AfAm 56.07 Est GFR (CKD-EPI)NonAf 48.38 POC Glucometer 308 295 Random Glucose 310 H Calcium 8.4 L Magnesium 1.8 Total Bilirubin 2.0 H AST 38 H ALT 30 Alkaline Phosphatase 153 H Total Protein 6.4 Albumin 2.0 L Imaging - Results Chest X-ray: Report Reviewed, Image Reviewed Problem List - Problems (1) Dyspnea Code(s): R06.00 - DYSPNEA, UNSPECIFIED Qualifiers: Dyspnea type: unspecified Qualified Code(s): R06.00 - Dyspnea, unspecified (2) Afib Code(s): I48.91 - UNSPECIFIED ATRIAL FIBRILLATION Qualifiers: Atrial fibrillation type: unspecified chronic Qualified Code(s): I48.20 - Chronic atrial fibrillation, unspecified; I48.2 - Chronic atrial fibrillation (3) ANGELO (acute kidney injury) Code(s): N17.9 - ACUTE KIDNEY FAILURE, UNSPECIFIED (4) Anticoagulated by anticoagulation treatment Code(s): Z79.01 - JAIL (CURRENT) USE OF ANTICOAGULANTS (5) CHF (congestive heart failure) Code(s): I50.9 - HEART FAILURE, UNSPECIFIED (6) DNI (do not intubate) Code(s): Z78.9 - OTHER SPECIFIED HEALTH STATUS (7) DNR (do not resuscitate) Code(s): Z66 - DO NOT RESUSCITATE (8) Diabetes mellitus Code(s): E11.9 - TYPE 2 DIABETES MELLITUS WITHOUT COMPLICATIONS (9) Hypertension Code(s): I10 - ESSENTIAL (PRIMARY) HYPERTENSION (10) Peripheral neuropathy Code(s): G62.9 - POLYNEUROPATHY, UNSPECIFIED (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 Assessment/Plan Rate control Bladder US ordered Supplemental O2 as needed Strict I & O Empiric ABX Aspiration precautions Monitor off systemic steroids DNR/DNI For possible hospice Dr Eastman Problem List - Problems (1) Dyspnea Code(s): R06.00 - DYSPNEA, UNSPECIFIED Qualifiers: Dyspnea type: unspecified Qualified Code(s): R06.00 - Dyspnea, unspecified (2) Afib Code(s): I48.91 - UNSPECIFIED ATRIAL FIBRILLATION Qualifiers: Atrial fibrillation type: unspecified chronic Qualified Code(s): I48.20 - Chronic atrial fibrillation, unspecified; I48.2 - Chronic atrial fibrillation (3) ANGELO (acute kidney injury) Code(s): N17.9 - ACUTE KIDNEY FAILURE, UNSPECIFIED (4) Anticoagulated by anticoagulation treatment Code(s): Z79.01 - SELF PAY SPECIALIST (CURRENT) USE OF ANTICOAGULANTS (5) CHF (congestive heart failure) Code(s): I50.9 - HEART FAILURE, UNSPECIFIED (6) DNI (do not intubate) Code(s): Z78.9 - OTHER SPECIFIED HEALTH STATUS (7) DNR (do not resuscitate) Code(s): Z66 - DO NOT RESUSCITATE (8) Diabetes mellitus Code(s): E11.9 - TYPE 2 DIABETES MELLITUS WITHOUT COMPLICATIONS (9) Hypertension Code(s): I10 - ESSENTIAL (PRIMARY) HYPERTENSION (10) Peripheral neuropathy Code(s): G62.9 - POLYNEUROPATHY, UNSPECIFIED (

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
--- NOTE | 2019-11-15 17:25 | PN ---
Progress Note (short form) - Note Progress Note: UROLOGY NOTE Urethral injury post catheter traction and rupture of balloon inside the bladder. U/S part of previous catheter inside bladder. Plan COVID 19 test then will schedule him for cystoscopy
--- NOTE | 2019-11-15 21:47 | PN ---
Progress Note, Physician History of Present Illness: Pt noted to be confused. Pulled out mayers and evidence of part of catheter retained in bladder on US. Urology plans cystoscopy. Pt is weak but responsive. No distress. Afebrile today. - Current Medication List Current Medications: Active Medications Aspirin (Asa -) 300 mg RC DAILY [facility] Last Admin: 11/15/19 09:31 Dose: 300 mg Documented by: Furosemide (Lasix Injection -) 40 mg IVPUSH DAILY [facility] Last Admin: 11/15/19 09:33 Dose: 40 mg Documented by: Haloperidol (Haldol Injection (Fast Acting) -) 2.5 mg IM Q4H PRN PRN Reason: ALLERGIES Last Admin: 11/14/19 17:57 Dose: 2.5 mg Documented by: Diltiazem HCl 125 mg/ Sodium (Chloride) 125 mls @ 5 mls/hr IVPB TITR [facility]; Protocol Last Admin: 11/15/19 09:21 Dose: 5 mg/hr, 5 mls/hr Documented by: Potassium Chloride 20 meq/ (Amino Acids) 1,010 mls @ 84 mls/hr IVPB Q12H [facility] Last Admin: 11/15/19 18:20 Dose: 84 mls/hr Documented by: Piperacillin Sod/Tazobactam (Sod 3.375 gm/ Dextrose) 50 mls @ 100 mls/hr IVPB TID [facility]; Protocol Last Admin: 11/15/19 21:17 Dose: 100 mls/hr Documented by: Insulin Aspart (Novolog Vial Sliding Scale -) 1 vial SQ TIDAC [facility]; Protocol Last Admin: 11/15/19 18:17 Dose: 6 units Documented by: Insulin Detemir (Levemir Vial) 8 units SQ HS [facility] Last Admin: 11/15/19 21:18 Dose: 8 units Documented by: Metoprolol Tartrate (Lopressor Injection -) 10 mg IVPUSH Q4H-IV [facility] Last Admin: 11/15/19 21:16 Dose: 10 mg Documented by: Morphine Sulfate (Morphine Sulfate) 2 mg IVPUSH Q2H PRN PRN Reason: Pain Level 6-10 or Tachypnea Last Admin: 11/15/19 20:57 Dose: 2 mg Documented by: Pantoprazole Sodium (Protonix -) 40 mg PO DAILY [facility] Last Admin: 11/15/19 09:34 Dose: Not Given Documented by: Pantoprazole Sodium (Protonix Iv) 40 mg IVPUSH DAILY [facility] Last Admin: 11/15/19 09:30 Dose: 40 mg Documented by: Tamsulosin HCl (Flomax -) 0.8 mg PO DAILY@0830 [facility] Last Admin: 11/15/19 09:34 Dose: Not Given Documented by: - Objective Vital Signs: Vital Signs Temperature 98.3 F 11/15/19 12:00 Pulse Rate 103 H 11/15/19 21:16 Respiratory Rate 26 H 11/15/19 20:00 Blood Pressure 156/141 H 11/15/19 21:16 O2 Sat by Pulse Oximetry (%) 96 11/15/19 20:00 Constitutional: Yes: No Distress Eyes: Yes: Conjunctiva Clear Cardiovascular: Yes: Pulse Irregular Respiratory: Yes: Other (poor inspiratory effort) Gastrointestinal: Yes: Normal Bowel Sounds, Soft Genitourinary: Yes: Mayers Present Neurological: Yes: Confusion Labs: CBC, BMP 11/15/19 05:40 11/15/19 05:40 INR, PTT INR 1.32 (0.83-1.09) H 11/07/19 19:36 Laboratory Last Values WBC 12.6 K/mm3 (4.0-10.0) H 11/15/19 05:40 RBC 3.53 M/mm3 (4.00-5.60) L 11/15/19 05:40 Hgb 12.7 GM/dL (11.7-16.9) 11/15/19 05:40 Hct 38.3 % (35.4-49) 11/15/19 05:40 MCV 108.5 fl (80-96) H 11/15/19 05:40 MCH 36.0 pg (25.7-33.7) H 11/15/19 05:40 MCHC 33.2 g/dl (32.0-35.9) 11/15/19 05:40 RDW 13.5 % (11.9-15.9) 11/15/19 05:40 Plt Count 270 K/MM3 (134-434) 11/15/19 05:40 MPV 7.2 fl (7.5-11.1) L 11/15/19 05:40 Absolute Neuts (auto) 8.2 K/mm3 (1.5-8.0) H 11/15/19 05:40 Neutrophils % 64.9 % (42.8-82.8) 11/15/19 05:40 Lymphocytes % 24.0 % (8-40) D 11/15/19 05:40 Monocytes % 7.1 % (3.8-10.2) 11/15/19 05:40 Eosinophils % 3.3 % (0-4.5) 11/15/19 05:40 Basophils % 0.7 % (0-2.0) 11/15/19 05:40 Nucleated RBC % 0 % (0-0) 11/15/19 05:40 Hypochromia 0 11/15/19 05:40 Platelet Estimate Normal 11/15/19 05:40 Polychromasia 1+ 11/15/19 05:40 Poikilocytosis 0 11/15/19 05:40 Anisocytosis 1+ 11/15/19 05:40 Microcytosis 0 11/15/19 05:40 Macrocytosis 1+ 11/15/19 05:40 PT with INR 15.60 SEC (9.7-13.0) H 11/07/19 19:36 INR 1.32 (0.83-1.09) H 11/07/19 19:36 PTT (Actin FS) 37.6 SECONDS (25.2-36.5) H 11/07/19 19:36 VBG pH 7.418 (7.310-7.410) H 11/07/19 20:25 POC VBG pCO2 36.9 mmHg (38-52) L 11/07/19 20:25 POC VBG pO2 39.2 mmHg (28-48) 11/07/19 20:25 VBG HCO3 23.3 mmol/L (23-29) 11/07/19 20:25 VBG O2 Sat (Binh) 75.2 % (70-80) 11/07/19 20:25 VBG Base Excess -0.8 mmol/L (-2-2) 11/07/19 20:25 Sodium 147 mmol/L (136-145) H 11/15/19 05:40 Potassium 3.7 mmol/L (3.5-5.1) 11/15/19 05:40 Chloride 114 mmol/L (98-107) H 11/15/19 05:40 Carbon Dioxide 26 mmol/L (21-32) 11/15/19 05:40 Anion Gap 6 MMOL/L (8-16) L 11/15/19 05:40 BUN 35.1 mg/dL (7-18) H 11/15/19 05:40 Creatinine 1.3 mg/dL (0.55-1.3) 11/15/19 05:40 Est GFR (CKD-EPI)AfAm 56.07 11/15/19 05:40 Est GFR (CKD-EPI)NonAf 48.38 11/15/19 05:40 POC Glucometer 289 UNITS (80-120) 11/15/19 17:21 Random Glucose 310 mg/dL (74-106) H 11/15/19 05:40 Lactic Acid 2.0 mmol/L (0.4-2.0) 11/07/19 23:45 Calcium 8.4 mg/dL (8.5-10.1) L 11/15/19 05:40 Phosphorus 2.2 mg/dL (2.5-4.9) L 11/09/19 08:00 Magnesium 1.8 mg/dL (1.8-2.4) 11/15/19 05:40 Total Bilirubin 2.0 mg/dL (0.2-1) H 11/15/19 05:40 Direct Bilirubin 1.5 mg/dL (0.0-0.2) H 11/09/19 08:00 AST 38 U/L (15-37) H 11/15/19 05:40 ALT 30 U/L (13-61) 11/15/19 05:40 Alkaline Phosphatase 153 U/L (45-117) H 11/15/19 05:40 Creatine Kinase 172 U/L (26-308) 11/07/19 19:36 Creatine Kinase Index No Result Required. 11/07/19 19:36 CK-MB (CK-2) < 1.0 ng/mL (0.5-3.6) 11/07/19 19:36 Troponin I 0.12 ng/ml (0.00-0.05) H 11/07/19 23:45 B-Natriuretic Peptide 1017.3 pg/ml (5-450) H 11/07/19 19:36 Total Protein 6.4 g/dl (6.4-8.2) 11/15/19 05:40 Albumin 2.0 g/dl (3.4-5.0) L 11/15/19 05:40 Triglycerides 77 mg/dL (0-150) 11/07/19 19:36 Cholesterol 94 mg/dL (50-200) 11/07/19 19:36 Total LDL Cholesterol 51 mg/dL (5-100) 11/07/19 19:36 HDL Cholesterol 38 mg/dL (40-60) L 11/07/19 19:36 Urine Color Dk yellow 11/07/19 19:58 Urine Appearance Clear 11/07/19 19:58 Urine pH 5.5 (5.0-8.0) 11/07/19 19:58 Ur Specific Grant 1.012 (1.010-1.035) 11/07/19 19:58 Urine Protein Negative (NEGATIVE) 11/07/19 19:58 Urine Glucose (UA) Negative (NEGATIVE) 11/07/19 19:58 Urine Ketones Negative (NEGATIVE) 11/07/19 19:58 Urine Blood Negative (NEGATIVE) 11/07/19 19:58 Urine Nitrite Negative (NEGATIVE) 11/07/19 19:58 Urine Bilirubin Negative (NEGATIVE) 11/07/19 19:58 Urine Urobilinogen 1.0 mg/dL (0.2-1.0) 11/07/19 19:58 Ur Leukocyte Esterase Trace (NEGATIVE) 11/07/19 19:58 Urine WBC (Auto) 13 /uL (0-25.8) 11/07/19 19:58 Urine RBC (Auto) 8 /uL (0-23.9) 11/07/19 19:58 Urine Casts (Auto) 2 /uL (0-3.1) 11/07/19 19:58 U Epithel Cells (Auto) 9 /uL (0-25.1) 11/07/19 19:58 Urine Bacteria (Auto) 1998 /uL (0-1359) 11/07/19 19:58 Ur Random Creatinine 93.0 mg/dL (30-150) 11/09/19 04:30 Ur Random Sodium < 18 MMOL/L (40-220) L 11/09/19 04:30 COVID-19 (ANDI) Not detected (Not Detected) 11/07/19 20:25 Microbiology 11/07/19 19:34 Blood - Peripheral Venous Blood Culture - Final NO GROWTH AFTER 5 DAYS INCUBATION 11/07/19 19:30 Blood - Peripheral Venous Blood Culture - Final NO GROWTH AFTER 5 DAYS INCUBATION 11/07/19 19:58 Urine - Urine Clean Catch Urine Culture - Final Bordetella Bronchiseptica 11/09/19 04:30 Urine - Urine Clean Catch Legionella Antigen - Final 11/09/19 04:30 Urine - Urine Clean Catch Streptococcus pneumoniae Antigen (M - Final - ....Imaging Ultrasound: Report Reviewed Problem List - Problems (1) Afib Code(s): I48.91 - UNSPECIFIED ATRIAL FIBRILLATION Qualifiers: Atrial fibrillation type: unspecified chronic Qualified Code(s): I48.20 - Chronic atrial fibrillation, unspecified; I48.2 - Chronic atrial fibrillation (2) S/P CABG (coronary artery bypass graft) Code(s): Z95.1 - PRESENCE OF AORTOCORONARY BYPASS GRAFT (3) UGIB (upper gastrointestinal bleed) Code(s): K92.2 - GASTROINTESTINAL HEMORRHAGE, UNSPECIFIED (4) UTI (urinary tract infection) Code(s): N39.0 - URINARY TRACT INFECTION, SITE NOT SPECIFIED Qualifiers: Urinary tract infection type: acute cystitis Hematuria presence: with hematuria Qualified Code(s): N30.01 - Acute cystitis with hematuria Assessment/Plan Sepsis AMS PNA - Possibly Aspiration Dysphagia Leukocytosis UTI AFIB DM HTN Hx of CVA Hx of GI bleed -- continue Zosyn, pt afebrile today. Remains confused. -- continue monitor wbc/temps -- aspiration precautions -- family refused peg placement cc time : 35 min
[2019-11-15] MEDS ORDERED: INSULIN (LEVEMIR) 100 UNITS/ML UNITS SQ SCH (22:00)
[2019-11-15] MEDS ORDERED: ACETAMINOPHEN 1000 MG/100 ML VIAL (NON FORMULARY) IVPB ONE (23:32)
[2019-11-16] MEDS: HALOPERIDOL LACTATE 5 MG/ML IM PRN (00:23)
[2019-11-16] MEDS: METOPROLOL TARTRATE 5 MG/5 ML VIAL IVPUSH SCH ×6 (01:05→21:51)
[2019-11-16] MEDS: MORPHINE SULFATE 2 MG/ML VIAL IVPUSH PRN ×3 (04:16→19:47)
[2019-11-16] MEDS ORDERED: DEXTROSE 5%-WATER - 50 ML IVPB ONE ×3 (05:52→21:46)
[2019-11-16] MEDS ORDERED: PIPERACILLIN/TAZOBACTAM 3.375 GM VIAL IVPB ONE ×3 (05:52→21:45)
[2019-11-16] MEDS: PIPERACILLIN/TAZOB 3.375 GM 3.375 GM in DEXTROSE 5%-WATER - 50 ML IVPB SCH ×3 (05:57→21:52)
[2019-11-16] MEDS: POTASSIUM CHLORIDE 20 MEQ in AMINO ACIDS 4.25%/D5W 1,000 ML IVPB SCH ×2 (06:02→19:23)
[2019-11-16] MEDS: INSULIN SLIDING SCALE (NOVOLOG) 1 VIAL SQ SCH ×3 (06:09→17:45)
[2019-11-16] MEDS: TAMSULOSIN HCL 0.4 MG CAP PO SCH (09:26)
[2019-11-16] MEDS: PANTOPRAZOLE 40 MG TABLET PO SCH (09:26)
[2019-11-16] MEDS: PANTOPRAZOLE SODIUM 40 MG VIAL IVPUSH SCH (09:28)
[2019-11-16] MEDS: ASPIRIN 300 MG SUPP.RECT RC SCH (09:29)
[2019-11-16] MEDS: FUROSEMIDE 40 MG/4 ML INJECTABLE VIAL IVPUSH SCH (09:29)
[2019-11-16] MEDS: INSULIN (LEVEMIR) 100 UNITS/ML UNITS SQ SCH ×2 (10:41→21:53)
--- NOTE | 2019-11-16 11:12 | PN ---
Progress Note, CHILD CARE EDUCATION COORDINATOR - Note Progress Note: Selected Entries 11/13/19 11/13/19 11/13/19 00:01 02:12 05:21 Lunch Temperature 97.8 F 97.4 F L Blood Pressure 152/71 141/84 155/73 11/13/19 11/13/19 09:01 13:30 Lunch NPO Temperature Blood Pressure 151/79 Laboratory Tests 11/12/19 11/13/19 07:10 09:50 WBC 13.3 H 11[address] 11/12-Clinimix @ 83cc/hr Add MVI-infuvite to clinimix Consider PEG vs pleasure feedings of thinned puree and honey thick liquids via tsp. Palliative care evaluation. Home hospice being discussed mbs reviewed (significant oropharyngeal dysphagia with silent aspiration on thick liquid on mbs) with [employer] and primary nurse. Option of PEG insertion vs pleasure feedings at this time, with aspiration risk. Palliative care Pt's medical/pulmonary status much improved since NPO CXR noted. Plan is for home hospice. Family does not want PEG, according to primary nurse. Pt is DNR/DNI. Rec on 11/12-Consider limited po trial of puree/honey on tsp, if pt desires, for pleasure feedings at home. Family needs to be aware of risk of increased congestion/SOB sec aspiration with PO trials. Consider Home suction. Goals of care? PO trial for pleasure vs NPO, pending d/c home? Palliative care
--- NOTE | 2019-11-16 11:59 | PN ---
Progress Note (short form) - Note Progress Note: Chief Complaint: altered MS History of Present Illness: now sleeping and not waking for exam no cigs Current Medications Generic Name Dose Route Start Last Admin Trade Name Francisco PRN Reason Stop Dose Admin Aspirin 300 mg 11/14/19 14:45 11/16/19 09:29 Asa - RC 300 mg DAILY SARAH Administration Furosemide 40 mg 11/15/19 10:00 11/16/19 09:29 Lasix Injection - IVPUSH 40 mg DAILY SARAH Administration Haloperidol 2.5 mg 11/14/19 17:02 11/16/19 00:23 Haldol Injection (Fast Acting) - IM 2.5 mg Q4H PRN Administration ALLERGIES Diltiazem HCl 125 mg/ Sodium 125 mls @ 5 mls/hr 11/09/19 11:30 11/16/19 04:39 Chloride IVPB 5 mg/hr TITR SARAH 5 mls/hr Titration Protocol 5 MG/HR Potassium Chloride 20 meq/ 1,010 mls @ 84 mls/hr 11/13/19 18:15 11/16/19 06:02 Amino Acids IVPB 84 mls/hr Q12H SARAH Administration Piperacillin Sod/Tazobactam 50 mls @ 100 mls/hr 11/14/19 22:00 11/16/19 05:57 Sod 3.375 gm/ Dextrose IVPB 100 mls/hr TID SARAH Administration Protocol Insulin Aspart 1 vial 11/08/19 07:00 11/16/19 10:41 Novolog Vial Sliding Scale - SQ 4 units TIDAC SARAH Administration Protocol Insulin Detemir 10 units 11/16/19 10:00 11/16/19 10:41 Levemir Vial SQ 10 units BID SARAH Administration Metoprolol Tartrate 10 mg 11/14/19 14:00 11/16/19 09:28 Lopressor Injection - IVPUSH 10 mg Q4H-IV SARAH Administration Morphine Sulfate 2 mg 11/15/19 20:15 11/16/19 09:28 Morphine Sulfate IVPUSH 2 mg Q2H PRN Administration Pain Level 6-10 or Tachypnea Pantoprazole Sodium 40 mg 11/08/19 10:00 11/16/19 09:26 Protonix - PO Not Given DAILY SARAH Pantoprazole Sodium 40 mg 11/12/19 17:15 11/16/19 09:28 Protonix Iv IVPUSH 40 mg DAILY COUNTS INCLUDE 234 BEDS AT THE [facility] Administration Tamsulosin HCl 0.8 mg 11/08/19 08:30 11/16/19 09:26 Flomax - PO Not Given DAILY@0830 COUNTS INCLUDE 234 BEDS AT THE [facility] Vital Signs Period Temp Pulse Resp BP Sys/Shaw Pulse Ox Last 24 Hr 98.3 F-100.3 F 86-120 16-28 129-158/62-141 90-98 Constitutional: Yes: Well Nourished, No Distress, Calm Eyes: No: Sclera Icterus HENT: No: Nasal Congestion Cardiovascular: Yes: Regular Rate and Rhythm, S1, S2. No: JVD Respiratory: Yes: Regular, CTA Bilaterally (not deep breaths). No: Accessory Muscle Use, Wheezes Gastrointestinal: Yes: Normal Bowel Sounds, Soft. No: Tenderness Extremities: No: Cool Edema: No Integumentary: No: Jaundice Neurological: No: lethargic Psychiatric: No: Agitated Labs: CBC, BMP 11/15/19 05:40 11/15/19 05:40 Assessment/Plan Echo 06/2018: Nl LV/RV, mod LAE, mild MR, AI, no PHTN ecg: afib with rvr, rbbb (old) cxr: diffuse opacification R lung, L lung mild congestive changes tele: AFL with variable conduction, HRs controlled a/p: 89 yo m hx PAF, cva's, htn, ckd, dm, gib here with lethargy, fever. fever, lethargy, sepsis: -pna, likely aspiration -abx per primary/ID, cont supplemental 02 jayce on CKD: -improved with ivfs -baseline creat around 1.3 elevated trop: -borderline trop with flat trend, similar to prior baseline values, not c/w acs pafib: - pt not taking po meds (was on dilt 60 bid and toprol 50 qd at home)--rapid AF/AFL/AT here. - did not respond to diltiazem hi dose gtt, lopressor 5mg IVP. good rate response to lopressor 10mg IVP and bp tolerating--cont q4H standing. wean down/off dilt as tolerates - tele monitoring - Pt had gastric avm cauterized 01/2019 and then had watchman device 03/2019. His AC has been stopped and he remains on asa 81 qd. cont same (suppository here) CAD s/p CABG: -stable, no signs acs -cont statin, bb, aspirin Chronic diastolic CHF, CKD (baseline creat 1.2-1.4): -CXR 11/12 with congestive changes (on top of diffuse opacification of R lung), + JVD. -renal fxn normalized -was on torsemide 50 qd at home--not taking PO here -cont lasix 40 IV qd for now, monitor clinically. renal fxn/lytes stable
--- NOTE | 2019-11-16 12:13 | PN ---
Progress Note (short form) - Note Progress Note: PULMONARY Confused. Low grade temp overnight. Vital Signs Period Temp Pulse Resp BP Sys/Shaw Pulse Ox Last 24 Hr 99.8 F-100.3 F 86-120 16-28 129-158/62-141 90-98 Gen: NAD, confused Heart: RRR Lung: decreased breath sounds at the bases Abd: soft, nontender Ext: no edema CBC, BMP 11/15/19 05:40 11/15/19 05:40 Active Medications Aspirin (Asa -) 300 mg RC DAILY SARAH Last Admin: 11/16/19 09:29 Dose: 300 mg Documented by: Furosemide (Lasix Injection -) 40 mg IVPUSH DAILY SARAH Last Admin: 11/16/19 09:29 Dose: 40 mg Documented by: Haloperidol (Haldol Injection (Fast Acting) -) 2.5 mg IM Q4H PRN PRN Reason: ALLERGIES Last Admin: 11/16/19 00:23 Dose: 2.5 mg Documented by: Diltiazem HCl 125 mg/ Sodium (Chloride) 125 mls @ 5 mls/hr IVPB TITR SARAH; Protocol Last Titration: 11/16/19 04:39 Dose: 5 mg/hr, 5 mls/hr Documented by: Potassium Chloride 20 meq/ (Amino Acids) 1,010 mls @ 84 mls/hr IVPB Q12H SARAH Last Admin: 11/16/19 06:02 Dose: 84 mls/hr Documented by: Piperacillin Sod/Tazobactam (Sod 3.375 gm/ Dextrose) 50 mls @ 100 mls/hr IVPB TID SARAH; Protocol Last Admin: 11/16/19 05:57 Dose: 100 mls/hr Documented by: Insulin Aspart (Novolog Vial Sliding Scale -) 1 vial SQ TIDAC [facility]; Protocol Last Admin: 11/16/19 10:41 Dose: 4 units Documented by: Insulin Detemir (Levemir Vial) 10 units SQ BID SARAH Last Admin: 11/16/19 10:41 Dose: 10 units Documented by: Metoprolol Tartrate (Lopressor Injection -) 10 mg IVPUSH Q4H-IV SARAH Last Admin: 11/16/19 09:28 Dose: 10 mg Documented by: Morphine Sulfate (Morphine Sulfate) 2 mg IVPUSH Q2H PRN PRN Reason: Pain Level 6-10 or Tachypnea Last Admin: 11/16/19 09:28 Dose: 2 mg Documented by: Pantoprazole Sodium (Protonix -) 40 mg PO DAILY [facility] Last Admin: 11/16/19 09:26 Dose: Not Given Documented by: Pantoprazole Sodium (Protonix Iv) 40 mg IVPUSH DAILY [facility] Last Admin: 11/16/19 09:28 Dose: 40 mg Documented by: Tamsulosin HCl (Flomax -) 0.8 mg PO DAILY@0830 [facility] Last Admin: 11/16/19 09:26 Dose: Not Given Documented by: A/P Pneumonia Sepsis Acute on Chronic Renal Failure improving CAD s/p CABG +Troponins likely Demand Ischemia Paroxysmal Atrial Fibrillation LV Diastolic Dysfunction HTN DM h/o GI Bleed h/o CVA - complete antibiotic course - aspiration precautions - on clinimix - rate control - O2 to keep Spo2 >90% - DVT prophylaxis
--- NOTE | 2019-11-16 14:29 | PN ---
Progress Note, Physician History of Present Illness: Pt seen and examined at bedside. He is lethargic. - Current Medication List Current Medications: Active Medications Aspirin (Asa -) 300 mg RC DAILY SARAH Last Admin: 11/16/19 09:29 Dose: 300 mg Documented by: Furosemide (Lasix Injection -) 40 mg IVPUSH DAILY [facility] Last Admin: 11/16/19 09:29 Dose: 40 mg Documented by: Haloperidol (Haldol Injection (Fast Acting) -) 2.5 mg IM Q4H PRN PRN Reason: ALLERGIES Last Admin: 11/16/19 00:23 Dose: 2.5 mg Documented by: Diltiazem HCl 125 mg/ Sodium (Chloride) 125 mls @ 5 mls/hr IVPB TITR SARAH; Pr otocol Last Titration: 11/16/19 04:39 Dose: 5 mg/hr, 5 mls/hr Documented by: Potassium Chloride 20 meq/ (Amino Acids) 1,010 mls @ 84 mls/hr IVPB Q12H SARAH Last Admin: 11/16/19 06:02 Dose: 84 mls/hr Documented by: Piperacillin Sod/Tazobactam (Sod 3.375 gm/ Dextrose) 50 mls @ 100 mls/hr IVPB TID SARAH; Protocol Last Admin: 11/16/19 05:57 Dose: 100 mls/hr Documented by: Insulin Aspart (Novolog Vial Sliding Scale -) 1 vial SQ TIDAC [facility]; Protocol Last Admin: 11/16/19 10:41 Dose: 4 units Documented by: Insulin Detemir (Levemir Vial) 10 units SQ BID [facility] Last Admin: 11/16/19 10:41 Dose: 10 units Documented by: Metoprolol Tartrate (Lopressor Injection -) 10 mg IVPUSH Q4H-IV SARAH Last Admin: 11/16/19 09:28 Dose: 10 mg Documented by: Morphine Sulfate (Morphine Sulfate) 2 mg IVPUSH Q2H PRN PRN Reason: Pain Level 6-10 or Tachypnea Last Admin: 11/16/19 09:28 Dose: 2 mg Documented by: Pantoprazole Sodium (Protonix -) 40 mg PO DAILY [facility] Last Admin: 11/16/19 09:26 Dose: Not Given Documented by: Pantoprazole Sodium (Protonix Iv) 40 mg IVPUSH DAILY [facility] Last Admin: 11/16/19 09:28 Dose: 40 mg Documented by: Tamsulosin HCl (Flomax -) 0.8 mg PO DAILY@0830 SARAH Last Admin: 11/16/19 09:26 Dose: Not Given Documented by: - Objective Vital Signs: Vital Signs Temperature 99.8 F H 11/16/19 06:00 Pulse Rate 92 H 11/16/19 09:28 Respiratory Rate 20 11/16/19 08:10 Blood Pressure 138/62 11/16/19 09:28 O2 Sat by Pulse Oximetry (%) 98 11/16/19 09:00 Constitutional: Yes: Calm Eyes: Yes: Conjunctiva Clear HENT: Yes: Atraumatic Neck: Yes: Supple Cardiovascular: Yes: S1, S2 Gastrointestinal: Yes: Normal Bowel Sounds, Soft Genitourinary: Yes: Incontinence Musculoskeletal: Yes: WNL Edema: No Neurological: Yes: Lethargy Labs: CBC, BMP 11/15/19 05:40 11/15/19 05:40 INR, PTT INR 1.32 (0.83-1.09) H 11/07/19 19:36 Problem List - Problems (1) Dyspnea Code(s): R06.00 - DYSPNEA, UNSPECIFIED Qualifiers: Dyspnea type: unspecified Qualified Code(s): R06.00 - Dyspnea, unspecified (2) Weakness Code(s): R53.1 - WEAKNESS (3) Afib Code(s): I48.91 - UNSPECIFIED ATRIAL FIBRILLATION Qualifiers: Atrial fibrillation type: unspecified chronic Qualified Code(s): I48.20 - Chronic atrial fibrillation, unspecified; I48.2 - Chronic atrial fibrillation (4) ANGELO (acute kidney injury) Code(s): N17.9 - ACUTE KIDNEY FAILURE, UNSPECIFIED (5) CHF (congestive heart failure) Code(s): I50.9 - HEART FAILURE, UNSPECIFIED Assessment/Plan Current Medications Generic Name Dose Route Start Last Admin Trade Name Francisco PRN Reason Stop Dose Admin Aspirin 300 mg 11/14/19 14:45 11/16/19 09:29 Asa - RC 300 mg DAILY SARAH Administration Furosemide 40 mg 11/15/19 10:00 11/16/19 09:29 Lasix Injection - IVPUSH 40 mg DAILY SARAH Administration Haloperidol 2.5 mg 11/14/19 17:02 11/16/19 00:23 Haldol Injection (Fast Acting) - IM 2.5 mg Q4H PRN Administration ALLERGIES Diltiazem HCl 125 mg/ Sodium 125 mls @ 5 mls/hr 11/09/19 11:30 11/16/19 04:39 Chloride IVPB 5 mg/hr TITR SARAH 5 mls/hr Titration Protocol 5 MG/HR Potassium Chloride 20 meq/ 1,010 mls @ 84 mls/hr 11/13/19 18:15 11/16/19 06:02 Amino Acids IVPB 84 mls/hr Q12H SARAH Administration Piperacillin Sod/Tazobactam 50 mls @ 100 mls/hr 11/14/19 22:00 11/16/19 05:57 Sod 3.375 gm/ Dextrose IVPB 100 mls/hr TID SARAH Administration Protocol Insulin Aspart 1 vial 11/08/19 07:00 11/16/19 10:41 Novolog Vial Sliding Scale - SQ 4 units TIDAC SARAH Administration Protocol Insulin Detemir 10 units 11/16/19 10:00 11/16/19 10:41 Levemir Vial SQ 10 units BID SARAH Administration Metoprolol Tartrate 10 mg 11/14/19 14:00 11/16/19 09:28 Lopressor Injection - IVPUSH 10 mg Q4H-IV SARAH Administration Morphine Sulfate 2 mg 11/15/19 20:15 11/16/19 09:28 Morphine Sulfate IVPUSH 2 mg Q2H PRN Administration Pain Level 6-10 or Tachypnea Pantoprazole Sodium 40 mg 11/08/19 10:00 11/16/19 09:26 Protonix - PO Not Given DAILY [facility] Pantoprazole Sodium 40 mg 11/12/19 17:15 11/16/19 09:28 Protonix Iv IVPUSH 40 mg DAILY SARAH Administration Tamsulosin HCl 0.8 mg 11/08/19 08:30 11/16/19 09:26 Flomax - PO Not Given DAILY@0830 [facility] Impression 1. ANGELO 2. CAD 3. a-fib 4. CVA 5. CKD 6. DM 7. anemia 8. GI bleeding Plan - cont clinimix while npo - check cmp and phos in am - monitor lytes - lasix prn - rate control - lasix as needed - cont icu care
--- NOTE | 2019-11-16 14:54 | PN ---
Progress Note, Physician History of Present Illness: continues to be lethargic generalized complaints low grade temp last night - Current Medication List Current Medications: Active Medications Aspirin (Asa -) 300 mg RC DAILY [facility] Last Admin: 11/16/19 09:29 Dose: 300 mg Documented by: Furosemide (Lasix Injection -) 40 mg IVPUSH DAILY [facility] Last Admin: 11/16/19 09:29 Dose: 40 mg Documented by: Haloperidol (Haldol Injection (Fast Acting) -) 2.5 mg IM Q4H PRN PRN Reason: ALLERGIES Last Admin: 11/16/19 00:23 Dose: 2.5 mg Documented by: Diltiazem HCl 125 mg/ Sodium (Chloride) 125 mls @ 5 mls/hr IVPB TITR [facility]; Protocol Last Titration: 11/16/19 04:39 Dose: 5 mg/hr, 5 mls/hr Documented by: Potassium Chloride 20 meq/ (Amino Acids) 1,010 mls @ 84 mls/hr IVPB Q12H [facility] Last Admin: 11/16/19 06:02 Dose: 84 mls/hr Documented by: Piperacillin Sod/Tazobactam (Sod 3.375 gm/ Dextrose) 50 mls @ 100 mls/hr IVPB TID [facility]; Protocol Last Admin: 11/16/19 05:57 Dose: 100 mls/hr Documented by: Insulin Aspart (Novolog Vial Sliding Scale -) 1 vial SQ TIDAC [facility]; Protocol Last Admin: 11/16/19 10:41 Dose: 4 units Documented by: Insulin Detemir (Levemir Vial) 10 units SQ BID [facility] Last Admin: 11/16/19 10:41 Dose: 10 units Documented by: Metoprolol Tartrate (Lopressor Injection -) 10 mg IVPUSH Q4H-IV SARAH Last Admin: 11/16/19 09:28 Dose: 10 mg Documented by: Morphine Sulfate (Morphine Sulfate) 2 mg IVPUSH Q2H PRN PRN Reason: Pain Level 6-10 or Tachypnea Last Admin: 11/16/19 09:28 Dose: 2 mg Documented by: Pantoprazole Sodium (Protonix -) 40 mg PO DAILY [facility] Last Admin: 11/16/19 09:26 Dose: Not Given Documented by: Pantoprazole Sodium (Protonix Iv) 40 mg IVPUSH DAILY [facility] Last Admin: 11/16/19 09:28 Dose: 40 mg Documented by: Tamsulosin HCl (Flomax -) 0.8 mg PO DAILY@0830 [facility]AH Last Admin: 11/16/19 09:26 Dose: Not Given Documented by: - Objective Vital Signs: Vital Signs Temperature 99.8 F H 11/16/19 06:00 Pulse Rate 92 H 11/16/19 09:28 Respiratory Rate 20 11/16/19 08:10 Blood Pressure 138/62 11/16/19 09:28 O2 Sat by Pulse Oximetry (%) 98 11/16/19 09:00 Constitutional: Yes: No Distress, Calm Cardiovascular: Yes: S1, S2 Respiratory: Yes: Regular, CTA Bilaterally Gastrointestinal: Yes: Normal Bowel Sounds, Soft Musculoskeletal: Yes: WNL Extremities: Yes: WNL Neurological: Yes: Confusion Psychiatric: Yes: Other Labs: CBC, BMP 11/15/19 05:40 11/15/19 05:40 INR, PTT INR 1.32 (0.83-1.09) H 11/07/19 19:36 Assessment/Plan Problem List - Problems (1) Dyspnea Code(s): R06.00 - DYSPNEA, UNSPECIFIED Qualifiers: Dyspnea type: unspecified Qualified Code(s): R06.00 - Dyspnea, unspecified (2) Afib Code(s): I48.91 - UNSPECIFIED ATRIAL FIBRILLATION Qualifiers: Atrial fibrillation type: unspecified chronic Qualified Code(s): I48.20 - Chronic atrial fibrillation, unspecified; I48.2 - Chronic atrial fibrillation (3) ANGELO (acute kidney injury) Code(s): N17.9 - ACUTE KIDNEY FAILURE, UNSPECIFIED (4) Anticoagulated by anticoagulation treatment Code(s): Z79.01 - PROFESSIONAL FIGHTER (CURRENT) USE OF ANTICOAGULANTS (5) CHF (congestive heart failure) Code(s): I50.9 - HEART FAILURE, UNSPECIFIED (6) DNI (do not intubate) Code(s): Z78.9 - OTHER SPECIFIED HEALTH STATUS (7) DNR (do not resuscitate) Code(s): Z66 - DO NOT RESUSCITATE (8) Diabetes mellitus Code(s): E11.9 - TYPE 2 DIABETES MELLITUS WITHOUT COMPLICATIONS (9) Hypertension Code(s): I10 - ESSENTIAL (PRIMARY) HYPERTENSION (10) Peripheral neuropathy Code(s): G62.9 - POLYNEUROPATHY, UNSPECIFIED (

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
[2019-11-17] MEDS: HALOPERIDOL LACTATE 5 MG/ML IM PRN (02:03)
[2019-11-17] MEDS: MORPHINE SULFATE 2 MG/ML VIAL IVPUSH PRN ×2 (03:11→12:11)
[2019-11-17] MEDS: METOPROLOL TARTRATE 5 MG/5 ML VIAL IVPUSH SCH ×5 (03:18→17:27)
[2019-11-17] MEDS ORDERED: PIPERACILLIN/TAZOBACTAM 3.375 GM VIAL IVPB ONE ×2 (05:37→13:55)
[2019-11-17] MEDS ORDERED: DEXTROSE 5%-WATER - 50 ML IVPB ONE ×2 (05:37→13:55)
[2019-11-17] MEDS: PIPERACILLIN/TAZOB 3.375 GM 3.375 GM in DEXTROSE 5%-WATER - 50 ML IVPB SCH ×2 (06:05→13:58)
[2019-11-17 06:30] LABS: ALBUMIN 1.9 g/dl (3.4-5.0); BILIRUBIN,TOTAL 1.8 mg/dL (0.2-1); BLOOD UREA NITROGEN 25.4 mg/dL (7-18); CALCIUM 8.2 mg/dL (8.5-10.1); MAGNESIUM 1.8 mg/dL (1.8-2.4); PHOSPHOROUS 1.6 mg/dL (2.5-4.9); POTASSIUM 3.9 mmol/L (3.5-5.1)
[2019-11-17] MEDS: INSULIN SLIDING SCALE (NOVOLOG) 1 VIAL SQ SCH ×3 (06:36→17:27)
[2019-11-17] MEDS: POTASSIUM CHLORIDE 20 MEQ in AMINO ACIDS 4.25%/D5W 1,000 ML IVPB SCH (10:24)
[2019-11-17] MEDS: FUROSEMIDE 40 MG/4 ML INJECTABLE VIAL IVPUSH SCH (10:24)
[2019-11-17] MEDS: ASPIRIN 300 MG SUPP.RECT RC SCH (10:24)
[2019-11-17] MEDS: INSULIN (LEVEMIR) 100 UNITS/ML UNITS SQ SCH (10:24)
[2019-11-17] MEDS: PANTOPRAZOLE SODIUM 40 MG VIAL IVPUSH SCH (10:25)
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
--- NOTE | 2019-11-17 11:24 | PN ---
Progress Note (short form) - Note Progress Note: PULMONARY Confused. No further fevers. Saturating well on nasal cannula. Vital Signs Period Temp Pulse Resp BP Sys/Shaw Pulse Ox Last 24 Hr 98.2 F-98.9 F 83-122 20- 116-153/54-89 80-98 Gen: NAD, confused Heart: RRR Lung: decreased breath sounds at the bases Abd: soft, nontender Ext: no edema CBC, BMP 11/15/19 05:40 11/17/19 05:10 Active Medications Aspirin (Asa -) 300 mg RC DAILY SARAH Last Admin: 11/17/19 10:24 Dose: 300 mg Documented by: Furosemide (Lasix Injection -) 40 mg IVPUSH DAILY SARAH Last Admin: 11/17/19 10:24 Dose: 40 mg Documented by: Haloperidol (Haldol Injection (Fast Acting) -) 2.5 mg IM Q4H PRN PRN Reason: ALLERGIES Last Admin: 11/17/19 02:03 Dose: 2.5 mg Documented by: Diltiazem HCl 125 mg/ Sodium (Chloride) 125 mls @ 5 mls/hr IVPB TITR SARAH; Protocol Last Titration: 11/16/19 04:39 Dose: 5 mg/hr, 5 mls/hr Documented by: Potassium Chloride 20 meq/ (Amino Acids) 1,010 mls @ 84 mls/hr IVPB Q12H SARAH Last Admin: 11/17/19 10:24 Dose: 84 mls/hr Documented by: Piperacillin Sod/Tazobactam (Sod 3.375 gm/ Dextrose) 50 mls @ 100 mls/hr IVPB TID [facility]; Protocol Last Admin: 11/17/19 06:05 Dose: 100 mls/hr Documented by: Insulin Aspart (Novolog Vial Sliding Scale -) 1 vial SQ TIDAC [facility]; Protocol Last Admin: 11/17/19 06:36 Dose: 6 units Documented by: Insulin Detemir (Levemir Vial) 10 units SQ BID SARAH Last Admin: 11/17/19 10:24 Dose: 10 units Documented by: Metoprolol Tartrate (Lopressor Injection -) 10 mg IVPUSH Q4H-IV SARAH Last Admin: 11/17/19 10:25 Dose: 10 mg Documented by: Morphine Sulfate (Morphine Sulfate) 2 mg IVPUSH Q2H PRN PRN Reason: Pain Level 6-10 or Tachypnea Last Admin: 11/17/19 03:11 Dose: 2 mg Documented by: Pantoprazole Sodium (Protonix Iv) 40 mg IVPUSH DAILY [facility] Last Admin: 11/17/19 10:25 Dose: 40 mg Documented by: Tamsulosin HCl (Flomax -) 0.8 mg PO DAILY@0830 [facility] Last Admin: 11/16/19 09:26 Dose: Not Given Documented by: A/P Pneumonia Sepsis Acute on Chronic Renal Failure improving CAD s/p CABG +Troponins likely Demand Ischemia Paroxysmal Atrial Fibrillation LV Diastolic Dysfunction HTN DM h/o GI Bleed h/o CVA - complete antibiotic course - aspiration precautions - on clinimix - rate control - O2 to keep Spo2 >90% - DVT prophylaxis - continue discussions regarding goals of care
[2019-11-17] MEDS: TAMSULOSIN HCL 0.4 MG CAP PO SCH (11:52)
--- NOTE | 2019-11-17 13:59 | PN ---
Progress Note, Physician History of Present Illness: stable still confused no fevers today - Current Medication List Current Medications: Active Medications Aspirin (Asa -) 300 mg RC DAILY [facility] Last Admin: 11/17/19 10:24 Dose: 300 mg Documented by: Furosemide (Lasix Injection -) 40 mg IVPUSH DAILY [facility] Last Admin: 11/17/19 10:24 Dose: 40 mg Documented by: Haloperidol (Haldol Injection (Fast Acting) -) 2.5 mg IM Q4H PRN PRN Reason: ALLERGIES Last Admin: 11/17/19 02:03 Dose: 2.5 mg Documented by: Diltiazem HCl 125 mg/ Sodium (Chloride) 125 mls @ 5 mls/hr IVPB TITR ON [facility]; Protocol Last Titration: 11/16/19 04:39 Dose: 5 mg/hr, 5 mls/hr Documented by: Potassium Chloride 20 meq/ (Amino Acids) 1,010 mls @ 84 mls/hr IVPB Q12H [facility] Last Admin: 11/17/19 10:24 Dose: 84 mls/hr Documented by: Piperacillin Sod/Tazobactam (Sod 3.375 gm/ Dextrose) 50 mls @ 100 mls/hr IVPB TID [facility]; Protocol Last Admin: 11/17/19 13:58 Dose: 100 mls/hr Documented by: Insulin Aspart (Novolog Vial Sliding Scale -) 1 vial SQ TIDAC [facility]; Protocol Last Admin: 11/17/19 11:59 Dose: 4 units Documented by: Insulin Detemir (Levemir Vial) 10 units SQ BID [facility] Last Admin: 11/17/19 10:24 Dose: 10 units Documented by: Metoprolol Tartrate (Lopressor Injection -) 10 mg IVPUSH Q4H-IV [facility] Last Admin: 11/17/19 10:25 Dose: 10 mg Documented by: Morphine Sulfate (Morphine Sulfate) 2 mg IVPUSH Q2H PRN PRN Reason: Pain Level 6-10 or Tachypnea Last Admin: 11/17/19 12:11 Dose: 2 mg Documented by: Pantoprazole Sodium (Protonix Iv) 40 mg IVPUSH DAILY [facility] Last Admin: 11/17/19 10:25 Dose: 40 mg Documented by: Tamsulosin HCl (Flomax -) 0.8 mg PO DAILY@0830 [facility] Last Admin: 11/17/19 11:52 Dose: Not Given Documented by: - Objective Vital Signs: Vital Signs Temperature 98.2 F 11/17/19 06:00 Pulse Rate 120 H 11/17/19 10:25 Respiratory Rate 22 H 11/17/19 06:00 Blood Pressure 131/66 11/17/19 10:25 O2 Sat by Pulse Oximetry (%) 96 11/17/19 06:00 Constitutional: Yes: No Distress, Calm Cardiovascular: Yes: S1, S2 Respiratory: Yes: Regular, CTA Bilaterally Gastrointestinal: Yes: Normal Bowel Sounds, Soft Musculoskeletal: Yes: WNL Extremities: Yes: WNL Neurological: Yes: Alert, Other Labs: CBC, BMP 11/15/19 05:40 11/17/19 05:10 INR, PTT INR 1.32 (0.83-1.09) H 11/07/19 19:36 Assessment/Plan Problem List - Problems (1) Dyspnea Code(s): R06.00 - DYSPNEA, UNSPECIFIED Qualifiers: Dyspnea type: unspecified Qualified Code(s): R06.00 - Dyspnea, unspecified (2) Afib Code(s): I48.91 - UNSPECIFIED ATRIAL FIBRILLATION Qualifiers: Atrial fibrillation type: unspecified chronic Qualified Code(s): I48.20 - Chronic atrial fibrillation, unspecified; I48.2 - Chronic atrial fibrillation (3) ANGELO (acute kidney injury) Code(s): N17.9 - ACUTE KIDNEY FAILURE, UNSPECIFIED (4) Anticoagulated by anticoagulation treatment Code(s): Z79.01 - CARE HOME (CURRENT) USE OF ANTICOAGULANTS (5) CHF (congestive heart failure) Code(s): I50.9 - HEART FAILURE, UNSPECIFIED (6) DNI (do not intubate) Code(s): Z78.9 - OTHER SPECIFIED HEALTH STATUS (7) DNR (do not resuscitate) Code(s): Z66 - DO NOT RESUSCITATE (8) Diabetes mellitus Code(s): E11.9 - TYPE 2 DIABETES MELLITUS WITHOUT COMPLICATIONS (9) Hypertension Code(s): I10 - ESSENTIAL (PRIMARY) HYPERTENSION (10) Peripheral neuropathy Code(s): G62.9 - POLYNEUROPATHY, UNSPECIFIED (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
--- NOTE | 2019-11-17 14:00 | PN ---
Progress Note (short form) - Note Progress Note: Chief Complaint: altered MS History of Present Illness: unable to obtain hx, ros due to altered mental status no cigs Current Medications Generic Name Dose Route Start Last Admin Trade Name Francisco PRN Reason Stop Dose Admin Aspirin 300 mg 11/14/19 14:45 11/17/19 10:24 Asa - RC 300 mg DAILY SARAH Administration Furosemide 40 mg 11/15/19 10:00 11/17/19 10:24 Lasix Injection - IVPUSH 40 mg DAILY SARAH Administration Haloperidol 2.5 mg 11/14/19 17:02 11/17/19 02:03 Haldol Injection (Fast Acting) - IM 2.5 mg Q4H PRN Administration ALLERGIES Diltiazem HCl 125 mg/ Sodium 125 mls @ 5 mls/hr 11/09/19 11:30 11/16/19 04:39 Chloride IVPB 5 mg/hr TITR SARAH 5 mls/hr Titration Protocol 5 MG/HR Potassium Chloride 20 meq/ 1,010 mls @ 84 mls/hr 11/13/19 18:15 11/17/19 10:24 Amino Acids IVPB 84 mls/hr Q12H SARAH Administration Piperacillin Sod/Tazobactam 50 mls @ 100 mls/hr 11/14/19 22:00 11/17/19 13:58 Sod 3.375 gm/ Dextrose IVPB 100 mls/hr TID SARAH Administration Protocol Insulin Aspart 1 vial 11/08/19 07:00 11/17/19 11:59 Novolog Vial Sliding Scale - SQ 4 units TIDAC [facility]AH Administration Protocol Insulin Detemir 10 units 11/16/19 10:00 11/17/19 10:24 Levemir Vial SQ 10 units BID SARAH Administration Metoprolol Tartrate 10 mg 11/14/19 14:00 11/17/19 10:25 Lopressor Injection - IVPUSH 10 mg Q4H-IV SARAH Administration Morphine Sulfate 2 mg 11/15/19 20:15 11/17/19 12:11 Morphine Sulfate IVPUSH 2 mg Q2H PRN Administration Pain Level 6-10 or Tachypnea Pantoprazole Sodium 40 mg 11/12/19 17:15 11/17/19 10:25 Protonix Iv IVPUSH 40 mg DAILY SARAH Administration Tamsulosin HCl 0.8 mg 11/08/19 08:30 11/17/19 11:52 Flomax - PO Not Given DAILY@0830 [facility] Vital Signs Period Temp Pulse Resp BP Sys/Shaw Pulse Ox Last 24 Hr 98.2 F-98.9 F 83-122 20- 116-153/54-89 80-98 Constitutional: Yes: Well Nourished, No Distress, Calm Eyes: No: Sclera Icterus HENT: No: Nasal Congestion Cardiovascular: Yes: Regular Rate and Rhythm, S1, S2. No: JVD Respiratory: Yes: Regular, CTA Bilaterally (not deep breaths). No: Accessory Muscle Use, Wheezes Gastrointestinal: Yes: Normal Bowel Sounds, Soft. 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 fever, lethargy, sepsis: -pna, likely aspiration -abx per primary/ID, cont supplemental 02 jayce on CKD: -improved with ivfs -baseline creat around 1.3 elevated trop: -borderline trop with flat trend, similar to prior baseline values, not c/w acs pafib: - pt not taking po meds (was on dilt 60 bid and toprol 50 qd at home)--rapid AF/AFL/AT here. - did not respond to diltiazem hi dose gtt, lopressor 5mg IVP. - cont lopressor 10 mg IV Q4H and wean dilt gtt as tolerated - tele monitoring - Pt had gastric avm cauterized 01/2019 and then had watchman device 03/2019. His AC has been stopped and he remains on asa 81 qd. cont same (suppository here) CAD s/p CABG: -stable, no signs acs -cont statin, bb, aspirin Chronic diastolic CHF, CKD (baseline creat 1.2-1.4): -CXR 11/12 with congestive changes (on top of diffuse opacification of R lung), + JVD. -renal fxn normalized -was on torsemide 50 qd at home--not taking PO here -cont lasix 40 IV qd for now, monitor clinically. renal fxn/lytes stable
--- NOTE | 2019-11-17 14:39 | PN ---
Progress Note, Physician History of Present Illness: Pt seen and examined at bedside. He is awake and appears comfortable. - Current Medication List Current Medications: Active Medications Aspirin (Asa -) 300 mg RC DAILY [facility] Last Admin: 11/17/19 10:24 Dose: 300 mg Documented by: Furosemide (Lasix Injection -) 40 mg IVPUSH DAILY [facility] Last Admin: 11/17/19 10:24 Dose: 40 mg Documented by: Haloperidol (Haldol Injection (Fast Acting) -) 2.5 mg IM Q4H PRN PRN Reason: ALLERGIES Last Admin: 11/17/19 02:03 Dose: 2.5 mg Documented by: Diltiazem HCl 125 mg/ Sodium (Chloride) 125 mls @ 5 mls/hr IVPB TITR [facility]; Protocol Last Titration: 11/16/19 04:39 Dose: 5 mg/hr, 5 mls/hr Documented by: Potassium Chloride 20 meq/ (Amino Acids) 1,010 mls @ 84 mls/hr IVPB Q12H [facility] Last Admin: 11/17/19 10:24 Dose: 84 mls/hr Documented by: Insulin Aspart (Novolog Vial Sliding Scale -) 1 vial SQ TIDAC [facility]; Protocol Last Admin: 11/17/19 11:59 Dose: 4 units Documented by: Insulin Detemir (Levemir Vial) 10 units SQ BID [facility] Last Admin: 11/17/19 10:24 Dose: 10 units Documented by: Metoprolol Tartrate (Lopressor Injection -) 10 mg IVPUSH Q4H-IV [facility] Last Admin: 11/17/19 10:25 Dose: 10 mg Documented by: Morphine Sulfate (Morphine Sulfate) 2 mg IVPUSH Q2H PRN PRN Reason: Pain Level 6-10 or Tachypnea Last Admin: 11/17/19 12:11 Dose: 2 mg Documented by: Pantoprazole Sodium (Protonix Iv) 40 mg IVPUSH DAILY [facility] Last Admin: 11/17/19 10:25 Dose: 40 mg Documented by: Tamsulosin HCl (Flomax -) 0.8 mg PO DAILY@0830 [facility] Last Admin: 11/17/19 11:52 Dose: Not Given Documented by: - Objective Vital Signs: Vital Signs Temperature 98.2 F 11/17/19 06:00 Pulse Rate 120 H 11/17/19 10:25 Respiratory Rate 22 H 11/17/19 06:00 Blood Pressure 131/66 11/17/19 10:25 O2 Sat by Pulse Oximetry (%) 96 11/17/19 06:00 Constitutional: Yes: Calm Eyes: Yes: Conjunctiva Clear HENT: Yes: Atraumatic Neck: Yes: Supple Cardiovascular: Yes: S1, S2 Respiratory: Yes: CTA Bilaterally Gastrointestinal: Yes: Soft Genitourinary: Yes: Incontinence Musculoskeletal: Yes: WNL Edema: No Neurological: Yes: Confusion Labs: CBC, BMP 11/15/19 05:40 11/17/19 05:10 INR, PTT INR 1.32 (0.83-1.09) H 11/07/19 19:36 Problem List - Problems (1) Dyspnea Code(s): R06.00 - DYSPNEA, UNSPECIFIED Qualifiers: Dyspnea type: unspecified Qualified Code(s): R06.00 - Dyspnea, unspecified (2) Weakness Code(s): R53.1 - WEAKNESS (3) Afib Code(s): I48.91 - UNSPECIFIED ATRIAL FIBRILLATION Qualifiers: Atrial fibrillation type: unspecified chronic Qualified Code(s): I48.20 - Chronic atrial fibrillation, unspecified; I48.2 - Chronic atrial fibrillation (4) ANGELO (acute kidney injury) Code(s): N17.9 - ACUTE KIDNEY FAILURE, UNSPECIFIED (5) CHF (congestive heart failure) Code(s): I50.9 - HEART FAILURE, UNSPECIFIED Assessment/Plan Current Medications Generic Name Dose Route Start Last Admin Trade Name Freq PRN Reason Stop Dose Admin Aspirin 300 mg 11/14/19 14:45 11/17/19 10:24 Asa - RC 300 mg DAILY [facility]AH Administration Furosemide 40 mg 11/15/19 10:00 11/17/19 10:24 Lasix Injection - IVPUSH 40 mg DAILY [facility] Administration Haloperidol 2.5 mg 11/14/19 17:02 11/17/19 02:03 Haldol Injection (Fast Acting) - IM 2.5 mg Q4H PRN Administration ALLERGIES Diltiazem HCl 125 mg/ Sodium 125 mls @ 5 mls/hr 11/09/19 11:30 11/16/19 04:39 Chloride IVPB 5 mg/hr TITR SARAH 5 mls/hr Titration Protocol 5 MG/HR Potassium Chloride 20 meq/ 1,010 mls @ 84 mls/hr 11/13/19 18:15 11/17/19 10:24 Amino Acids IVPB 84 mls/hr Q12H [facility]AH Administration Potassium Phosphate 20 mm/ 256.6667 mls @ 62.5 mls/hr 11/17/19 14:37 Dextrose IVPB 11/17/19 18:43 ONCE ONE Insulin Aspart 1 vial 11/08/19 07:00 11/17/19 11:59 Novolog Vial Sliding Scale - SQ 4 units TIDAC [facility] Administration Protocol Insulin Detemir 10 units 11/16/19 10:00 11/17/19 10:24 Levemir Vial SQ 10 units BID [facility]AH Administration Metoprolol Tartrate 10 mg 11/14/19 14:00 11/17/19 10:25 Lopressor Injection - IVPUSH 10 mg Q4H-IV [facility]AH Administration Morphine Sulfate 2 mg 11/15/19 20:15 11/17/19 12:11 Morphine Sulfate IVPUSH 2 mg Q2H PRN Administration Pain Level 6-10 or Tachypnea Pantoprazole Sodium 40 mg 11/12/19 17:15 11/17/19 10:25 Protonix Iv IVPUSH 40 mg DAILY SARAH Administration Tamsulosin HCl 0.8 mg 11/08/19 08:30 11/17/19 11:52 Flomax - PO Not Given DAILY@0830 [facility] Impression 1. ANGELO 2. CAD 3. a-fib 4. CVA 5. CKD 6. DM 7. anemia 8. 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
[2019-11-17] MEDS ORDERED: POTASSIUM PHOSPHATE 20 MM in DEXTROSE 5%-WATER - 250 ML IVPB ONE (15:30)
[2019-11-17] MEDS: DILTIAZEM INJECTION 125 MG in SODIUM CHLORIDE 100 ML IVPB SCH (17:26)
--- NOTE | 2019-11-17 17:35 | PN ---
DATE OF VISIT: DATE OF DICTATION: 11/16/2019 The patient is an 89-year-old male who is noted to be confused. Yesterday patient pulled out an inflated Rice catheter form urethra, catheter broke off, and the first half of the catheter remained in his bladder. A new catheter was placed. He does not appear to be in any distress. He is on multiple medications. His abdomen is soft. He does have history of pneumonia, dysphagia, leukocytosis, atrial fibrillation, diabetes, hypertension, history of a GI bleed as well as a CVA. The patient should undergo an elective cystoscopy and removal of the Rice catheter when he is medically stable, a bladder ultrasound performed after the incident revealed a Rice catheter in the urinary bladder. An additional segment of catheter was noted within the bladder. This warrants urgent removal due to the possibility of encrustation, stone formation, and recurrent urinary tract infections. ALFONSO ARREDONDO M.D. [id number]
[2019-11-18] MEDS: INSULIN (LEVEMIR) 100 UNITS/ML UNITS SQ SCH ×3 (00:01→21:12)
[2019-11-18] MEDS: ARTIFICIAL TEARS (POLYVINYL ALCOHOL) OPTH DROPS OU SCH ×4 (00:01→21:15)
[2019-11-18] MEDS: METOPROLOL TARTRATE 5 MG/5 ML VIAL IVPUSH SCH ×5 (00:04→14:24)
[2019-11-18] MEDS: POTASSIUM CHLORIDE 20 MEQ in AMINO ACIDS 4.25%/D5W 1,000 ML IVPB SCH ×3 (00:05→08:53)
[2019-11-18] MEDS: MORPHINE SULFATE 2 MG/ML VIAL IVPUSH PRN (00:05)
[2019-11-18] MEDS: INSULIN SLIDING SCALE (NOVOLOG) 1 VIAL SQ SCH ×4 (05:56→17:24)
[2019-11-18] MEDS: TAMSULOSIN HCL 0.4 MG CAP PO SCH (08:48)
[2019-11-18] MEDS: ASPIRIN 300 MG SUPP.RECT RC SCH (09:11)
[2019-11-18] MEDS: PANTOPRAZOLE SODIUM 40 MG VIAL IVPUSH SCH (09:23)
--- NOTE | 2019-11-18 10:13 | PN ---
Progress Note, BASEBALL SCOUT - Note Progress Note: Selected Entries 11/18/19 11/18/19 11/18/19 00:04 02:00 05:46 Temperature 98.1 F Pulse Rate 117 H 120 H 111 H Blood Pressure 138/80 143/80 148/83 O2 Sat by Pulse 96 Oximetry (%) Oxygen Delivery Method Oxygen Flow Rate 11/18/19 11/18/19 11/18/19 06:00 06:30 08:37 Temperature 98.3 F Pulse Rate 99 H Blood Pressure 141/96 O2 Sat by Pulse 96 96 100 Oximetry (%) Oxygen Delivery Nasal Cannula Method Oxygen Flow 2 Rate 11/18/19 11/18/19 09:19 09:45 Temperature 99 F Pulse Rate 90 98 H Blood Pressure 116/74 116/76 O2 Sat by Pulse 100 Oximetry (%) Oxygen Delivery Method Oxygen Flow Rate Diet order suggestions requested by PNP. Plan is for home hospice.Suction machine for home. Apiration/stasis on mbs. Has been kept npo with improved pulm function. for OR today Although high risk of aspiration, safest diet for Mr. Buck is thinned out puree (add soup,gravy to moisten,thin out slightly), and honey thick liquids on a tsp. Seat fully upright with chin to neutral or flexed, supported by a pillow. Feed only when sufficiently alert, if desired by pt for pleasure. Remind pt to swallow hard, twice, per bite. Avoid PO if SOB, lethargic.
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
[2019-11-18 11:23] LABS: BASO % 0.7 % (0-2.0); EOS % 2.6 % (0-4.5); HEMOGLOBIN 13.1 GM/dL (11.7-16.9); LYMPH % 14.7 % (8-40); MCH 36.5 pg (25.7-33.7); MCHC 33.7 g/dl (32.0-35.9); MEAN CELL VOLUME 108.4 fl (80-96); MEAN PLT VOLUME 8.2 fl (7.5-11.1); MONO % 5.9 % (3.8-10.2); NEUT % 76.1 % (42.8-82.8); PLATELET COUNT 254 K/MM3 (134-434); RBC 3.59 M/mm3 (4.00-5.60); RDW 13.6 % (11.9-15.9); WHITE BLOOD COUNT 12.5 K/mm3 (4.0-10.0)
[2019-11-18 11:47] LABS: ANISOCYTOSIS 2+; MACROCYTOSIS 2+; PLATELET ESTIMATE NORMAL
[2019-11-18 11:52] LABS: ALBUMIN 1.9 g/dl (3.4-5.0); BILIRUBIN,TOTAL 1.9 mg/dL (0.2-1); CALCIUM 8.7 mg/dL (8.5-10.1); POTASSIUM 3.5 mmol/L (3.5-5.1); TOT PROT 7.4 g/dl (6.4-8.2)
--- NOTE | 2019-11-18 12:25 | PN ---
Progress Note (short form) - Note Progress Note: PULMONARY Confused. Saturating well on nasal cannula. Vital Signs Period Temp Pulse Resp BP Sys/Shaw Pulse Ox Last 24 Hr 97.7 F-99 F 90-125 - 116-152/74-101 94-100 Gen: NAD, confused Heart: RRR Lung: decreased breath sounds at the bases Abd: soft, nontender Ext: no edema CBC, BMP 11/18/19 10:33 11/18/19 10:33 Active Medications Artificial Tears (Artificial Tears) 1 drop OU TID SARAH Last Admin: 11/18/19 05:50 Dose: 1 drop Documented by: Aspirin (Asa -) 300 mg RC DAILY SARAH Last Admin: 11/18/19 09:11 Dose: 300 mg Documented by: Haloperidol (Haldol Injection (Fast Acting) -) 2.5 mg IM Q4H PRN PRN Reason: ALLERGIES Last Admin: 11/17/19 02:03 Dose: 2.5 mg Documented by: Diltiazem HCl 125 mg/ Sodium (Chloride) 125 mls @ 5 mls/hr IVPB TITR [facility]; Protocol Last Admin: 11/17/19 17:26 Dose: 10 mg/hr, 10 mls/hr Documented by: Potassium Chloride 20 meq/ (Amino Acids) 1,010 mls @ 84 mls/hr IVPB Q12H [facility] Last Admin: 11/18/19 08:53 Dose: Not Given Documented by: Insulin Aspart (Novolog Vial Sliding Scale -) 1 vial SQ TIDAC [facility]; Protocol Last Admin: 11/18/19 11:55 Dose: 4 units Documented by: Insulin Detemir (Levemir Vial) 10 units SQ BID SARAH Last Admin: 11/18/19 09:12 Dose: 10 units Documented by: Metoprolol Tartrate (Lopressor Injection -) 10 mg IVPUSH Q4H-IV SARAH Last Admin: 11/18/19 09:19 Dose: 10 mg Documented by: Morphine Sulfate (Morphine Sulfate) 2 mg IVPUSH Q2H PRN PRN Reason: Pain Level 6-10 or Tachypnea Last Admin: 11/18/19 00:05 Dose: 2 mg Documented by: Pantoprazole Sodium (Protonix Iv) 40 mg IVPUSH DAILY [facility] Last Admin: 11/18/19 09:23 Dose: 40 mg Documented by: Tamsulosin HCl (Flomax -) 0.8 mg PO DAILY@0830 [facility] Last Admin: 11/18/19 08:48 Dose: Not Given Documented by: A/P Pneumonia Sepsis Acute on Chronic Renal Failure improving CAD s/p CABG +Troponins likely Demand Ischemia Paroxysmal Atrial Fibrillation LV Diastolic Dysfunction HTN DM h/o GI Bleed h/o CVA - completed antibiotic course - aspiration precautions - on clinimix - rate control - O2 to keep Spo2 >90% - DVT prophylaxis - continue discussions regarding goals of care
[2019-11-18] MEDS: DILTIAZEM INJECTION 125 MG in SODIUM CHLORIDE 100 ML IVPB SCH (12:30)
--- NOTE | 2019-11-18 12:57 | PN ---
Progress Note (short form) - Note Progress Note: Chief Complaint: altered MS History of Present Illness: unable to obtain hx, ros due to altered mental status no cigs Current Medications Generic Name Dose Route Start Last Admin Trade Name Freq PRN Reason Stop Dose Admin Artificial Tears 1 drop 11/17/19 22:00 11/18/19 05:50 Artificial Tears OU 1 drop TID SARAH Administration Aspirin 300 mg 11/14/19 14:45 11/18/19 09:11 Asa - RC 300 mg DAILY SARAH Administration Diltiazem HCl 60 mg 11/18/19 18:00 Cardizem - PO Q6HPO SARAH Haloperidol 2.5 mg 11/14/19 17:02 11/17/19 02:03 Haldol Injection (Fast Acting) - IM 2.5 mg Q4H PRN Administration ALLERGIES Diltiazem HCl 125 mg/ Sodium 125 mls @ 5 mls/hr 11/09/19 11:30 11/18/19 12:30 Chloride IVPB 11/18/19 18:00 10 mg/hr TITR SARAH 10 mls/hr Administration Protocol 5 MG/HR Potassium Chloride 20 meq/ 1,010 mls @ 84 mls/hr 11/13/19 18:15 11/18/19 08:53 Amino Acids IVPB Not Given Q12H SARAH Insulin Aspart 1 vial 11/08/19 07:00 11/18/19 11:55 Novolog Vial Sliding Scale - SQ 4 units TIDAC SARAH Administration Protocol Insulin Detemir 10 units 11/16/19 10:00 11/18/19 09:12 Levemir Vial SQ 10 units BID SARAH Administration Metoprolol Tartrate 10 mg 11/14/19 14:00 11/18/19 09:19 Lopressor Injection - IVPUSH 11/18/19 18:00 10 mg Q4H-IV SARAH Administration Metoprolol Tartrate 25 mg 11/18/19 22:00 Lopressor - PO BID SARAH Morphine Sulfate 2 mg 11/15/19 20:15 11/18/19 00:05 Morphine Sulfate IVPUSH 2 mg Q2H PRN Administration Pain Level 6-10 or Tachypnea Pantoprazole Sodium 40 mg 11/12/19 17:15 11/18/19 09:23 Protonix Iv IVPUSH 40 mg DAILY SARAH Administration Tamsulosin HCl 0.8 mg 11/08/19 08:30 11/18/19 08:48 Flomax - PO Not Given DAILY@0830 [facility] Vital Signs Period Temp Pulse Resp BP Sys/Shaw Pulse Ox Last 24 Hr 97.7 F-99 F 90-125 17-26 116-152/74-101 94-100 Constitutional: Yes: Well Nourished, No Distress, Calm Eyes: No: Sclera Icterus HENT: No: Nasal Congestion Cardiovascular: Yes: Regular Rate and Rhythm, S1, S2. No: JVD Respiratory: Yes: Regular, CTA Bilaterally (not deep breaths). No: Accessory Muscle Use, Wheezes Gastrointestinal: Yes: Normal Bowel Sounds, Soft. 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 fever, lethargy, sepsis: -pna, likely aspiration -abx per primary/ID, cont supplemental 02 jayce on CKD: -improved with ivfs -baseline creat around 1.3 elevated trop: -borderline trop with flat trend, similar to prior baseline values, not c/w acs pafib: - pt not taking po meds (was on dilt 60 bid and toprol 50 qd at home)--rapid AF/AFL/AT here. - did not respond to diltiazem hi dose gtt, lopressor 5mg IVP. 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 His AC has been stopped and he remains on asa 81 qd. cont same (suppository here) - discussed case with primary, RN - plan for hospice care. continuing IV meds until after cystoscopy today, then will transition to PO medications and dc tele. Will dc dilt gtt and lopressor IV with plan to start diltiazem 60 mg PO Q6H and metoprolol tartrate 25 mg PO BID after procedure CAD s/p CABG: -stable, no signs acs -cont statin, bb, aspirin Chronic diastolic CHF, CKD (baseline creat 1.2-1.4): -CXR 11/12 with congestive changes (on top of diffuse opacification of R lung), + JVD. -renal fxn normalized -was on torsemide 50 qd at home--not taking PO here -was on IV lasix, dc'ed
[2019-11-18] MEDS ORDERED: ceFAZolin 2 GRAM PREMIX BAG IVPB ONE (13:00)
--- NOTE | 2019-11-18 13:31 | PN ---
Progress Note, Physician History of Present Illness: Pt seen and examined at bedside. he is agitated. - Current Medication List Current Medications: Active Medications Artificial Tears (Artificial Tears) 1 drop OU TID [facility] Last Admin: 11/18/19 05:50 Dose: 1 drop Documented by: Aspirin (Asa -) 300 mg RC DAILY [facility] Last Admin: 11/18/19 09:11 Dose: 300 mg Documented by: Diltiazem HCl (Cardizem -) 60 mg PO Q6HPO [facility] Haloperidol (Haldol Injection (Fast Acting) -) 2.5 mg IM Q4H PRN PRN Reason: ALLERGIES Last Admin: 11/17/19 02:03 Dose: 2.5 mg Documented by: Diltiazem HCl 125 mg/ Sodium (Chloride) 125 mls @ 5 mls/hr IVPB TITR [facility]; Protocol Stop: 11/18/19 18:00 Last Admin: 11/18/19 12:30 Dose: 10 mg/hr, 10 mls/hr Documented by: Potassium Chloride 20 meq/ (Amino Acids) 1,010 mls @ 84 mls/hr IVPB Q12H [facility] Last Admin: 11/18/19 08:53 Dose: Not Given Documented by: Insulin Aspart (Novolog Vial Sliding Scale -) 1 vial SQ TIDAC [facility]; Protocol Last Admin: 11/18/19 11:55 Dose: 4 units Documented by: Insulin Detemir (Levemir Vial) 10 units SQ BID [facility] Last Admin: 11/18/19 09:12 Dose: 10 units Documented by: Metoprolol Tartrate (Lopressor Injection -) 10 mg IVPUSH Q4H-IV [facility] Stop: 11/18/19 18:00 Last Admin: 11/18/19 09:19 Dose: 10 mg Documented by: Metoprolol Tartrate (Lopressor -) 25 mg PO BID [facility] Morphine Sulfate (Morphine Sulfate) 2 mg IVPUSH Q2H PRN PRN Reason: Pain Level 6-10 or Tachypnea Last Admin: 11/18/19 00:05 Dose: 2 mg Documented by: Pantoprazole Sodium (Protonix Iv) 40 mg IVPUSH DAILY [facility] Last Admin: 11/18/19 09:23 Dose: 40 mg Documented by: Tamsulosin HCl (Flomax -) 0.8 mg PO DAILY@0830 [facility] Last Admin: 11/18/19 08:48 Dose: Not Given Documented by: - Objective Vital Signs: Vital Signs Temperature 99 F 11/18/19 09:45 Pulse Rate 110 H 11/18/19 12:30 Respiratory Rate 20 11/18/19 09:45 Blood Pressure 124/76 11/18/19 12:30 O2 Sat by Pulse Oximetry (%) 100 11/18/19 09:45 Constitutional: Yes: Anxious Eyes: Yes: Conjunctiva Clear HENT: Yes: Atraumatic Cardiovascular: Yes: S1, S2 Respiratory: Yes: CTA Bilaterally Gastrointestinal: Yes: Soft Genitourinary: Yes: Incontinence Musculoskeletal: Yes: Muscle Weakness Edema: No Neurological: Yes: Confusion Psychiatric: Yes: Agitated Labs: CBC, BMP 11/18/19 10:33 11/18/19 10:33 INR, PTT INR 1.32 (0.83-1.09) H 11/07/19 19:36 Problem List - Problems (1) Dyspnea Code(s): R06.00 - DYSPNEA, UNSPECIFIED Qualifiers: Dyspnea type: unspecified Qualified Code(s): R06.00 - Dyspnea, unspecified (2) Weakness Code(s): R53.1 - WEAKNESS (3) Afib Code(s): I48.91 - UNSPECIFIED ATRIAL FIBRILLATION Qualifiers: Atrial fibrillation type: unspecified chronic Qualified Code(s): I48.20 - Chronic atrial fibrillation, unspecified; I48.2 - Chronic atrial fibrillation (4) ANGELO (acute kidney injury) Code(s): N17.9 - ACUTE KIDNEY FAILURE, UNSPECIFIED (5) CHF (congestive heart failure) Code(s): I50.9 - HEART FAILURE, UNSPECIFIED Assessment/Plan Current Medications Generic Name Dose Route Start Last Admin Trade Name Freq PRN Reason Stop Dose Admin Artificial Tears 1 drop 11/17/19 22:00 11/18/19 05:50 Artificial Tears OU 1 drop TID SARAH Administration Aspirin 300 mg 11/14/19 14:45 11/18/19 09:11 Asa - RC 300 mg DAILY SARAH Administration Diltiazem HCl 60 mg 11/18/19 18:00 Cardizem - PO Q6HPO SARAH Haloperidol 2.5 mg 11/14/19 17:02 11/17/19 02:03 Haldol Injection (Fast Acting) - IM 2.5 mg Q4H PRN Administration ALLERGIES Diltiazem HCl 125 mg/ Sodium 125 mls @ 5 mls/hr 11/09/19 11:30 11/18/19 12:30 Chloride IVPB 11/18/19 18:00 10 mg/hr TITR SARAH 10 mls/hr Administration Protocol 5 MG/HR Potassium Chloride 20 meq/ 1,010 mls @ 84 mls/hr 11/13/19 18:15 11/18/19 08:53 Amino Acids IVPB Not Given Q12H [facility] Insulin Aspart 1 vial 11/08/19 07:00 11/18/19 11:55 Novolog Vial Sliding Scale - SQ 4 units TIDAC SARAH Administration Protocol Insulin Detemir 10 units 11/16/19 10:00 11/18/19 09:12 Levemir Vial SQ 10 units BID SARAH Administration Metoprolol Tartrate 10 mg 11/14/19 14:00 11/18/19 09:19 Lopressor Injection - IVPUSH 11/18/19 18:00 10 mg Q4H-IV SARAH Administration Metoprolol Tartrate 25 mg 11/18/19 22:00 Lopressor - PO BID [facility] Morphine Sulfate 2 mg 11/15/19 20:15 11/18/19 00:05 Morphine Sulfate IVPUSH 2 mg Q2H PRN Administration Pain Level 6-10 or Tachypnea Pantoprazole Sodium 40 mg 11/12/19 17:15 11/18/19 09:23 Protonix Iv IVPUSH 40 mg DAILY SARAH Administration Tamsulosin HCl 0.8 mg 11/08/19 08:30 11/18/19 08:48 Flomax - PO Not Given DAILY@0830 [facility] Impression 1. ANGELO 2. CAD 3. a-fib 4. CVA 5. CKD 6. DM 7. anemia 8. GI bleeding Plan - cont clinimix while npo - will need to clarify GOC - repeat labs in am - rate control - lasix as needed
--- NOTE | 2019-11-18 14:15 | PN ---
Progress Note, Physician History of Present Illness: patient going for cystoscopy family planning for home hospice continues to be confused - Current Medication List Current Medications: Active Medications Artificial Tears (Artificial Tears) 1 drop OU TID [facility] Last Admin: 11/18/19 05:50 Dose: 1 drop Documented by: Aspirin (Asa -) 300 mg RC DAILY [facility] Last Admin: 11/18/19 09:11 Dose: 300 mg Documented by: Diltiazem HCl (Cardizem -) 60 mg PO Q6HPO [facility] Haloperidol (Haldol Injection (Fast Acting) -) 2.5 mg IM Q4H PRN PRN Reason: ALLERGIES Last Admin: 11/17/19 02:03 Dose: 2.5 mg Documented by: Diltiazem HCl 125 mg/ Sodium (Chloride) 125 mls @ 5 mls/hr IVPB TITR [facility]; Protocol Stop: 11/18/19 18:00 Last Admin: 11/18/19 12:30 Dose: 10 mg/hr, 10 mls/hr Documented by: Potassium Chloride 20 meq/ (Amino Acids) 1,010 mls @ 84 mls/hr IVPB Q12H [facility] Last Admin: 11/18/19 08:53 Dose: Not Given Documented by: Insulin Aspart (Novolog Vial Sliding Scale -) 1 vial SQ TIDAC [facility]; Protocol Last Admin: 11/18/19 11:55 Dose: 4 units Documented by: Insulin Detemir (Levemir Vial) 10 units SQ BID [facility] Last Admin: 11/18/19 09:12 Dose: 10 units Documented by: Metoprolol Tartrate (Lopressor Injection -) 10 mg IVPUSH Q4H-IV [facility] Stop: 11/18/19 18:00 Last Admin: 11/18/19 09:19 Dose: 10 mg Documented by: Metoprolol Tartrate (Lopressor -) 25 mg PO BID [facility] Morphine Sulfate (Morphine Sulfate) 2 mg IVPUSH Q2H PRN PRN Reason: Pain Level 6-10 or Tachypnea Last Admin: 11/18/19 00:05 Dose: 2 mg Documented by: Pantoprazole Sodium (Protonix Iv) 40 mg IVPUSH DAILY [facility] Last Admin: 11/18/19 09:23 Dose: 40 mg Documented by: Tamsulosin HCl (Flomax -) 0.8 mg PO DAILY@0830 [facility] Last Admin: 11/18/19 08:48 Dose: Not Given Documented by: - Objective Vital Signs: Vital Signs Temperature 99 F 11/18/19 09:45 Pulse Rate 110 H 11/18/19 12:30 Respiratory Rate 20 11/18/19 09:45 Blood Pressure 124/76 11/18/19 12:30 O2 Sat by Pulse Oximetry (%) 100 11/18/19 09:45 Constitutional: Yes: Calm Cardiovascular: Yes: S1, S2 Respiratory: Yes: Regular, CTA Bilaterally Musculoskeletal: Yes: Other Neurological: Yes: Alert, Confusion Labs: CBC, BMP 11/18/19 10:33 11/18/19 10:33 INR, PTT INR 1.32 (0.83-1.09) H 11/07/19 19:36 Assessment/Plan Problem List - Problems (1) Dyspnea Code(s): R06.00 - DYSPNEA, UNSPECIFIED Qualifiers: Dyspnea type: unspecified Qualified Code(s): R06.00 - Dyspnea, unspecified (2) Afib Code(s): I48.91 - UNSPECIFIED ATRIAL FIBRILLATION Qualifiers: Atrial fibrillation type: unspecified chronic Qualified Code(s): I48.20 - Chronic atrial fibrillation, unspecified; I48.2 - Chronic atrial fibrillation (3) ANGELO (acute kidney injury) Code(s): N17.9 - ACUTE KIDNEY FAILURE, UNSPECIFIED (4) Anticoagulated by anticoagulation treatment Code(s): Z79.01 - HOT BLASTER (CURRENT) USE OF ANTICOAGULANTS (5) CHF (congestive heart failure) Code(s): I50.9 - HEART FAILURE, UNSPECIFIED (6) DNI (do not intubate) Code(s): Z78.9 - OTHER SPECIFIED HEALTH STATUS (7) DNR (do not resuscitate) Code(s): Z66 - DO NOT RESUSCITATE (8) Diabetes mellitus Code(s): E11.9 - TYPE 2 DIABETES MELLITUS WITHOUT COMPLICATIONS (9) Hypertension Code(s): I10 - ESSENTIAL (PRIMARY) HYPERTENSION (10) Peripheral neuropathy Code(s): G62.9 - POLYNEUROPATHY, UNSPECIFIED (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
[2019-11-18] MEDS ORDERED: PROPOFOL 20 ML ONE (14:23)
[2019-11-18 14:55] VITALS: BMI 27.0
[2019-11-18] MEDS ORDERED: ceFAZolin SODIUM 1 GM VIAL ONE ×2 (15:00)
--- NOTE | 2019-11-18 15:17 | OP ---
Operative Note - Note: Operative Date: 11/18/19 Pre-Operative Diagnosis: part of mayers retained in bladder Operation: cysto,oiu, removal of retained mayers Findings: deep urethral stricture, proximal part of mayers catheter in bladder Post-Operative Diagnosis: Same as Pre-op Surgeon: Michelle Walker Anesthesia: General Specimens Removed: 1/2 of mayers catheter Estimated Blood Loss (mls): 0 Drains & Tubes with Location: 22f 75cc mayers Drains, Volume Out (mls): 0 Blood Volume Replaced (mls): 0 Fluid Volume Replaced (mls): 0 Operative Report Dictated: Yes
[2019-11-18] MEDS: dilTIAZem HCL 60 MG TABLET PO SCH (17:25)
[2019-11-18] MEDS ORDERED: morphine SULFATE 10 MG/5 ML UNIT-DOSE CUP PO PRN (17:53)
[2019-11-18] MEDS: METOPROLOL TARTRATE 25 MG TABLET (FP) PO SCH (21:15)
[2019-11-19] MEDS: dilTIAZem HCL 60 MG TABLET PO SCH ×4 (01:02→18:03)
[2019-11-19] MEDS: ARTIFICIAL TEARS (POLYVINYL ALCOHOL) OPTH DROPS OU SCH ×3 (06:10→21:34)
[2019-11-19] MEDS: INSULIN SLIDING SCALE (NOVOLOG) 1 VIAL SQ SCH ×3 (06:11→16:58)
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
[2019-11-19] MEDS: METOPROLOL TARTRATE 25 MG TABLET (FP) PO SCH ×2 (10:00→21:34)
[2019-11-19] MEDS: INSULIN (LEVEMIR) 100 UNITS/ML UNITS SQ SCH ×2 (10:01→21:33)
--- NOTE | 2019-11-19 10:54 | PN ---
Progress Note, BUDGET TECHNICIAN - Note Progress Note: Selected Entries 11/19/19 11/19/19 07:30 09:35 Breakfast 50% Temperature 97.7 F Pulse Rate 118 H Blood Pressure 141/81 Laboratory Tests 11/18/19 10:33 WBC 12.5 H Selected Entries 11/19/19 11/19/19 09:35 12:41 Breakfast 50% Lunch 50% Puree/honey ordered Per nursing 11/17-Patient given small amount of pudding, instructed by RN to bend head and swallow hard. Patient tolerated several spoonfuls. No coughing noted. Coughing noted drinking from straw. Reviewed with nursing today recommendation. Discard straws, honey thick on tsp only Safest diet for Mr. Buck is thinned out puree (add soup,gravy to moisten,thin out slightly), and honey thick liquids on a tsp. Seat fully upright with chin to neutral or flexed, supported by a pillow. Feed only when sufficiently alert, if desired by pt for pleasure. Remind pt to swallow hard, twice, per bite. Avoid PO if SOB, lethargic.
[2019-11-19] MEDS: ASPIRIN 300 MG SUPP.RECT RC SCH (10:57)
--- NOTE | 2019-11-19 11:43 | PN ---
Progress Note, Physician History of Present Illness: stable comfortable plan for home care - Current Medication List Current Medications: Active Medications Artificial Tears (Artificial Tears) 1 drop OU TID COUNT INCLUDES [facility] Last Admin: 11/19/19 06:10 Dose: 1 drop Documented by: Aspirin (Asa -) 300 mg RC DAILY COUNT INCLUDES [facility] Last Admin: 11/19/19 10:57 Dose: 300 mg Documented by: Diltiazem HCl (Cardizem -) 60 mg PO Q6HPO COUNT INCLUDES [facility] Last Admin: 11/19/19 06:11 Dose: 60 mg Documented by: Haloperidol (Haldol Injection (Fast Acting) -) 2.5 mg IM Q4H PRN PRN Reason: ALLERGIES Last Admin: 11/17/19 02:03 Dose: 2.5 mg Documented by: Insulin Aspart (Novolog Vial Sliding Scale -) 1 vial SQ TIDAC COUNT INCLUDES [facility]; Protocol Last Admin: 11/19/19 10:56 Dose: 6 units Documented by: Insulin Detemir (Levemir Vial) 10 units SQ BID COUNT [facility]CLUDES [facility] Last Admin: 11/19/19 10:01 Dose: 10 units Documented by: Metoprolol Tartrate (Lopressor -) 25 mg PO BID COUNT INCLUDES [facility] Last Admin: 11/19/19 10:00 Dose: 25 mg Documented by: Morphine Sulfate (Morphine 10 Mg/5 Ml Liquid) 5 mg PO Q4H PRN PRN Reason: PAIN LEVEL 7 - 10 - Objective Vital Signs: Vital Signs Temperature 97.7 F 11/19/19 07:30 Pulse Rate 118 H 11/19/19 07:30 Respiratory Rate 18 11/19/19 07:30 Blood Pressure 141/81 11/19/19 07:30 O2 Sat by Pulse Oximetry (%) 95 11/19/19 07:30 Constitutional: Yes: No Distress, Calm Cardiovascular: Yes: S1, S2 Respiratory: Yes: Regular, CTA Bilaterally Gastrointestinal: Yes: Normal Bowel Sounds, Soft Genitourinary: Yes: Rice Present, Other Musculoskeletal: Yes: WNL Extremities: Yes: WNL Neurological: Yes: Alert, Confusion Psychiatric: Yes: Other Labs: CBC, BMP 11/18/19 10:33 11/18/19 10:33 INR, PTT INR 1.32 (0.83-1.09) H 11/07/19 19:36 Assessment/Plan Problem List - Problems (1) Dyspnea Code(s): R06.00 - DYSPNEA, UNSPECIFIED Qualifiers: Dyspnea type: unspecified Qualified Code(s): R06.00 - Dyspnea, unspecified (2) Afib Code(s): I48.91 - UNSPECIFIED ATRIAL FIBRILLATION Qualifiers: Atrial fibrillation type: unspecified chronic Qualified Code(s): I48.20 - Chronic atrial fibrillation, unspecified; I48.2 - Chronic atrial fibrillation (3) ANGELO (acute kidney injury) Code(s): N17.9 - ACUTE KIDNEY FAILURE, UNSPECIFIED (4) Anticoagulated by anticoagulation treatment Code(s): Z79.01 - INSPECTOR [employer]PA[employer] SANDSTONE (CURRENT) USE OF ANTICOAGULANTS (5) CHF (congestive heart failure) Code(s): I50.9 - HEART FAILURE, UNSPECIFIED (6) DNI (do not intubate) Code(s): Z78.9 - OTHER SPECIFIED HEALTH STATUS (7) DNR (do not resuscitate) Code(s): Z66 - DO NOT RESUSCITATE (8) Diabetes mellitus Code(s): E11.9 - TYPE 2 DIABETES MELLITUS WITHOUT COMPLICATIONS (9) Hypertension Code(s): I10 - ESSENTIAL (PRIMARY) HYPERTENSION (10) Peripheral neuropathy Code(s): G62.9 - POLYNEUROPATHY, UNSPECIFIED (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
--- NOTE | 2019-11-19 11:57 | PN ---
Progress Note (short form) - Note Progress Note: PULMONARY Confused. Saturating well on nasal cannula. No fevers recorded. Vital Signs Period Temp Pulse Resp BP Sys/Shaw Pulse Ox Last 24 Hr 97.7 F-99 F 89-118 18-20 124-141/76-82 95-98 Gen: NAD, confused Heart: RRR Lung: decreased breath sounds at the bases Abd: soft, nontender Ext: no edema CBC, BMP 11/18/19 10:33 11/18/19 10:33 Active Medications Artificial Tears (Artificial Tears) 1 drop OU TID [facility] Last Admin: 11/19/19 06:10 Dose: 1 drop Documented by: Aspirin (Asa -) 300 mg RC DAILY [facility] Last Admin: 11/19/19 10:57 Dose: 300 mg Documented by: Diltiazem HCl (Cardizem -) 60 mg PO Q6HPO [facility] Last Admin: 11/19/19 06:11 Dose: 60 mg Documented by: Haloperidol (Haldol Injection (Fast Acting) -) 2.5 mg IM Q4H PRN PRN Reason: ALLERGIES Last Admin: 11/17/19 02:03 Dose: 2.5 mg Documented by: Insulin Aspart (Novolog Vial Sliding Scale -) 1 vial SQ TIDAC [facility]; Protocol Last Admin: 11/19/19 10:56 Dose: 6 units Documented by: Insulin Detemir (Levemir Vial) 10 units SQ BID [facility] Last Admin: 11/19/19 10:01 Dose: 10 units Documented by: Metoprolol Tartrate (Lopressor -) 25 mg PO BID [facility] Last Admin: 11/19/19 10:00 Dose: 25 mg Documented by: Morphine Sulfate (Morphine 10 Mg/5 Ml Liquid) 5 mg PO Q4H PRN PRN Reason: PAIN LEVEL 7 - 10 A/P Pneumonia Sepsis Acute on Chronic Renal Failure improving CAD s/p CABG +Troponins likely Demand Ischemia Paroxysmal Atrial Fibrillation LV Diastolic Dysfunction HTN DM h/o GI Bleed h/o CVA - completed antibiotic course - aspiration precautions - rate control - O2 to keep Spo2 >90% - DVT prophylaxis - continue discussions regarding goals of care
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
[2019-11-19] MEDS: ASPIRIN 81 MG CHEWABLE TABLETS PO SCH (14:39)
--- NOTE | 2019-11-19 15:52 | PN ---
Progress Note, Physician History of Present Illness: Pt seen and examined. He is awake and appears comfortable. - Current Medication List Current Medications: Active Medications Artificial Tears (Artificial Tears) 1 drop OU TID [facility] Last Admin: 11/19/19 14:39 Dose: 1 drop Documented by: Aspirin (Asa -) 81 mg PO DAILY [facility] Last Admin: 11/19/19 14:39 Dose: Not Given Documented by: Diltiazem HCl (Cardizem -) 60 mg PO Q6HPO [facility] Last Admin: 11/19/19 12:30 Dose: 60 mg Documented by: Haloperidol (Haldol Injection (Fast Acting) -) 2.5 mg IM Q4H PRN PRN Reason: ALLERGIES Last Admin: 11/17/19 02:03 Dose: 2.5 mg Documented by: Insulin Aspart (Novolog Vial Sliding Scale -) 1 vial SQ TIDAC [facility]; Protocol Last Admin: 11/19/19 10:56 Dose: 6 units Documented by: Insulin Detemir (Levemir Vial) 10 units SQ BID [facility] Last Admin: 11/19/19 10:01 Dose: 10 units Documented by: Metoprolol Tartrate (Lopressor -) 25 mg PO BID [facility] Last Admin: 11/19/19 10:00 Dose: 25 mg Documented by: Morphine Sulfate (Morphine 10 Mg/5 Ml Liquid) 5 mg PO Q4H PRN PRN Reason: PAIN LEVEL 7 - 10 - Objective Vital Signs: Vital Signs Temperature 97.6 F 11/19/19 10:00 Pulse Rate 96 H 11/19/19 10:00 Respiratory Rate 15 11/19/19 10:00 Blood Pressure 152/90 11/19/19 10:00 O2 Sat by Pulse Oximetry (%) 96 11/19/19 10:00 Constitutional: Yes: Calm Eyes: Yes: Conjunctiva Clear HENT: Yes: Atraumatic Cardiovascular: Yes: S1, S2 Gastrointestinal: Yes: Soft Genitourinary: Yes: Mayers Present Musculoskeletal: Yes: Muscle Weakness Edema: No Neurological: Yes: Confusion Psychiatric: Yes: Oriented Labs: CBC, BMP 11/18/19 10:33 11/18/19 10:33 INR, PTT INR 1.32 (0.83-1.09) H 11/07/19 19:36 Problem List - Problems (1) Dyspnea Code(s): R06.00 - DYSPNEA, UNSPECIFIED Qualifiers: Dyspnea type: unspecified Qualified Code(s): R06.00 - Dyspnea, unspecified (2) Weakness Code(s): R53.1 - WEAKNESS (3) Afib Code(s): I48.91 - UNSPECIFIED ATRIAL FIBRILLATION Qualifiers: Atrial fibrillation type: unspecified chronic Qualified Code(s): I48.20 - Chronic atrial fibrillation, unspecified; I48.2 - Chronic atrial fibrillation (4) ANGELO (acute kidney injury) Code(s): N17.9 - ACUTE KIDNEY FAILURE, UNSPECIFIED (5) CHF (congestive heart failure) Code(s): I50.9 - HEART FAILURE, UNSPECIFIED Assessment/Plan Current Medications Generic Name Dose Route Start Last Admin Trade Name Freq PRN Reason Stop Dose Admin Artificial Tears 1 drop 11/17/19 22:00 11/19/19 14:39 Artificial Tears OU 1 drop TID SARAH Administration Aspirin 81 mg 11/19/19 13:00 11/19/19 14:39 Asa - PO Not Given DAILY SARAH Diltiazem HCl 60 mg 11/18/19 18:00 11/19/19 12:30 Cardizem - PO 60 mg Q6HPO SARAH Administration Haloperidol 2.5 mg 11/14/19 17:02 11/17/19 02:03 Haldol Injection (Fast Acting) - IM 2.5 mg Q4H PRN Administration ALLERGIES Insulin Aspart 1 vial 11/08/19 07:00 11/19/19 10:56 Novolog Vial Sliding Scale - SQ 6 units TIDAC SARAH Administration Protocol Insulin Detemir 10 units 11/16/19 10:00 11/19/19 10:01 Levemir Vial SQ 10 units BID SARAH Administration Metoprolol Tartrate 25 mg 11/18/19 22:00 11/19/19 10:00 Lopressor - PO 25 mg BID SARAH Administration Morphine Sulfate 5 mg 11/18/19 17:53 Morphine 10 Mg/5 Ml Liquid PO Q4H PRN PAIN LEVEL 7 - 10 Impression 1. ANGELO 2. CAD 3. a-fib 4. CVA 5. CKD 6. DM 7. anemia 8. GI bleeding Plan - pt will be going home with mayers - no new labs - cont care per primary team - lasix as needed - plan is for hospice care
--- NOTE | 2019-11-19 19:58 | OP ---
DATE OF OPERATION: 11/18/2019 PREOPERATIVE DIAGNOSIS: Hematuria. Recurrent urinary retention. Accidental tugging of Rice catheter with retained proximal Rice. 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 OPERATIVE PROCEDURE: Cystourethroscopy, optical internal urethrotomy, removal of proximal Rice catheter and insertion of new Rice. ANESTHESIA: General. DESCRIPTION OF PROCEDURE: Under above stated anesthesia, patient was prepped and draped in the usual sterile manner. He was placed in the dorsal lithotomy position. Cystoscopy revealed a normal anterior urethra. Bulbous urethra revealed a diaphragm-tied stricture. The urethrotome was inserted, and this was excised at 12 o'clock position. corpus spongiosum. No extravasation or bleeding was noted. The scope was then introduced into the bladder. The bladder revealed a grade 2 trabeculation. 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 The proximal part of the Rice catheter with a deflated balloon was found in the bladder. This was grasped with a grasper and brought out atraumatically. Again, no active bleeding was noted. Therefore, a 22-Albanian Rice was inserted and the 30-mL balloon was inflated to 75 mL. This was attached to the drainage bag. The patient tolerated the procedure well. He returned to the recovery room in good condition. Angie [id number]
[2019-11-20] MEDS: dilTIAZem HCL 60 MG TABLET PO SCH ×3 (01:33→12:17)
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
[2019-11-20] MEDS: INSULIN SLIDING SCALE (NOVOLOG) 1 VIAL SQ SCH ×2 (07:07→12:17)
[2019-11-20] MEDS: ARTIFICIAL TEARS (POLYVINYL ALCOHOL) OPTH DROPS OU SCH (07:07)
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
[2019-11-20] MEDS: INSULIN (LEVEMIR) 100 UNITS/ML UNITS SQ SCH (09:29)
[2019-11-20] MEDS: METOPROLOL TARTRATE 25 MG TABLET (FP) PO SCH (09:29)
[2019-11-20] MEDS: ASPIRIN 81 MG CHEWABLE TABLETS PO SCH (09:30)
[2019-11-20 12:13] VITALS: BP 146/74; PULSE 84; TEMP 98
--- NOTE | 2019-11-20 19:46 | PATH ---
Surgical Pathology Report Patient Name: CATHERINE PABLO Med. Rec. #: [id number] /Age/Gender: 1930 (Age: 89) / M Account: [id number] Location: ICU SPECIAL LIBRARIAN Taken: 11/18/2019 Received: 11/19/2019 Reported: 11/20/2019 Physicians: Angie Tan F.N.P. Specimen(s) Received FOREIGN BODY, BLADDER Clinical History Bladder foreign body Final Diagnosis FOREIGN BODY, BLADDER, REMOVAL: FOREIGN BODY MATERIAL (RUBBER TUBING). MACROSCOPIC DIAGNOSIS. Electronically Signed Ankita Noble M.D. Gross Description Received fresh labeled "foreign body of bladder," is a 17 cm in length johnson portion of rubber tubing. No soft tissue is present. No sections are submitted, gross only. DL/11/19/2019 saudi/11/19/2019
== END 2019-11-20 12:50 | disposition home health service (06) | DRG 871 ==
LOC: JER 19:23 → JERBED 21:49 → JICU 11-08 19:11
PROVIDERS: ADMIT Internal Medicine; ATTEND Nurse Practitioner Family
PROC: 0TCD8ZZ Extirpation of Matter from Urethra, Via Natural or Artificial Opening Endoscopic (ICD-10-PCS; 2019-11-18)
PROC: 0T9B80Z Drainage of Bladder with Drainage Device, Via Natural or Artificial Opening Endoscopic (ICD-10-PCS; 2019-11-18)
PROC: 0T7D8ZZ Dilation of Urethra, Via Natural or Artificial Opening Endoscopic (ICD-10-PCS; 2019-11-18)
PROC: 0TJB8ZZ Inspection of Bladder, Via Natural or Artificial Opening Endoscopic (ICD-10-PCS; principal; 2019-11-18 15:00)
DX: A41.89 Other specified sepsis (principal); J96.01 Acute respiratory failure with hypoxia; T81.506A Unspecified complication of foreign body accidentally left in body following aspiration, puncture or other catheterization, initial encounter; J69.0 Pneumonitis due to inhalation of food and vomit; G93.41 Metabolic encephalopathy; N17.9 Acute kidney failure, unspecified; E87.0 Hyperosmolality and hypernatremia; I48.20 Chronic atrial fibrillation, unspecified; I13.0 Hypertensive heart and chronic kidney disease with heart failure and stage 1 through stage 4 chronic kidney disease, or unspecified chronic kidney disease; I50.32 Chronic diastolic (congestive) heart failure; K50.90 Crohn's disease, unspecified, without complications; I24.8 Other forms of acute ischemic heart disease; N39.0 Urinary tract infection, site not specified; N18.3 Chronic kidney disease, stage 3 (moderate); I25.10 Atherosclerotic heart disease of native coronary artery without angina pectoris; N35.819 Other urethral stricture, male, unspecified site; D89.0 Polyclonal hypergammaglobulinemia; R13.10 Dysphagia, unspecified; I48.91 Unspecified atrial fibrillation; D64.9 Anemia, unspecified; N40.0 Benign prostatic hyperplasia without lower urinary tract symptoms; I25.2 Old myocardial infarction; R00.0 Tachycardia, unspecified; E11.22 Type 2 diabetes mellitus with diabetic chronic kidney disease; E11.42 Type 2 diabetes mellitus with diabetic polyneuropathy; R31.9 Hematuria, unspecified; R33.9 Retention of urine, unspecified; Z95.1 Presence of aortocoronary bypass graft; Z95.5 Presence of coronary angioplasty implant and graft; Z66 Do not resuscitate; Z96.651 Presence of right artificial knee joint
CPT/HCPCS: 36415; 70450-TC; 71045-TC-FY; 74230-TC-FY; 76775-TC; 76856-TC; 80048; 80053; 80061; 80076; 81003; 82550; 82553; 82565; 82803; 82962; 83605; 83721; 83735; 83880; 84100; 84300; 84484; 85025; 85610; 85730; 87040; 87086; 87186; 87899; 88300-TC; 92611-GN; 93005; 93010; 94640; 99285-25; J0131; U0003

== ENCOUNTER 2020-02-11 04:31 | Emergency (ER) | payer OTHER, BC ==
[2020-02-11 04:41] VITALS: BMI 33.4
--- OUTSIDE RECORDS SUMMARY | 2020-02-11 04:52 | XMS ---
:1930 Author Organization [facility] Support Name Relationship Address Phone RE, RETIRED Unavailable Unavailable Unavailable RE Unavailable Unavailable Unavailable GRACE PABLO DAUGHTER [address] [place] [address] GRACE PABLO Unavailable [id number] [facility] [phone] [place] [address] Re-disclosure Warning The records that you are about to access may contain information from federally- assisted alcohol or drug abuse programs. If such information is present, then the following federally mandated warning applies: This information has been disclosed to you from records protected by federal confidentiality rules (42 CFR part 2). The federal rules prohibit you from making any further disclosure of this information unless further disclosure is expressly permitted by the written consent of the person to whom it pertains or as otherwise permitted by 42 CFR part 2. A general authorization for the release of medical or other information is NOT sufficient for this purpose. The Federal rules restrict any use of the information to criminally investigate or prosecute any alcohol or drug abuse patient.The records that you are about to access may contain highly sensitive health information, the redisclosure of which is protected by Article 27-F of the [facility] Public Health law. If you continue you may haveaccess to information: Regarding HIV / AIDS; Provided by facilities licensed or operated by the [facility] Office of Mental Health; or Provided by the [facility] Office for People With Developmental Disabilities. If such information is present, then the following [facility] mandated warning applies: This information has been disclosed to you from confidential records which are protected by state law. State law prohibits you from making any further disclosure of this information without the specific written consent of the person to whom it pertains, or as otherwise permitted by law. Any unauthorized further disclosure in violation of state law may result in a fine or longterm sentence or both. A general authorization for the release of medical or other information is NOT sufficient authorization for further disclosure. Insurance Providers Payer name Policy type Policy ID Covered Covered republican's Policy P jeana / Coverage republican ID relationship to Meza Inf ormation type meza MEDICARE [id number] SP [id number] 14 4 BLUE CROSS [id number] SP [id number] SUPP PLAN 59 MEDICARE [id number] SP [id number] 14 4 CHARLIE MEDICARE [id number] SP [id number] AETNA [id number] SP [id number] MEDICARE AETNA [id number] SP [id number] MEDICARE MEDICARE [id number] SP [id number] 14 4 MEDICARE [id number] SP [id number] 14 4 AETNA MC O HMO [id number] Self [id number] NH AETNA [id number] 1 [id number] AETNA MC HMO HMO [id number] Self [id number] Q NH AETNA MC HMO 8 [id number] Self [id number] NH Results ID Date Data Source [id number] 11/15/2019 06:00:00 PM EDT [facility] Name Value Range Interpretation Description Data Sup porting Code Source(s) Document(s ) SARS [facility] coronavirus 2 RNA This lab was ordered by [facility] and reported by [facility]. ID Date Data Source [id number] 11/07/2019 08:25:00 PM EDT [facility] Name Value Range Interpretation Description Data Sup porting Code Source(s) Document(s ) SARS [facility] coronavirus 2 RNA This lab was ordered by [facility] and reported by [facility]. ID Date Data Source [id number] 10/21/2019 10:03:00 AM EDT [facility] Name Value Range Interpretation Code Description Data Santa rce(s) Supporting Document(s ) SARS-COV-2 [facility] PCR This lab was ordered by [facility] and reported by [facility]. Procedure
[2020-02-11] MEDS ORDERED: SODIUM CHLORIDE 500 ML IV STA (05:06)
--- NOTE | 2020-02-11 05:21 | PDOC ---
Attending Attestation - Resident Resident Name: Mare Hsu - ED Attending Attestation I have performed the following: I have examined & evaluated the patient, The case was reviewed & discussed with the resident, I agree w/resident's findings & plan - HPI HPI: 02/11/20 06:39 see resident hpi - Physicial Exam PE: 02/11/20 06:39 see resident exam - Medical Decision Making 02/11/20 06:39 89-year-old male currently on hospice sent in by daughter due to altered mental status x2 days Urinalysis consistent with urinary tract infection CT scan of the brain shows no obvious acute findings though acute stroke cannot be ruled out recommending MRI if further suspicion Due to patient's hospice status will attempt to contact family for further management goals Signed out to dayshift Discharge - Discharge Information Problems reviewed: Yes Clinical Impression/Diagnosis: UTI (urinary tract infection), AMS (altered mental status) Condition: Fair - Follow up/Referral - Patient Discharge Instructions - Post Discharge Activity
--- NOTE | 2020-02-11 05:48 | PDOC ---
History of Present Illness - General Chief Complaint: Altered Mental Status Stated Complaint: ALTERED MENTAL STATUS - History of Present Illness Initial Comments: 02/11/20 05:48 HPI: 89 y/o M with hx of AF, HTN, NIDDM with peripheral neuropathy, chronic kidney disease, polyclonal gammopathy, CAD s/p CABG BIBEMS for 2 days of AMS. Per daughter, yesterday he started acting agitated and wasnt understanding conversations and being repetitive. Patient reports no complaints PMHx: as noted above ROS: as noted SHx: Denies tobacco use; no alcohol use; no rec drugs Allergies: NKDA ROS: GENERAL/CONSTITUTIONAL: No fever or chills. No weakness. HEAD, EYES, EARS, NOSE AND THROAT: No change in vision. No ear pain or discharge. No sore throat. CARDIOVASCULAR: No chest pain or shortness of breath RESPIRATORY: No cough, wheezing, or hemoptysis. GASTROINTESTINAL: No nausea, vomiting, diarrhea or constipation. GENITOURINARY: No dysuria, frequency, or change in urination. MUSCULOSKELETAL: No joint or muscle swelling or pain. No neck or back pain. SKIN: No rash NEUROLOGIC: No headache, vertigo, loss of consciousness, or change in strength/sensation. ENDOCRINE: No increased thirst. No abnormal weight change HEMATOLOGIC/LYMPHATIC: No anemia, easy bleeding, or history of blood clots. ALLERGIC/IMMUNOLOGIC: No hives or skin allergy. PE: GENERAL: Awake, alert and oriented x2 to person and place, no acute distress HEAD: No signs of trauma, normocephalic, atraumatic EYES: EOMI, sclera anicteric, conjunctiva clear ENT: Auricles normal inspection, hearing grossly normal, nares patent, oropharynx clear without exudates. dry mucosa NECK: Normal ROM, no lymphadenopathy LUNGS: No increased work of breathing, symmetrical chest rise, clear to auscultation bilaterally, no wheezes, crackles or rhonchi HEART: Regular rate, regular rhythm, normal S1 and S2, no murmur, peripheral pulses 2+ and equal bilaterally. ABDOMEN: Soft, nondistended, BL lower abdomen and suprapubic ttp with mild guarding, no rebound. No masses. No CVAT MUSCULOSKELETAL: FROM NEUROLOGICAL: Cranial nerves II through XII grossly intact. Normal speech, no focal sensorimotor deficits. tremor present SKIN: Warm, Dry, normal turgor, no rashes or lesions noted Past History - Medical History Allergies/Adverse Reactions: Allergies Allergy/AdvReac Type Severity Reaction Status Date / Time No Known Allergies Allergy Verified 02/11/20 04:41 Home Medications: Ambulatory Orders Gabapentin [Neurontin -] 300 mg PO BID 07/14/18 Diltiazem [Cardizem -] 60 mg PO BID 09/01/18 Pantoprazole Sodium [Protonix -] 40 mg PO DAILY tablet.ec 09/11/18 Torsemide [Demadex -] 50 mg PO DAILY tablet 09/11/18 Tamsulosin HCl [Flomax -] 0.8 mg PO DAILY #60 capsule 09/12/18 Ferrous Sulfate [Feosol] 325 mg PO BID 10/14/18 Atorvastatin Ca [Lipitor] 40 mg PO HS 03/04/19 Insulin Glargine,Hum.rec.anlog [Basaglar Kwikpen U-100] 30 unit SQ HS 03/04/19 Insulin Sliding Scale [Novolog Vial Sliding Scale -] 25 units SQ TIDAC 03/04/19 Potassium Chloride 20 meq PO DAILY 03/04/19 Metoprolol Succinate [Toprol XL -] 50 mg PO DAILY tab.sr.24h 03/09/19 Aspirin [ASA -] 81 mg PO DAILY tab.chew 11/19/19 Anemia: Yes Cardiac Disorders: Yes (cardiac cath [id number] ago, MS, CABG, afib) CVA: Yes (cerebellar infarct) COPD: No CHF: Yes Diabetes: Yes GI Disorders: Yes (G-I bleed) HTN: Yes - Surgical History Cardiac Surgery: Yes (Bypass x6) Orthopedic Surgery: Yes (Right knee replacement) - Immunization History Immunization Up to Date: Yes - Psycho-Social/Smoking History Smoking History: Never smoked Have you smoked in the past 12 months: No Information on smoking cessation initiated: No - Substance Abuse Hx (Audit-C & DAST Scrn) How often the patient has a drink containing alcohol: Never Score: In Men: 4 or > Positive; In Women: 3 or > Positive: 0 Screen Result (Pos requires Nsg. Audit-10AR): Negative In the last yr the pt used illegal drug/Rx for NonMed reason: No Score: Yes response is considered Positive: 0 Screen Result (Positive result requires Nsg. DAST-10): Negative *Physical Exam - Vital Signs Last Vital Signs Temp Pulse Resp BP Pulse Ox 97.7 F 72 18 131/62 97 02/11/20 04:39 02/11/20 04:39 02/11/20 04:39 02/11/20 04:39 02/11/20 04:39 ED Treatment Course - RADIOLOGY Radiology Studies Ordered: Category Date Time Status HEAD CT WITHOUT CONTRAST [CT] Stat CT Scan 02/11/20 05:04 Ordered CXRPORT [CHEST X-RAY PORTABLE*] [RAD] Stat Radiology 02/11/20 05:04 Ordered - Medications Given in the ED: ED Medications Discontinued Medications Generic Name Dose Route Start Last Admin Trade Name Freq PRN Reason Stop Dose Admin Sodium Chloride 500 mls @ 1,000 mls/hr 02/11/20 05:06 02/11/20 05:23 Normal Saline - IV 02/11/20 05:35 1,000 mls/hr ASDIR STA Administration Medical Decision Making - Medical Decision Making 02/11/20 06:40 89 y/o M with hx of AF, HTN, NIDDM with peripheral neuropathy, chronic kidney disease, polyclonal gammopathy, CAD s/p CABG BIBEMS for 2 days of AMS. Per daughter, yesterday he started acting agitated and wasnt understanding conversations and being repetitive. Patient reports no complaints. VSS, AF. PE with BL lower abdomen and suprapubic ttp with mild guarding. DDx includes uti, pna, lyte imbalance, stroke, diverticulitis -AMS workup -500cc ivf -after lengthy discussion with daughter who is health care proxy, she had stated that since he was DCd from hospital in October 2019 he was made hospice care with DNR/DNI and no heroic measures including no CVC and no pressors; requesting tx of reversible causes 02/11/20 06:45 UA with uti; will give ceftriaxone will poroceed with lactate and BCx and CT abd/pel Signed out to day team to followup lactate and CT as well as discussed with daughter further care goals i.e. admissions vs not and CT vs not Discharge - Discharge Information Problems reviewed: Yes Clinical Impression/Diagnosis: AMS (altered mental status) Condition: Fair - Follow up/Referral - Patient Discharge Instructions - Post Discharge Activity
[2020-02-11 06:00] LABS: BASO % 1.3 % (0-2.0); HEMATOCRIT 37.6 % (35.4-49); HEMOGLOBIN 12.7 GM/dL (11.7-16.9); LYMPH % 38.2 % (8-40); MCH 36.2 pg (25.7-33.7); MCHC 33.9 g/dl (32.0-35.9); MEAN CELL VOLUME 106.7 fl (80-96); MEAN PLT VOLUME 7.9 fl (7.5-11.1); NEUT % 48.5 % (42.8-82.8); PLATELET COUNT 164 K/MM3 (134-434); RBC 3.52 M/mm3 (4.00-5.60); RDW 14.1 % (11.9-15.9); WHITE BLOOD COUNT 6.7 K/mm3 (4.0-10.0)
[2020-02-11 06:09] LABS: EPI CELLS 12 /uL (0-25.1); HYALINE CASTS 1 /uL (0-3.1); URINE APPEARANCE CLEAR; URINE BACTERIA 1716 /uL (0-1359); URINE BILIRUBIN NEGATIVE (NEGATIVE); URINE COLOR YELLOW; URINE GLUCOSE (UA) NEGATIVE (NEGATIVE); URINE KETONE NEGATIVE (NEGATIVE); URINE LEUK ESTERASE 1+ (NEGATIVE); URINE NITRITE POSITIVE (NEGATIVE); URINE PROTEIN NEGATIVE (NEGATIVE); URINE WBC 83 /uL (0-25.8)
[2020-02-11 06:13] LABS: INR 1.13 (0.83-1.09); PROTHROMBIN TIME (PATIENT) 13.9 SEC (9.7-13.0)
[2020-02-11 06:16] LABS: ACTIVATED PTT 33.3 SECONDS (25.2-36.5)
[2020-02-11 06:31] LABS: ALBUMIN 3.1 g/dl (3.4-5.0); ALK PHOS 153 U/L (45-117); ANION GAP 4 MMOL/L (8-16); BILIRUBIN,TOTAL 0.9 mg/dL (0.2-1); BLOOD UREA NITROGEN 21.3 mg/dL (7-18); CHLORIDE 112 mmol/L (98-107); CO2 27 mmol/L (21-32); CREATININE 0.9 mg/dL (0.55-1.3); GLUCOSE,RANDOM 185 mg/dL (74-106); MAGNESIUM 2.2 mg/dL (1.8-2.4); N-TERMINAL BNP 439.9 pg/ml (5-450); POTASSIUM 5.2 mmol/L (3.5-5.1); SGOT/AST 41 U/L (15-37); SGPT/ALT 27 U/L (13-61); SODIUM 144 mmol/L (136-145); TOT PROT 7.4 g/dl (6.4-8.2)
[2020-02-11] MEDS ORDERED: CEFTRIAXONE 1 GM in DEXTROSE 5%-WATER - 100 ML IVPB ONE (06:37)
[2020-02-11] MEDS ORDERED: CEFTRIAXONE 1 GM/50 ML BAG ONE (07:50)
--- NOTE | 2020-02-11 08:16 | PDOC ---
*Physical Exam - Vital Signs Last Vital Signs Temp Pulse Resp BP Pulse Ox 97.7 F 72 18 131/62 98 02/11/20 04:39 02/11/20 04:39 02/11/20 04:39 02/11/20 04:39 02/11/20 06:02 - Physical Exam General Appearance: No: Apparent Distress HEENT: positive: EOMI, YASMIN Gastrointestinal/Abdominal: positive: Normal Bowel Sounds, Soft. negative: Tender Musculoskeletal: negative: CVA Tenderness ED Treatment Course - LABORATORY CBC & Chemistry Diagram: 02/11/20 05:02 02/11/20 05:02 - ADDITIONAL ORDERS Additional order review: Laboratory Results 02/11/20 02/11/20 02/11/20 05:02 05:02 05:02 PT with INR 13.90 H INR 1.13 H PTT (Actin FS) 33.3 Sodium 144 Potassium 5.2 H Chloride 112 H Carbon Dioxide 27 Anion Gap 4 L BUN 21.3 H Creatinine 0.9 Est GFR (CKD-EPI)AfAm 87.46 Est GFR (CKD-EPI)NonAf 75.46 Random Glucose 185 H Calcium 9.0 Magnesium 2.2 Total Bilirubin 0.9 AST 41 H ALT 27 Alkaline Phosphatase 153 H Creatine Kinase 108 Troponin I < 0.02 B-Natriuretic Peptide 439.9 Total Protein 7.4 Albumin 3.1 L Urine Color Yellow Urine Appearance Clear Urine pH 5.0 Ur Specific Baring 1.017 Urine Protein Negative Urine Glucose (UA) Negative Urine Ketones Negative Urine Blood Negative Urine Nitrite Positive H Urine Bilirubin Negative Urine Urobilinogen 1.0 Ur Leukocyte Esterase 1+ H Urine WBC (Auto) 83 Urine Casts (Auto) 1 U Epithel Cells (Auto) 12 Urine Bacteria (Auto) 1716 02/11/20 05:02 RBC 3.52 L MCV 106.7 H MCHC 33.9 RDW 14.1 MPV 7.9 Neutrophils % 48.5 D Lymphocytes % 38.2 D Monocytes % 7.0 Eosinophils % 5.0 H D Basophils % 1.3 - Medications Given in the ED: ED Medications Discontinued Medications Generic Name Dose Route Start Last Admin Trade Name Freq PRN Reason Stop Dose Admin Sodium Chloride 500 mls @ 1,000 mls/hr 02/11/20 05:06 02/11/20 05:23 Normal Saline - IV 02/11/20 05:35 1,000 mls/hr ASDIR STA Administration Ceftriaxone Sodium 1 gm/ 100 mls @ 200 mls/hr 02/11/20 06:37 02/11/20 08:14 Dextrose IVPB 02/11/20 07:06 200 mls/hr ONCE ONE Administration Medical Decision Making - Medical Decision Making sign out from day team. pending CT scan, lactic and blood cultures. 02/11/20 09:07 CT showing gallstones, but no acute pathology. no leukocytosis, lact wnl, normal kidney function. given rocephin in ER. called daughterKERRI 02/11/20 09:56 spoke to daughter, discussed lab and ct findings as well as diagnosis. can take care of pt at home. rx for bactrim sent (in reference to old cultures) pt is a hospice pt, has care at home. hemodynamically stable. will dc home. Discharge - Discharge Information Problems reviewed: Yes Clinical Impression/Diagnosis: UTI (urinary tract infection) Qualifiers: Urinary tract infection type: site unspecified Hematuria presence: without hematuria Qualified Code(s): N39.0 - Urinary tract infection, site not specified AMS (altered mental status) Qualifiers: Altered mental status type: unspecified Qualified Code(s): R41.82 - Altered mental status, unspecified Condition: Fair Disposition: HOME - Admission No - Additional Discharge Information Prescriptions: Sulfamethoxazole/Trimethoprim [Bactrim Ds -] 1 tab PO BID #14 tablet - Follow up/Referral - Patient Discharge Instructions Patient Printed Discharge Instructions: DI for Urinary Tract Infection (UTI) Additional Instructions: Your father has a urinary tract infection (UTI). A prescription for an antibiotic has been provided. He should take it twice a day for 7 days. He should also follow up with his primary care doctor this week or early next week. Please come back to the ER if he has fevers, is not eating, is not urinating, is getting even more confused, is vomiting or if any new or concerning symptom develops. Thank you - Post Discharge Activity
[2020-02-11 08:22] LABS: ANISOCYTOSIS 1+; MACROCYTOSIS 1+; PLATELET ESTIMATE NORMAL
[2020-02-11 10:21] VITALS: BP 134/60; PULSE 62; TEMP 97.5
[2020-02-11 10:21] LABS: URINE RBC 19.6 /uL (0-23.9)
--- NOTE | 2020-02-11 13:34 | EKG ---
Test Reason : Blood Pressure : / mmHG Vent. Rate : 067 BPM Atrial Rate : 072 BPM P-R Int : 000 ms QRS Dur : 130 ms QT Int : 472 ms P-R-T Axes : 000 -13 000 degrees QTc Int : 498 ms SINUS RHYTHM WITH A-V DISSOCIATION AND WIDE QRS RHYTHM RIGHT BUNDLE BRANCH BLOCK ABNORMAL ECG WHEN COMPARED WITH ECG OF 07-NOV-2019 19:29, PREVIOUS ECG HAS UNDETERMINED RHYTHM, NEEDS REVIEW Confirmed by JAN WASHINGTON MD ([id number]) on 02/11/2020 1:34:35 PM Referred By: Confirmed By:JAN WASHINGTON MD
--- NOTE | 2020-02-15 16:14 | EKG ---
Test Reason : Blood Pressure : / mmHG Vent. Rate : 064 BPM Atrial Rate : 064 BPM P-R Int : 174 ms QRS Dur : 134 ms QT Int : 460 ms P-R-T Axes : 030 -15 063 degrees QTc Int : 474 ms SINUS RHYTHM WITH PREMATURE SUPRAVENTRICULAR COMPLEXES AND WITH OCCASIONAL PREMATURE VENTRICULAR COMPLEXES RIGHT BUNDLE BRANCH BLOCK ABNORMAL ECG WHEN COMPARED WITH ECG OF 11-FEB-2020 05:26, NO SIGNIFICANT CHANGE WAS FOUND Confirmed by ANAI MARI MD ([id number]) on 02/15/2020 4:13:34 PM Referred By: Confirmed By:ANAI MARI MD
== END 2020-02-11 11:40 | disposition home or self-care (01) ==
LOC: JER 04:31
PROC: 3E03329 Introduction of Other Anti-infective into Peripheral Vein, Percutaneous Approach (ICD-10-PCS; principal; 2020-02-11)
PROC: 3E0337Z Introduction of Electrolytic and Water Balance Substance into Peripheral Vein, Percutaneous Approach (ICD-10-PCS; 2020-02-11)
DX: R41.82 Altered mental status, unspecified (principal); N39.0 Urinary tract infection, site not specified
CPT/HCPCS: 36415; 70450-TC; 71045-TC-FY; 74177-TC; 80053; 81003; 82550; 83605; 83735; 83880; 84484; 85025; 85610; 85730; 87040; 87086; 87186; 93005; 93010; 99285-25